=== PATIENT | male | born 1940 | race Caucasian/White ===

== ENCOUNTER → 2017-01-21 | Outpatient (CLI) | payer OTHER ==
[~2017-01-21] MED LIST: ASCA500 PO; ASPI-232 PO; BNC/20125 PO; CRS/10 PO; NEBI10TA2 PO; NUTR1TAB3 PO; TAMS0.4C38 PO
[2017-01-21 09:24] LABS: MEAN CORPUSCULAR HGB CONC 37.3 g/dl (32-36); MEAN PLATELET VOLUME 9.7 fL (7.4-10.4); PLATELET COUNT 173 K/uL (130-400)
[2017-01-21 09:48] LABS: ESTIMATED AVERAGE GLUCOSE 105 mg/dl; HA1C FLAG Normal (Normal)
[2017-01-21 09:54] LABS: ALT/SGPT 27 U/L (12-78); AST/SGOT 24 U/L (15-37); BLOOD UREA NITROGEN 11 mg/dl (7-18); BUN/CREATININE RATIO 11.8 (10-20); CALCIUM 8.6 mg/dl (8.5-10.1); CARBON DIOXIDE 25 mmol/L (21-32); CHLORIDE 101 mmol/L (98-107); CHOLESTEROL 160 mg/dl (0-200); CREATININE 0.95 mg/dl (0.60-1.40); GLUCOSE 80 mg/dl (70-99); POTASSIUM 4.1 mmol/L (3.5-5.1); SODIUM 135 mmol/L (136-145)
[2017-01-21 09:57] LABS: ALB/GLOB RATIO 1.1 (0.9-2); ALKALINE PHOSPHATASE 95 U/L (45-117); CHOLESTEROL/HDL RATIO 2.3; HDL CHOLESTEROL 70 mg/dl; TRIGLYCERIDES 80 mg/dl (0-150); VERY LOW DENSITY LIPOPROT CALC 16 mg/dl
[2017-01-21 10:10] LABS: BASO % 0.4 %; BASO ABS # 0.02 K/uL (0-0.2); COMPLETE YES; EOS % 3.6 %; HEMATOCRIT 42.9 % (42-52); IG% 0.4 %; LYMPH % 23.2 %; LYMPH ABS # 1.17 K/uL (1.2-3.4); MEAN CELL VOLUME 97.9 fL (80-100); MEAN CORPUSCULAR HEMOGLOBIN 36.5 pg (25-34); MONO % 11.3 %; NEUT % 61.1 %; RED BLOOD COUNT 4.38 M/uL (4.7-6.1); WHITE BLOOD COUNT 5.05 K/uL (4.8-10.8)
== END | disposition home or self-care (01) ==
LOC: C.LAB 08:45
PROVIDERS: ATTEND Internal Medicine
DX: I25.10 Atherosclerotic heart disease of native coronary artery without angina pectoris (principal); E78.5 Hyperlipidemia, unspecified; R73.9 Hyperglycemia, unspecified; I10 Essential (primary) hypertension

== ENCOUNTER → 2017-05-20 | Outpatient (CLI) | payer OTHER | END | disposition home or self-care (01) | LOC: C.PATHSPEC 14:49 | PROVIDERS: ATTEND Urology | DX: C67.9 Malignant neoplasm of bladder, unspecified (principal); N30.20 Other chronic cystitis without hematuria ==

== ENCOUNTER → 2017-12-20 | Outpatient (CLI) | payer OTHER ==
[2017-12-20 17:32] LABS: ALBUMIN 3.7 gm/dl (3.4-5.0); ALKALINE PHOSPHATASE 91 U/L (45-117); ALT/SGPT 31 U/L (12-78); AST/SGOT 31 U/L (15-37); BLOOD UREA NITROGEN 15 mg/dl (7-18); CALCIUM 8.9 mg/dl (8.5-10.1); CARBON DIOXIDE 25 mmol/L (21-32); CHOLESTEROL 157 mg/dl (0-200); CREATININE 1.21 mg/dl (0.60-1.40); GLUCOSE 102 mg/dl (70-99); LDL CHOLESTEROL (DIRECT) 87 mg/dl; SODIUM 134 mmol/L (136-145); TOTAL PROTEIN 7.1 gm/dl (6.4-8.2)
== END | disposition home or self-care (01) ==
LOC: C.LABSPEC 16:41
PROVIDERS: ATTEND Internal Medicine
DX: I25.10 Atherosclerotic heart disease of native coronary artery without angina pectoris (principal); I10 Essential (primary) hypertension; E78.5 Hyperlipidemia, unspecified

== ENCOUNTER 2023-12-13 11:49 | Inpatient (IN) ==
[2023-12-13 12:29] LABS: Basophils # (auto) 0.03 K/uL (0.00-0.20); Basophils % (auto) 0.3 %; Eosinophils # (auto) 0.16 K/uL (0.00-0.50); Eosinophils % (auto) 1.7 %; Hematocrit (blood only) 42.3 % (42.0-52.0); Hemoglobin 15.2 g/dl (14.0-18.0); Immature Granulocytes # (auto) 0.03 K/uL (0.01-0.20); Immature Granulocytes % (auto) 0.3 %; Lymphocytes # (auto) 0.73 K/uL (1.20-3.40); Lymphocytes % (auto) 7.8 %; Mean Corpuscular Hemoglobin 36.8 pg (25.0-34.0); Mean Corpuscular Hgb Conc 35.9 g/dL (32.0-36.0); Mean Corpuscular Volume 102.4 fL (80.0-100.0); Mean Platelet Volume 9.6 fL (9.4-12.4); Monocytes # (auto) 1.27 K/uL (0.11-0.59); Monocytes % (auto) 13.6 %; Neutrophils # (auto) 7.12 K/uL (1.40-6.50); Neutrophils % (auto) 76.3 %; Platelet Count 148 K/uL (130-400); RDW Coefficient of Variation 12.5 % (11.5-14.5); RDW Standard Deviation 46.5 fL (36.4-46.3); Red Blood Count 4.13 M/uL (4.70-6.10); White Blood Count 9.34 K/ul (4.8-10.8)
[2023-12-13 12:38] LABS: Albumin Globulin Ratio 1.5 (0.9-2); Albumin Level 4.3 gm/dl (3.4-5.0); BUN Creatinine Ratio 10.5 (10-20); Bilirubin,Total 1.4 mg/dl (0.2-1.0); Calcium 9.4 mg/dl (8.6-10.3); Creatinine Clr Calc Pharmacy 47.4 ml/min; Est GFR (African American) 62.4 ml/min; Est GFR (Non-African American) 53.8 ml/min; Globulin 2.9 gm/dl (2.5-4.0); Potassium 4.1 mmol/L (3.5-5.1); Total Protein 7.2 gm/dl (6.0-8.3)
[2023-12-13 12:49] LABS: Partial Thromboplastin Ratio 1.2; Partial Thromboplastin Time 31 Seconds (21-31); Prothrombin Time 10.9 Seconds (9.0-12.0)
--- NOTE | 2023-12-13 13:05 | Emergency Department Note ---
Impression & Plan Weakness, Hematuria, Acute hyponatremia, Coagulopathy ED Provider Note NAME: SANTOS CESPEDES AGE: 83 SEX: M : 1940 ARRIVES VIA: Walk-In INFORMANT: [Patient] ED PROVIDER(S): [Demond Booth MD] CHIEF COMPLAINT: Hematuria, weakness HISTORY OF PRESENT ILLNESS: The patient is an 83-year-old male with atrial fibrillation. He had a prostate biopsy yesterday. He left the procedure wearing a Guzman catheter. There has been blood in his urine ever since the procedure. He has felt weak and a bit lightheaded. The patient had been on Eliquis but held the medication for the procedure. He is now using Lovenox. His last Lovenox injection was last evening. The patient has persisted with blood in the Guzman catheter. He is concerned that the catheter may not be in the proper position. He was worried that he had lost some blood causing his symptoms. The patient has not had fever, no cough or congestion. The patient does have some irritation from the Guzman catheter. He does admit to drinking a lot of free water in order to keep himself hydrated and his urine flowing. PMHx/PSHx/Social Hx: See Below PHYSICAL EXAM: GENERAL: Patient is in no acute distress. HEENT: No acute trauma, normocephalic atraumatic, mucous membranes moist, no nasal congestion. NECK: No stridor, no adenopathy, no meningismus, trachea is midline. LUNGS: Clear to auscultation bilaterally, no wheeze, no rhonchi, breath sounds equal. Breath sounds diminished bilaterally. HEART: Without murmurs gallops or rubs, irregular rhythm, normal rate. Heart tones distant. ABDOMEN: Soft, nontender, no peritonitis. Guzman catheter in place with a bloody urine in his leg bag. EXTREMITIES: No cyanosis, full range of motion of all the joints without pain or difficulty. NEUROLOGIC: Oriented x 3, no acute motor or sensory deficits, no focal weakness. SKIN: No jaundice, no diaphoresis. DIFFERENTIAL DIAGNOSIS: UTI, anemia, malpositioned Guzman catheter, coagulopathy, electrolyte imbalance, among others. EMERGENCY DEPARTMENT PROCEDURES: MEDICAL DECISION MAKING: There is no leukocytosis or concerning anemia. There is a normal platelet count. No coagulopathy. Sodium was quite low at 126. No renal failure. There were a few subtle liver enzyme elevations. Urinalysis results pending. On exam, the patient had obvious hematuria looking at the Guzman leg bag. The patient presents with weakness. He was having hematuria since his procedure yesterday. He is on subcu Lovenox. The patient's hyponatremia is likely causing his complaints. He may have consumed too much free water over the last 24 hours. With the hyponatremia, his weakness, the hematuria, his Lovenox use, and the recent urology procedure, the patient is in need of a hospital stay and further care. I did speak with case management and the on-call hospitalist. I did speak with Dr. Rodrigez of urology. Prior/Outside records/notes reviewed: None Imaging/x-ray results per my interpretation: Chronic Medical/Social conditions affecting care: Advanced age, chronic anticoagulation. Care/Management discussed with: Case management, the on-call hospitalist. [facility] urology-Dr. Rodrigez. Level of care consideration(s): After review of the information above and other included data: --I believe the patient requires escalation of care to admission DISPOSITION: Admission with urology consult. Past Med/Surg History Problem List (Updated 12/13/23 @ 14:05 by Demond Booth MD) Coagulopathy (Acute) Acute hyponatremia (Acute) Hematuria (Acute) Weakness (Acute) Hyponatremia Blood in the urine Pulmonary embolism dx 12/02/23 on Eliquis History of prostate cancer Port-A-Cath in place (09/14/22) Port placement with fluoroscopy. Dr. Mccormack Recurrent left inguinal hernia Urethral stricture Bladder carcinoma (Chronic) 07/2022- hx chemo Atrial fibrillation Was on Eliquis - currently on hold (started holding 11/29/23 due to upcoming urology biopsy but PE was noted on 12/02/[address]- patient subsequently started on Lovenox) History of left inguinal hernia repair (05/24/22) Recurrent left inguinal hernia repair with mesh Dr. Mccormack Coronary artery disease s/p CABG x 3 in 2012 (HEALY graft to LAD, saphenous vein graft to the obtuse marginal, saphenous vein graft to the right coronary artery and posterior descending artery) Primary hypertension Chronic HFrEF (heart failure with reduced ejection fraction) EF 50-54% 03/24/23 echo Peripheral arterial disease - Status post stenting of bilateral superficial femoral [id number] - Status post atherectomy and angioplasty and stenting of right SFA 2016 - S/p atherectomy and drug-coated balloon angioplasty right SFA January 2020 - S/p right femoral-popliteal bypass April 2021 Mixed hyperlipidemia Polymyalgia rheumatica Medical History History of pulmonary embolism Per 12/02/[address] scan (Eliquis had been on hold x 3-4 days; failed Eliquis therapy per records) - Patient was to start Lovenox 12/02/23 but did not lemon picker script until 12/05/23 per heme office long term care administrator (current) use of systemic steroids Pulmonary hypertension PASP 40-50 mmHg per 03/2023 ECHO COPD (chronic obstructive pulmonary disease) Suspected sleep apnea noted on 07/31/18 anesthesia consult Bifascicular block RBBB/LAFB (chronic) Carotid stenosis, bilateral s/p left CEA in 2016 <50% R and L carotid stenosis per 2021 carotid duplex, follows with [facility] Hemophilia A Ascending aortic aneurysm Fusiform dilation of the ascending thoracic aorta is stable from prior measuring 4.2 cm per 12/02/[address] Tricuspid regurgitation severe- per 03/2023 ECHO Hx of motion sickness History of COVID-19 02/05/22, home test, not hosp; cough, headache, fever>called PCP, put on Paxlovid>resolved. Radiation cystitis hx Prostate cancer 2011 hx-had radioactive seeds placed, no sx. Surgical History History of removal of Port-a-Cath (06/30/23) Access Port Removal(Left) - Sanford Perez, , FACS Hx of cataract extraction rt./lt eye (will be done 06/15/23) History of surgery TURBT 04/07/23 [facility] Status post carotid endarterectomy left 2017 Hx of appendectomy Hx of colonoscopy Hx of vascular surgery x2 stents placed in each lower extremity, [place] Hx of cystoscopy multiple, 08/01/18: LMA 4 last one in Jul 2022 Cystoscopy, TURBT medium- Terry Townsend MD Status post bilateral carotid endarterectomy S/P left inguinal hernia repair Status post cardiac surgery failed stress test>bypass surgery 2012, [place], x3 vessels; f/u dr beckford History of biopsy of bladder Family History Sister Breast cancer Mother Diabetes Heart disease Other Asthma Cancer No family history of adverse response to anesthesia Denies family history of Ovarian cancer Prostate cancer Social History Smoking Status: Never smoker Tobacco Type: Cigarettes Cigarettes Per Day: smoked 40 years; Second Hand Exposure: No; Do You Dip or Chew Tobacco: No; Hx Alcohol Use: Yes Alcohol type: beer Hx Substance Use: No Preferred Language: Guinean Communication Ability: Effective Communication Ability Comment: [place] Visual Impairment: No Limitations Hearing Ability: Normal 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: No Beliefs That Will Affect Care: None marital status: Current Living Situation: Spouse current occupational status: retired How many Children do You have: 2 Feels Safe at Home: Yes Childhood Exposure to Second-Hand Smoke: No caffeine: Yes during the past year weight has: remained stable Dental Care, Regularly: Yes Physical Activity Frequency: 3-4 Times per Week Seatbelt Use: always Sunscreen Use: Yes Assistive Devices: Glasses and Hearing Aid - Bilateral Allergies Allergies Allergy/AdvReac Type Severity Reaction Status Date / Time nitrofurantoin Allergy Intermediate FEVER Verified 12/12/23 09:37 losartan Allergy Mild Rash Verified 12/12/23 09:37 meperidine AdvReac Intermediate SEVERE Verified 12/12/23 09:37 NAUSEA AND VOMITING spironolactone AdvReac Intermediate gynecomasti Verified 12/12/23 09:37 a Home Meds Home Medications Medication Instructions Recorded Confirmed metoprolol succinate 50 mg 25 mg PO BID 01/12/22 12/13/23 tablet,extended release 24 hr terazosin 2 mg capsule 2 mg PO HS 07/01/22 12/13/23 enoxaparin 80 mg/0.8 mL 80 mg subcut Q12H 12/06/23 12/13/23 subcutaneous syringe (Lovenox) prednisone 1 mg tablet 4 mg PO QAM arthritis 12/06/23 12/13/23 Previous Rx's Medication Instructions Recorded amlodipine 10 mg tablet 10 mg PO QAM #90 tabs 03/23/23 tamsulosin 0.4 mg capsule 0.4 mg PO QAM #90 caps 03/23/23 rosuvastatin 20 mg tablet (Crestor) 20 mg PO HS #90 tabs 08/09/23 sulfamethoxazole 800 1 tab PO BID #20 tabs 12/02/23 mg-trimethoprim 160 mg tablet (Bactrim DS) Results & Data (ED) Vital Signs Vital Signs - 24 hr 12/13/23 11:55 12/13/23 13:37 Temperature 36.4 C L Temperature Source Temporal Artery Scan Pulse Rate 77 Pulse Rate [Left Finger] 69 Respiratory Rate 20 18 Respiratory Effort / Characteristics Non-Labored Spontaneous Non-Labored Spontaneous Respiratory Depth Normal Normal Blood Pressure 185/76 H Blood Pressure [Right Arm] 173/97 H Blood Pressure Mean 112 Blood Pressure Mean [Right Arm] 122 Pulse Oximetry 94 96 Oxygen Delivery Method Room Air Room Air Sepsis Recent Fever Within 48 Hours No Sepsis New/Unexplained Change in Mental Status No Sepsis Action Taken by Nursing No Action Required Home Medications Current Medication List: was personally reviewed by me Laboratory Data Attestation: I reviewed the patient's lab results. 12/13/23 12:02 12/13/23 12:02 Lab Results 12/13/23 Range/Units 12:02 WBC 9.34 (4.8-10.8) K/ul RBC 4.13 L (4.70-6.10) M/uL Hgb 15.2 (14.0-18.0) g/dl Hct 42.3 (42.0-52.0) % MCV 102.4 H (80.0-100.0) fL MCH 36.8 H (25.0-34.0) pg MCHC 35.9 (32.0-36.0) g/dL RDW Std Deviation 46.5 H (36.4-46.3) fL RDW Coeff of Greyson 12.5 (11.5-14.5) % Plt Count 148 (130-400) K/uL MPV 9.6 (9.4-12.4) fL Immature Gran % (Auto) 0.3 % Neut % (Auto) 76.3 % Lymph % (Auto) 7.8 % Payne % (Auto) 13.6 % Eos % (Auto) 1.7 % Baso % (Auto) 0.3 % Neut # (Auto) 7.12 H (1.40-6.50) K/uL Lymph # (Auto) 0.73 L (1.20-3.40) K/uL Payne # (Auto) 1.27 H (0.11-0.59) K/uL Eos # (Auto) 0.16 (0.00-0.50) K/uL Baso # (Auto) 0.03 (0.00-0.20) K/uL Immature Gran # (Auto) 0.03 (0.01-0.20) K/uL PT 10.9 (9.0-12.0) Seconds INR 1.0 (0.9-1.1) APTT 31 (21-31) Seconds PTT Ratio 1.2 Sodium 126 L (136-145) mmol/L Potassium 4.1 (3.5-5.1) mmol/L Chloride 95 L (98-107) mmol/L Carbon Dioxide 24 (21-32) mmol/L Anion Gap 7 (3-11) BUN 13 (6-23) mg/dl Creatinine 1.24 (0.6-1.4) mg/dl Est Cr Clr Drug Dosing 47.4 ml/min Est GFR ( Amer) 62.4 ml/min Est GFR (Non-Af Amer) 53.8 ml/min BUN/Creatinine Ratio 10.5 (10-20) Glucose 144 H (70-99(Fasting)) mg/dl Calcium 9.4 (8.6-10.3) mg/dl Magnesium 1.7 (1.7-2.4) mg/dl Total Bilirubin 1.4 H (0.2-1.0) mg/dl AST 23 (13-39) U/L ALT 18 (7-52) U/L Alkaline Phosphatase 138 H (34-104) U/L Total Protein 7.2 (6.0-8.3) gm/dl Albumin 4.3 (3.4-5.0) gm/dl Globulin 2.9 (2.5-4.0) gm/dl Albumin/Globulin Ratio 1.5 (0.9-2) Administered Medications Discontinued Medications Sodium Chloride (Nss) 500 mls @ 999 mls/hr IV .Q31M ONE Stop: 12/13/23 13:29 Last Admin: 12/13/23 13:36 Dose: Not Given Documented By: MMN Discharge Plan Visit Data Chief Complaint: Hematuria Stated Complaint: SURGERY YESTERDAY, CATHETER IS BLEEDING ED Provider: Demond Booth Discharge Problem: Weakness, Hematuria, Acute hyponatremia, Coagulopathy Patient Disposition: Admitted As Inpatient Condition: Fair Forms Stand Alone Forms: [facility] Prescriptions Prescriptions: No Action tamsulosin 0.4 mg capsule 0.4 mg PO QAM Qty: 90 3RF amlodipine 10 mg tablet 10 mg PO QAM Qty: 90 3RF rosuvastatin [Crestor] 20 mg tablet 20 mg PO HS Qty: 90 3RF metoprolol succinate 50 mg tablet extended release 24 hr 25 mg PO BID terazosin 2 mg capsule 2 mg PO HS sulfamethoxazole-trimethoprim [Bactrim DS] 800-160 mg tablet 1 tab PO BID Qty: 20 0RF enoxaparin [Lovenox] 80 mg/0.8 mL Syringe 80 mg SUBCUT Q12H prednisone 1 mg tablet 4 mg PO QAM Referrals Referrals: Jael Yu MD [Primary Care Provider] - Discharge Problem: Hematuria Qualifiers: Hematuria type: gross Qualified Code(s): R31.0 - Gross hematuria
--- NOTE | 2023-12-13 13:22 | History & Physical Report ---
Date of Service December 13, 2023 Assessment & Plan (1) Hyponatremia: Plan: Carlos is an 83-year-old male with past medical history of PE, A-fib, CAD, heart failure with reduced ejection fraction, PAD, PMR on anticoagulation who underwent prostate biopsy/transurethral resection of bladder carcinoma 12/12/2023. He has a Guzman in place but following his procedure has had continued output of sanguinous urine. Patient is anticoagulated on Eliquis normally on this was transition to Lovenox periprocedurally. He endorses some weakness. No fever, chills, sweats, dysuria. On ER evaluation hemoglobin is actually increased from prior, 15.2 with creatinine 13.5. He is acutely hyponatremic at 126, last 136. There is no MERRICK. Patient is recommended for admission due to lightheadedness/dizziness with associated hyponatremia. Hyponatremia Suspect weakness and dizziness with hyponatremia - Most likely due to polydipsia and patient has been drinking large amounts of water to try and stay hydrated. He has not had over 716 ounce bottles of water yesterday, and 2 today - Urine sodium, urine osmolality, serum osmolality pending. DDx includes SIADH and polydipsic. He shows no symptoms at time of admission and only symptom was some slight lightheadedness, dizziness will not treat with hypertonic saline and expect him to have gradual rise with auto diuresis and fluid restriction Fluid restrict Trend BMP every 4 hours (2) Blood in the urine: Plan: Hematuria -Patient has red-tinged urine which is not melecio blood in the Guzman bag. He is very well-hydrated and despite this has a hemoglobin that is actually uptrending. As he has had an acute PE in the last 2 weeks the risks of holding anticoagulation outweigh the benefit, especially since he has a small amount of expected sanguinous output into his urine bag but without melecio bloody output and with a stable hemoglobin that is actually uptrending. Lovenox is continued. Patient also has a history of vascular stents, although no cardiac stents. 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 Treated with Rituxan/Cyclophosphamide/Prednisone. Evaluated by Dr. Mac at [facility] in [address] Viraj Steinberg 12/2019 at [facility]. Overall no evidence of factor VIII deficiency noted. No evidence of lupus anticoagulant noted. He could go for surgical intervention as planned earlier." per [facility] 11/02/22: "Factor VIII inhibitor: resolved with rituximab, cyclophosphamide and steroid treatment in 2018." Suspected to be induced by antiplatelet agents (4) Chronic HFrEF (heart failure with reduced ejection fraction): Plan: No chest pain, chest pressure. No hypoxia. He is not in acute heart failure decompensation on admission Last echo 03/2023: EF 50-54%, septal motion consistent with intraventricular conduction delay, no AAS is seen, severe TR is noted, moderate pulmonary hypertension Continue statin, metoprolol. Anticoagulation held (5) Peripheral arterial disease: Plan: PAD - Status post stenting of bilateral superficial femoral [id number] - Status post atherectomy and angioplasty and stenting of right SFA 2016 - S/p atherectomy and drug-coated balloon angioplasty right SFA January 2020 - S/p right femoral-popliteal bypass April 2021 Anticoagulation as noted, patient reports he is not able to take Plavix/antiplatelet (6) COPD (chronic obstructive pulmonary disease): Plan: No wheezing on exam History of Present Illness Primary Care Provider: Jael Yu MD Carlos is seen at the bedside. He reports that he had a biopsy yesterday of his prostate and has a Guzman bag in place. This has been draining red-colored urine, although which is more of a urine consisting has not been thick blood. He had some dizziness today and was concerned about anemia. He reports he has been drinking very large amount of water to stay hydrated. He has had around 7x 16 ounce bottles of water yesterday and 216 ounce bottles of water today. He has not had any chest pain, chest pressure, shortness of breath. He has had no fever, chills, sweats and has no abdominal pain. He does not feel weak just got transiently lightheaded earlier today. He was diagnosed with a acute PE 2 weeks ago and remains on Lovenox for this. He was previously on Eliquis this was transitioned to Lovenox periprocedurally. He has been on Bactrim perioperatively which he did take this morning. Medical History: Reviewed Medications: Reviewed Surgical History: Reviewed Family history: Reviewed Allergies: Reviewed Social History: Reviewed Code Status: Full Allergies Allergy/AdvReac Type Severity Reaction Status Date / Time nitrofurantoin Allergy Intermediate FEVER Verified 12/12/23 09:37 losartan Allergy Mild Rash Verified 12/12/23 09:37 meperidine AdvReac Intermediate SEVERE Verified 12/12/23 09:37 NAUSEA AND VOMITING spironolactone AdvReac Intermediate gynecomasti Verified 12/12/23 09:37 a Home Medications Medication Instructions Recorded Confirmed Type metoprolol succinate 50 mg 25 mg PO BID 01/12/22 12/13/23 History tablet,extended release 24 hr terazosin 2 mg capsule 2 mg PO HS 07/01/22 12/13/23 History amlodipine 10 mg tablet 10 mg PO QAM #90 tabs 03/23/23 12/13/23 Rx tamsulosin 0.4 mg capsule 0.4 mg PO QAM #90 caps 03/23/23 12/13/23 Rx rosuvastatin 20 mg tablet (Crestor) 20 mg PO HS #90 tabs 08/09/23 12/13/23 Rx sulfamethoxazole 800 1 tab PO BID #20 tabs 12/02/23 12/13/23 Rx mg-trimethoprim 160 mg tablet (Bactrim DS) enoxaparin 80 mg/0.8 mL 80 mg subcut Q12H 12/06/23 12/13/23 History subcutaneous syringe (Lovenox) prednisone 1 mg tablet 4 mg PO QAM arthritis 12/06/23 12/13/23 History Past Med/Surg History Problem List (Updated 12/13/23 @ 13:18 by Isma Gibbs MD) Hyponatremia Blood in the urine Pulmonary embolism dx 12/02/23 on Eliquis History of prostate cancer Port-A-Cath in place (09/14/22) Port placement with fluoroscopy. Dr. Mccormack Recurrent left inguinal hernia Urethral stricture Bladder carcinoma (Chronic) 07/2022- hx chemo Atrial fibrillation Was on Eliquis - currently on hold (started holding 11/29/23 due to upcoming urology biopsy but PE was noted on 12/02/[address]- patient subsequently started on Lovenox) History of left inguinal hernia repair (05/24/22) Recurrent left inguinal hernia repair with mesh Dr. Mccormack Coronary artery disease s/p CABG x 3 in 2012 (HEALY graft to LAD, saphenous vein graft to the obtuse marginal, saphenous vein graft to the right coronary artery and posterior descending artery) Primary hypertension Chronic HFrEF (heart failure with reduced ejection fraction) EF 50-54% 03/24/23 echo Peripheral arterial disease - Status post stenting of bilateral superficial femoral [id number] - Status post atherectomy and angioplasty and stenting of right SFA 2016 - S/p atherectomy and drug-coated balloon angioplasty right SFA January 2020 - S/p right femoral-popliteal bypass April 2021 Mixed hyperlipidemia Polymyalgia rheumatica Medical History (Updated 12/13/23 @ 13:18 by Isma Gibbs MD) History of pulmonary embolism Per 12/02/[address] scan (Eliquis had been on hold x 3-4 days; failed Eliquis therapy per records) - Patient was to start Lovenox 12/02/23 but did not tow picker script until 12/05/23 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) use of systemic steroids Pulmonary hypertension PASP 40-50 mmHg per 03/2023 ECHO COPD (chronic obstructive pulmonary disease) Suspected sleep apnea noted on 07/31/18 anesthesia consult Bifascicular block RBBB/LAFB (chronic) Carotid stenosis, bilateral s/p left CEA in 2016 <50% R and L carotid stenosis per 2021 carotid duplex, follows with [facility] vascular Hemophilia A Ascending aortic aneurysm Fusiform dilation of the ascending thoracic aorta is stable from prior measuring 4.2 cm per 12/02/[address] Tricuspid regurgitation severe- per 03/2023 ECHO Hx of motion sickness History of COVID-19 02/05/22, home test, not hosp; cough, headache, fever>called PCP, put on Paxlovid>resolved. Radiation cystitis hx Prostate cancer 2011 hx-had radioactive seeds placed, no sx. Surgical History History of removal of Port-a-Cath (06/30/23) Access Port Removal(Left) - Sanford Perez DO, FACS Hx of cataract extraction rt./lt eye (will be done 06/15/23) History of surgery TURBT 04/07/23 [facility] Status post carotid endarterectomy left 2017 Hx of appendectomy Hx of colonoscopy Hx of vascular surgery x2 stents placed in each lower extremity, [place] Hx of cystoscopy multiple, 08/01/18: LMA 4 last one in Jul 2022 Cystoscopy, TURBT medium- Terry Townsend MD Status post bilateral carotid endarterectomy S/P left inguinal hernia repair Status post cardiac surgery failed stress test>bypass surgery 2012, [facility], x3 vessels; f/u dr beckford History of biopsy of bladder Family History Sister Breast cancer Mother Diabetes Heart disease Other Asthma Cancer No family history of adverse response to anesthesia Denies family history of Ovarian cancer Prostate cancer Social History Smoking Status: Never smoker Tobacco Type: Cigarettes Cigarettes Per Day: smoked 40 years; Second Hand Exposure: No; Do You Dip or Chew Tobacco: No; Hx Alcohol Use: Yes Alcohol type: beer Hx Substance Use: No Preferred Language: Upper Sorbian Communication Ability: Effective Communication Ability Comment: [place] Visual Impairment: No Limitations Hearing Ability: Normal Early Breastfeeding Care Specialist Required: No Beliefs That Will Affect Care: None marital status: Current Living Situation: Spouse current occupational status: retired How many Children do You have: 2 Feels Safe at Home: Yes Childhood Exposure to Second-Hand Smoke: No caffeine: Yes during the past year weight has: remained stable Dental Care, Regularly: Yes Physical Activity Frequency: 3-4 Times per Week Seatbelt Use: always Sunscreen Use: Yes Assistive Devices: Glasses and Hearing Aid - Bilateral Physical Exam Physical Exam: General: A&Ox3. NAD. Cooperative. HEENT: Atraumatic, normocephalic. Vision and hearing grossly intact Pulm: CTAB A&P. -wheezes, -rales, -rhonchi. Symmetrical chest rise. No increased work of breathing. No respiratory distress. Cardiac: RRR, -mrg. Radial pulses intact and symmetrical. JVD is not present Abdominal: Nontender, nondistended, soft. BS present. : Guzman bag in place draining serosanguineous but not overtly bloody urine Extremities: Trace to minimal edema of the ankles bilaterally, moves all extremities equally and sensation/strength is grossly intact Results & Data Results & Data Vital Signs (Past 12 Hours) Vital Signs Temp Pulse Resp BP Pulse Ox O2 Del Method 12/13/23 11:55 36.4 C L 77 20 185/76 H 94 Room Air PG Care Time/CCT Total # of Minutes Spent Total Time Spent with Patient: Total time spent is greater than 50% in coordination of care (as documented) at patient's floor/unit and/or counseling patient: Coding Level of Care Code 50676 INT INP/OBS CARE MIN Diagnoses Hyponatremia E87.1 Blood in the urine R31.9 Hemophilia A D66 Chronic HFrEF (heart failure with reduced ejection fraction) I50.22 Peripheral arterial disease I73.9 COPD (chronic obstructive pulmonary disease) J44.9
[2023-12-13] MEDS: SODIUM CHLORIDE 0.9% 500 ML IV ONE (13:36)
[2023-12-13 13:45] LABS: Magnesium 1.7 mg/dl (1.7-2.4)
[2023-12-13] MEDS ORDERED: ACETAMINOPHEN 325 MG TAB PO PRN (15:28)
[2023-12-13 16:36] LABS: BUN Creatinine Ratio 12.2 (10-20); Calcium 8.7 mg/dl (8.6-10.3); Creatinine Clr Calc Pharmacy 61.9 ml/min; Est GFR (African American) 82.9 ml/min; Est GFR (Non-African American) 71.5 ml/min
[2023-12-13] MEDS: cefTRIAXone SODIUM 1,000 MG/50 ML BAG IV SCH (16:55)
--- NOTE | 2023-12-13 16:58 | Ultrasound Report ---
BILATERAL LOWER EXTREMITY VENOUS DOPPLER CLINICAL HISTORY: Right lower extremities swelling. COMPARISON STUDY: No previous studies for comparison. TECHNIQUE: Sonography of the deep venous system of the bilateral lower extremities was performed. Co mpression and augmentation were evaluated. FINDINGS: The bilateral common femoral, superficial femoral and popliteal veins were compressible. A ugmentation was normal. Flow was shown within the deep calf vessels. Incidental note is made of a 3.2 x 2.5 x 0.8 cm left popliteal cyst. IMPRESSION: 1. No evidence of deep venous thrombus within the bilateral lower extremities. 2. 3.2 x 2.5 x 0.8 cm left popliteal cyst. ACT 112: Negative or not required by law. Electronically signed by: Akhil Tse M.D. 12/13/2023 4:57 PM
[2023-12-13 17:36] LABS: Appearance Urine Slightly Cloudy (Clear); Specific Gravity Urine 1.007 (1.000-1.030)
[2023-12-13 17:37] LABS: RBC Urine Automated >20 /hpf (0-4)
[2023-12-13 17:38] LABS: Bacteria Urine Automated None Seen (Negative); Cast Urine Automated 0-2 /lpf (0-5); Epithelial Cell Urine Auto 0-2 /lpf (0-5)
[2023-12-13 20:56] LABS: Hematocrit (blood only) 37.1 % (42.0-52.0); Hemoglobin 13.7 g/dl (14.0-18.0)
[2023-12-13 21:14] LABS: BUN Creatinine Ratio 10.3 (10-20); Creatinine Clr Calc Pharmacy 56.7 ml/min; Est GFR (African American) 74.5 ml/min; Est GFR (Non-African American) 64.3 ml/min; Potassium 3.9 mmol/L (3.5-5.1)
[2023-12-13] MEDS: MELATONIN 3 MG TAB PO PRN (21:36)
[2023-12-13] MEDS: TERAZOSIN HCL 1 MG CAP PO SCH (21:36)
[2023-12-13] MEDS: METOPROLOL SUCC 25MG EXT REL TAB PO SCH (21:37)
[2023-12-13] MEDS: ROSUVASTATIN CALCIUM 20 MG TAB PO SCH (21:37)
[2023-12-13] MEDS: ENOXAPARIN 80 MG/0.8 ML SYR SQ SCH (21:37)
[2023-12-14 01:24] LABS: Potassium 3.9 mmol/L (3.5-5.1)
[2023-12-14 01:25] LABS: BUN Creatinine Ratio 10.1 (10-20); Calcium 8.6 mg/dl (8.6-10.3); Creatinine Clr Calc Pharmacy 55.6 ml/min; Est GFR (African American) 72.9 ml/min; Est GFR (Non-African American) 62.9 ml/min
[2023-12-14 06:14] LABS: Basophils # (auto) 0.03 K/uL (0.00-0.20); Basophils % (auto) 0.5 %; Eosinophils # (auto) 0.21 K/uL (0.00-0.50); Eosinophils % (auto) 3.8 %; Hematocrit (blood only) 35.6 % (42.0-52.0); Hemoglobin 12.9 g/dl (14.0-18.0); Immature Granulocytes # (auto) 0.01 K/uL (0.01-0.20); Immature Granulocytes % (auto) 0.2 %; Lymphocytes # (auto) 0.69 K/uL (1.20-3.40); Lymphocytes % (auto) 12.6 %; Mean Corpuscular Hemoglobin 36.6 pg (25.0-34.0); Mean Corpuscular Hgb Conc 36.2 g/dL (32.0-36.0); Mean Corpuscular Volume 101.1 fL (80.0-100.0); Mean Platelet Volume 9.6 fL (9.4-12.4); Monocytes # (auto) 0.94 K/uL (0.11-0.59); Monocytes % (auto) 17.1 %; Neutrophils # (auto) 3.61 K/uL (1.40-6.50); Neutrophils % (auto) 65.8 %; Platelet Count 123 K/uL (130-400); RDW Coefficient of Variation 12.3 % (11.5-14.5); RDW Standard Deviation 45.5 fL (36.4-46.3); Red Blood Count 3.52 M/uL (4.70-6.10); White Blood Count 5.49 K/ul (4.8-10.8)
[2023-12-14 06:15] LABS: BUN Creatinine Ratio 10.6 (10-20); Calcium 8.7 mg/dl (8.6-10.3); Creatinine Clr Calc Pharmacy 57.9 ml/min; Est GFR (African American) 77.1 ml/min; Est GFR (Non-African American) 66.6 ml/min; Potassium 3.8 mmol/L (3.5-5.1)
[2023-12-14] MEDS: amLODIPine BESYLATE 5 MG TAB PO SCH (08:23)
[2023-12-14] MEDS: predniSONE 1 MG TAB PO SCH (08:23)
[2023-12-14] MEDS: TAMSULOSIN HCL 0.4 MG CAP PO SCH (08:23)
--- NOTE | 2023-12-14 13:49 | Hospitalist Progress Note ---
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 Treated with Rituxan/Cyclophosphamide/Prednisone. Evaluated by Dr. Mac [place] [facility] [place] [address] Viraj Steinberg 12/2019 at [facility]. Overall no evidence of factor VIII deficiency noted. No evidence of lupus anticoagulant noted. He could go for surgical intervention as planned earlier." per CCP 11/02/22: "Factor VIII inhibitor: resolved with rituximab, cyclophosphamide and steroid treatment in 2019." Suspected to be induced by antiplatelet agents (4) Pulmonary embolism: Plan: Was in the process of starting Coumadin, but currently on hold Countinue Lovenox for now (5) Chronic HFrEF (heart failure with reduced ejection fraction): Plan: No chest pain, chest pressure. No hypoxia. He is not in acute heart failure decompensation on admission Last echo 03/2023: EF 50-54%, septal motion consistent with intraventricular conduction delay, no AAS is seen, severe TR is noted, moderate pulmonary hypertension Continue statin, metoprolol. Anticoagulation held (6) Peripheral arterial disease: Plan: PAD - Status post stenting of bilateral superficial femoral [id number] - Status post atherectomy and angioplasty and stenting of right SFA 2016 - S/p atherectomy and drug-coated balloon angioplasty right SFA January 2020 - S/p right femoral-popliteal bypass April 2021 Anticoagulation as noted, patient reports he is not able to take Plavix/antiplatelet (7) COPD (chronic obstructive pulmonary disease): Plan: No wheezing on exam Plan continue to monitor Admission and Anticipated Discharge Date Admission Date: December 14, 2023 Subjective patient seen and examined, still some blood in his de oliveira catheter Review of Systems 2 Review of Systems: All systems reviewed are negative, apart from the ones contained in the history. Physical Exam Physical Exam: The patient is awake, alert and oriented 3, well developed and well nourished, normocephalic and atraumatic, lying in bed and in no acute distress. HEENT--PERRL, EOMI, mucous membranes and oropharynx mildly dry Neck--supple. No JVD. No bruits. Thyroid normal, trachea midline, no adenopathy. Heart--normal S1 and S2. No murmurs, rubs or gallops. Lungs--clear bilaterally, no respiratory distress, no accessory muscle use. Abdomen--normal bowel sounds and soft. Extremities--no cyanosis or clubbing. No edema. Dermatologic--normal skin turgor, normal color, no abnormal lymph nodes, no rash. Neurologic--cranial nerves II through XII grossly intact. Rheumatologic--normal range of motion. Psychiatric--normal affect. Results & Data Results & Data Vital Signs (Past 12 Hours) Vital Signs Temp Pulse Pulse Resp BP Pulse Ox O2 Del Method 12/14/23 10:51 98.4 F 57 L 15 151/70 H 95 Room Air 12/14/23 08:00 Room Air 12/14/23 07:46 97.2 F L 54 L 15 163/69 H 95 Room Air 12/14/23 07:00 61 12/14/23 03:13 98.2 F 41 L 18 150/67 H 94 Room Air PG Care Time/CCT Total # of Minutes Spent Total Time Spent with Patient: Total time spent is greater than 50% in coordination of care (as documented) at patient's floor/unit and/or counseling patient: Coding Level of Care Code 42277 SUB INP/OBS CARE 2/35MIN Diagnoses Hyponatremia E87.1 Blood in the urine R31.9 Hemophilia A D66 Pulmonary embolism I26.99 Chronic HFrEF (heart failure with reduced ejection fraction) I50.22 Peripheral arterial disease I73.9 COPD (chronic obstructive pulmonary disease) J44.9 Time Spent (min) 35
[2023-12-14] MEDS: POLYETHYLENE (MIRALAX) 17 GM PACK PO SCH (14:12)
--- NOTE | 2023-12-14 14:53 | Urology Consultation ---
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 Currently admitted for hyponatremia following a TURBT. Urology consulted for hematuria Catheter was gently irrigated at bedside with removal of several small clots. Draining spontaneously now Agree with continuing full anticoagulation given PE. 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 Recent staging imaging showed a pulmonary embolism and he was started on Lovenox after being taken off Eliquis and a CT scan of the abdomen pelvis showed a 3 cm mass in the bladder concerning for recurrence. He was taken the OR on 12/12/2023 for TURBT. A Guzman catheter was left in place. He was discharged home . He called the office and noted some hematuria and some swelling and was directed the emergency department. Labs in the emergency department showed a hemoglobin of 15.2 but a sodium of 126. He was admitted to medicine. Urology was consulted to help with management of hematuria. He has continued Lovenox. Allergies Allergy/AdvReac Type Severity Reaction Status Date / Time nitrofurantoin Allergy Intermediate FEVER Verified 12/12/23 09:37 losartan Allergy Mild Rash Verified 12/12/23 09:37 meperidine AdvReac Intermediate SEVERE Verified 12/12/23 09:37 NAUSEA AND VOMITING spironolactone AdvReac Intermediate gynecomasti Verified 12/12/23 09:37 a Home Medications Medication Instructions Recorded Confirmed Type metoprolol succinate 50 mg 25 mg PO BID 01/12/22 12/13/23 History tablet,extended release 24 hr terazosin 2 mg capsule 2 mg PO HS 07/01/22 12/13/23 History amlodipine 10 mg tablet 10 mg PO QAM #90 tabs 03/23/23 12/13/23 Rx tamsulosin 0.4 mg capsule 0.4 mg PO QAM #90 caps 03/23/23 12/13/23 Rx rosuvastatin 20 mg tablet (Crestor) 20 mg PO HS #90 tabs 08/09/23 12/13/23 Rx sulfamethoxazole 800 1 tab PO BID #20 tabs 12/02/23 12/13/23 Rx mg-trimethoprim 160 mg tablet (Bactrim DS) enoxaparin 80 mg/0.8 mL 80 mg subcut Q12H 12/06/23 12/13/23 History subcutaneous syringe (Lovenox) prednisone 1 mg tablet 4 mg PO QAM arthritis 12/06/23 12/13/23 History Patient History Medical History History of pulmonary embolism Per 12/02/[address] scan (Eliquis had been on hold x 3-4 days; failed Eliquis therapy per records) - Patient was to start Lovenox 12/02/23 but did not pick pulling machine tender script until 12/05/23 per heme office [facility] (current) use of systemic steroids Pulmonary hypertension PASP 40-50 mmHg per 03/2023 ECHO COPD (chronic obstructive pulmonary disease) Suspected sleep apnea noted on 07/31/18 anesthesia consult Bifascicular block RBBB/LAFB (chronic) Carotid stenosis, bilateral s/p left CEA in 2017 <50% R and L carotid stenosis per 2021 carotid duplex, follows with [facility] vascular Hemophilia A Ascending aortic aneurysm Fusiform dilation of the ascending thoracic aorta is stable from prior measuring 4.2 cm per 12/02/[address] Tricuspid regurgitation severe- per 03/2023 ECHO Hx of motion sickness History of COVID-19 02/05/22, home test, not hosp; cough, headache, fever>called PCP, put on Paxlovid>resolved. Radiation cystitis hx Prostate cancer 2011 hx-had radioactive seeds placed, no sx. Surgical History History of removal of Port-a-Cath (06/30/23) Access Port Removal(Left) - Sanford Perez, DO, FACS Hx of cataract extraction rt./lt eye (will be done 06/15/23) History of surgery TURBT 04/07/23 [facility] Status post carotid endarterectomy left 2017 Hx of appendectomy Hx of colonoscopy Hx of vascular surgery x2 stents placed in each lower extremity, [place] Hx of cystoscopy multiple, 08/01/18: LMA 4 last one in Jul 2022 Cystoscopy, TURBT natali- Terry Townsend MD Status post bilateral carotid endarterectomy S/P left inguinal hernia repair Status post cardiac surgery failed stress test>bypass surgery 2012, [facility], x3 vessels; f/u dr beckford History of biopsy of bladder Family History Sister Breast cancer Mother Diabetes Heart disease Other Asthma Cancer No family history of adverse response to anesthesia Denies family history of Ovarian cancer Prostate cancer Social History Smoking Status: Former smoker Tobacco Type: Cigarettes Cigarettes Per Day: smoked 40 years; Second Hand Exposure: No; Do You Dip or Chew Tobacco: No; Tobacco Cessation Education Requested by Patient: No Hx Alcohol Use: Yes Alcohol type: beer and hard liquor Hx Substance Use: No Preferred Language: Albanian Communication Ability: Effective Communication Ability Comment: SANTO DOMINGO Visual Impairment: No Limitations Hearing Ability: Normal Supervisor Extrusion Required: No Beliefs That Will Affect Care: None marital status: Current Living Situation: Spouse current occupational status: retired How many Children do You have: 2 Other Information That Helps Us Care for You: No Feels Safe at Home: Yes Childhood Exposure to Second-Hand Smoke: No caffeine: Yes during the past year weight has: remained stable Dental Care, Regularly: Yes Physical Activity Frequency: 3-4 Times per Week Seatbelt Use: always Sunscreen Use: Yes Assistive Devices: None Physical Exam Physical Exam: General: Alert and oriented, no acute distress HEENT: Normocephalic, mucous membranes moist Pulmonary: Nonlabored respirations Abdomen: Nondistended : Guzman catheter draining thin red blood Extremities: Moves all 4 spontaneously Neuro: No gross deficits Skin: Warm, dry, no rashes noted Results & Data Vital Signs (Past 12 Hours) Vital Signs Temp Pulse Pulse Resp BP Pulse Ox O2 Del Method 12/14/23 10:51 36.9 C 57 L 15 151/70 H 95 Room Air 12/14/23 08:00 Room Air 12/14/23 07:46 36.2 C L 54 L 15 163/69 H 95 Room Air 12/14/23 07:00 61 12/14/23 03:13 36.8 C 41 L 18 150/67 H 94 Room Air PG Care Time/CCT Total # of Minutes Spent Total Time Spent with Patient: Total time spent is greater than 50% in coordination of care (as documented) at patient's floor/unit and/or counseling patient: Coding Level of Care Code 69691 INT INP/OBS CARE 2/55MIN Diagnoses Hematuria R31.0 Hematuria type: gross Bladder carcinoma C67.9 (1) Hematuria Hematuria type: gross Qualified Code(s): R31.0 - Gross hematuria
[2023-12-14] MEDS: SODIUM CHLORIDE 1 GM TABLET PO SCH (20:46)
[2023-12-15 06:35] LABS: Basophils # (auto) 0.03 K/uL (0.00-0.20); Basophils % (auto) 0.5 %; Eosinophils # (auto) 0.14 K/uL (0.00-0.50); Eosinophils % (auto) 2.4 %; Hematocrit (blood only) 34.8 % (42.0-52.0); Hemoglobin 12.7 g/dl (14.0-18.0); Immature Granulocytes # (auto) 0.01 K/uL (0.01-0.20); Immature Granulocytes % (auto) 0.2 %; Lymphocytes % (auto) 10.4 %; Mean Corpuscular Hemoglobin 37.1 pg (25.0-34.0); Mean Corpuscular Hgb Conc 36.5 g/dL (32.0-36.0); Mean Corpuscular Volume 101.8 fL (80.0-100.0); Mean Platelet Volume 9.4 fL (9.4-12.4); Monocytes % (auto) 15.6 %; Neutrophils # (auto) 4.09 K/uL (1.40-6.50); Neutrophils % (auto) 70.9 %; Platelet Count 113 K/uL (130-400); RDW Coefficient of Variation 12.2 % (11.5-14.5); RDW Standard Deviation 45.6 fL (36.4-46.3); Red Blood Count 3.42 M/uL (4.70-6.10); White Blood Count 5.77 K/ul (4.8-10.8)
[2023-12-15 07:01] LABS: Calcium 8.7 mg/dl (8.6-10.3); Est GFR (African American) 80.9 ml/min; Est GFR (Non-African American) 69.8 ml/min; Potassium 3.8 mmol/L (3.5-5.1)
--- NOTE | 2023-12-15 08:33 | Urology Progress Note ---
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 Currently admitted for hyponatremia following a TURBT. Urology consulted for hematuria Afebrile and hemodynamically stable Labs today show no leukocytosis, hemoglobin 12.7, normal renal function Urine culture 12/12 preliminary no growth. On Ceftriaxone. Catheter was gently irrigated at bedside with removal of several small clots. Currently draining light red urine. Continue to monitor urine output. Bladder scan PRN. Okay to hand irrigate as needed for clots, retention, suprapubic pain Anticoagulation per primary team. Urology can manage hematuria as needed Depending on hospital course may try to perform a void trial prior to discharge Urology will follow Admission and Anticipated Discharge Date Admission Date: December 14, 2023 Subjective Patient seen at bedside this AM Awake, resting in bed on arrival No acute distress Guzman draining with hematuria Catheter required manual irrigation by nursing x 2 overnight He denies suprapubic pain or pressure No fevers Review of Systems Constitutional: as per Subjective / HPI Genitourinary: + as per Subjective / HPI Physical Exam Physical Exam: General: Alert and oriented, no acute distress HEENT: Normocephalic, mucous membranes moist Pulmonary: Nonlabored respirations Abdomen: Nondistended : Guzman catheter draining thin red blood Extremities: Moves all 4 spontaneously Neuro: No gross deficits Skin: Warm, dry, no rashes noted Results & Data Vital Signs (Past 12 Hours) Vital Signs Temp Pulse Pulse Resp BP Pulse Ox O2 Del Method 12/15/23 07:44 36.7 C 75 15 149/73 H 96 Room Air 12/15/23 03:04 36.6 C 42 L 18 160/69 H 96 Room Air 12/14/23 23:52 66 12/14/23 23:05 36.7 C 49 L 18 173/74 H 95 Room Air PG Care Time/CCT Total # of Minutes Spent Total Time Spent with Patient: Total time spent is greater than 50% in coordination of care (as documented) at patient's floor/unit and/or counseling patient: Coding Level of Care Code 42957 SUB INP/OBS CARE 2/35MIN Diagnoses Hematuria R31.0 Hematuria type: gross Bladder carcinoma C67.9 (1) Hematuria Hematuria type: gross Qualified Code(s): R31.0 - Gross hematuria
--- NOTE | 2023-12-15 11:39 | Hospitalist Progress Note ---
Date of Service December 15, 2023 Assessment & Plan (1) Blood in the urine: Plan: Hematuria following TURP, de oliveira still blood tinged He has acute PE and DVT recently and was started on anticoagulation Currently on lovenox Hb is stable, and I think the benefit of anticoagulation outweights the ills of blood loss Urology on consult Continue bladder irrigation and continue full anticoagulation (2) Hyponatremia: Plan: Most likely hyposmolar hyponatremia following TURP Serum sodium slightly improved with fluid restriction Will continue salt tablets (3) Bladder carcinoma: Plan: He is status post TURP. 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 Treated with Rituxan/Cyclophosphamide/Prednisone. Evaluated by Dr. Mac at [facility] in [address] Viraj Steinberg 12/2019 at [facility]. Overall no evidence of factor VIII deficiency noted. No evidence of lupus anticoagulant noted. He could go for surgical intervention as planned earlier." per CCP 11/02/22: "Factor VIII inhibitor: resolved with rituximab, cyclophosphamide and steroid treatment in 2018." Suspected to be induced by antiplatelet agents (5) Pulmonary embolism: Plan: Was in the process of starting Coumadin, but currently on hold Countinue Lovenox for now (6) Chronic HFrEF (heart failure with reduced ejection fraction): Plan: No chest pain, chest pressure. No hypoxia. He is not in acute heart failure decompensation on admission Last echo 03/2023: EF 50-54%, septal motion consistent with intraventricular conduction delay, no AAS is seen, severe TR is noted, moderate pulmonary hypertension Continue statin, metoprolol. Anticoagulation held (7) Peripheral arterial disease: Plan: PAD - Status post stenting of bilateral superficial femoral [id number] - Status post atherectomy and angioplasty and stenting of right SFA 2016 - S/p atherectomy and drug-coated balloon angioplasty right SFA January 2020 - S/p right femoral-popliteal bypass April 2021 Anticoagulation as noted, patient reports he is not able to take Plavix/antiplatelet (8) COPD (chronic obstructive pulmonary disease): Plan: No wheezing on exam (9) Atrial fibrillation: Plan continue to monitor Admission and Anticipated Discharge Date Admission Date: December 14, 2023 Review of Systems Review of Systems: All systems reviewed are negative, apart from the ones contained in the history. Physical Exam Physical Exam: The patient is awake, alert and oriented 3, well developed and well nourished, normocephalic and atraumatic, lying in bed and in no acute distress. HEENT--PERRL, EOMI, mucous membranes and oropharynx mildly dry Neck--supple. No JVD. No bruits. Thyroid normal, trachea midline, no adenopathy. Heart--normal S1 and S2. No murmurs, rubs or gallops. Lungs--clear bilaterally, no respiratory distress, no accessory muscle use. Abdomen--normal bowel sounds and soft. Extremities--no cyanosis or clubbing. No edema. Dermatologic--normal skin turgor, normal color, no abnormal lymph nodes, no rash. Neurologic--cranial nerves II through XII grossly intact. Rheumatologic--normal range of motion. Psychiatric--normal affect. Results & Data Results & Data Vital Signs (Past 12 Hours) Vital Signs Temp Pulse Pulse Resp BP Pulse Ox O2 Del Method 12/15/23 11:15 98.1 F 65 13 155/72 H 97 Room Air 12/15/23 08:00 Room Air 12/15/23 07:44 98.1 F 75 15 149/73 H 96 Room Air 12/15/23 03:04 97.9 F 42 L 18 160/69 H 96 Room Air 12/14/23 23:52 66 PG Care Time/CCT Total # of Minutes Spent Total Time Spent with Patient: Total time spent is greater than 50% in coordination of care (as documented) at patient's floor/unit and/or counseling patient: Coding Level of Care Code 42710 SUB INP/OBS CARE 2/35MIN Diagnoses Blood in the urine R31.9 Hyponatremia E87.1 Bladder carcinoma C67.9 Hemophilia A D66 Pulmonary embolism I26.99 Chronic HFrEF (heart failure with reduced ejection fraction) I50.22 Peripheral arterial disease I73.9 COPD (chronic obstructive pulmonary disease) J44.9 Atrial fibrillation I48.91 Time Spent (min) 35
--- NOTE | 2023-12-16 04:13 | Communication Note ---
Date of Service: December 16, 2023 I was called by nursing staff that patient's Guzman catheter had become clogged multiple times. Nursing staff was previously able to hand irrigate catheter and retrieved several blood clots. Nursing now notes that they cannot effectively irrigate the catheter and patient feels as though his bladder is full it is in discomfort. I presented to the bedside within 5 minutes of nursing staff's call. I was able to flush and irrigate the catheter and retrieve several small blood clots. After performing this maneuver the patient's Guzman catheter was draining bloody urine. Initially the blood was de los santos colored but cleared somewhat after I flushed and irrigated the catheter multiple times. After this the patient noted significant relief of his previous symptoms. We will continue to monitor the patient and flush and irrigate as needed.
[2023-12-16 05:51] LABS: Basophils # (auto) 0.04 K/uL (0.00-0.20); Basophils % (auto) 0.7 %; Eosinophils # (auto) 0.25 K/uL (0.00-0.50); Eosinophils % (auto) 4.3 %; Hematocrit (blood only) 31.4 % (42.0-52.0); Hemoglobin 11.3 g/dl (14.0-18.0); Immature Granulocytes # (auto) 0.01 K/uL (0.01-0.20); Immature Granulocytes % (auto) 0.2 %; Lymphocytes # (auto) 0.79 K/uL (1.20-3.40); Lymphocytes % (auto) 13.6 %; Mean Corpuscular Hemoglobin 36.7 pg (25.0-34.0); Mean Corpuscular Volume 101.9 fL (80.0-100.0); Mean Platelet Volume 9.7 fL (9.4-12.4); Monocytes # (auto) 0.84 K/uL (0.11-0.59); Monocytes % (auto) 14.4 %; Neutrophils # (auto) 3.89 K/uL (1.40-6.50); Neutrophils % (auto) 66.8 %; Platelet Count 122 K/uL (130-400); RDW Coefficient of Variation 12.3 % (11.5-14.5); RDW Standard Deviation 45.5 fL (36.4-46.3); Red Blood Count 3.08 M/uL (4.70-6.10); White Blood Count 5.82 K/ul (4.8-10.8)
[2023-12-16 06:06] LABS: Calcium 8.4 mg/dl (8.6-10.3); Creatinine Clr Calc Pharmacy 55.1 ml/min; Est GFR (African American) 74.5 ml/min; Est GFR (Non-African American) 64.3 ml/min; Potassium 3.7 mmol/L (3.5-5.1)
--- NOTE | 2023-12-16 12:12 | Hospitalist Progress Note ---
Date of Service December 16, 2023 Assessment & Plan (1) Blood in the urine: Plan: Hematuria following TURP, de oliveira still blood tinged He has acute PE and DVT recently and was started on anticoagulation Currently on lovenox Hb is stable, and I think the benefit of anticoagulation outweights the ills of blood loss Urology on consult Continue bladder irrigation and continue full anticoagulation Overnight a lot of blood clots in the De Oliveira catheter which had to be manually i rrigated, may need a three-way continuous De Oliveira catheter bladder irrigation. (2) Hyponatremia: Plan: Most likely hyposmolar hyponatremia following TURP Serum sodium slightly improved with fluid restriction Will continue salt tablets (3) Bladder carcinoma: Plan: He is status post TURP. 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 Treated with Rituxan/Cyclophosphamide/Prednisone. [place] [facility] [place] [address] Viraj Steinberg 12/2019 at [facility]. Overall no evidence of factor VIII deficiency noted. No evidence of lupus anticoagulant noted. He could go for surgical intervention as planned earlier." per CCP 11/02/22: "Factor VIII inhibitor: resolved with rituximab, cyclophosphamide and steroid treatment in 2018." Suspected to be induced by antiplatelet agents (5) Pulmonary embolism: Plan: Was in the process of starting Coumadin, but currently on hold Countinue Lovenox for now (6) Chronic HFrEF (heart failure with reduced ejection fraction): Plan: No chest pain, chest pressure. No hypoxia. He is not in acute heart failure decompensation on admission Last echo 03/2023: EF 50-54%, septal motion consistent with intraventricular conduction delay, no AAS is seen, severe TR is noted, moderate pulmonary hypertension Continue statin, metoprolol. Anticoagulation held (7) Peripheral arterial disease: Plan: PAD - Status post stenting of bilateral superficial femoral [id number] - Status post atherectomy and angioplasty and stenting of right SFA 2016 - S/p atherectomy and drug-coated balloon angioplasty right SFA January 2020 - S/p right femoral-popliteal bypass April 2021 Anticoagulation as noted, patient reports he is not able to take Plavix/antiplatelet (8) COPD (chronic obstructive pulmonary disease): Plan: No wheezing on exam (9) Atrial fibrillation: Plan continue to monitor, Hematuria persisting Admission and Anticipated Discharge Date Admission Date: December 14, 2023 Subjective Patient seen and examined, overnight the De Oliveira catheter had a lot of blood clots which had to be manually irrigated. Review of Systems Review of Systems: All systems reviewed are negative, apart from the ones contained in the history. Physical Exam Physical Exam: The patient is awake, alert and oriented 3, well developed and well nourished, normocephalic and atraumatic, lying in bed and in no acute distress. HEENT--PERRL, EOMI, mucous membranes and oropharynx mildly dry Neck--supple. No JVD. No bruits. Thyroid normal, trachea midline, no adenopathy. Heart--normal S1 and S2. No murmurs, rubs or gallops. Lungs--clear bilaterally, no respiratory distress, no accessory muscle use. Abdomen--normal bowel sounds and soft. Extremities--no cyanosis or clubbing. No edema. Dermatologic--normal skin turgor, normal color, no abnormal lymph nodes, no rash. Neurologic--cranial nerves II through XII grossly intact. Rheumatologic--normal range of motion. Psychiatric--normal affect. Results & Data Results & Data Vital Signs (Past 12 Hours) Vital Signs Temp Pulse Pulse Resp BP Pulse Ox O2 Del Method 12/16/23 11:24 98.4 F 56 L 18 129/70 95 Room Air 12/16/23 08:00 Room Air 12/16/23 07:46 98.4 F 55 L 18 173/71 H 93 Room Air 12/16/23 07:00 67 12/16/23 04:15 98.1 F 78 18 138/61 95 Room Air PG Care Time/CCT Total # of Minutes Spent Total Time Spent with Patient: Total time spent is greater than 50% in coordination of care (as documented) at patient's floor/unit and/or counseling patient: Coding Level of Care Code 93003 SUB INP/OBS CARE 2/35MIN Diagnoses Blood in the urine R31.9 Hyponatremia E87.1 Bladder carcinoma C67.9 Hemophilia A D66 Pulmonary embolism I26.99 Chronic HFrEF (heart failure with reduced ejection fraction) I50.22 Peripheral arterial disease I73.9 COPD (chronic obstructive pulmonary disease) J44.9 Atrial fibrillation I48.91 Time Spent (min) 35
--- NOTE | 2023-12-16 14:41 | Urology Progress Note ---
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 Currently admitted for hyponatremia following a TURBT. Urology consulted for hematuria Afebrile and hemodynamically stable Labs today show no leukocytosis, hemoglobin 11.3, normal renal function Urine culture 12/12 negative. Ceftriaxone discontinued 12/14. Given his persistent hematuria w/clot, will upsize catheter to 3-way and start CBI. Using sterile technique, a 22Fr 3-way Guzman catheter was placed without difficulty. Patient tolerated well. Catheter was manually flushed without difficulty. CBI initiated. Urine light pink with CBI on moderate rate. Continue to monitor urine output. Can titrate CBI as needed. Anticoagulation per primary team. Urology can manage hematuria as needed Depending on hospital course may try to perform a void trial prior to discharge Urology will follow along. Plan reviewed with Dr. Townsend, on-call urologist. Admission and Anticipated Discharge Date Admission Date: December 14, 2023 Subjective Patient seen at bedside this AM Awake, resting in bed on arrival No acute distress Guzman draining with hematuria Patient has required manual irrigation of the catheter overnight and this morning He denies suprapubic pain or pressure No fevers Review of Systems Constitutional: as per Subjective / HPI Genitourinary: + as per Subjective / HPI Physical Exam Physical Exam: General: Alert and oriented, no acute distress HEENT: Normocephalic, mucous membranes moist Pulmonary: Nonlabored respirations Abdomen: Nondistended : Guzman catheter draining w/hematuria Extremities: Moves all 4 spontaneously Neuro: No gross deficits Skin: Warm, dry, no rashes noted Results & Data Vital Signs (Past 12 Hours) Vital Signs Temp Pulse Pulse Resp BP Pulse Ox O2 Del Method 12/16/23 11:24 36.9 C 56 L 18 129/70 95 Room Air 12/16/23 08:00 Room Air 12/16/23 07:46 36.9 C 55 L 18 173/71 H 93 Room Air 12/16/23 07:00 67 12/16/23 04:15 36.7 C 78 18 138/61 95 Room Air PG Care Time/CCT Total # of Minutes Spent Total Time Spent with Patient: Total time spent is greater than 50% in coordination of care (as documented) at patient's floor/unit and/or counseling patient: Coding Level of Care Code 78009 SUB INP/OBS CARE 2MIN Diagnoses Hematuria R31.0 Hematuria type: gross Bladder carcinoma C67.9 (1) Hematuria Hematuria type: gross Qualified Code(s): R31.0 - Gross hematuria
[2023-12-17 06:23] LABS: Hematocrit (blood only) 31.3 % (42.0-52.0); Hemoglobin 11.2 g/dl (14.0-18.0); Mean Corpuscular Hemoglobin 36.8 pg (25.0-34.0); Mean Corpuscular Hgb Conc 35.8 g/dL (32.0-36.0); Mean Platelet Volume 9.8 fL (9.4-12.4); Platelet Count 124 K/uL (130-400); RDW Coefficient of Variation 12.1 % (11.5-14.5); RDW Standard Deviation 45.4 fL (36.4-46.3); Red Blood Count 3.04 M/uL (4.70-6.10); White Blood Count 6.42 K/ul (4.8-10.8)
[2023-12-17 06:38] LABS: BUN Creatinine Ratio 14.1 (10-20); Calcium 8.5 mg/dl (8.6-10.3); Creatinine Clr Calc Pharmacy 60.3 ml/min; Est GFR (African American) 81.9 ml/min; Est GFR (Non-African American) 70.6 ml/min; Potassium 3.7 mmol/L (3.5-5.1)
--- NOTE | 2023-12-17 08:32 | Urology Progress Note ---
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 Currently admitted for hyponatremia following a TURBT. Urology consulted for hematuria Afebrile and hemodynamically stable Hemoglobin stable at 11.2 Urine culture 12/12 negative. Ceftriaxone discontinued 12/14. Urine characterization is light pink on slow drip CBI. I irrigated his hanh dder for 10 cc of clot. Restart CBI, titrate down as indicated. Hope would be that we can clamp tomorrow and if remains clear possibly perform a void trial Anticoagulation per primary team. Urology can manage hematuria as needed Urology will follow along. Admission and Anticipated Discharge Date Admission Date: December 14, 2023 Subjective Afebrile with stable vitals. Labs show a white blood cell count of 6.4, stable hemoglobin of 11.2, stable creatinine 0.99. Urine light pink on slow drip CBI. Bladder was irrigated for roughly 10 cc of clot and CBI was started again. Physical Exam Physical Exam: General: Alert and oriented, no acute distress HEENT: Normocephalic, mucous membranes moist Pulmonary: Nonlabored respirations Abdomen: Nondistended : Three-way catheter draining light pink urine on slow drip CBI Extremities: Moves all 4 spontaneously Neuro: No gross deficits Skin: Warm, dry, no rashes noted Results & Data Vital Signs (Past 12 Hours) Vital Signs Temp Pulse Pulse Resp BP Pulse Ox O2 Del Method 12/17/23 07:49 36.7 C 53 L 15 156/73 H 98 Room Air 12/17/23 07:22 65 12/17/23 04:32 36.9 C 59 L 20 149/69 H 95 Room Air 12/16/23 23:12 65 PG Care Time/CCT Total # of Minutes Spent Total Time Spent with Patient: Total time spent is greater than 50% in coordination of care (as documented) at patient's floor/unit and/or counseling patient: Coding Level of Care Code 35726 SUB INP/OBS CARE 2/35MIN Diagnoses Hematuria R31.0 Hematuria type: gross (1) Hematuria Hematuria type: gross Qualified Code(s): R31.0 - Gross hematuria
--- NOTE | 2023-12-17 11:32 | Hospitalist Progress Note ---
Date of Service December 17, 2023 Assessment & Plan (1) Blood in the urine: Plan: Hematuria following TURP, de oliveira still blood tinged, but clearing up He has acute PE and DVT recently and was started on anticoagulation Currently on lovenox Hb is stable, continue anticoagulation Urology on consult Continue bladder irrigation and continue full anticoagulation Plan is to possibly clamp tomorrow Appreciate urology recs (2) Hyponatremia: Plan: Most likely hyposmolar hyponatremia following TURP Serum sodium slightly improved with fluid restriction Will continue salt tablets (3) Bladder carcinoma: Plan: He is status post TURP. 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 Treated with Rituxan/Cyclophosphamide/Prednisone. Evaluated by Dr. Mac at [facility] [place] in [address] Viraj Steinberg 12/2019 at [facility]. Overall no evidence of factor VIII deficiency noted. No evidence of lupus anticoagulant noted. He could go for surgical intervention as planned earlier." per CCP 11/02/22: "Factor VIII inhibitor: resolved with rituximab, cyclophosphamide and steroid treatment in 2018." Suspected to be induced by antiplatelet agents (5) Pulmonary embolism: Plan: Was in the process of starting Coumadin, but currently on hold Countinue Lovenox for now (6) Chronic HFrEF (heart failure with reduced ejection fraction): Plan: No chest pain, chest pressure. No hypoxia. He is not in acute heart failure decompensation on admission Last echo 03/2023: EF 50-54%, septal motion consistent with intraventricular conduction delay, no AAS is seen, severe TR is noted, moderate pulmonary hypertension Continue statin, metoprolol. Anticoagulation held (7) Peripheral arterial disease: Plan: PAD - Status post stenting of bilateral superficial femoral [id number] - Status post atherectomy and angioplasty and stenting of right SFA 2016 - S/p atherectomy and drug-coated balloon angioplasty right SFA January 2020 - S/p right femoral-popliteal bypass April 2021 Anticoagulation as noted, patient reports he is not able to take Plavix/antiplatelet (8) COPD (chronic obstructive pulmonary disease): Plan: No wheezing on exam (9) Atrial fibrillation: Plan continue to monitor, Hematuria persisting Admission and Anticipated Discharge Date Admission Date: December 14, 2023 Subjective patient seen and examined, urine is clearing up Review of Systems Review of Systems: All systems reviewed are negative, apart from the ones contained in the history. Physical Exam Physical Exam: The patient is awake, alert and oriented 3, well developed and well nourished, normocephalic and atraumatic, lying in bed and in no acute distress. HEENT--PERRL, EOMI, mucous membranes and oropharynx mildly dry Neck--supple. No JVD. No bruits. Thyroid normal, trachea midline, no adenopathy. Heart--normal S1 and S2. No murmurs, rubs or gallops. Lungs--clear bilaterally, no respiratory distress, no accessory muscle use. Abdomen--normal bowel sounds and soft. Extremities--no cyanosis or clubbing. No edema. Dermatologic--normal skin turgor, normal color, no abnormal lymph nodes, no rash. Neurologic--cranial nerves II through XII grossly intact. Rheumatologic--normal range of motion. Psychiatric--normal affect. Results & Data Results & Data Vital Signs (Past 12 Hours) Vital Signs Temp Pulse Pulse Resp BP Pulse Ox O2 Del Method 12/17/23 11:26 98.1 F 52 L 15 149/74 H 91 Room Air 12/17/23 07:49 98.1 F 53 L 15 156/73 H 98 Room Air 12/17/23 07:22 65 12/17/23 04:32 98.4 F 59 L 20 149/69 H 95 Room Air PG Care Time/CCT Total # of Minutes Spent Total Time Spent with Patient: Total time spent is greater than 50% in coordination of care (as documented) at patient's floor/unit and/or counseling patient: Coding Level of Care Code 44630 SUB INP/OBS CARE 2/35MIN Diagnoses Blood in the urine R31.9 Hyponatremia E87.1 Bladder carcinoma C67.9 Hemophilia A D66 Pulmonary embolism I26.99 Chronic HFrEF (heart failure with reduced ejection fraction) I50.22 Peripheral arterial disease I73.9 COPD (chronic obstructive pulmonary disease) J44.9 Atrial fibrillation I48.91 Time Spent (min) 35
[2023-12-18 06:14] LABS: Hematocrit (blood only) 29.3 % (42.0-52.0); Hemoglobin 10.4 g/dl (14.0-18.0); Mean Corpuscular Hemoglobin 36.5 pg (25.0-34.0); Mean Corpuscular Hgb Conc 35.5 g/dL (32.0-36.0); Mean Corpuscular Volume 102.8 fL (80.0-100.0); Mean Platelet Volume 9.9 fL (9.4-12.4); Platelet Count 123 K/uL (130-400); RDW Coefficient of Variation 12.1 % (11.5-14.5); RDW Standard Deviation 46.2 fL (36.4-46.3); Red Blood Count 2.85 M/uL (4.70-6.10); White Blood Count 5.09 K/ul (4.8-10.8)
[2023-12-18 07:00] LABS: Calcium 8.6 mg/dl (8.6-10.3); Potassium 3.8 mmol/L (3.5-5.1)
[2023-12-18 07:06] LABS: BUN Creatinine Ratio 13.5 (10-20); Est GFR (Non-African American) 73.3 ml/min
--- NOTE | 2023-12-18 08:03 | Urology Progress Note ---
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 Currently admitted for hyponatremia following a TURBT. Urology consulted for hematuria Afebrile and hemodynamically stable Hemoglobin stable at 10.4 Urine culture 12/12 negative. Ceftriaxone discontinued 12/14. As urine was clear on slow drip CBI, I performed a void trial at the bedside. I filled his bladder via the CBI and then remove the catheter. Will have the patient attempt a void and then bladder scan. Anticoagulation per primary team. Urology can manage hematuria as needed If patient is able to void on his own stable to go home from a urologic standpoint Urology will follow along. Urology will schedule outpatient follow-up. Patient primarily will need to follow with oncology to discuss options for recurrence of muscle invasive bladder cancer Admission and Anticipated Discharge Date Admission Date: December 14, 2023 Subjective No acute issues overnight. Urine clear on very slow drip CBI. Afebrile with stable vitals.Labs show stable hemoglobin of 10.4 and a creatinine of 0.96. Physical Exam Physical Exam: General: Alert and oriented, no acute distress HEENT: Normocephalic, mucous membranes moist Pulmonary: Nonlabored respirations Abdomen: Nondistended : Three-way catheter draining clear urine on slow drip CBI. Extremities: Moves all 4 spontaneously Neuro: No gross deficits Skin: Warm, dry, no rashes noted Results & Data Vital Signs (Past 12 Hours) Vital Signs Temp Pulse Pulse Resp BP Pulse Ox O2 Del Method 12/18/23 07:54 36.6 C 56 L 15 150/73 H 94 Room Air 12/18/23 07:03 66 12/18/23 00:00 57 L 12/17/23 20:09 36.5 C 58 L 20 198/70 H 96 Room Air PG Care Time/CCT Total # of Minutes Spent Total Time Spent with Patient: Total time spent is greater than 50% in coordination of care (as documented) at patient's floor/unit and/or counseling patient: Coding Level of Care Code 69182 SUB INP/OBS CARE 2/35MIN Diagnoses Bladder carcinoma C67.9 Hematuria R31.0 Hematuria type: gross (2) Hematuria Hematuria type: gross Qualified Code(s): R31.0 - Gross hematuria
--- NOTE | 2023-12-18 10:54 | Hospitalist Progress Note ---
Date of Service December 18, 2023 Assessment & Plan (1) Blood in the urine: Plan: Hematuria following TURP, de oliveira still blood tinged, but clearing up He has acute PE and DVT recently and was started on anticoagulation Currently on lovenox Hb is stable, continue anticoagulation Urology on consult Continue bladder irrigation and continue full anticoagulation For voiding trial today removal of De Oliveira Per urology, if patient able to void by himself will discharge home (2) Hyponatremia: Plan: Most likely hyposmolar hyponatremia following TURP Serum sodium much improved with fluid restriction, 135 today Will continue salt tablets (3) Bladder carcinoma: Plan: He is status post TURP. 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 Treated with Rituxan/Cyclophosphamide/Prednisone. [place] [facility] [place] [address] Viraj Steinberg 12/[facility] at [facility]. Overall no evidence of factor VIII deficiency noted. No evidence of lupus anticoagulant noted. He could go for surgical intervention as planned earlier." per CCP 11/02/22: "Factor VIII inhibitor: resolved with rituximab, cyclophosphamide and steroid treatment in 2018." Suspected to be induced by antiplatelet agents (5) Pulmonary embolism: Plan: Was in the process of starting Coumadin, but currently on hold Countinue Lovenox for now (6) Chronic HFrEF (heart failure with reduced ejection fraction): Plan: No chest pain, chest pressure. No hypoxia. He is not in acute heart failure decompensation on admission Last echo 03/2023: EF 50-54%, septal motion consistent with intraventricular conduction delay, no AAS is seen, severe TR is noted, moderate pulmonary hypertension Continue statin, metoprolol. Anticoagulation held (7) Peripheral arterial disease: Plan: PAD - Status post stenting of bilateral superficial femoral [id number] - Status post atherectomy and angioplasty and stenting of right SFA 2016 - S/p atherectomy and drug-coated balloon angioplasty right SFA January 2020 - S/p right femoral-popliteal bypass April 2021 Anticoagulation as noted, patient reports he is not able to take Plavix/antiplatelet (8) COPD (chronic obstructive pulmonary disease): Plan: No wheezing on exam (9) Atrial fibrillation: Plan Hopefully discharge later today Admission and Anticipated Discharge Date Admission Date: December 14, 2023 Subjective Patient seen and examined, stable today anxious to go home Review of Systems Review of Systems: All systems reviewed are negative, apart from the ones contained in the history. Physical Exam Physical Exam: The patient is awake, alert and oriented 3, well developed and well nourished, normocephalic and atraumatic, lying in bed and in no acute distress. HEENT--PERRL, EOMI, mucous membranes and oropharynx mildly dry Neck--supple. No JVD. No bruits. Thyroid normal, trachea midline, no adenopathy. Heart--normal S1 and S2. No murmurs, rubs or gallops. Lungs--clear bilaterally, no respiratory distress, no accessory muscle use. Abdomen--normal bowel sounds and soft. Extremities--no cyanosis or clubbing. No edema. Dermatologic--normal skin turgor, normal color, no abnormal lymph nodes, no rash. Neurologic--cranial nerves II through XII grossly intact. Rheumatologic--normal range of motion. Psychiatric--normal affect. Results & Data Results & Data Vital Signs (Past 12 Hours) Vital Signs Temp Pulse Pulse Resp BP Pulse Ox O2 Del Method 12/18/23 07:54 97.9 F 56 L 15 150/73 H 94 Room Air 12/18/23 07:03 66 12/18/23 00:00 57 L PG Care Time/CCT Total # of Minutes Spent Total Time Spent with Patient: Total time spent is greater than 50% in coordination of care (as documented) at patient's floor/unit and/or counseling patient: Coding Level of Care Code 10131 SUB INP/OBS CARE 2/35MIN Diagnoses Blood in the urine R31.9 Hyponatremia E87.1 Bladder carcinoma C67.9 Hemophilia A D66 Pulmonary embolism I26.99 Chronic HFrEF (heart failure with reduced ejection fraction) I50.22 Peripheral arterial disease I73.9 COPD (chronic obstructive pulmonary disease) J44.9 Atrial fibrillation I48.91 Time Spent (min) 35
--- NOTE | 2023-12-18 12:08 | Discharge Summary ---
Date of Service December 18, 2023 Admission HPI Per Admitting Provider Carlos is seen at the bedside. He reports that he had a biopsy yesterday of his prostate and has a De Oliveira bag in place. This has been draining red-colored urine, although which is more of a urine consisting has not been thick blood. He had some dizziness today and was concerned about anemia. He reports he has been drinking very large amount of water to stay hydrated. He has had around 7x 16 ounce bottles of water yesterday and 216 ounce bottles of water today. He has not had any chest pain, chest pressure, shortness of breath. He has had no fever, chills, sweats and has no abdominal pain. He does not feel weak just got transiently lightheaded earlier today. He was diagnosed with a acute PE 2 weeks ago and remains on Lovenox for this. He was previously on Eliquis this was transitioned to Lovenox periprocedurally. He has been on Bactrim perioperatively which he did take this morning. Medical History: Reviewed Medications: Reviewed Surgical History: Reviewed Family history: Reviewed Allergies: Reviewed Social History: Reviewed Code Status: Full Principal Diagnosis hematuria, bladder cancer Discharge Exam The patient is awake, alert and oriented 3, well developed and well nourished, normocephalic and atraumatic, lying in bed and in no acute distress. HEENT--PERRL, EOMI, mucous membranes and oropharynx mildly dry Neck--supple. No JVD. No bruits. Thyroid normal, trachea midline, no adenopathy. Heart--normal S1 and S2. No murmurs, rubs or gallops. Lungs--clear bilaterally, no respiratory distress, no accessory muscle use. Abdomen--normal bowel sounds and soft. Extremities--no cyanosis or clubbing. No edema. Dermatologic--normal skin turgor, normal color, no abnormal lymph nodes, no rash. Neurologic--cranial nerves II through XII grossly intact. Rheumatologic--normal range of motion. Psychiatric--normal affect. Discharge Data Allergies Allergy/AdvReac Type Severity Reaction Status Date / Time nitrofurantoin Allergy Intermediate FEVER Verified 12/12/23 09:37 losartan Allergy Mild Rash Verified 12/12/23 09:37 meperidine AdvReac Intermediate SEVERE Verified 12/12/23 09:37 NAUSEA AND VOMITING spironolactone AdvReac Intermediate gynecomasti Verified 12/12/23 09:37 a Consultations 12/13/23 13:05 ED Decision to Admit Stat 12/14/23 09:50 Consult Urology Routine Ordered Studies 12/13/23 14:37 US venous doppler LE Stat Hospital Course (1) Blood in the urine: Hematuria following TURP, de oliveira still blood tinged, but clearing up He has acute PE and DVT recently and was started on anticoagulation Currently on lovenox Hb is stable, continue anticoagulation Urology on consult Continue bladder irrigation and continue full anticoagulation For voiding trial today removal of De Oliveira Per urology, if patient able to void by himself will discharge home (2) Hyponatremia: Most likely hyposmolar hyponatremia following TURP Serum sodium much improved with fluid restriction, 135 today Will continue salt tablets (3) Bladder carcinoma: He is status post TURP. 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 Treated with Rituxan/Cyclophosphamide/Prednisone. Evaluated by Dr. aMc at [facility] in [address] Viraj tSeinberg 12/2019 at [facility]. Overall no evidence of factor VIII deficiency noted. No evidence of lupus anticoagulant noted. He could go for surgical intervention as planned earlier." per [facility] 11/02/22: "Factor VIII inhibitor: resolved with rituximab, cyclophosphamide and steroid treatment in 2019." Suspected to be induced by antiplatelet agents (5) Pulmonary embolism: Was in the process of starting Coumadin, but currently on hold Countinue Lovenox for now (6) Chronic HFrEF (heart failure with reduced ejection fraction): No chest pain, chest pressure. No hypoxia. He is not in acute heart failure decompensation on admission Last echo 03/2023: EF 50-54%, septal motion consistent with intraventricular conduction delay, no AAS is seen, severe TR is noted, moderate pulmonary hypertension Continue statin, metoprolol. Anticoagulation held (7) Peripheral arterial disease: PAD - Status post stenting of bilateral superficial femoral [id number] - Status post atherectomy and angioplasty and stenting of right SFA 2016 - S/p atherectomy and drug-coated balloon angioplasty right SFA January 2020 - S/p right femoral-popliteal bypass April 2021 Anticoagulation as noted, patient reports he is not able to take Plavix/antiplatelet (8) COPD (chronic obstructive pulmonary disease): No wheezing on exam (9) Atrial fibrillation: Plan Hopefully discharge later today Total Time Total Time Spent Total Time Spent (In Minutes): 35 Discharge Plan Discharge Items Patient Disposition: Home - Self-Care Reason For Visit: DIZZINESS, HYPOATREMIA, HEMATURIA Discharge Diagnosis: hematuria, bladder tumor Condition on Discharge: Fair Activity: Resume your previous activity Non-emergency contact: Primary Care Provider and Urologist Call non-emergency contact if: you have any medication questions and your symptoms worsen Follow-up/Referrals: Jael Yu MD [Primary Care Provider] - Diet: Regular Addtl Attending Provider Instructions: please follow up with urology and also make appointment to see an oncologist in view of bladder cancer Pending Studies at Discharge: No Stand-Alone Forms: My Socrative, Smoking Cessation Medications and DC Order Prescriptions: Continued tamsulosin 0.4 mg capsule 0.4 mg PO QAM Qty: 90 3RF amlodipine 10 mg tablet 10 mg PO QAM Qty: 90 3RF rosuvastatin [Crestor] 20 mg tablet 20 mg PO HS Qty: 90 3RF metoprolol succinate 50 mg tablet extended release 24 hr 25 mg PO BID terazosin 2 mg capsule 2 mg PO HS enoxaparin [Lovenox] 80 mg/0.8 mL Syringe 80 mg SUBCUT Q12H prednisone 1 mg tablet 4 mg PO QAM Discontinued sulfamethoxazole-trimethoprim [Bactrim DS] 800-160 mg tablet 1 tab PO BID Qty: 20 0RF Discharge Orders: Discharge Order (Routine); Ordered 12/18/23 Ordered By: Rayne Lizama Admission Data Admit Date/Time: 12/14/23 12:15 Attending Provider: Rayne Lizama Admit Provider: Isma Gibbs Primary Care Provider: Jael Yu Other Providers: Isma Gibbs; Terry Townsend Coding Level of Care Code 12431 INP/OBS DISCH >30 MIN Diagnoses Blood in the urine R31.9 Hyponatremia E87.1 Bladder carcinoma C67.9 Hemophilia A D66 Pulmonary embolism I26.99 Chronic HFrEF (heart failure with reduced ejection fraction) I50.22 Peripheral arterial disease I73.9 COPD (chronic obstructive pulmonary disease) J44.9 Atrial fibrillation I48.91 Time Spent (min) 35
== END 2023-12-18 14:17 | disposition home or self-care (01) | DRG 987 ==
LOC: ED 11:49 → 2N 11:49 → SUATTDRO 13:24 → 2N 15:00

== ENCOUNTER 2024-04-11 11:47 | Inpatient (IN) ==
--- NOTE | 2024-04-11 12:01 | Emergency Department Note ---
Impression & Plan MERRICK (acute kidney injury), Acute dehydration, Sepsis, Vomiting, History of bladder cancer, History of total cystectomy ED Provider Note NAME: SANTOS CESPEDES AGE: 83 SEX: M : 1940 ARRIVES VIA: Ambulance INFORMANT: [Patient][, ] ED PROVIDER(S): [Reynaldo Johnson MD] CHIEF COMPLAINT: [facility] referral, fever, possible left-sided weakness MEDICAL DECISION MAKING: Patient presents from care facility due to concern for left-sided weakness as well as reported fever and vomiting last evening. IV was established and blood work was obtained along with empiric Zosyn. Initially only treated with IV fluid bolus 500 cc due to concerns for prior history of CHF. Patient's blood work today shows MERRICK with a creat of 2 baseline is less than 1. Mild hypocalcemia at 8.5. Patient does have a positive troponin at 28.8 but no reported chest pains or shortness of breath. Procalcitonin is elevated at 2. Initial CBC hemolyzed and was recollected. Urinalysis shows the possibility of infection with bacteria whites and leukocytes negative for epithelial cells. BioFire positive for coronavirus NL 63. Patient's chest x-ray shows some pulmonary vascular congestion. CT of the head does not show any acute ICH. Patient CBC shows a normal white count. The patient's CT shows pressure surgical changes of the ileal conduit conduit prominent fluid collection the pelvis which may represent seroma however still really cannot be excluded. Small mount of gas and soft tissue thickening in the incisional site could represent postoperative change although sterility cannot be assessed. Prominence of loops of small bowel nonspecific may represent ileus or less likely obstruction. Given these concerns I did reach out to the patient's primary urologic oncologist Dr. Jona Diaz at [facility]. After speaking with him stated that they would likely accept the patient. I did go through the transfer center and spoke with a Dr. Carcamo who is the fellow at [facility] under Dr. Lee. After further discussion they were concerned about the patient's softer blood pressures. Patient had received additional IV fluids throughout the course of his stay up to 2 L but given 500 cc boluses due to concerns for his history of CHF. The patient does likely have a concomitant dehydration component. Prior to discussing this with [facility] I also did speak with Dr. Iam Lange at [facility] and informed him that the patient would be admitted and possibly transferred. Patient did have a negative CT of the head and has a nonfocal neurologic exam currently. He did discuss that this may have been just due to the patient's acute illness may not repeat represent acute stroke but may be just weakness. After discussing the patient's case with Dr. Clifton she does not think that the patient require surgical intervention even after discussing the CT findings. I did speak with Dr. Gibbs who was concerned about the CT findings. I rediscussed the findings with Dr. Clifton who stated the patient would likely receive the same care that he is currently receiving care and no surgical intervention at this time. Patient was admitted to the medicine service. Patient did have a consent signed with possible tentative transfer tomorrow. Of note the patient's blood pressure did improve after receiving a full 2 L of IV fluids. Discussion w/ other healthcare providers: Dr. Lange with [facility] Dr. [facility] Clifton fellow [facility] w/ Dr. Lee Prior /Outside records reviewed: I reviewed part of a primary care visit from Tanesha Ramirez from December 30, 2023. History of bladder carcinoma and hyponatremia. Also known history of bladder cancer past medical history of PE A-fib CAD heart failure with reduced ejection fraction PAD and PMNR on anticoagulation. I did review part of a colonoscopy report from February 28 of this year from Dr. Chavira. Patient was noted to have a 6 mm nonbleeding polyp which was removed. I reviewed part of a note from this morning from Dr. Lange at [facility] which reported the patient might of had some left upper extremity drift and left-sided neglect. Differential diagnosis: Dehydration, UTI, pneumonia, metabolic derangment, electrolyte abnormalities, hypovolemia, anemia, cellulitis among others were considered. Diagnostics, as interpreted by me: ECG: A-fib, rate of 55, wide QRS, left axis deviation no ST elevations. Cardiac monitoring: An order was placed for continuous cardiac monitoring. The monitor shows a rate of 62 with irregular irregular rhythm. [Patient was placed on pulse oximetry] Medical decision rules: [none] Imaging studies: [I informally interpreted the patient's chest x-ray does not show obvious pneumothorax with formal report to follow.] [] HPI: Patient presents from care facility due to concern for left-sided weakness as well as nausea vomiting and fever. The patient reportedly at a fever 102 last evening with associated episode of vomiting. The patient is following at [facility] for a history of bladder cancer and did have a recent cystectomy completed on March 13. The patient states that he had been recovering well but felt unwell yesterday does feel better today. 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 Initial NIH does not show this patient does awaken to voice and does follow commands. The patient denies any head or neck pain no chest pain or shortness of breath. The patient denies any abdominal pain. The patient does have some nausea but no reported vomiting today. Patient was afebrile upon arrival. Patient did have his cystectomy completed March 13 and does have a ASIA drain as well as an ileal conduit and colostomy in place. Patient states that he is had good output. PAST MEDICAL HISTORY: [See Below] PAST SURGICAL HISTORY: [See Below] SOCIAL HISTORY: [See Below] HOME MEDICATIONS: [See Below] ALLERGIES: [See Below] VITALS: [See Below] PHYSICAL EXAMINATION: GENERAL: Fatigable but nontoxic in appearance. No apparent distress. EYE EXAM: Normal conjunctiva. PERRL, no anisocoria and EOM's grossly intact w/o pain. Arcus senilis noted. OROPHARYNX: Dry mucus membranes, grossly normal dentition. NECK: Trachea midline, no stridor. LUNGS: Clear to auscultation. Normal chest wall mechanics. HEART: NSR, no MRG. ABDOMEN: Abdomen soft, mild distention but nontender, right sided urostomy draining straw-colored fluid into a Guzman bag, left sided colostomy with possible Jass drain in brown noted stool in the bag, left-sided lower ASIA drain draining serous fluid no obvious bleeding or purulent drainage, midline surgical incisional site with maureen in place no surrounding redness or drainage. No masses, no rebound or guarding. BACK: No CVA TTP. SKIN: No rashes and no bruising. UPPER EXTREMITIES: Upper extremities are grossly normal. LOWER EXTREMITIES: Grossly normal, no edema. NEURO EXAM: GCS is 14 opens eyes to voice oriented to person and place. Patient able to tell me what his dog's name is on his phone and notes his birthdate. Cranial nerves II-XII grossly intact, normal speech, moves all 4 extremities. 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 Past Med/Surg History Problem List (Updated 04/11/24 @ 19:56 by Reynaldo Johnson MD) History of total cystectomy (Acute) History of bladder cancer (Acute) Vomiting (Acute) Sepsis (Acute) Acute dehydration (Acute) MERRICK (acute kidney injury) (Acute) Sepsis Anemia Nausea & vomiting Coagulopathy (Acute) Acute hyponatremia (Acute) Hematuria (Acute) Weakness (Acute) Hyponatremia Pulmonary embolism dx 12/02/23 on Eliquis History of prostate cancer Port-A-Cath in place (09/14/22) Port placement with fluoroscopy. Dr. Mccormack Bladder carcinoma (Chronic) 07/2022- hx chemo History of left inguinal hernia repair (05/24/22) Recurrent left inguinal hernia repair with mesh Dr. Mccormack Atrial fibrillation Was on Eliquis - currently on hold (started holding 11/29/23 due to upcoming urology biopsy but PE was noted on 12/02/[address]- patient subsequently started on Lovenox) Polymyalgia rheumatica Recurrent left inguinal hernia Mixed hyperlipidemia Peripheral arterial disease - Status post stenting of bilateral superficial femoral [id number] - Status post atherectomy and angioplasty and stenting of right SFA 2016 - S/p atherectomy and drug-coated balloon angioplasty right SFA January 2020 - S/p right femoral-popliteal bypass April 2021 Chronic HFrEF (heart failure with reduced ejection fraction) EF 50-54% 03/24/23 echo Primary hypertension Urethral stricture Coronary artery disease s/p CABG x 3 in 2012 (HEALY graft to LAD, saphenous vein graft to the obtuse marginal, saphenous vein graft to the right coronary artery and posterior descending artery) Blood in the urine Medical History Mixed hyperlipidemia Hypertension Peripheral arterial disease - Status post stenting of bilateral superficial femoral [id number] - Status post atherectomy and angioplasty and stenting of right SFA 2016 - S/p atherectomy and drug-coated balloon angioplasty right SFA January 2020 - S/p right femoral-popliteal bypass April 2021 Polymyalgia rheumatica Atrial fibrillation Was on Eliquis - currently on hold (started holding 11/29/23 due to upcoming urology biopsy but PE was noted on 12/02/[address]- patient subsequently started on Lovenox) Hx of bladder cancer 07/2022, sx and chemo 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 Treated in [place]. Resolved at present History of pulmonary embolism Per 12/02/[address] scan (Eliquis had been on hold x 3-4 days; failed Eliquis therapy per records) - Patient was to start Lovenox 12/02/23 but did not pickle cutter script until 12/05/23 per heme office senior living (current) use of systemic steroids Pulmonary hypertension PASP 40-50 mmHg per 03/2023 ECHO COPD (chronic obstructive pulmonary disease) Suspected sleep apnea noted on 07/31/18 anesthesia consult; pt denies, "no device, no study done" Bifascicular block RBBB/LAFB (chronic) Carotid stenosis, bilateral s/p left CEA in 2017 <50% R and L carotid stenosis per 2021 carotid duplex, follows with [facility] vascular Ascending aortic aneurysm Fusiform dilation of the ascending thoracic aorta is stable from prior measuring 4.2 cm per 12/02/[address]; monitoring Tricuspid regurgitation severe- per 03/2023 ECHO Hx of motion sickness History of COVID-19 02/05/22, home test, not hosp; cough, headache, fever>called PCP, put on Paxlovid>resolved. Radiation cystitis hx Prostate cancer 2011 hx-had radioactive seeds placed, no sx. Surgical History History of removal of Port-a-Cath (06/30/23) Access Port Removal(Left) - Sanford Perez DO, FACS Hx of cataract extraction rt./lt History of surgery TURBT 04/07/23 [facility] TURBT 11/2023 [facility] Status post carotid endarterectomy left 2017 Hx of appendectomy Hx of colonoscopy Hx of vascular surgery x2 stents placed in each lower extremity, Sharlene Hx of cystoscopy multiple, 08/01/18: LMA 4 last one in Jul 2022 Cystoscopy, TURBT medium- Terry Townsend MD S/P left inguinal hernia repair Status post cardiac surgery failed stress test>bypass surgery 2012, Sharlene, x3 vessels; f/u dr beckford History of biopsy of bladder Family History Sister Breast cancer Mother Diabetes Heart disease Other Asthma Cancer No family history of adverse response to anesthesia Denies family history of Ovarian cancer Prostate cancer Social History Smoking Status: Former smoker Tobacco Type: Cigarettes Cigarettes Per Day: smoked 40 years; Second Hand Exposure: No; Do You Dip or Chew Tobacco: No; Hx Alcohol Use: Yes Alcohol type: beer and hard liquor Hx Substance Use: No Preferred Language: Chinese Communication Ability: Effective Communication Ability Comment: [employer] [place] Visual Impairment: No Limitations Hearing Ability: Normal Cage Shift Manager Required: No Beliefs That Will Affect Care: None marital status: Current Living Situation: Spouse current occupational status: retired How many Children do You have: 2 Feels Safe at Home: Yes Childhood Exposure to Second-Hand Smoke: No caffeine: Yes during the past year weight has: remained stable Dental Care, Regularly: Yes Physical Activity Frequency: 3-4 Times per Week Seatbelt Use: always Sunscreen Use: Yes Assistive Devices: Glasses and Hearing Aid - Bilateral Allergies Allergies Allergy/AdvReac Type Severity Reaction Status Date / Time nitrofurantoin Allergy Intermediate FEVER Verified 02/29/24 14:41 losartan Allergy Mild Rash Verified 02/29/24 14:41 meperidine AdvReac Intermediate SEVERE Verified 02/29/24 14:41 NAUSEA AND VOMITING spironolactone AdvReac Intermediate gynecomasti Verified 02/29/24 14:41 a Home Meds Home Medications Medication Instructions Recorded Confirmed tamsulosin 0.4 mg capsule 0.4 mg PO QAM 01/12/24 04/11/24 enoxaparin 80 mg/0.8 mL 80 mg subcut BID 03/08/24 04/11/24 subcutaneous syringe warfarin 5 mg tablet 7.5 mg PO UD 03/08/24 04/11/24 Glucose D50 Amp 12.5 g IV DIRECTED PRN 04/11/24 04/11/24 Hypoglycemia Glucose D50 Amp 25 g IV DIRECTED PRN 04/11/24 04/11/24 Hypoglycemia Insta-Glucose 15 g PO DIRECTED PRN 04/11/24 04/11/24 Hypoglycemia Milk of Magnesia 30 ml PO DAILY PRN Constipation 04/11/24 04/11/24 Saline Iv 75 ml IV DIRECTED 04/11/24 04/11/24 Tpn 1,000 ml IV HS 04/11/24 04/11/24 acetaminophen 325 mg tablet 650 mg PO Q4H PRN Pain 04/11/24 04/11/24 acetaminophen 325 mg tablet 975 mg PO Q6H 04/11/24 04/11/24 amlodipine 10 mg tablet 5 mg PO QAM 04/11/24 04/11/24 atorvastatin 40 mg tablet 40 mg PO DAILY 04/11/24 04/11/24 bisacodyl 10 mg rectal suppository 10 mg IA DAILY PRN Constipation 04/11/24 04/11/24 calcium carbonate 500 mg PO Q2H PRN indigestion 04/11/24 04/11/24 diphenoxylate-atropine 2.5 1 tab PO Q6H 04/11/24 04/11/24 mg-0.025 mg tablet (Lomotil) lisinopril 5 mg tablet 5 mg PO DAILY 04/11/24 04/11/24 loperamide 2 mg capsule 4 mg PO Q6H 04/11/24 04/11/24 metoprolol succinate 50 mg 50 mg PO Q12H 04/11/24 04/11/24 tablet,extended release 24 hr ondansetron HCl 4 mg tablet 4 mg PO Q4H PRN n/v 04/11/24 04/11/24 piperacillin-tazobactam 3.375 gram 2.25 g IV Q6H 04/11/24 04/11/24 intravenous solution polyethylene glycol 3350 17 17 g PO .@LUNCH PRN Constipation 04/11/24 04/11/24 gram/dose oral powder (Miralax) sennosides 8.6 mg tablet (Senokot) 8.6 mg PO .@ LUNCH PRN Constipation 04/11/24 04/11/24 sodium chloride 0.9 % (flush) 10 ml IV Q12H 04/11/24 04/11/24 sodium phosphates 19 gram-7 133 ml IA DAILY PRN Constipation 04/11/24 04/11/24 gram/118 mL enema (Fleet Enema) warfarin 10 mg tablet 10 mg PO UD 04/11/24 04/11/24 Previous Rx's Medication Instructions Recorded rosuvastatin 20 mg tablet (Crestor) 20 mg PO HS #90 tabs 08/09/23 prednisone 1 mg tablet 4 mg (4 x 1 mg) PO QAM arthritis 01/26/24 90 days #360 tabs Results & Data (ED) Vital Signs Vital Signs - 24 hr 04/11/24 12:07 04/11/24 12:07 04/11/24 12:07 Temperature 36.5 C Temperature Source Oral Pulse Rate 59 L Pulse Rate [Left Brachial] Pulse Rhythm Regular Pulse Rhythm [Left Brachial] Pulse Strength Normal Pulse Strength [Left Brachial] Respiratory Rate 18 18 Respiratory Effort / Characteristics Non-Labored Non-Labored Respiratory Depth Normal Normal Respiratory Pattern Regular Regular Blood Pressure 118/68 Blood Pressure [Left Arm] 114/75 Blood Pressure Mean 84 Blood Pressure Mean [Left Arm] 88 Blood Pressure Position Lying Blood Pressure Position [Left Arm] Lying Pulse Oximetry 98 98 Oxygen Delivery Method Room Air Room Air Room Air Sepsis Recent Fever Within 48 Hours Yes Sepsis New/Unexplained Change in Mental Status No Sepsis Action Taken by Nursing No Action Required 04/11/24 12:22 04/11/24 12:23 04/11/24 12:23 Temperature 36.5 C Temperature Source Oral Pulse Rate 53 L 60 Pulse Rate [Left Brachial] 60 Pulse Rhythm Pulse Rhythm [Left Brachial] Regular Pulse Strength Pulse Strength [Left Brachial] Normal Respiratory Rate 18 18 Respiratory Effort / Characteristics Non-Labored Respiratory Depth Normal Respiratory Pattern Regular Blood Pressure Blood Pressure [Left Arm] 114/75 Blood Pressure Mean Blood Pressure Mean [Left Arm] 88 Blood Pressure Position Blood Pressure Position [Left Arm] Lying Pulse Oximetry 98 98 Oxygen Delivery Method Room Air Room Air Sepsis Recent Fever Within 48 Hours Sepsis New/Unexplained Change in Mental Status Sepsis Action Taken by Nursing 04/11/24 12:27 04/11/24 13:45 04/11/24 14:00 Temperature 36.5 C Temperature Source Oral Pulse Rate Pulse Rate [Left Brachial] 60 48 L 46 L Pulse Rhythm Pulse Rhythm [Left Brachial] Regular Regular Regular Pulse Strength Pulse Strength [Left Brachial] Normal Normal Normal Respiratory Rate 18 20 16 Respiratory Effort / Characteristics Non-Labored Non-Labored Non-Labored Respiratory Depth Normal Normal Normal Respiratory Pattern Regular Regular Regular Blood Pressure Blood Pressure [Left Arm] 114/75 118/68 103/42 L Blood Pressure Mean Blood Pressure Mean [Left Arm] 88 84 62 Blood Pressure Position Blood Pressure Position [Left Arm] Lying Lying Lying Pulse Oximetry 98 99 96 Oxygen Delivery Method Room Air Room Air Room Air Sepsis Recent Fever Within 48 Hours Sepsis New/Unexplained Change in Mental Status Sepsis Action Taken by Nursing 04/11/24 14:15 04/11/24 14:33 04/11/24 15:00 Temperature 36.7 C Temperature Source Oral Pulse Rate Pulse Rate [Left Brachial] 45 L 56 L 54 L Pulse Rhythm Pulse Rhythm [Left Brachial] Regular Regular Pulse Strength Pulse Strength [Left Brachial] Normal Normal Respiratory Rate 18 18 12 Respiratory Effort / Characteristics Non-Labored Non-Labored Non-Labored Spontaneous Respiratory Depth Normal Normal Normal Respiratory Pattern Regular Regular Blood Pressure Blood Pressure [Left Arm] 103/42 L 90/43 L 104/48 L Blood Pressure Mean Blood Pressure Mean [Left Arm] 62 58 66 Blood Pressure Position Blood Pressure Position [Left Arm] Lying Lying Pulse Oximetry 98 99 98 Oxygen Delivery Method Room Air Room Air Room Air Sepsis Recent Fever Within 48 Hours Sepsis New/Unexplained Change in Mental Status Sepsis Action Taken by Nursing 04/11/24 15:30 04/11/24 16:36 04/11/24 16:48 Temperature Temperature Source Pulse Rate Pulse Rate [Left Brachial] 43 L 62 54 L Pulse Rhythm Pulse Rhythm [Left Brachial] Pulse Strength Pulse Strength [Left Brachial] Respiratory Rate 10 L 16 13 Respiratory Effort / Characteristics Non-Labored Spontaneous Non-Labored Spontaneous Non-Labored Spontaneous Respiratory Depth Normal Normal Normal Respiratory Pattern Blood Pressure Blood Pressure [Left Arm] 97/46 L 99/41 L 120/66 Blood Pressure Mean Blood Pressure Mean [Left Arm] 63 60 84 Blood Pressure Position Blood Pressure Position [Left Arm] Pulse Oximetry 96 95 97 Oxygen Delivery Method Room Air Room Air Room Air Sepsis Recent Fever Within 48 Hours Sepsis New/Unexplained Change in Mental Status Sepsis Action Taken by Nursing 04/11/24 17:41 04/11/24 18:30 Temperature Temperature Source Pulse Rate 54 L Pulse Rate [Left Brachial] 68 Pulse Rhythm Pulse Rhythm [Left Brachial] Pulse Strength Pulse Strength [Left Brachial] Respiratory Rate 23 Respiratory Effort / Characteristics Non-Labored Spontaneous Respiratory Depth Normal Respiratory Pattern Blood Pressure Blood Pressure [Left Arm] 111/46 L Blood Pressure Mean Blood Pressure Mean [Left Arm] 67 Blood Pressure Position Blood Pressure Position [Left Arm] Pulse Oximetry 95 Oxygen Delivery Method Room Air Sepsis Recent Fever Within 48 Hours Sepsis New/Unexplained Change in Mental Status Sepsis Action Taken by Prison Medications Current Medication List: was personally reviewed by me Laboratory Data Attestation: I reviewed the patient's lab results. 04/11/24 14:46 04/11/24 13:06 Lab Results 04/11/24 04/11/24 04/11/24 Range/Units 12:58 13:06 14:46 WBC Cancelled 10.47 RBC Cancelled 2.52 L Hgb Cancelled 8.0 L Hct Cancelled 24.7 L MCV Cancelled 98.0 MCH Cancelled 31.7 MCHC Cancelled 32.4 RDW Std Deviation Cancelled 66.5 H RDW Coeff of Greyson Cancelled 18.5 H Plt Count Cancelled 228 MPV Cancelled 10.6 Immature Gran % (Auto) Cancelled 0.2 Neut % (Auto) Cancelled 79.1 Lymph % (Auto) Cancelled 4.9 [place] % (Auto) Cancelled 14.3 Eos % (Auto) Cancelled 1.2 Baso % (Auto) Cancelled 0.3 Neut # (Auto) Cancelled 8.28 H Lymph # (Auto) Cancelled 0.51 L [place] # (Auto) Cancelled 1.50 H Eos # (Auto) Cancelled 0.13 Baso # (Auto) Cancelled 0.03 Immature Gran # (Auto) Cancelled 0.02 Absolute Nucleated RBC Cancelled Nucleated RBC % (auto) Cancelled Neutrophils % (Manual) Cancelled Band Neutrophils % Cancelled Lymphocytes % (Manual) Cancelled Prolymphocyte % Cancelled Reactive Lymphs % (Man) Cancelled Monocytes % (Manual) Cancelled Eosinophils % (Manual) Cancelled Basophils % (Manual) Cancelled Metamyelocytes % (Man) Cancelled Myelocytes % (Man) Cancelled Promyelocytes % (Man) Cancelled Blast Cells % (Manual) Cancelled Plasma Cell % (Manual) Cancelled Other Cells % Cancelled Nucleated RBC % Cancelled Neutrophils # (Manual) Cancelled Band Neutrophils # Cancelled Total Absolute Neuts Cancelled Lymphocytes # (Manual) Cancelled Prolymphocyte # Cancelled Reactive Lymphs # Cancelled Total Abs Lymphocytes Cancelled Monocytes # (Manual) Cancelled Eosinophils # (Manual) Cancelled Basophils # (Manual) Cancelled Metamyelocytes # (Man) Cancelled Myelocytes # (Manual) Cancelled Promyelocytes # (Man) Cancelled Blast Cells # (Man) Cancelled Plasma Cell # (Manual) Cancelled Other Cells # Cancelled Nucleated RBCs # (Man) Cancelled Hypersegmented Neuts Cancelled Hyposegmented Neuts Cancelled Hypogranular Neuts Cancelled Large Granular Lymphs Cancelled # Lrg Granular Lymphs Cancelled Hairy Cells Cancelled Smudge Cells Cancelled Toxic Granulation Cancelled Toxic Vacuolation Cancelled Dohle Bodies Cancelled Brigid Rods Cancelled Platelet Estimate Cancelled Hypogranular Platelets Cancelled Giant Platelets Cancelled Platelet Satelliting Cancelled RBC Morphology Cancelled Polychromasia Cancelled Hypochromasia Cancelled Poikilocytosis Cancelled Basophilic Stippling Cancelled Anisocytosis Cancelled Microcytosis Cancelled Macrocytosis Cancelled Spherocytes Cancelled Pappenheimer Bodies Cancelled Sickle Cells Cancelled Target Cells Cancelled Tear Drop Cells Cancelled Ovalocytes Cancelled Stomatocytes Cancelled Tsang-Spindale Bodies Cancelled Echinocytes Cancelled Acanthocytes (Spur) Cancelled Rouleaux Cancelled RBC Agglutinates Cancelled Schistocytes Cancelled Sezary Cell Cancelled PT 20.9 H (9.0-12.0) Seconds INR 2.1 H (0.9-1.1) APTT 37 H (21-31) Seconds PTT Ratio 1.4 VBG pH 7.38 (7.36-7.41) VBG pCO2 52 H (38-50) mmHg VBG pO2 29 mmHg VBG HCO3 31 mmol/L VBG O2 Saturation < 60.0 % VBG Base Excess 4.4 mEq/L Sodium 135 L (136-145) mmol/L Potassium 5.4 H (3.5-5.1) mmol/L Chloride 101 (98-107) mmol/L Carbon Dioxide 27 (21-32) mmol/L Anion Gap 7 (3-11) BUN 62 H (6-23) mg/dl Creatinine 2.00 H (0.6-1.4) mg/dl Est Cr Clr Drug Dosing 30.0 ml/min Est GFR ( Amer) 35.0 ml/min Est GFR (Non-Af Amer) 30.2 ml/min BUN/Creatinine Ratio 31.0 H (10-20) Glucose 164 H (70-99(Fasting)) mg/dl Lactate 1.9 (0.4-2.0) mmol/L Calcium 8.5 L (8.6-10.3) mg/dl Magnesium 2.2 (1.7-2.4) mg/dl Total Bilirubin 0.8 (0.2-1.0) mg/dl Direct Bilirubin 0.3 H (0-0.2) mg/dl AST 15 (13-39) U/L ALT 16 (7-52) U/L Alkaline Phosphatase 99 (34-104) U/L Troponin I High Sens 28.8 H (0-20) pg/ml Total Protein 5.2 L (6.0-8.3) gm/dl Albumin 2.7 L (3.4-5.0) gm/dl Procalcitonin 2.13 H (0-0.5) ng/ml Urine Color Yellow Urine Appearance Cloudy A (Clear) Urine pH 8.5 H (4.5-7.5) Ur Specific [place] 1.016 (1.000-1.030) Urine Protein 1+ H (Negative) Urine Glucose (UA) Negative (Negative) Urine Ketones Negative (Negative) Urine Blood 1+ H (Negative) Urine Nitrite Negative (Negative) Urine Bilirubin Negative (Negative) Urine Urobilinogen Negative (Negative) Ur Leukocyte Esterase 3+ H (Negative) Urine RBC 6-10 H (0-2) /hpf Urine WBC >50 H (0-5) /hpf Ur Epithelial Cells 0-2 (0-2) /hpf Urine Bacteria 2+ H (None Seen) Adenovirus (PCR) Not Detected (NotDetected) B. pertussis DNA (PCR) Not Detected (NotDetected) B.parapertussis DNA PCR Not Detected (NotDetected) C. pneumoniae DNA (PCR) Not Detected (NotDetected) Coronavirus OC43 (PCR) Not Detected (NotDetected) Coronavirus HKU1 (PCR) Not Detected (NotDetected) Coronavirus 229E (PCR) Not Detected (NotDetected) SARS-CoV-2 (PCR) Not Detected (NotDetected) Coronavirus NL63 (PCR) DETECTED A (NotDetected) Human Metapneumovir PCR Not Detected (NotDetected) Influenza Type A (PCR) Not Detected (NotDetected) Influenza Type B (PCR) Not Detected (NotDetected) M. pneumoniae (PCR) Not Detected (NotDetected) Parainfluenza 1 (PCR) Not Detected (NotDetected) Parainfluenza 2 (PCR) Not Detected (NotDetected) Parainfluenza 3 (PCR) Not Detected (NotDetected) Parainfluenza 4 (PCR) Not Detected (NotDetected) RSV (PCR) Not Detected (NotDetected) Entero/Rhino (PCR) Not Detected (NotDetected) Blood Parasites ID Cancelled 04/11/24 Range/Units 15:57 WBC RBC Hgb Hct MCV MCH MCHC RDW Std Deviation RDW Coeff of Greyson Plt Count MPV Immature Gran % (Auto) Neut % (Auto) Lymph % (Auto) [place] % (Auto) Eos % (Auto) Baso % (Auto) Neut # (Auto) Lymph # (Auto) [place] # (Auto) Eos # (Auto) Baso # (Auto) Immature Gran # (Auto) Absolute Nucleated RBC Nucleated RBC % (auto) Neutrophils % (Manual) Band Neutrophils % Lymphocytes % (Manual) Prolymphocyte % Reactive Lymphs % (Man) Monocytes % (Manual) Eosinophils % (Manual) Basophils % (Manual) Metamyelocytes % (Man) Myelocytes % (Man) Promyelocytes % (Man) Blast Cells % (Manual) Plasma Cell % (Manual) Other Cells % Nucleated RBC % Neutrophils # (Manual) Band Neutrophils # Total Absolute Neuts Lymphocytes # (Manual) Prolymphocyte # Reactive Lymphs # Total Abs Lymphocytes Monocytes # (Manual) Eosinophils # (Manual) Basophils # (Manual) Metamyelocytes # (Man) Myelocytes # (Manual) Promyelocytes # (Man) Blast Cells # (Man) Plasma Cell # (Manual) Other Cells # Nucleated RBCs # (Man) Hypersegmented Neuts Hyposegmented Neuts Hypogranular Neuts Large Granular Lymphs # Lrg Granular Lymphs Hairy Cells Smudge Cells Toxic Granulation Toxic Vacuolation Dohle Bodies Brigid Rods Platelet Estimate Hypogranular Platelets Giant Platelets Platelet Satelliting RBC Morphology Polychromasia Hypochromasia Poikilocytosis Basophilic Stippling Anisocytosis Microcytosis Macrocytosis Spherocytes Pappenheimer Bodies Sickle Cells Target Cells Tear Drop Cells Ovalocytes Stomatocytes Tsang-Spindale Bodies Echinocytes Acanthocytes (Spur) Rouleaux RBC Agglutinates Schistocytes Sezary Cell PT (9.0-12.0) Seconds INR (0.9-1.1) APTT (21-31) Seconds PTT Ratio VBG pH (7.36-7.41) VBG pCO2 (38-50) mmHg VBG pO2 mmHg VBG HCO3 mmol/L VBG O2 Saturation % VBG Base Excess mEq/L Sodium (136-145) mmol/L Potassium (3.5-5.1) mmol/L Chloride (98-107) mmol/L Carbon Dioxide (21-32) mmol/L Anion Gap (3-11) BUN (6-23) mg/dl Creatinine (0.6-1.4) mg/dl Est Cr Clr Drug Dosing ml/min Est GFR ( Amer) ml/min Est GFR (Non-Af Amer) ml/min BUN/Creatinine Ratio (10-20) Glucose (70-99(Fasting)) mg/dl Lactate (0.4-2.0) mmol/L Calcium (8.6-10.3) mg/dl Magnesium (1.7-2.4) mg/dl Total Bilirubin (0.2-1.0) mg/dl Direct Bilirubin (0-0.2) mg/dl AST (13-39) U/L ALT (7-52) U/L Alkaline Phosphatase (34-104) U/L Troponin I High Sens 24.8 H (0-20) pg/ml Total Protein (6.0-8.3) gm/dl Albumin (3.4-5.0) gm/dl Procalcitonin (0-0.5) ng/ml Urine Color Urine Appearance (Clear) Urine pH (4.5-7.5) Ur Specific [place] (1.000-1.030) Urine Protein (Negative) Urine Glucose (UA) (Negative) Urine Ketones (Negative) Urine Blood (Negative) Urine Nitrite (Negative) Urine Bilirubin (Negative) Urine Urobilinogen (Negative) Ur Leukocyte Esterase (Negative) Urine RBC (0-2) /hpf Urine WBC (0-5) /hpf Ur Epithelial Cells (0-2) /hpf Urine Bacteria (None Seen) Adenovirus (PCR) (NotDetected) B. pertussis DNA (PCR) (NotDetected) B.parapertussis DNA PCR (NotDetected) C. pneumoniae DNA (PCR) (NotDetected) Coronavirus OC43 (PCR) (NotDetected) Coronavirus HKU1 (PCR) (NotDetected) Coronavirus 229E (PCR) (NotDetected) SARS-CoV-2 (PCR) (NotDetected) Coronavirus NL63 (PCR) (NotDetected) Human Metapneumovir PCR (NotDetected) Influenza Type A (PCR) (NotDetected) Influenza Type B (PCR) (NotDetected) M. pneumoniae (PCR) (NotDetected) Parainfluenza 1 (PCR) (NotDetected) Parainfluenza 2 (PCR) (NotDetected) Parainfluenza 3 (PCR) (NotDetected) Parainfluenza 4 (PCR) (NotDetected) RSV (PCR) (NotDetected) Entero/Rhino (PCR) (NotDetected) Blood Parasites ID Administered Medications Sodium Chloride (Nss) 500 mls @ 0 mls/hr IV .Q0M STEVEN Stop: 05/11/24 15:59 Last Infusion: 04/11/24 16:47 Dose: Infused Documented By: Admin: 04/11/24 15:50 Dose: 999 mls/hr Documented By: NITO Parenteral Electrolytes (Plasma-Lyte A Ph 7.4) 1,000 mls @ 999 mls/hr IV .Q1H1M ONE Stop: 04/11/24 20:09 Last Admin: 04/11/24 19:25 Dose: 999 mls/hr Documented By: NITO Discontinued Medications Hydrocortisone Sodium Succinate (Hydrocortisone Sod Succinate 100 Mg/2 Ml Vial) 100 mg IV NOW STA Stop: 04/11/24 19:13 Last Admin: 04/11/24 19:26 Dose: 100 mg Documented By: NITO Sodium Chloride (Nss) 500 mls @ 999 mls/hr IV .Q31M STEVEN Stop: 04/11/24 12:45 Last Infusion: 04/11/24 13:02 Dose: Infused Documented By: Admin: 04/11/24 12:18 Dose: 999 mls/hr Documented By: ELLIS Piperacillin Sod/Tazobactam Sod (Zosyn) 4.5 gm in 100 mls @ 200 mls/hr IV NOW STA Stop: 04/11/24 12:39 Last Infusion: 04/11/24 14:30 Dose: Infused Documented By: Admin: 04/11/24 13:54 Dose: 200 mls/hr Documented By: ELLIS Acetaminophen (Ofirmev) 1,000 mg in 100 mls @ 400 mls/hr IV NOW STA Stop: 04/11/24 12:24 Last Infusion: 04/11/24 12:42 Dose: Infused Documented By: Admin: 04/11/24 12:18 Dose: 400 mls/hr Documented By: ELLIS Sodium Chloride (Nss) 500 mls @ 999 mls/hr IV .Q31M ONE Stop: 04/11/24 15:28 Last Infusion: 04/11/24 15:42 Dose: Infused Documented By: Admin: 04/11/24 15:04 Dose: 999 mls/hr Documented By: ELLIS Prochlorperazine (Compazine) 1 mls @ 1 mls/min IV ONE ONE Stop: 04/11/24 14:59 Last Admin: 04/11/24 15:03 Dose: 1 mls/min Documented By: ELLIS Sodium Chloride (Nss) 1,000 mls @ 999 mls/hr IV .Q1H1M ONE Stop: 04/11/24 16:59 Last Admin: 04/11/24 16:38 Dose: Not Given Documented By: NITO Sodium Chloride (Nss) 500 mls @ 999 mls/hr IV .Q31M ONE Stop: 04/11/24 16:46 Last Infusion: 04/11/24 17:23 Dose: Infused Documented By: Admin: 04/11/24 16:46 Dose: 999 mls/hr Documented By: NITO Sodium Chloride (Nss) 1,000 mls @ 999 mls/hr IV .Q1H1M ONE Stop: 04/11/24 17:45 Last Admin: 04/11/24 19:23 Dose: Not Given Documented By: NITO Metoclopramide HCl (Metoclopramide Hcl Inj 5 Mg/Ml 2 Ml Vial) 5 mg IM NOW STA Stop: 04/11/24 17:54 Last Admin: 04/11/24 18:21 Dose: 5 mg Documented By: NITO Metoclopramide HCl (Metoclopramide Hcl Inj 5 Mg/Ml 2 Ml Vial) Confirm Administered Dose 10 mg .ROUTE .STK-MED ONE Stop: 04/11/24 17:56 Last Admin: 04/11/24 18:22 Dose: Not Given Documented By: NITO Ondansetron HCl (Ondansetron Inj 2 Mg/Ml 2 Ml Vial) 4 mg IV NOW STA Stop: 04/11/24 12:14 Last Admin: 04/11/24 12:18 Dose: 4 mg Documented By: ELLIS Ondansetron HCl (Ondansetron Inj 2 Mg/Ml 2 Ml Vial) 4 mg IV NOW STA Stop: 04/11/24 13:49 Last Admin: 04/11/24 13:54 Dose: 4 mg Documented By: ARS Ondansetron HCl (Ondansetron Inj 2 Mg/Ml 2 Ml Vial) Confirm Administered Dose 4 mg .ROUTE .STK-MED ONE Stop: 04/11/24 17:52 Last Admin: 04/11/24 18:22 Dose: Not Given Documented By: NITO Imaging Data Radiologist's Impression: Chest X-Ray 04/11/24 12:10 XR chest 1V portable CLINICAL HISTORY: Sepsis. COMPARISON STUDY: Chest radiograph March 22, 2023. Chest CT December 02, 2023. PET/CT March 01, 2024. FINDINGS: There are median sternotomy wires and mediastinal surgical clips. Tip of right PICC projects over the cavoatrial junction. There is no pneumothorax or pleural effusion. Cardiomegaly is unchanged. There are is pulmonary vascular congestion. Mild left basilar opacity is present. Skin folds project over the left chest. IMPRESSION: 1. Cardiomegaly with pulmonary vascular congestion. 2. Mild left basilar opacity. This could reflect atelectasis or pneumonia. ACT 112: Negative or not required by law. Electronically signed by: Akhil Tse M.D. 04/11/2024 12:[address] 04/11/24 12:10 CT head/brain wo con CLINICAL HISTORY: reported L sided deficits on coumadin Technique: Contiguous axial CT images of the head were acquired from the base of the skull to the vertex without intravenous contrast administration. Images were viewed in brain, subdural and bone windows. Automated dose lowering techniques and/or adjustment according to patient size were utilized for this exam. Comparison: None available at the time of this dictation. Findings: Areas of decreased attenuation are present in the periventricular and subcortical white matter bilaterally consistent with small vessel ischemic disease. Generalized cerebral atrophy with commensurate enlargement of the ventricles, sulci, and cisterns is also present. There is no acute intracranial hemorrhage or evidence of acute territorial infarction. No shift of the midline structures, mass effect, or extra-axial abnormalities are shown. Atherosclerotic calcifications are present in the intracranial segments of the internal carotid arteries. Mucous retention cysts are seen in the left maxillary sinus. The orbits appear normal. There are no acute fractures of the calvaria or scalp swelling. Impression: No acute intracranial hemorrhage, no evidence of acute territorial infarction or other acute intracranial disease process. ACT 112: Negative or not required by law. Electronically signed by: Iam Cabrera M.D. 04/11/2024 2:07 PM Abdomen/Pelvis CT 04/11/24 13:12 CT abd pelvis wo con CLINICAL HISTORY: fever, recent cystectomy ileal conduit, ASIA drain TECHNIQUE: Helical axial images of the abdomen and pelvis were obtained. Automated dose lowering techniques and/or adjustment according to patient size were utilized for this exam. This exam was performed without intravenous contrast. CT DOSE: 1716.84 mGy.cm COMPARISON: Comparison is made to CT abdomen pelvis 12/02/2023 FINDINGS: Lower chest: Bibasilar airspace opacities are seen. Cardiomegaly is seen. Incidental note is made of hypodensity in the blood pool compatible with anemia. Liver: Hepatic cysts are seen. Gallbladder and biliary tree: No calcified gallstones. Normal caliber wall. No intra- or extrahepatic biliary ductal dilation. Pancreas: Unremarkable, no focal lesions. Spleen: Unremarkable. Adrenals: Unremarkable. Kidneys and ureters: Bilateral renal stones are seen. There is bilateral hydronephrosis. Postsurgical change of ileal conduit is seen. Bladder: Status post cystectomy. Reproductive organs: Patient is status post hysterectomy. Bowel: Postsurgical changes of ileal conduit formation is seen. There is a small hiatal hernia. Nondilated loops of small bowel measure up to 35 mm. A colostomy is seen on the left without evidence of dilation. Lymph nodes Retroperitoneal: Unremarkable. Pelvic: Unremarkable. Mesenteric: Unremarkable. Peritoneum: There is a fluid collection in the pelvis in the approximate location of the bladder. No thickened cao are seen although evaluation is limited by noncontrast technique. A ASIA drain in the left. Vessels: Atherosclerotic calcifications are seen. Abdominal wall: Midline incision is seen and there is a small amount of gas and soft tissue thickening noted. Bones: Degenerative changes in the visualized spine. IMPRESSION: 1. Postsurgical changes of ileal conduit and cystectomy in this patient status post surgery on March 13. There is a prominent fluid collection in the pelvis which may represent seroma however the sterility cannot be assessed on a noncontrast exam. 2. Small amount of gas and soft tissue thickening in the incision which is likely represent post operative change, although again sterility cannot be assessed. 3. Mild prominence of loops of small bowel. This is nonspecific and may represent ileus or less likely obstruction. Of note, the distal loops of bowel leading to the colostomy are nondistended. ACT 112: Negative or not required by law. Electronically signed by: Iam Cabrera M.D. 04/11/2024 2:46 PM Discharge Plan Visit Data Chief Complaint: Lethargic Stated Complaint: LETHARGIC ED Provider: Reynaldo Johnson Discharge Problem: MERRICK (acute kidney injury), Acute dehydration, Sepsis, Vomiting, History of bladder cancer, History of total cystectomy Patient Disposition: Transfer Acute Care Hospital Forms Stand Alone Forms: [facility] Prescriptions Prescriptions: No Action tamsulosin 0.4 mg capsule 0.4 mg PO QAM warfarin 5 mg tablet 7.5 mg PO UD Rx Instructions: 7.5 mg po pm: start date 04/11/24 stop date 04/12/24 enoxaparin 80 mg/0.8 mL syringe 80 mg subcut BID Rx Instructions: Per [facility] for 03/13/24 invasive procedure (bridge) rosuvastatin [Crestor] 20 mg tablet 20 mg PO HS Qty: 90 3RF prednisone 1 mg tablet 4 mg PO QAM 90 Days Qty: 360 1RF atorvastatin 40 mg Tablet 40 mg PO DAILY sennosides [Senokot] 8.6 mg Tablet 8.6 mg PO .@ LUNCH PRN (Reason: Constipation) acetaminophen 325 mg Tablet 975 mg PO Q6H acetaminophen 325 mg Tablet 650 mg PO Q4H PRN (Reason: Pain) loperamide 2 mg Capsule 4 mg PO Q6H warfarin 10 mg Tablet 10 mg PO UD Rx Instructions: 10 mg po. 04/11/24:No start/stop date on medication list faxed from facility. List faxed from ED doesn't show medication at all. ondansetron HCl [Zofran] 4 mg Tablet 4 mg PO Q4H PRN (Reason: n/v) diphenoxylate-atropine [Lomotil] 2.5-0.025 mg Tablet 1 tab PO Q6H piperacillin-tazobactam [Zosyn] 3.375 gram Recon Soln 2.25 g IV Q6H Rx Instructions: start 04/11/24 stop date 04/18/24 bisacodyl 10 mg Suppository 10 mg IA DAILY PRN (Reason: Constipation) Fleet Enema 19-7 gram/118 mL Enema 133 ml IA DAILY PRN (Reason: Constipation) calcium carbonate [Tums 500] 500 mg calcium (1,250 mg) Tablet,Chewable 500 mg PO Q2H PRN (Reason: indigestion ) lisinopril 5 mg Tablet 5 mg PO DAILY polyethylene glycol 3350 [Miralax] 17 gram/dose Powder 17 g PO .@LUNCH PRN (Reason: Constipation) sodium chloride 0.9 % (flush) [Saline Flush] Syringe 10 ml IV Q12H Rx Instructions: administer before and after IV drug administration as part of [facility] protocol Glucose D50 Amp 25 g IV DIRECTED PRN (Reason: Hypoglycemia) Glucose D50 Amp 12.5 g IV DIRECTED PRN (Reason: Hypoglycemia) Insta-Glucose 15 g PO DIRECTED PRN (Reason: Hypoglycemia) Milk of Magnesia 30 ml PO DAILY PRN (Reason: Constipation) Saline Iv 75 ml IV DIRECTED Rx Instructions: 75ml/hr, 13.3 grm bag volume (ml): 1000 metoprolol succinate 50 mg tablet extended release 24 hr 50 mg PO Q12H amlodipine 10 mg tablet 5 mg PO QAM Tpn 1,000 ml IV HS Rx Instructions: IV piggyback Referrals Referrals: Jael Yu MD [Family Provider] - Discharge Problem: Sepsis Qualifiers: Sepsis type: sepsis due to unspecified organism Sepsis acute organ dysfunction status: unspecified Qualified Code(s): A41.9 - Sepsis, unspecified organism Vomiting Qualifiers: Vomiting type: unspecified Nausea presence: with nausea Qualified Code(s): R 11.2 - Nausea with vomiting, unspecified
[2024-04-11] MEDS: ACETAMINOPHEN 1,000 MG/100 ML VIAL IV STA (12:18)
[2024-04-11] MEDS: ONDANSETRON INJ 2 MG/ML 2 ML VIAL IV STA ×2 (12:18→13:54)
[2024-04-11] MEDS: SODIUM CHLORIDE 0.9% 500 ML IV SCH ×2 (12:18→15:50)
--- NOTE | 2024-04-11 12:39 | XRay Report ---
XR chest 1V portable CLINICAL HISTORY: Sepsis. COMPARISON STUDY: Chest radiograph March 22, 2023. Chest CT December 02, 2023. PET/CT March 01, 2024. FINDINGS: There are median sternotomy wires and mediastinal surgical clips. Tip of right PICC project s over the cavoatrial junction. There is no pneumothorax or pleural effusion. Cardiomegaly is unchang ed. There are is pulmonary vascular congestion. Mild left basilar opacity is present. Skin folds proj ect over the left chest. IMPRESSION: 1. Cardiomegaly with pulmonary vascular congestion. 2. Mild left basilar opacity. This could reflect atelectasis or pneumonia. ACT 112: Negative or not required by law. Electronically signed by: Akhil Tse M.D. 04/11/2024 12:38 PM
[2024-04-11 13:45] LABS: Albumin Level 2.7 gm/dl (3.4-5.0); Bilirubin Direct 0.3 mg/dl (0-0.2); Bilirubin,Total 0.8 mg/dl (0.2-1.0); Calcium 8.5 mg/dl (8.6-10.3); Est GFR (Non-African American) 30.2 ml/min; Magnesium 2.2 mg/dl (1.7-2.4); Potassium 5.4 mmol/L (3.5-5.1); Total Protein 5.2 gm/dl (6.0-8.3)
[2024-04-11 13:51] LABS: Troponin I High Sensitivity 28.8 pg/ml (0-20)
[2024-04-11] MEDS: PIPERACILLIN/TAZOBACTAM 4.5 GM/100 ML BAG IV STA (13:54)
[2024-04-11 14:03] LABS: INR 2.1 (0.9-1.1); Partial Thromboplastin Ratio 1.4; Partial Thromboplastin Time 37 Seconds (21-31); Prothrombin Time 20.9 Seconds (9.0-12.0)
[2024-04-11 14:08] LABS: Appearance Urine Cloudy (Clear); Bilirubin Urine Negative (Negative); Blood Urine 1+ (Negative); Color Urine Yellow; Glucose Urine UA Negative (Negative); Ketones Urine Negative (Negative); Leukocyte Esterase Urine 3+ (Negative); Nitrite Urine Negative (Negative); Protein Urine 1+ (Negative); Specific Gravity Urine 1.016 (1.000-1.030); Urobilinogen Urine Negative (Negative); pH Urine 8.5 (4.5-7.5)
--- NOTE | 2024-04-11 14:08 | CT Scan Report ---
CT head/brain wo con CLINICAL HISTORY: reported L sided deficits on coumadin Technique: Contiguous axial CT images of the head were acquired from the base of the skull to the janet yessi without intravenous contrast administration. Images were viewed in brain, subdural and [facility]. Automated dose lowering techniques and/or adjustment according to patient size were utilized for this exam. Comparison: None available at the time of this dictation. Findings: Areas of decreased attenuation are present in the periventricular and subcortical white matter bilate rally consistent with small vessel ischemic disease. Generalized cerebral atrophy with commensurate e nlargement of the ventricles, sulci, and cisterns is also present. There is no acute intracranial hem orrhage or evidence of acute territorial infarction. No shift of the midline structures, mass effect, or extra-axial abnormalities are shown. Atherosclerotic calcifications are present in the intracran ial segments of the internal carotid arteries. Mucous retention cysts are seen in the left maxillary sinus. The orbits appear normal. There are no a cute fractures of the calvaria or scalp swelling. Impression: No acute intracranial hemorrhage, no evidence of acute territorial infarction or other acute intracra nial disease process. ACT 112: Negative or not required by law. Electronically signed by: Iam Cabrera M.D. 04/11/2024 2:07 PM
[2024-04-11 14:10] LABS: Adenovirus PCR Not Detected (NotDetected); Bordetella parapertussis PCR Not Detected (NotDetected); Bordetella pertussis PCR Not Detected (NotDetected); Chlamydia pneumoniae PCR Not Detected (NotDetected); Coronavirus 229E PCR Not Detected (NotDetected); Coronavirus CoV-2 (COVID19)PCR Not Detected (NotDetected); Coronavirus HKU1 PCR Not Detected (NotDetected); Coronavirus NL63 PCR DETECTED (NotDetected); Coronavirus OC43PCR Not Detected (NotDetected); Human Metapneumovirus PCR Not Detected (NotDetected); Influenza A PCR Not Detected (NotDetected); Influenza B PCR Not Detected (NotDetected); Mycoplasma pneumoniae PCR Not Detected (NotDetected); Parainfluenza Virus 1 PCR Not Detected (NotDetected); Parainfluenza Virus 2 PCR Not Detected (NotDetected); Parainfluenza Virus 3 PCR Not Detected (NotDetected); Parainfluenza Virus 4 PCR Not Detected (NotDetected); Respiratory Syncytial VirusPCR Not Detected (NotDetected); Rhinovirus/Enterovirus PCR Not Detected (NotDetected)
[2024-04-11 14:42] LABS: Bacteria Urine 2+ (None Seen); Epithelial Cell Urine 0-2 /hpf (0-2); WBC Urine >50 /hpf (0-5)
--- NOTE | 2024-04-11 14:47 | CT Scan Report ---
CT abd pelvis wo con CLINICAL HISTORY: fever, recent cystectomy ileal conduit, ASIA drain TECHNIQUE: Helical axial images of the abdomen and pelvis were obtained. Automated dose lowering tech niques and/or adjustment according to patient size were utilized for this exam. This exam was perfor med without intravenous contrast. CT DOSE: 1716.84 mGy.cm COMPARISON: Comparison is made to CT abdomen pelvis 12/02/2023 FINDINGS: Lower chest: Bibasilar airspace opacities are seen. Cardiomegaly is seen. Incidental note is made of hypodensity in the blood pool compatible with anemia. Liver: Hepatic cysts are seen. Gallbladder and biliary tree: No calcified gallstones. Normal caliber wall. No intra- or extrahepatic biliary ductal dilation. Pancreas: Unremarkable, no focal lesions. Spleen: Unremarkable. Adrenals: Unremarkable. Kidneys and ureters: Bilateral renal stones are seen. There is bilateral hydronephrosis. Postsurgical change of ileal conduit is seen. Bladder: Status post cystectomy. Reproductive organs: Patient is status post hysterectomy. Bowel: Postsurgical changes of ileal conduit formation is seen. There is a small hiatal hernia. Nondi lated loops of small bowel measure up to 35 mm. A colostomy is seen on the left without evidence of d ilation. Lymph nodes Retroperitoneal: Unremarkable. Pelvic: Unremarkable. Mesenteric: Unremarkable. Peritoneum: There is a fluid collection in the pelvis in the approximate location of the bladder. No thickened cao are seen although evaluation is limited by noncontrast technique. A ASIA drain in the l eft. Vessels: Atherosclerotic calcifications are seen. Abdominal wall: Midline incision is seen and there is a small amount of gas and soft tissue thickenin g noted. Bones: Degenerative changes in the visualized spine. IMPRESSION: 1. Postsurgical changes of ileal conduit and cystectomy in this patient status post surgery on Augus t 13. There is a prominent fluid collection in the pelvis which may represent seroma however the ster ility cannot be assessed on a noncontrast exam. 2. Small amount of gas and soft tissue thickening in the incision which is likely represent post ope rative change, although again sterility cannot be assessed. 3. Mild prominence of loops of small bowel. This is nonspecific and may represent ileus or less like ly obstruction. Of note, the distal loops of bowel leading to the colostomy are nondistended. ACT 112: Negative or not required by law. Electronically signed by: Iam Cabrera M.D. 04/11/2024 2:46 PM
[2024-04-11 15:00] LABS: Base Excess VBG 4.4 mEq/L; HCO3 VBG 31 mmol/L; Oxygen Saturation VBG < 60.0 %; PCO2 VBG 52 mmHg (38-50); PO2 VBG 29 mmHg; pH VBG 7.38 (7.36-7.41)
[2024-04-11 15:02] LABS: Basophils # (auto) 0.03 K/uL (0.00-0.20); Basophils % (auto) 0.3 %; Eosinophils # (auto) 0.13 K/uL (0.00-0.50); Eosinophils % (auto) 1.2 %; Hematocrit (blood only) 24.7 % (42.0-52.0); Immature Granulocytes # (auto) 0.02 K/uL (0.01-0.20); Immature Granulocytes % (auto) 0.2 %; Lymphocytes # (auto) 0.51 K/uL (1.20-3.40); Lymphocytes % (auto) 4.9 %; Mean Corpuscular Hemoglobin 31.7 pg (25.0-34.0); Mean Corpuscular Hgb Conc 32.4 g/dL (32.0-36.0); Mean Platelet Volume 10.6 fL (9.4-12.4); Monocytes % (auto) 14.3 %; Neutrophils # (auto) 8.28 K/uL (1.40-6.50); Neutrophils % (auto) 79.1 %; Platelet Count 228 K/uL (130-400); RDW Coefficient of Variation 18.5 % (11.5-14.5); RDW Standard Deviation 66.5 fL (36.4-46.3); Red Blood Count 2.52 M/uL (4.70-6.10); White Blood Count 10.47 K/ul (4.8-10.8)
[2024-04-11] MEDS: PROCHLORPERAZINE 1 ML IV ONE (15:03)
[2024-04-11] MEDS: SODIUM CHLORIDE 0.9% 500 ML IV ONE ×2 (15:04→16:46)
[2024-04-11] MEDS: SODIUM CHLORIDE 0.9% 1,000 ML IV ONE ×2 (16:38→19:23)
[2024-04-11] MEDS: METOCLOPRAMIDE HCL INJ 5 MG/ML 2 ML VIAL IM STA (18:21)
[2024-04-11] MEDS: ONDANSETRON INJ 2 MG/ML 2 ML VIAL ONE (18:22)
[2024-04-11] MEDS: METOCLOPRAMIDE HCL INJ 5 MG/ML 2 ML VIAL ONE (18:22)
--- NOTE | 2024-04-11 18:42 | History & Physical Report ---
Date of Service April 11, 2024 Assessment & Plan (1) Sepsis: Plan: Suspect UTI however DDx does include intra-abdominal/postsurgical infection - +PCT, WBC normal. He is coronavirus (non-COVID) positive. Received sepsis guideline fluids in the ER Continue Zosyn Given postsurgical status and sepsis daptomycin added for MRSA coverage until abscess/MRSA infection is excluded UCx pending Blood cultures pending Lactate normal No abdominal pain Surgical incisions do not appear infected (2) Nausea & vomiting: Plan: DDx includes viral illness, gastroenteritis, ileus, developing SBO, UTI CT/A/P: Postsurgical changes of ileal conduit and cystectomy noted. Prominent fluid collection in the pelvis which may represent seroma, sterility cannot be assessed on noncontrast exam. Small amount of gas and soft tissue thickening at the incision suspected postoperative change but from which infection is not excluded. Mild prominence of loops of small bowel. Nonspecific may represent ileus. Obstruction is not excluded however no bowel distention is appreciated. Given high risk history for SBO and recent surgical intervention, and cystectomy with suspected seroma for which infectious not excluded case was reviewed extensively with [facility]. Patient accepted for transfer by Dr. Clifton however cannot be transferred until AM. Accepted for transfer 04/12/2024 No leukocytosis; procalcitonin is elevated UA is infected appearing, chronically contaminated. Empiric antibiotics with Zosyn continued. Daptomycin for MRSA coverage continued Normotensive following fluids in the ER. He is not tachycardic. He is not hypoxic Essential oral medications switched to IV while having nausea/vomiting limiting intake. Chronic prednisone this is at risk for adrenal insufficiency, switched to hydrocortisone 50q6. (3) Pulmonary embolism: Plan: On warfarin. INR 2.1, within goal range. Continue warfarin with goal INR 23. Warfarin held as patient is not able to tolerate p.o., switch to heparin gtt (Lovenox deferred due to MERRICK/CrCl ~30). Hold this if hemoglobin is downtrending (4) Bladder carcinoma: Plan: As noted, follows with [facility] (5) Atrial fibrillation: Plan: A-fib, CAD s/p CABG HEALY to LAD, saphenous to obtuse marginal, saphenous to RCA and PDA 2012, RBBB INR 2.1, goal 23 Really volume contracted on admission, s/p volume resuscitation in the ER Continue metoprolol. Lisinopril held for hypotension. Denies chest pain prior to admission or on admitting. Troponin minimally elevated and downtrending to 24 Patient is not able to keep down orals due to nausea/vomiting. Creatinine is elevated. Switched to heparin rather than Lovenox due to renal function (6) Coronary artery disease: Plan: As noted (7) Anemia: Plan: Patient denies any clinical bleeding, no lightheadedness or dizziness, no tachycardia Hemoglobin trended Type and cross on file If downtrending H&H hold anticoagulation Plan DVT prophylaxis: Anticoagulated Disposition: PCU CODE STATUS: Full code Diet: Clears History of Present Illness Primary Care Provider: Iam Lange DO "Hi "is an 83-year-old male with a past history of HFrEF, hyperlipidemia, atrial fibrillation, PE, prostate cancer, bladder carcinoma s/p cystectomy completed March 13 who presents to the ER with 3 weeks of progressive weakness, nausea/vomiting, and in the last 24 hours worsen nausea/vomiting and a fever of 102 and ?L sided weakness Presented for concerns of L weakness, CT normal. No focal/unilateral deficits at time of bedside asessment. Deneis focal weakness or sensory change at bedside, endorses feeling weak all over and very tired. Endorses feeling cold, feverish. Denies any abdominal pain. Denies flank pain. Denies bleeding. Denies chest pain. Endorses nausea/vomiting. Vomit is green-colored, the same as his ostomy. Endorses poor appetite. Denies other symptoms. At bedside assessment did review case and imaging with patient, his , his daughter, and son. Extensive discussion over approximately 65 minutes. Patient reports he does not like ambulance rides due to induction of nausea however if any surgical intervention were needed he would want transfer to [facility]. Did review his case with [facility] given abdominal imaging which shows a suspected seroma but from which abscess cannot be included, gas which is likely postoperative but again infection not included, and ileus with patient at high risk history for bowel obstruction and with severe nausea/vomiting prior to admission. He was accepted for admission on 04/12/2024, however was requested for overnight monitoring at [facility] to ensure that he is hemodynamically stable for transfer prior to this. Medical History: Reviewed Medications: Reviewed Surgical History: Reviewed Family history: Reviewed Allergies: Reviewed Social History: Reviewed Code Status: Full Allergies Allergy/AdvReac Type Severity Reaction Status Date / Time nitrofurantoin Allergy Intermediate FEVER Verified 02/29/24 14:41 losartan Allergy Mild Rash Verified 02/29/24 14:41 meperidine AdvReac Intermediate SEVERE Verified 02/29/24 14:41 NAUSEA AND VOMITING spironolactone AdvReac Intermediate gynecomasti Verified 02/29/24 14:41 a Home Medications Medication Instructions Recorded Confirmed Type rosuvastatin 20 mg tablet (Crestor) 20 mg PO HS #90 tabs 08/09/23 04/11/24 Rx tamsulosin 0.4 mg capsule 0.4 mg PO QAM 01/12/24 04/11/24 History prednisone 1 mg tablet 4 mg (4 x 1 mg) PO QAM arthritis 01/26/24 04/11/24 Rx 90 days #360 tabs enoxaparin 80 mg/0.8 mL 80 mg subcut BID 03/08/24 04/11/24 History subcutaneous syringe warfarin 5 mg tablet 7.5 mg PO UD 03/08/24 04/11/24 History Glucose D50 Amp 12.5 g IV DIRECTED PRN 04/11/24 04/11/24 History Hypoglycemia Glucose D50 Amp 25 g IV DIRECTED PRN 04/11/24 04/11/24 History Hypoglycemia Insta-Glucose 15 g PO DIRECTED PRN 04/11/24 04/11/24 History Hypoglycemia Milk of Magnesia 30 ml PO DAILY PRN Constipation 04/11/24 04/11/24 History Saline Iv 75 ml IV DIRECTED 04/11/24 04/11/24 History Tpn 1,000 ml IV HS 04/11/24 04/11/24 History acetaminophen 325 mg tablet 650 mg PO Q4H PRN Pain 04/11/24 04/11/24 History acetaminophen 325 mg tablet 975 mg PO Q6H 04/11/24 04/11/24 History amlodipine 10 mg tablet 5 mg PO QAM 04/11/24 04/11/24 History atorvastatin 40 mg tablet 40 mg PO DAILY 04/11/24 04/11/24 History bisacodyl 10 mg rectal suppository 10 mg LA DAILY PRN Constipation 04/11/24 04/11/24 History calcium carbonate 500 mg PO Q2H PRN indigestion 04/11/24 04/11/24 History diphenoxylate-atropine 2.5 1 tab PO Q6H 04/11/24 04/11/24 History mg-0.025 mg tablet (Lomotil) lisinopril 5 mg tablet 5 mg PO DAILY 04/11/24 04/11/24 History loperamide 2 mg capsule 4 mg PO Q6H 04/11/24 04/11/24 History metoprolol succinate 50 mg 50 mg PO Q12H 04/11/24 04/11/24 History tablet,extended release 24 hr ondansetron HCl 4 mg tablet 4 mg PO Q4H PRN n/v 04/11/24 04/11/24 History piperacillin-tazobactam 3.375 gram 2.25 g IV Q6H 04/11/24 04/11/24 History intravenous solution polyethylene glycol 3350 17 17 g PO .@LUNCH PRN Constipation 04/11/24 04/11/24 History gram/dose oral powder (Miralax) sennosides 8.6 mg tablet (Senokot) 8.6 mg PO .@ LUNCH PRN Constipation 04/11/24 04/11/24 History sodium chloride 0.9 % (flush) 10 ml IV Q12H 04/11/24 04/11/24 History sodium phosphates 19 gram-7 133 ml LA DAILY PRN Constipation 04/11/24 04/11/24 History gram/118 mL enema (Fleet Enema) warfarin 10 mg tablet 10 mg PO UD 04/11/24 04/11/24 History Past Med/Surg History Problem List (Updated 04/11/24 @ 19:56 by Reynaldo Johnson MD) History of total cystectomy (Acute) History of bladder cancer (Acute) Vomiting (Acute) Sepsis (Acute) Acute dehydration (Acute) MERRICK (acute kidney injury) (Acute) Sepsis Anemia Nausea & vomiting Coagulopathy (Acute) Acute hyponatremia (Acute) Hematuria (Acute) Weakness (Acute) Hyponatremia Pulmonary embolism dx 12/02/23 on Eliquis History of prostate cancer Port-A-Cath in place (09/14/22) Port placement with fluoroscopy. Dr. Mccormack Bladder carcinoma (Chronic) 07/2022- hx chemo History of left inguinal hernia repair (05/24/22) Recurrent left inguinal hernia repair with mesh Dr. Mccormack Atrial fibrillation Was on Eliquis - currently on hold (started holding 4/30/24 due to upcoming urology biopsy but PE was noted on 12/02/[address]- patient subsequently started on Lovenox) Polymyalgia rheumatica Recurrent left inguinal hernia Mixed hyperlipidemia Peripheral arterial disease - Status post stenting of bilateral superficial femoral [id number] - Status post atherectomy and angioplasty and stenting of right SFA 2016 - S/p atherectomy and drug-coated balloon angioplasty right SFA January 2020 - S/p right femoral-popliteal bypass April 2021 Chronic HFrEF (heart failure with reduced ejection fraction) EF 50-54% 03/24/23 echo Primary hypertension Urethral stricture Coronary artery disease s/p CABG x 3 in 2012 (HEALY graft to LAD, saphenous vein graft to the obtuse marginal, saphenous vein graft to the right coronary artery and posterior descending artery) Blood in the urine Medical History Mixed hyperlipidemia Hypertension Peripheral arterial disease - Status post stenting of bilateral superficial femoral [id number] - Status post atherectomy and angioplasty and stenting of right SFA 2016 - S/p atherectomy and drug-coated balloon angioplasty right SFA January 2020 - S/p right femoral-popliteal bypass April 2021 Polymyalgia rheumatica Atrial fibrillation Was on Eliquis - currently on hold (started holding 11/29/23 due to upcoming urology biopsy but PE was noted on 12/02/[address]- patient subsequently started on Lovenox) Hx of bladder cancer 07/2022, sx and chemo 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 Treated in [place]. Resolved at present History of pulmonary embolism Per 12/02/[address] scan (Eliquis had been on hold x 3-4 days; failed Eliquis therapy per records) - Patient was to start Lovenox 12/02/23 but did not apple picker script until 12/05/23 per heme office residential (current) use of systemic steroids Pulmonary hypertension PASP 40-50 mmHg per 03/2023 ECHO COPD (chronic obstructive pulmonary disease) Suspected sleep apnea noted on 07/31/18 anesthesia consult; pt denies, "no device, no study done" Bifascicular block RBBB/LAFB (chronic) Carotid stenosis, bilateral s/p left CEA in 2017 <50% R and L carotid stenosis per 2021 carotid duplex, follows with S vascular Ascending aortic aneurysm Fusiform dilation of the ascending thoracic aorta is stable from prior measuring 4.2 cm per 12/02/[address]; monitoring Tricuspid regurgitation severe- per 03/2023 ECHO Hx of motion sickness History of COVID-19 02/05/22, home test, not hosp; cough, headache, fever>called PCP, put on Paxlovid>resolved. Radiation cystitis hx Prostate cancer 2011 hx-had radioactive seeds placed, no sx. Surgical History History of removal of Port-a-Cath (06/30/23) Access Port Removal(Left) - Sanford Perez DO, FACS Hx of cataract extraction rt./lt History of surgery TURBT 04/07/23 [facility] TURBT 11/2023 [facility] Status post carotid endarterectomy left 2017 Hx of appendectomy Hx of colonoscopy Hx of vascular surgery x2 stents placed in each lower extremity, Sharlene Hx of cystoscopy multiple, 08/01/18: LMA 4 last one in Jul 2022 Cystoscopy, TURBT medium- Terry Townsend MD S/P left inguinal hernia repair Status post cardiac surgery failed stress test>bypass surgery 2012, Sharlene, x3 vessels; f/u dr beckford History of biopsy of bladder Family History Sister Breast cancer Mother Diabetes Heart disease Other Asthma Cancer No family history of adverse response to anesthesia Denies family history of Ovarian cancer Prostate cancer Social History Smoking Status: Former smoker Tobacco Type: Cigarettes Cigarettes Per Day: smoked 40 years; Second Hand Exposure: No; Do You Dip or Chew Tobacco: No; Hx Alcohol Use: Yes Alcohol type: beer and hard liquor Hx Substance Use: No Preferred Language: Kyrgyz Communication Ability: Effective Communication Ability Comment: CHENEGA Visual Impairment: No Limitations Hearing Ability: Normal 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 NAD. Cooperative. Fatigued, but awakens easily and answers questions appropriately HEENT: Atraumatic, normocephalic. Vision and hearing grossly intact Pulm: CTAB A&P. -wheezes, -rales, -rhonchi. Symmetrical chest rise. No increased work of breathing. No respiratory distress. Cardiac: RRR, -mrg. Radial pulses intact and symmetrical. Abdominal: Nontender, nondistended, soft. BS present. Right-sided urostomy draining light yellow fluid to Guzman bag. Left-sided colostomy with brown stool, left-sided ASIA drain with serous fluid without purulence/sanguinous output . Midline surgical incision with maureen present, no erythema/tenderness/discharge/drainage. No involuntary guarding. No rebound tenderness. Signal Apprentice strenght, ankle dorsi/plantarflexion 5/5 bilaterally but fatigues easily, endorses intact sensation bilaterally to soft touch in hands and feet. Results & Data Results & Data Vital Signs (Past 12 Hours) Vital Signs Temp Pulse Pulse Resp BP BP Pulse Ox 04/11/24 18:30 68 23 111/46 L 95 04/11/24 17:41 54 L 04/11/24 16:48 54 L 13 120/66 97 04/11/24 16:36 62 16 99/41 L 95 04/11/24 15:30 43 L 10 L 97/46 L 96 04/11/24 15:00 36.7 C 54 L 12 104/48 L 98 04/11/24 14:33 56 L 18 90/43 L 99 04/11/24 14:15 45 L 18 103/42 L 98 04/11/24 14:00 46 L 16 103/42 L 96 04/11/24 13:45 48 L 20 118/68 99 04/11/24 12:27 36.5 C 60 18 114/75 98 04/11/24 12:23 36.5 C 60 18 114/75 98 04/11/24 12:23 60 18 98 04/11/24 12:22 53 L 04/11/24 12:07 36.5 C 18 114/75 98 04/11/24 12:07 04/11/24 12:07 59 L 18 118/68 98 O2 Del Method 04/11/24 18:30 Room Air 04/11/24 17:41 04/11/24 16:48 Room Air 04/11/24 16:36 Room Air 04/11/24 15:30 Room Air 04/11/24 15:00 Room Air 04/11/24 14:33 Room Air 04/11/24 14:15 Room Air 04/11/24 14:00 Room Air 04/11/24 13:45 Room Air 04/11/24 12:27 Room Air 04/11/24 12:23 Room Air 04/11/24 12:23 Room Air 04/11/24 12:22 04/11/24 12:07 Room Air 04/11/24 12:07 Room Air 04/11/24 12:07 Room Air PG Care Time/CCT Total # of Minutes Spent Total Time Spent with Patient: Total time spent is greater than 50% in coordination of care (as documented) at patient's floor/unit and/or counseling patient: Coding Level of Care Code 19948 INT INP/OBS CARE 3/75MIN Diagnoses Sepsis A41.9 Nausea & vomiting R11.2 Pulmonary embolism I26.99 Bladder carcinoma C67.9 Atrial fibrillation I48.91 Coronary artery disease I25.10 Anemia D64.9
[2024-04-11] MEDS: PLASMA-LYTE A 1,000 ML IV ONE (19:25)
[2024-04-11] MEDS: HYDROCORTISONE SOD SUCCINATE 100 MG/2 ML VIAL IV STA (19:26)
--- OUTSIDE RECORDS SUMMARY | 2024-04-11 19:47 | External Medical Summary ---
Author Name Unknown Address Unknown Organization [id number]:[facility] [place] [address] Laboratory Report Ordering Provider Test Date Status ARJUN BLAS 04/05/2024 05:45:00 Final Warfarin Therapy
INR: 2 .0-3.0 conventional anticoagulation
INR: 2.5- 3.5 high intensity anticoagulation Observation Date Value Abnormality Reference (Units ) Status PT 04/05/2024 05:45:00 21.8 Above high normal 11 .6-15.2 (seconds) Final INR 04/05/2024 05:45:00 1.9 Above high normal 0. 8-1.2 Final Performing Location [facility] [place] [address]
--- OUTSIDE RECORDS SUMMARY | 2024-04-11 19:47 | External Medical Summary ---
Author Name Unknown Address Unknown Organization [id number]:[facility] [place] [address] Laboratory Report Ordering Provider Test Date Status JACINTA STOUT 04/04/2024 06:08:36 Final Observation Date Value Abnormality Reference (Units ) Status WBC, Total 04/04/2024 06:08:36 6.84 4.00-10.8 0 (K/uL) Final RBC 04/04/2024 06:08:36 2.40 4.50-5.25 (M/uL) Final Hemoglobin 04/04/2024 06:08:36 7.7 Below low normal 14 .0-16.8 (g/dL) Final HCT 04/04/2024 06:08:36 24.3 Below low normal 40. 0-48.4 (%) Final MCV 04/04/2024 06:08:36 101.3 82.0-99.5 (fL) Final MCH 04/04/2024 06:08:36 32.1 27.0-34.0 (pg) Final MCHC 04/04/2024 06:08:36 31.7 32.0-36.0 (g/dL) Final RDW 04/04/2024 06:08:36 18.0 11.5-15.5 (%) Final Platelets 04/04/2024 06:08:36 203 140-400 (K /uL) Final MPV 04/04/2024 06:08:36 10.9 6.6-11.1 ( fL) Final Performing Location [facility] [place] [address]
--- OUTSIDE RECORDS SUMMARY | 2024-04-11 19:47 | External Medical Summary ---
Author Name Unknown Address Unknown Organization [id number]:[facility] [address] [place] [address] Laboratory Report Ordering Provider Test Date Status ARJUN BLAS 04/07/2024 06:46:01 Final Warfarin Therapy
INR: 2 .0-3.0 conventional anticoagulation
INR: 2.5- 3.5 high intensity anticoagulation Observation Date Value Abnormality Reference (Units ) Status PT 04/07/2024 06:46:01 21.4 Above high normal 11 .6-15.2 (seconds) Final INR 04/07/2024 06:46:01 1.8 Above high normal 0. 8-1.2 Final Performing Location [facility] [address] [place] [address]
--- OUTSIDE RECORDS SUMMARY | 2024-04-11 19:47 | External Medical Summary ---
Author Name Unknown Address Unknown Organization K09:[facility] [place] [address] Laboratory Report Ordering Provider Test Date Status ARJUN BLAS 04/09/2024 05:49:45 Final Observation Date Value Abnormality Reference (Units ) Status SYNC LEUKOCYTES IN BLOOD BY AUTOMATED COUNT 04/09/2024 05:49:45 6.75 4.00-10.80 (K/uL) Final Segs 04/09/2024 05:49:45 60.6 40.0-75.0 (%) Final Lymphs % 04/09/2024 05:49:45 7.6 Below low normal 18.0-42.0 (%) Final Monos 04/09/2024 05:49:45 18.4 Above high normal 1.0-11.0 (%) Final Eosinophils 04/09/2024 05:49:45 12.7 Above high normal 0.0-6.0 (%) Final Basos 04/09/2024 05:49:45 0.7 0.0-2.0 (%) Final Absolute Segs 04/09/2024 05:49:45 4.09 1.80-7.70 (K/uL) Final Lymphs, absolute 04/09/2024 05:49:45 0.51 Below low normal 1.00-4.80 (K/ul) Final Monos, Abs 04/09/2024 05:49:45 1.24 Above high normal 0.00-1.10 (K/uL) Final Eos, Abs 04/09/2024 05:49:45 0.86 Above high normal 0.00-0.70 (K/uL) Final Basos, Abs 04/09/2024 05:49:45 0.05 0.00-0.20 (K/uL) Final Performing Location [facility] [place] [address]
--- OUTSIDE RECORDS SUMMARY | 2024-04-11 19:47 | External Medical Summary ---
Author Name Unknown Address Unknown Organization [id number]:[facility] [place] [address] Laboratory Report Ordering Provider Test Date Status JACINTA STOUT 04/04/2024 06:08:36 Final Observation Date Value Abnormality Reference (Units ) Status BUN 04/04/2024 06:08:36 40 Above high normal 6-20 (mg/dL) Final Creatinine 04/04/2024 06:08:36 1.4 Above high normal 0.6-1.2 (mg/dL) Final Glomerular filtration rate/1.73 sq M.predicted [Volume Rate/Area] in Serum, Plasma or Blood by Creatinine-based formula (CKD-EPI) 04/04/2024 06:08:36 51 Below low normal >=60 (mL/min) Final eGFR is calculated based on the CKD-EPI 2020 equation. Sodium 04/04/2024 06:08:36 134 Below low normal 135 -146 (mmol/L) Final Potassium 04/04/2024 06:08:36 5.1 3.5-5.1 (m mol/L) Final Cl 04/04/2024 06:08:36 98 98-107 (mm ol/L) Final CO2 04/04/2024 06:08:36 27 22-32 (mmo l/L) Final Anion gap 04/04/2024 06:08:36 9 7-15 (mmol /L) Final Glucose 04/04/2024 06:08:36 134 Above high normal 70 -120 (mg/dL) Final Calcium 04/04/2024 06:08:36 8.2 Below low normal 8.4 -10.2 (mg/dL) Final Performing Location [facility] [place] [address]
--- OUTSIDE RECORDS SUMMARY | 2024-04-11 19:47 | External Medical Summary ---
Author Name Unknown Address Unknown Organization K09:[facility] [place] [address] Laboratory Report Ordering Provider Test Date Status ARJUN BLAS 04/09/2024 05:49:45 Final Warfarin Therapy
INR: 2 .0-3.0 conventional anticoagulation
INR: 2.5- 3.5 high intensity anticoagulation Observation Date Value Abnormality Reference (Units ) Status PT 04/09/2024 05:49:45 22.8 Above high normal 11 .6-15.2 (seconds) Final INR 04/09/2024 05:49:45 2.0 Above high normal 0. 8-1.2 Final Performing Location [facility] [place] [address]
--- OUTSIDE RECORDS SUMMARY | 2024-04-11 19:47 | External Medical Summary ---
Author Name Unknown Address Unknown Organization K09:[facility] [place] [address] Laboratory Report Ordering Provider Test Date Status ARJUN BLAS 04/06/2024 07:09:47 Final Observation Date Value Abnormality Reference (Units ) Status Phosphate 04/06/2024 07:09:47 3.3 2.5-4.8 (m g/dL) Final Performing Location [facility] [place] [address]
--- OUTSIDE RECORDS SUMMARY | 2024-04-11 19:47 | External Medical Summary ---
Author Name Unknown Address Unknown Organization K09:[facility] [address] [place] [address] Laboratory Report Ordering Provider Test Date Status ARJUN BLAS 04/06/2024 07:09:47 Final Observation Date Value Abnormality Reference (Units ) Status BUN 04/06/2024 07:09:47 39 Above high normal 6-20 (mg/dL) Final Creatinine 04/06/2024 07:09:47 1.3 Above high normal 0.6-1.2 (mg/dL) Final Glomerular filtration rate/1.73 sq M.predicted [Volume Rate/Area] in Serum, Plasma or Blood by Creatinine-based formula (CKD-EPI) 04/06/2024 07:09:47 57 Below low normal >=60 (mL/min) Final eGFR is calculated based on the CKD-EPI 2020 equation. Sodium 04/06/2024 07:09:47 135 135-146 (m mol/L) Final Potassium 04/06/2024 07:09:47 5.2 Above high normal 3. 5-5.1 (mmol/L) Final Cl 04/06/2024 07:09:47 100 98-107 (mm ol/L) Final CO2 04/06/2024 07:09:47 27 22-32 (mmo l/L) Final Anion gap 04/06/2024 07:09:47 8 7-15 (mmol /L) Final Glucose 04/06/2024 07:09:47 156 Above high normal 70 -120 (mg/dL) Final Albumin 04/06/2024 07:09:47 2.3 Below low normal 3.8 -5.0 (g/dL) Final AST (Aspartate aminotransferase) 04/06/2024 07:09:47 23 10-50 (U/L) Fin al Alk Phos 04/06/2024 07:09:47 106 35-130 (U/ L) Final Bilirubin, Total 04/06/2024 07:09:47 0.3 <=1 .2 (mg/dL) Final Calcium 04/06/2024 07:09:47 8.2 Below low normal 8.4 -10.2 (mg/dL) Final Protein 04/06/2024 07:09:47 4.2 Below low normal 6.0 -8.3 (g/dL) Final ALT (Alanine aminotransferase) 04/06/2024 07:09:47 19 10-50 (U/L) Doc woods Performing Location [facility] [address] [place] [address]
--- OUTSIDE RECORDS SUMMARY | 2024-04-11 19:47 | External Medical Summary ---
Author Name Unknown Address Unknown Organization K09:[facility] [place] [address] Laboratory Report Ordering Provider Test Date Status ARJUN BLAS 04/11/2024 06:39:48 Final Observation Date Value Abnormality Reference (Units ) Status SYNC LEUKOCYTES IN BLOOD BY AUTOMATED COUNT 04/11/2024 06:39:48 10.27 4.00-10.80 (K/uL) Final Segs 04/11/2024 06:39:48 76.3 Above high normal 40.0-75.0 (%) Final Lymphs % 04/11/2024 06:39:48 4.2 Below low normal 18.0-42.0 (%) Final Monos 04/11/2024 06:39:48 17.3 Above high normal 1.0-11.0 (%) Final Eosinophils 04/11/2024 06:39:48 1.9 0.0-6.0 (%) Final Basos 04/11/2024 06:39:48 0.3 0.0-2.0 (%) Final Absolute Segs 04/11/2024 06:39:48 7.84 Above high normal 1.80-7.70 (K/uL) Final Lymphs, absolute 04/11/2024 06:39:48 0.43 Below low normal 1.00-4.80 (K/ul) Final Monos, Abs 04/11/2024 06:39:48 1.78 Above high normal 0.00-1.10 (K/uL) Final Eos, Abs 04/11/2024 06:39:48 0.19 0.00-0.70 (K/uL) Final Basos, Abs 04/11/2024 06:39:48 0.03 0.00-0.20 (K/uL) Final Performing Location [facility] [place] [address]
--- OUTSIDE RECORDS SUMMARY | 2024-04-11 19:47 | External Medical Summary ---
Author Name Unknown Address Unknown Organization [id number]:[facility] [place] [address] Laboratory Report Ordering Provider Test Date Status ARJUN BLAS 04/06/2024 07:09:47 Final Warfarin Therapy
INR: 2 .0-3.0 conventional anticoagulation
INR: 2.5- 3.5 high intensity anticoagulation Observation Date Value Abnormality Reference (Units ) Status PT 04/06/2024 07:09:47 23.7 Above high normal 11 .6-15.2 (seconds) Final INR 04/06/2024 07:09:47 2.1 Above high normal 0. 8-1.2 Final Performing Location [facility] [address]
--- OUTSIDE RECORDS SUMMARY | 2024-04-11 19:47 | External Medical Summary ---
Author Name Unknown Address Unknown Organization [id number]:[facility] [place] [place] [address] Laboratory Report Ordering Provider Test Date Status ARJUN BLAS 04/09/2024 05:49:45 Final Observation Date Value Abnormality Reference (Units ) Status BUN 04/09/2024 05:49:45 44 Above high normal 6-20 (mg/dL) Final Creatinine 04/09/2024 05:49:45 1.3 Above high normal 0.6-1.2 (mg/dL) Final Glomerular filtration rate/1.73 sq M.predicted [Volume Rate/Area] in Serum, Plasma or Blood by Creatinine-based formula (CKD-EPI) 04/09/2024 05:49:45 57 Below low normal >=60 (mL/min) Final eGFR is calculated based on the CKD-EPI 2020 equation. Sodium 04/09/2024 05:49:45 135 135-146 (m mol/L) Final Potassium 04/09/2024 05:49:45 4.9 3.5-5.1 (m mol/L) Final Cl 04/09/2024 05:49:45 101 98-107 (mm ol/L) Final CO2 04/09/2024 05:49:45 27 22-32 (mmo l/L) Final Anion gap 04/09/2024 05:49:45 7 7-15 (mmol /L) Final Glucose 04/09/2024 05:49:45 155 Above high normal 70 -120 (mg/dL) Final Calcium 04/09/2024 05:49:45 8.5 8.4-10.2 ( mg/dL) Final Performing Location [facility] [place] [address]
--- OUTSIDE RECORDS SUMMARY | 2024-04-11 19:47 | External Medical Summary ---
Author Name Unknown Address Unknown Organization [id number]:[facility] [place] [address] Laboratory Report Ordering Provider Test Date Status ARJUN BLAS 04/09/2024 05:49:45 Final Observation Date Value Abnormality Reference (Units ) Status Magnesium 04/09/2024 05:49:45 2.0 1.5-2.6 (m g/dL) Final Performing Location [facility] [place] [address]
--- OUTSIDE RECORDS SUMMARY | 2024-04-11 19:47 | External Medical Summary ---
Author Name Unknown Address Unknown Organization [id number]:[facility] [place] [address] Laboratory Report Ordering Provider Test Date Status ARJUN BLAS 04/09/2024 05:49:45 Final Observation Date Value Abnormality Reference (Units ) Status WBC, Total 04/09/2024 05:49:45 6.75 4.00-10.8 0 (K/uL) Final RBC 04/09/2024 05:49:45 2.46 4.50-5.25 (M/uL) Final Hemoglobin 04/09/2024 05:49:45 8.0 Below low normal 14 .0-16.8 (g/dL) Final HCT 04/09/2024 05:49:45 25.0 Below low normal 40. 0-48.4 (%) Final MCV 04/09/2024 05:49:45 101.6 82.0-99.5 (fL) Final MCH 04/09/2024 05:49:45 32.5 27.0-34.0 (pg) Final MCHC 04/09/2024 05:49:45 32.0 32.0-36.0 (g/dL) Final RDW 04/09/2024 05:49:45 18.2 11.5-15.5 (%) Final Platelets 04/09/2024 05:49:45 206 140-400 (K /uL) Final MPV 04/09/2024 05:49:45 10.5 6.6-11.1 ( fL) Final Performing Location [facility] [place] [address]
--- OUTSIDE RECORDS SUMMARY | 2024-04-11 19:47 | External Medical Summary ---
Author Name Unknown Address Unknown Organization [id number]:[facility] [place] [address] Laboratory Report Ordering Provider Test Date Status ARJUN BLAS 04/06/2024 07:09:47 Final Observation Date Value Abnormality Reference (Units ) Status SYNC LEUKOCYTES IN BLOOD BY AUTOMATED COUNT 04/06/2024 07:09:47 7.20 4.00-10.80 (K/uL) Final Segs 04/06/2024 07:09:47 69.4 40.0-75.0 (%) Final Lymphs % 04/06/2024 07:09:47 8.9 Below low normal 18.0-42.0 (%) Final Monos 04/06/2024 07:09:47 11.0 1.0-11.0 (%) Final Eosinophils 04/06/2024 07:09:47 10.1 Above high normal 0.0-6.0 (%) Final Basos 04/06/2024 07:09:47 0.6 0.0-2.0 (%) Final Absolute Segs 04/06/2024 07:09:47 5.00 1.80-7.70 (K/uL) Final Lymphs, absolute 04/06/2024 07:09:47 0.64 Below low normal 1.00-4.80 (K/ul) Final Monos, Abs 04/06/2024 07:09:47 0.79 0.00-1.10 (K/uL) Final Eos, Abs 04/06/2024 07:09:47 0.73 Above high normal 0.00-0.70 (K/uL) Final Basos, Abs 04/06/2024 07:09:47 0.04 0.00-0.20 (K/uL) Final Performing Location [facility] [place] [address]
--- OUTSIDE RECORDS SUMMARY | 2024-04-11 19:47 | External Medical Summary ---
Author Name Unknown Address Unknown Organization K09:[facility] [place] [address] Laboratory Report Ordering Provider Test Date Status ARJUN BLAS 04/11/2024 06:39:48 Final Warfarin Therapy
INR: 2 .0-3.0 conventional anticoagulation
INR: 2.5- 3.5 high intensity anticoagulation Observation Date Value Abnormality Reference (Units ) Status PT 04/11/2024 06:39:48 25.2 Above high normal 11 .6-15.2 (seconds) Final INR 04/11/2024 06:39:48 2.3 Above high normal 0. 8-1.2 Final Performing Location [facility] [place] [address]
--- OUTSIDE RECORDS SUMMARY | 2024-04-11 19:47 | External Medical Summary ---
Author Name Unknown Address Unknown Organization K09:[facility] [place] [address] Laboratory Report Ordering Provider Test Date Status ARJUN BLAS 04/10/2024 06:05:55 Final Warfarin Therapy
INR: 2 .0-3.0 conventional anticoagulation
INR: 2.5- 3.5 high intensity anticoagulation Observation Date Value Abnormality Reference (Units ) Status PT 04/10/2024 06:05:55 23.1 Above high normal 11 .6-15.2 (seconds) Final INR 04/10/2024 06:05:55 2.0 Above high normal 0. 8-1.2 Final Performing Location [facility] [place] [address]
--- OUTSIDE RECORDS SUMMARY | 2024-04-11 19:47 | External Medical Summary ---
Author Name Unknown Address Unknown Organization [id number]:[facility] [address] [place] [address] Laboratory Report Ordering Provider Test Date Status ARJUN BLAS 04/08/2024 06:50:55 Final Warfarin Therapy
INR: 2 .0-3.0 conventional anticoagulation
INR: 2.5- 3.5 high intensity anticoagulation Observation Date Value Abnormality Reference (Units ) Status PT 04/08/2024 06:50:55 20.7 Above high normal 11 .6-15.2 (seconds) Final INR 04/08/2024 06:50:55 1.8 Above high normal 0. 8-1.2 Final Performing Location [facility] [address] [place] [address]
--- OUTSIDE RECORDS SUMMARY | 2024-04-11 19:47 | External Medical Summary ---
Author Name Unknown Address Unknown Organization K09:[facility] [place] [address] Laboratory Report Ordering Provider Test Date Status ARJUN BLAS 04/09/2024 05:49:45 Final Observation Date Value Abnormality Reference (Units ) Status Phosphate 04/09/2024 05:49:45 3.5 2.5-4.8 (m g/dL) Final Performing Location [facility] [place] [address]
--- OUTSIDE RECORDS SUMMARY | 2024-04-11 19:47 | External Medical Summary ---
Author Name Unknown Address Unknown Organization K09:[facility] [address] [place] [address] Laboratory Report Ordering Provider Test Date Status ARJUN BLAS 04/11/2024 06:39:48 Final Observation Date Value Abnormality Reference (Units ) Status BUN 04/11/2024 06:39:48 61 Above high normal 6-20 (mg/dL) Final Creatinine 04/11/2024 06:39:48 1.8 Above high normal 0.6-1.2 (mg/dL) Final Glomerular filtration rate/1.73 sq M.predicted [Volume Rate/Area] in Serum, Plasma or Blood by Creatinine-based formula (CKD-EPI) 04/11/2024 06:39:48 36 Below low normal >=60 (mL/min) Final eGFR is calculated based on the CKD-EPI 2020 equation. Sodium 04/11/2024 06:39:48 134 Below low normal 135 -146 (mmol/L) Final Potassium 04/11/2024 06:39:48 5.4 Above high normal 3. 5-5.1 (mmol/L) Final Cl 04/11/2024 06:39:48 99 98-107 (mm ol/L) Final CO2 04/11/2024 06:39:48 26 22-32 (mmo l/L) Final Anion gap 04/11/2024 06:39:48 9 7-15 (mmol /L) Final Glucose 04/11/2024 06:39:48 109 70-120 (mg /dL) Final Albumin 04/11/2024 06:39:48 2.4 Below low normal 3.8 -5.0 (g/dL) Final AST (Aspartate aminotransferase) 04/11/2024 06:39:48 15 10-50 (U/L) Fin al Alk Phos 04/11/2024 06:39:48 105 35-130 (U/ L) Final Bilirubin, Total 04/11/2024 06:39:48 0.5 <=1 .2 (mg/dL) Final Calcium 04/11/2024 06:39:48 8.7 8.4-10.2 ( mg/dL) Final Protein 04/11/2024 06:39:48 4.4 Below low normal 6.0 -8.3 (g/dL) Final ALT (Alanine aminotransferase) 04/11/2024 06:39:48 20 10-50 (U/L) Doc woods Performing Location [facility] [address] [place] [address]
--- OUTSIDE RECORDS SUMMARY | 2024-04-11 19:47 | External Medical Summary ---
Author Name Unknown Address Unknown Organization K09:[facility] [address] Laboratory Report Ordering Provider Test Date Status ARJUN BLAS 04/04/2024 06:08:36 Final Warfarin Therapy
INR: 2 .0-3.0 conventional anticoagulation
INR: 2.5- 3.5 high intensity anticoagulation Observation Date Value Abnormality Reference (Units ) Status PT 04/04/2024 06:08:36 19.6 Above high normal 11 .6-15.2 (seconds) Final INR 04/04/2024 06:08:36 1.6 Above high normal 0. 8-1.2 Final Performing Location [facility] [address]
--- OUTSIDE RECORDS SUMMARY | 2024-04-11 19:47 | External Medical Summary ---
Author Name Unknown Address Unknown Organization K09:[facility] [place] [place] [address] Laboratory Report Ordering Provider Test Date Status ARJUN BLAS 04/06/2024 07:09:47 Final Observation Date Value Abnormality Reference (Units ) Status Magnesium 04/06/2024 07:09:47 2.2 1.5-2.6 (m g/dL) Final Performing Location [facility] [place] [address]
[2024-04-11] MEDS: DAPTOmycin 300 MG in SYRINGE 0 ML IV SCH (20:07)
[2024-04-11] MEDS ORDERED: HYDROmorphone INJ 0.5 MG/0.5 ML SYR IV PRN (20:59)
[2024-04-11] MEDS ORDERED: ONDANSETRON INJ 2 MG/ML 2 ML VIAL IV PRN (20:59)
[2024-04-11] MEDS ORDERED: LACTATED RINGER'S 1,000 ML IV SCH (20:59)
[2024-04-11] MEDS ORDERED: PROMETHAZINE HCL 25 MG/20 ML UDP PO PRN (20:59)
[2024-04-11] MEDS: PLASMA-LYTE A 1,000 ML IV SCH (21:02)
[2024-04-11] MEDS ORDERED: Heparin IV Adult Wt-Based Low-Dose *NO* INITIAL Bolus Protocol IV SCH (21:05)
[2024-04-11] MEDS: HYDROCORTISONE SOD SUCCINATE 100 MG/2 ML VIAL IV SCH (21:17)
[2024-04-11] MEDS ORDERED: PROMETHAZINE 12.5 MG/50.5 ML BAG IV PRN (21:35)
[2024-04-11] MEDS: ONDANSETRON INJ 2 MG/ML 2 ML VIAL IV PRN (21:48)
[2024-04-11] MEDS: ACETAMINOPHEN 1,000 MG/100 ML VIAL IV PRN (21:48)
[2024-04-11] MEDS: HEPARIN SODIUM/DEXTROSE 25,000 UNITS/500 ML BAG IV SCH (21:51)
[2024-04-11] MEDS: PIPERACILLIN/TAZOBACTAM 4.5 GM/100 ML BAG IV SCH (22:03)
[2024-04-11 22:05] LABS: Calcium 8.7 mg/dl (8.6-10.3); Potassium 4.7 mmol/L (3.5-5.1)
[2024-04-11 22:10] LABS: BUN Creatinine Ratio 28.7 (10-20); Creatinine Clr Calc Pharmacy 30.7 ml/min; Est GFR (African American) 36.1 ml/min; Est GFR (Non-African American) 31.1 ml/min
[2024-04-12] MEDS ORDERED: HYDROCORTISONE SOD SUCCINATE 100 MG/2 ML VIAL IV SCH (01:00)
[2024-04-12] MEDS: HYDROCORTISONE SOD 50 MG in SYRINGE 0 ML IV SCH (01:40)
[2024-04-12 04:55] LABS: Basophils # (auto) 0.01 K/uL (0.00-0.20); Basophils % (auto) 0.2 %; Eosinophils # (auto) 0.03 K/uL (0.00-0.50); Eosinophils % (auto) 0.6 %; Hematocrit (blood only) 25.2 % (42.0-52.0); Hemoglobin 8.1 g/dl (14.0-18.0); Immature Granulocytes # (auto) 0.01 K/uL (0.01-0.20); Immature Granulocytes % (auto) 0.2 %; Lymphocytes # (auto) 0.29 K/uL (1.20-3.40); Lymphocytes % (auto) 5.6 %; Mean Corpuscular Hemoglobin 31.5 pg (25.0-34.0); Mean Corpuscular Hgb Conc 32.1 g/dL (32.0-36.0); Mean Corpuscular Volume 98.1 fL (80.0-100.0); Mean Platelet Volume 10.7 fL (9.4-12.4); Monocytes # (auto) 0.21 K/uL (0.11-0.59); Monocytes % (auto) 4.1 %; Neutrophils # (auto) 4.62 K/uL (1.40-6.50); Neutrophils % (auto) 89.3 %; Platelet Count 216 K/uL (130-400); RDW Coefficient of Variation 18.3 % (11.5-14.5); RDW Standard Deviation 65.7 fL (36.4-46.3); Red Blood Count 2.57 M/uL (4.70-6.10); White Blood Count 5.17 K/ul (4.8-10.8)
[2024-04-12 05:12] LABS: BUN Creatinine Ratio 27.6 (10-20); Calcium 8.3 mg/dl (8.6-10.3); Creatinine Clr Calc Pharmacy 32.4 ml/min; Est GFR (African American) 38.4 ml/min; Est GFR (Non-African American) 33.2 ml/min; Potassium 4.8 mmol/L (3.5-5.1)
[2024-04-12 05:32] LABS: ANTI-Xa, UFH(UnfractionatedHep 0.14 IU/ml (0.3-0.7)
[2024-04-12] MEDS: HEPARIN SOD (PORCINE) 1000 UNIT/ML IV ONE (05:56)
--- NOTE | 2024-04-12 07:27 | Discharge Summary ---
Date of Service April 12, 2024 Admission HPI Per Admitting Provider "Hi "is an 83-year-old male with a past history of HFrEF, hyperlipidemia, atrial fibrillation, PE, prostate cancer, bladder carcinoma s/p cystectomy completed March 13 who presents to the ER with 3 weeks of progressive weakness, nausea/vomiting, and in the last 24 hours worsen nausea/vomiting and a fever of 102 and ?L sided weakness Presented for concerns of L weakness, CT normal. No focal/unilateral deficits at time of bedside asessment. Deneis focal weakness or sensory change at bedside, endorses feeling weak all over and very tired. Endorses feeling cold, feverish. Denies any abdominal pain. Denies flank pain. Denies bleeding. Denies chest pain. Endorses nausea/vomiting. Vomit is green-colored, the same as his ostomy. Endorses poor appetite. Denies other symptoms. At bedside assessment d id review case and imaging with patient, his , his daughter, and son. Extensive discussion over approximately 65 minutes. Patient reports he does not like ambulance rides due to induction of nausea however if any surgical intervention were needed he would want transfer to [facility]. Did review his case with [facility] given abdominal imaging which shows a suspected seroma but from which abscess cannot be included, gas which is likely postoperative but again infection not included, and ileus with patient at high risk history for bowel obstruction and with severe nausea/vomiting prior to admission. He was accepted for admission on 04/12/2024, however was requested for overnight monitoring at [facility] to ensure that he is hemodynamically stable for transfer prior to this. Medical History: Reviewed Medications: Reviewed Surgical History: Reviewed Family history: Reviewed Allergies: Reviewed Social History: Reviewed Code Status: Full Admission Exam Per Admitting Provider General: A&Ox3. NAD. Cooperative. Fatigued, but awakens easily and answers questions appropriately HEENT: Atraumatic, normocephalic. Vision and hearing grossly intact Pulm: CTAB A&P. -wheezes, -rales, -rhonchi. Symmetrical chest rise. No increased work of breathing. No respiratory distress. Cardiac: RRR, -mrg. Radial pulses intact and symmetrical. Abdominal: Nontender, nondistended, soft. BS present. Right-sided urostomy draining light yellow fluid to Guzman bag. Left-sided colostomy with brown stool, left-sided ASIA drain with serous fluid without purulence/sanguinous output. Midline surgical incision with maureen present, no erythema/tenderness/discharge/drainage. No involuntary guarding. No rebound tenderness. Cargo Bracer strenght, ankle dorsi/plantarflexion 5/5 bilaterally but fatigues easily, endorses intact sensation bilaterally to soft touch in hands and feet. Principal Diagnosis Sepsis Discharge Data Allergies Allergy/AdvReac Type Severity Reaction Status Date / Time nitrofurantoin Allergy Intermediate FEVER Verified 02/29/24 14:41 losartan Allergy Mild Rash Verified 02/29/24 14:41 meperidine AdvReac Intermediate SEVERE Verified 02/29/24 14:41 NAUSEA AND VOMITING spironolactone AdvReac Intermediate gynecomasti Verified 02/29/24 14:41 a Consultations 04/11/24 17:39 ED Decision to Admit Stat Ordered Studies 04/11/24 12:10 CT head/brain wo con Stat 04/11/24 13:12 CT abd pelvis wo con Stat Hospital Course Plan Pt is an 83-year-old male with a past history of HFrEF, hyperlipidemia, atrial fibrillation, PE, prostate cancer, bladder carcinoma s/p cystectomy completed March 13 who presents to the ER with 3 weeks of progressive weakness, nausea/vomiting and fever, admitted for sepsis. Sepsis - DDx includes viral illness, gastroenteritis, ileus, developing SBO, UTI, intra-abdominal/postsurgical infection CT/A/P: Postsurgical changes of ileal conduit and cystectomy noted. Prominent fluid collection in the pelvis which may represent seroma, sterility cannot be assessed on noncontrast exam. Small amount of gas and soft tissue thickening at the incision suspected postoperative change but from which infection is not excluded. Mild prominence of loops of small bowel. Nonspecific may represent ileus. Obstruction is not excluded however no bowel distention is appreciated. 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 Empiric antibiotics with Zosyn continued. Daptomycin for MRSA coverage continued - he is also coronavirus (non-COVID) positive. Surgical incisions do not appear infected on admission - urine cx; pending - blood cx; pending Given high risk history for SBO and recent surgical intervention, and cystectomy with suspected seroma for which infectious not excluded case was reviewed extensively with Kevin Flores. Patient accepted for transfer by Dr. Clifton however cannot be transferred until AM. Accepted for transfer 04/12/2024 Chronic prednisone use for arthritis - at risk for adrenal insufficiency, switched to hydrocortisone 50q6. Pulmonary embolism On warfarin at home. INR 2.1, within goal range. Continue warfarin with goal INR 23. - Warfarin held as patient is not able to tolerate p.o., switched to heparin gtt (Lovenox deferred due to MERRICK/CrCl ~30). Atrial fibrillation CAD A-fib, CAD s/p CABG HEALY to LAD, saphenous to obtuse marginal, saphenous to RCA and PDA 2012, RBBB INR 2.1, goal 23 Really volume contracted on admission, s/p volume resuscitation in the ER Continue metoprolol. Lisinopril held for hypotension. Denies chest pain prior to admission or on admitting. Troponin minimally elevated and downtrending to 24 Patient is not able to keep down orals due to nausea/vomiting. Creatinine is elevated. Switched to heparin rather than Lovenox due to renal function Anemia Patient denies any clinical bleeding, no lightheadedness or dizziness, no tachycardia hgb 8.0 on admission, 8.1 today Total Time Total Time Spent Total Time Spent (In Minutes): As per attending attestation. Discharge Plan Discharge Items Patient Disposition: Transfer Acute Care Hospital Reason For Visit: N/V, SEPSIS Discharge Diagnosis: Sepsis Activity: Resume your previous activity Non-emergency contact: Primary Care Provider Call non-emergency contact if: you have any medication questions Follow-up/Referrals: Iam Lange DO [Primary Care Provider] - Diet: Regular Addtl Attending Provider Instructions: Pt is an 83-year-old male with a past history of HFrEF, hyperlipidemia, atrial fibrillation, PE, prostate cancer, bladder carcinoma s/p cystectomy completed March 13 who presents to the ER with 3 weeks of progressive weakness, nausea/vomiting and fever, admitted for sepsis. Sepsis - DDx includes viral illness, gastroenteritis, ileus, developing SBO, UTI, intra-abdominal/postsurgical infection CT/A/P: Postsurgical changes of ileal conduit and cystectomy noted. Prominent fluid collection in the pelvis which may represent seroma, sterility cannot be assessed on noncontrast exam. Small amount of gas and soft tissue thickening at the incision suspected postoperative change but from which infection is not excluded. Mild prominence of loops of small bowel. Nonspecific may represent ileus. Obstruction is not excluded however no bowel distention is appreciated. 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 Empiric antibiotics with Zosyn continued. Daptomycin for MRSA coverage continued - he is also coronavirus (non-COVID) positive. Surgical incisions do not appear infected on admission - urine cx; pending - blood cx; pending Given high risk history for SBO and recent surgical intervention, and cystectomy with suspected seroma for which infectious not excluded case was reviewed extensively with Kevin Flores. Patient accepted for transfer by Dr. Clifton however cannot be transferred until AM. Accepted for transfer 04/12/2024 Chronic prednisone use for arthritis - at risk for adrenal insufficiency, switched to hydrocortisone 50q6. Pulmonary embolism On warfarin at home. INR 2.1, within goal range. Continue warfarin with goal INR 23. - Warfarin held as patient is not able to tolerate p.o., switched to heparin gtt (Lovenox deferred due to MERRICK/CrCl ~30). Atrial fibrillation CAD A-fib, CAD s/p CABG HEALY to LAD, saphenous to obtuse marginal, saphenous to RCA and PDA 2012, RBBB INR 2.1, goal 23 Really volume contracted on admission, s/p volume resuscitation in the ER Continue metoprolol. Lisinopril held for hypotension. Denies chest pain prior to admission or on admitting. Troponin minimally elevated and downtrending to 24 Patient is not able to keep down orals due to nausea/vomiting. Creatinine is elevated. Switched to heparin rather than Lovenox due to renal function Anemia Patient denies any clinical bleeding, no lightheadedness or dizziness, no tachycardia hgb 8.0 on admission, 8.1 today Pending Studies at Discharge: Yes (blood and urine cx) Stand-Alone Forms: My [facility] Skilled Items Patient informed of condition?: No DNR: No Discharge Level of Care: Other Communicable Disease: No Discharge Prognosis: Stable Lines: Peripheral IV Medications and DC Order Prescriptions: Continued tamsulosin 0.4 mg capsule 0.4 mg PO QAM warfarin 5 mg tablet 7.5 mg PO UD Rx Instructions: 7.5 mg po pm: start date 04/11/24 stop date 04/12/24 enoxaparin 80 mg/0.8 mL syringe 80 mg subcut BID Rx Instructions: Per [facility] for 03/13/24 invasive procedure (bridge) rosuvastatin [Crestor] 20 mg tablet 20 mg PO HS Qty: 90 3RF prednisone 1 mg tablet 4 mg PO QAM 90 Days Qty: 360 1RF atorvastatin 40 mg Tablet 40 mg PO DAILY sennosides [Senokot] 8.6 mg Tablet 8.6 mg PO .@ LUNCH PRN (Reason: Constipation) acetaminophen 325 mg Tablet 975 mg PO Q6H acetaminophen 325 mg Tablet 650 mg PO Q4H PRN (Reason: Pain) loperamide 2 mg Capsule 4 mg PO Q6H warfarin 10 mg Tablet 10 mg PO UD Rx Instructions: 10 mg po. 04/11/24:No start/stop date on medication list faxed from facility. List faxed from ED doesn't show medication at all. ondansetron HCl [Zofran] 4 mg Tablet 4 mg PO Q4H PRN (Reason: n/v) diphenoxylate-atropine [Lomotil] 2.5-0.025 mg Tablet 1 tab PO Q6H piperacillin-tazobactam [Zosyn] 3.375 gram Recon Soln 2.25 g IV Q6H Rx Instructions: start 04/11/24 stop date 04/18/24 bisacodyl 10 mg Suppository 10 mg TN DAILY PRN (Reason: Constipation) Fleet Enema 19-7 gram/118 mL Enema 133 ml TN DAILY PRN (Reason: Constipation) calcium carbonate [Tums 500] 500 mg calcium (1,250 mg) Tablet,Chewable 500 mg PO Q2H PRN (Reason: indigestion ) lisinopril 5 mg Tablet 5 mg PO DAILY polyethylene glycol 3350 [Miralax] 17 gram/dose Powder 17 g PO .@LUNCH PRN (Reason: Constipation) sodium chloride 0.9 % (flush) [Saline Flush] Syringe 10 ml IV Q12H Rx Instructions: administer before and after IV drug administration as part of [facility] protocol Glucose D50 Amp 25 g IV DIRECTED PRN (Reason: Hypoglycemia) Glucose D50 Amp 12.5 g IV DIRECTED PRN (Reason: Hypoglycemia) Insta-Glucose 15 g PO DIRECTED PRN (Reason: Hypoglycemia) Milk of Magnesia 30 ml PO DAILY PRN (Reason: Constipation) Saline Iv 75 ml IV DIRECTED Rx Instructions: 75ml/hr, 13.3 grm bag volume (ml): 1000 metoprolol succinate 50 mg tablet extended release 24 hr 50 mg PO Q12H amlodipine 10 mg tablet 5 mg PO QAM Tpn 1,000 ml IV HS Rx Instructions: IV piggyback Admission Data Admit Date/Time: 04/11/24 18:58 Attending Provider: Manuel Villa Admit Provider: Isma Gibbs Primary Care Provider: Iam Laneg Other Providers: Isma Gibbs
[2024-04-12 10:18] LABS: iSTAT Creatinine 2.1 mg/dl (0.6-1.3); iSTAT Hemoglobin 8.2 g/dl (14.0-18.0); iSTAT Ionized Calcium 1.1 mmol/l (1.12-1.32); iSTAT Potassium 5.3 mmol/L (3.3-5.0)
[2024-04-12 11:12] LABS: ANTI-Xa, UFH(UnfractionatedHep 0.28 IU/ml (0.3-0.7)
--- NOTE | 2024-04-12 12:01 | Hospitalist Progress Note ---
Date of Service April 12, 2024 Assessment & Plan (1) MERRICK (acute kidney injury): (2) Nausea & vomiting: (3) Anemia: (4) Pulmonary embolism: (5) Coronary artery disease: (6) Atrial fibrillation: Plan Pt is an 83-year-old male with a past history of HFrEF, hyperlipidemia, atrial fibrillation, PE, prostate cancer, bladder carcinoma s/p cystectomy completed March 13 who presents to the ER with 3 weeks of progressive weakness, nausea/vomiting and fever, admitted for sepsis. Acute nausea/vomiting - DDx includes viral illness/gastroenteritis, ileus, developing SBO, UTI, intra-abdominal/postsurgical infection CT/A/P: Postsurgical changes of ileal conduit and cystectomy noted. Prominent fluid collection in the pelvis which may represent seroma, sterility cannot be assessed on noncontrast exam. Small amount of gas and soft tissue thickening at the incision suspected postoperative change but from which infection is not excluded. Mild prominence of loops of small bowel. Nonspecific may represent ileus. Obstruction is not excluded however no bowel distention is appreciated. UA is infected appearing - chronically contaminated, - he is also coronavirus (non-COVID) positive Surgical incisions do not appear infected on admission, clinically pt has improved greatly today which favors seroma over abscess and likely had viral gastroentero or partial SBO that has resolved - will increase diet today as tolerated, [facility] if pt does well overnight - urine cx; pending - blood cx; pending MERRICK - Cr 2.0 on admission now 1.85 - continue fluids IV/po Chronic prednisone use for arthritis - at risk for adrenal insufficiency, switched to hydrocortisone 50q6 - can resume normal steroid regime on discharge Pulmonary embolism On warfarin at home. INR 2.1, within goal range. Continue warfarin with goal INR 23. - Warfarin held initially and switched to heparin gtt (Lovenox deferred due to MERRICK/CrCl ~30) due to inability to tolerate po, will transition back to warfarin Atrial fibrillation CAD A-fib, CAD s/p CABG HEALY to LAD, saphenous to obtuse marginal, saphenous to RCA and PDA 2012, RBBB INR 2.1, goal 23 Really volume contracted on admission, s/p volume resuscitation in the ER Continue metoprolol. Lisinopril held for hypotension. Denies chest pain prior to admission or on admitting. Troponin minimally elevated and downtrending to 24 Anemia Patient denies any clinical bleeding, no lightheadedness or dizziness, no tachycardia hgb 8.0 on admission, 8.1 today Admission and Anticipated Discharge Date Admission Date: April 11, 2024 Supervising Physician Co-Signing Physician Notes I personally examined the patient and verified all jett points of history and exam, discussed case, and agree with decision making with Dr Rodney Feeling much better. Tolerating clear liquidsnotes that he was tolerating small amounts of fairly normal foods prior to getting sick yesterday. Feels fine. No abdominal pain. No nausea. No fevers chills or sweats. Vitals noted, in general he is awake and alert pleasant no distress. HEENT normocephalic atraumatic mucous membranes moist. Breathing unlabored no accessory muscle use good effort. Abdomen is postop with an ostomy for both urine and feces, but everything appears intact there is no erythema nothing is tender I feel no firmness I feel no fluctuance. There is no guarding rebound or rigidity. Acute illnessgiven how quickly things resolved seems most consistent with a viral etiology. I suspect strongly that the fluid collection is a seromaand we will hold off on antibiotics and watch him into tomorrow. Have discussed the case multiple times throughout the day with his supervising physician at rehab. Plan will be as long as he continues to look and feel well back to rehab tomorrow. Otherwise as above. Subjective Today, pt states he is feeling well. He states he has had no more nausea or vomiting since last night. No chest pain, SOB, or abdominal pain today. He states what brought him in was about 1-2 days of copious nausea and vomiting which seems to have subsided. He states that he is hungry and would like something to eat, even just some juice. He notes he did sleep pretty well last night. Review of Systems Review of Systems: Per HPI. Physical Exam Physical Exam: General:Alert and oriented, no acute distress, HEENT: Normocephalic, moist oral mucosa, Cardio: Regular rate and rhythm, Resp:Lungs clear to auscultation b/l, no wheezes or rhonchi, GI: Soft and nontender, nondistended, bowel sounds active, ostomy in place on L side with green liquid stool, urostomy noted on R side, surgical maureen noted and surgical incision well approximated without erythema or drainage Skin: Warm, pink, dry, Results & Data Results & Data Vital Signs (Past 12 Hours) Vital Signs Temp Pulse Pulse Resp BP Pulse Ox O2 Del Method 04/12/24 10:37 36.4 C L 81 16 130/59 L 97 Room Air 04/12/24 07:25 70 04/12/24 07:25 Room Air 04/12/24 07:15 36.8 C 85 20 121/63 97 Room Air 04/12/24 02:46 37.1 C 66 18 124/60 97 Room Air Resident Activity Tracking Resident Involvement: Resident Care Provided Care Provided: Adult Hospital Medicine
[2024-04-12] MEDS: CALCIUM CARBONATE 500 MG CHEWABLE TAB PO PRN (13:12)
[2024-04-12 14:01] LABS: INR 2.7 (0.9-1.1); Prothrombin Time 26.6 Seconds (9.0-12.0)
--- NOTE | 2024-04-12 14:14 | Electrocardiogram Report ---
Test Reason : Blood Pressure : */* mmHG Vent. Rate : 55 BPM Atrial Rate : * BPM P-R Int : * ms QRS Dur : 180 ms QT Int : 496 ms P-R-T Axes : * -74 48 degrees QTcB Int : 474 ms Atrial fibrillation with slow ventricular response Right bundle branch block Left anterior fascicular block Bifascicular block Abnormal ECG When compared with ECG of 22-Mar-2023 11:06, T wave inversion now evident in Lateral leads Confirmed by Franck Kat ([id number]) on 04/12/2024 2:14:14 PM Referred By: [facility] Confirmed By: Franck Kat
[2024-04-12] MEDS: FAMOTIDINE 10 MG TABLET PO SCH (14:44)
[2024-04-12] MEDS: WARFARIN SOD 5 MG TAB PO SCH (16:53)
--- NOTE | 2024-04-12 18:34 | Billing Data ---
Date of Service April 12, 2024 Coding Level of Care Code 56754 SUB INP/OBS CARE MIN
[2024-04-12 19:10] VITALS: TEMP 98.4
[2024-04-12] MEDS: FAMOTIDINE 10 MG TABLET PO ONE (20:23)
--- NOTE | 2024-04-13 06:58 | Discharge Summary ---
Date of Service April 13, 2024 Admission HPI Per Admitting Provider "Hi "is an 83-year-old male with a past history of HFrEF, hyperlipidemia, atrial fibrillation, PE, prostate cancer, bladder carcinoma s/p cystectomy completed March 13 who presents to the ER with 3 weeks of progressive weakness, nausea/vomiting, and in the last 24 hours worsen nausea/vomiting and a fever of 102 and ?L sided weakness Presented for concerns of L weakness, CT normal. No focal/unilateral deficits at time of bedside asessment. Deneis focal weakness or sensory change at bedside, endorses feeling weak all over and very tired. Endorses feeling cold, feverish. Denies any abdominal pain. Denies flank pain. Denies bleeding. Denies chest pain. Endorses nausea/vomiting. Vomit is green-colored, the same as his ostomy. Endorses poor appetite. Denies other symptoms. At bedside assessment did review case and imaging with patient, his , his daughter, and son. Extensive discussion over approximately 65 minutes. Patient reports he does not like ambulance rides due to induction of nausea however if any surgical intervention were needed he would want transfer to [place]. Did review his case with [place] given abdominal imaging which shows a suspected seroma but from which abscess cannot be included, gas which is likely postoperative but again infection not included, and ileus with patient at high risk history for bowel obstruction and with severe nausea/vomiting prior to admission. He was accepted for admission on 04/12/2024, however was requested for overnight monitoring at [facility] to ensure that he is hemodynamically stable for transfer prior to this. Medical History: Reviewed Medications: Reviewed Surgical History: Reviewed Family history: Reviewed Allergies: Reviewed Social History: Reviewed Code Status: Full Admission Exam Per Admitting Provider General: A&Ox3. NAD. Cooperative. Fatigued, but awakens easily and answers questions appropriately HEENT: Atraumatic, normocephalic. Vision and hearing grossly intact Pulm: CTAB A&P. -wheezes, -rales, -rhonchi. Symmetrical chest rise. No increased work of breathing. No respiratory distress. Cardiac: RRR, -mrg. Radial pulses intact and symmetrical. Abdominal: Nontender, nondistended, soft. BS present. Right-sided urostomy draining light yellow fluid to Guzman bag. Left-sided colostomy with brown stool, left-sided ASIA drain with serous fluid without purulence/sanguinous output. Midline surgical incision with maureen present, no erythema/tenderness/discharge/drainage. No involuntary guarding. No rebound tenderness. Screening Specialist strenght, ankle dorsi/plantarflexion 5/5 bilaterally but fatigues easily, endorses intact sensation bilaterally to soft touch in hands and feet. Principal Diagnosis Gastroenteritis Discharge Exam General:Alert and oriented, no acute distress, HEENT: Normocephalic, moist oral mucosa, Cardio: Regular rate and rhythm, Resp:Lungs clear to auscultation b/l, no wheezes or rhonchi, GI: Soft and nontender, nondistended, bowel sounds active, ostomy in place on L side with green liquid stool with some slight red tinge, urostomy noted on R side, surgical maureen noted and surgical incision well approximated without erythema or drainage Skin: Warm, pink, dry, Discharge Data Allergies Allergy/AdvReac Type Severity Reaction Status Date / Time nitrofurantoin Allergy Intermediate FEVER Verified 02/29/24 14:41 losartan Allergy Mild Rash Verified 02/29/24 14:41 meperidine AdvReac Intermediate SEVERE Verified 02/29/24 14:41 NAUSEA AND VOMITING spironolactone AdvReac Intermediate gynecomasti Verified 02/29/24 14:41 a Consultations 04/11/24 17:39 ED Decision to Admit Stat Ordered Studies 04/11/24 12:10 CT head/brain wo con Stat 04/11/24 13:12 CT abd pelvis wo con Stat Hospital Course (1) MERRICK (acute kidney injury): (2) Nausea & vomiting: (3) Anemia: (4) Pulmonary embolism: (5) Coronary artery disease: (6) Atrial fibrillation: Plan Pt is an 83-year-old male with a past history of HFrEF, hyperlipidemia, atrial fibrillation, PE, prostate cancer, bladder carcinoma s/p cystectomy completed March 13 who presents to the ER with 3 weeks of progressive weakness, nausea/vomiting and fever. Acute nausea/vomiting, resolved - DDx includes viral illness/gastroenteritis, ileus, developing SBO, UTI, intra-abdominal/postsurgical infection CT/A/P: Postsurgical changes of ileal conduit and cystectomy noted. Prominent fluid collection in the pelvis which may represent seroma, sterility cannot be assessed on noncontrast exam. Small amount of gas and soft tissue thickening at the incision suspected postoperative change but from which infection is not excluded. Mild prominence of loops of small bowel. Nonspecific may represent ileus. Obstruction is not excluded however no bowel distention is appreciated. UA is infected appearing - chronically contaminated, - he is also coronavirus (non-COVID) positive Surgical incisions do not appear infected on admission, clinically pt has improved greatly which favors seroma over abscess and likely had viral gastroentero or partial SBO that has resolved, especially as he continues to feel great today when antibiotics were stopped yesterday - urine cx; negative - blood cx; negative 24 hours, no overnight fevers, no WBC count - continuing to do well today and [facility], feel that is reasonable as he is eating and drinking well MERRICK, improved - Cr 2.0 on admission now 1.45 today - tolerating po well, continuing to improve Chronic prednisone use for arthritis - at risk for adrenal insufficiency, switched to hydrocortisone 50q6 - can resume normal steroid regime on discharge Pulmonary embolism On warfarin at home. Continue warfarin with goal INR 23. - Warfarin held initially and switched to heparin gtt (Lovenox deferred due to MERRICK/CrCl ~30) due to inability to tolerate po, will transition back to warfarin, INR today 4.3 so will hold dose today 04/13 Anemia Patient denies any clinical bleeding, no lightheadedness or dizziness, no tachycardia hgb 8.0 on admission, 7.6 today, no overt signs of bleeding, ostomy output slightly red tinged but pt had red jello yesterday Total Time Total Time Spent Total Time Spent (In Minutes): <30 Discharge Plan Discharge Items Patient Disposition: Transfer Inpatient Rehab Fac Reason For Visit: N/V, SEPSIS Discharge Diagnosis: Sepsis Activity: Resume your previous activity Non-emergency contact: Primary Care Provider Call non-emergency contact if: you have any medication questions Follow-up/Referrals: Iam Lange, [Primary Care Provider] - Diet: Regular Addtl Attending Provider Instructions: Pt is an 83-year-old male with a past history of HFrEF, hyperlipidemia, atrial fibrillation, PE, prostate cancer, bladder carcinoma s/p cystectomy completed March 13 who presents to the ER with 3 weeks of progressive weakness, nausea/vomiting and fever. Acute nausea/vomiting, resolved - DDx includes viral illness/gastroenteritis, ileus, developing SBO, UTI, intra-abdominal/postsurgical infection CT/A/P: Postsurgical changes of ileal conduit and cystectomy noted. Prominent fluid collection in the pelvis which may represent seroma, sterility cannot be assessed on noncontrast exam. Small amount of gas and soft tissue thickening at the incision suspected postoperative change but from which infection is not excluded. Mild prominence of loops of small bowel. Nonspecific may represent ileus. Obstruction is not excluded however no bowel distention is appreciated. UA is infected appearing - chronically contaminated, - he is also coronavirus (non-COVID) positive Surgical incisions do not appear infected on admission, clinically pt has improved greatly which favors seroma over abscess and likely had viral gastroentero or partial SBO that has resolved, especially as he continues to feel great today when antibiotics were stopped yesterday - urine cx; negative - blood cx; negative 24 hours, no overnight fevers, no WBC count - continuing to do well today and [facility], feel that is reasonable as he is eating and drinking well MERRICK, improved - Cr 2.0 on admission now 1.45 today - tolerating po well, continuing to improve Chronic prednisone use for arthritis - at risk for adrenal insufficiency, switched to hydrocortisone 50q6 - can resume normal steroid regime on discharge Pulmonary embolism On warfarin at home. Continue warfarin with goal INR 23. - Warfarin held initially and switched to heparin gtt (Lovenox deferred due to MERRICK/CrCl ~30) due to inability to tolerate po, will transition back to warfarin, INR today 4.3 so will hold dose today 04/13 Anemia Patient denies any clinical bleeding, no lightheadedness or dizziness, no tachycardia hgb 8.0 on admission, 7.6 today, no overt signs of bleeding, ostomy output slightly red tinged but pt had red jello yesterday Pending Studies at Discharge: Yes (blood and urine cx) Stand-Alone Forms: My [facility] Skilled Items Patient informed of condition?: No DNR: No Discharge Level of Care: Other Communicable Disease: No Discharge Prognosis: Stable Lines: Peripheral IV Urinary Catheter: Yes Medications and DC Order Prescriptions: Continued tamsulosin 0.4 mg capsule 0.4 mg PO QAM rosuvastatin [Crestor] 20 mg tablet 20 mg PO HS Qty: 90 3RF prednisone 1 mg tablet 4 mg PO QAM 90 Days Qty: 360 1RF atorvastatin 40 mg Tablet 40 mg PO DAILY sennosides [Senokot] 8.6 mg Tablet 8.6 mg PO .@ LUNCH PRN (Reason: Constipation) acetaminophen 325 mg Tablet 975 mg PO Q6H acetaminophen 325 mg Tablet 650 mg PO Q4H PRN (Reason: Pain) loperamide 2 mg Capsule 4 mg PO Q6H ondansetron HCl 4 mg Tablet 4 mg PO Q4H PRN (Reason: n/v) diphenoxylate-atropine [Lomotil] 2.5-0.025 mg Tablet 1 tab PO Q6H piperacillin-tazobactam 3.375 gram Recon Soln 2.25 g IV Q6H Rx Instructions: start 04/11/24 stop date 04/18/24 bisacodyl 10 mg Suppository 10 mg SC DAILY PRN (Reason: Constipation) Fleet Enema 19-7 gram/118 mL Enema 133 ml SC DAILY PRN (Reason: Constipation) calcium carbonate 500 mg calcium (1,250 mg) Tablet,Chewable 500 mg PO Q2H PRN (Reason: indigestion ) lisinopril 5 mg Tablet 5 mg PO DAILY polyethylene glycol 3350 [Miralax] 17 gram/dose Powder 17 g PO .@LUNCH PRN (Reason: Constipation) sodium chloride 0.9 % (flush) Syringe 10 ml IV Q12H Rx Instructions: administer before and after IV drug administration as part of [facility] protocol Glucose D50 Amp 25 g IV DIRECTED PRN (Reason: Hypoglycemia) Glucose D50 Amp 12.5 g IV DIRECTED PRN (Reason: Hypoglycemia) Insta-Glucose 15 g PO DIRECTED PRN (Reason: Hypoglycemia) Milk of Magnesia 30 ml PO DAILY PRN (Reason: Constipation) Saline Iv 75 ml IV DIRECTED Rx Instructions: 75ml/hr, 13.3 grm bag volume (ml): 1000 metoprolol succinate 50 mg tablet extended release 24 hr 50 mg PO Q12H amlodipine 10 mg tablet 5 mg PO QAM Tpn 1,000 ml IV HS Rx Instructions: IV piggyback Held warfarin 5 mg tablet 7.5 mg PO UD Hold Instructions: Resume on 04/14/24. Hold dose today 04/13 for elevated INR 4.3 Rx Instructions: 7.5 mg po pm: start date 04/11/24 stop date 04/12/24 warfarin 10 mg Tablet 10 mg PO UD Hold Instructions: Resume on 04/14/24. Hold warfarin today 04/13 for INR 4.3 Rx Instructions: 10 mg po. 04/11/24:No start/stop date on medication list faxed from facility. List faxed from ED doesn't show medication at all. Discontinued enoxaparin 80 mg/0.8 mL syringe 80 mg subcut BID Rx Instructions: Per [facility] for 03/13/24 invasive procedure (bridge) Discharge Orders: Discharge Order (Routine); Ordered 04/13/24 Ordered By: Chichi Rodney Admission Data Admit Date/Time: 04/11/24 18:58 Attending Provider: Manuel Villa Admit Provider: Isma Gibbs Primary Care Provider: Iam Lange Other Providers: Isma Gibbs Other Interventions: Discharge Summary Assessment (RN) Last Done: 04/13/24 11:29 Supervising Physician Co-Signing Physician Notes I personally examined the patient and verified all jett points of history and exam, discussed case, and agree with decision making with Dr Rodney Continues to feel better overall. No new complaints. Feels up to going back to rehab. Vitals noted, in general he is awake and alert pleasant no distress. HEENT normocephalic atraumatic mucous membranes moist. Breathing unlabored no accessory muscle use good effort. Abdomen is postop with an ostomy for both urine and feces, but everything appears intact there is no erythema nothing is tender I feel no firmness I feel no fluctuance. There is no guarding rebound or rigidity. Acute illnessgiven how quickly things resolved seems most consistent with a viral etiology. I suspect strongly that the fluid collection is a seroma doing wellstable for return to rehab Resident Activity Tracking Resident Involvement: Resident Care Provided Care Provided: Adult Hospital Medicine
[2024-04-13 08:36] LABS: Hematocrit (blood only) 22.9 % (42.0-52.0); Hemoglobin 7.6 g/dl (14.0-18.0); Immature Granulocytes # (auto) 0.03 K/uL (0.01-0.20); Immature Granulocytes % (auto) 0.5 %; Lymphocytes # (auto) 0.46 K/uL (1.20-3.40); Lymphocytes % (auto) 7.5 %; Mean Corpuscular Hemoglobin 31.9 pg (25.0-34.0); Mean Corpuscular Hgb Conc 33.2 g/dL (32.0-36.0); Mean Corpuscular Volume 96.2 fL (80.0-100.0); Mean Platelet Volume 10.5 fL (9.4-12.4); Monocytes # (auto) 0.65 K/uL (0.11-0.59); Monocytes % (auto) 10.5 %; Neutrophils # (auto) 5.03 K/uL (1.40-6.50); Neutrophils % (auto) 81.5 %; Platelet Count 235 K/uL (130-400); RDW Coefficient of Variation 17.9 % (11.5-14.5); Red Blood Count 2.38 M/uL (4.70-6.10); White Blood Count 6.17 K/ul (4.8-10.8)
[2024-04-13 08:46] LABS: INR 4.3 (0.9-1.1); Prothrombin Time 41.2 Seconds (9.0-12.0)
[2024-04-13 08:51] LABS: BUN Creatinine Ratio 24.5 (10-20); Creatinine Clr Calc Pharmacy 40.8 ml/min; Est GFR (African American) 50.8 ml/min; Est GFR (Non-African American) 43.8 ml/min; Potassium 3.9 mmol/L (3.5-5.1)
[2024-04-13 08:53] LABS: Polychromasia 1+
[2024-04-13 09:09] VITALS: BP 142/74; PULSE 85; RESP 18; O2SAT 95
--- NOTE | 2024-04-13 18:55 | Billing Data ---
Date of Service April 13, 2024 Coding Level of Care Code 88030 IN/OBS DISCH 30 MIN/LESS
== END 2024-04-13 14:46 | DRG 871 ==
LOC: ED 11:47 → 2S 18:58 → SUATTDRO 18:58 → 2S 20:41 → 3N 04-12 18:48

== ENCOUNTER 2024-05-08 19:57 | Inpatient (IN) ==
--- NOTE | 2024-05-08 20:47 | Emergency Department Note ---
Impression & Plan Fever ADMIT ED Provider Note HPI: History obtained from patient and patient's daughter at the bedside. The patient is a 83-year-old gentleman with history of bladder cancer, status post total cystectomy and partial bowel resection status post ileostomy performed at [facility] in March, presents to the emergency department today with a chief complaint of fever as well as nausea and vomiting. Patient states he has had the symptoms for the past several days but his fever to started today. Patient states he has had a slight cough and some "phlegm". On arrival here to the ED the patient is febrile at 38.1, heart rate is within normal limits, blood pressure stable, patient is saturating well on room air on my initial assessment. Patient denies any abdominal pain. He states that he has had normal output through his urostomy and his ileostomy bag. ROS: - Per HPI Differential Diagnosis: Sepsis, urinary tract infection, pneumonia, COVID-19 infection, influenza A infection, small bowel obstruction, amongst other potential pathologies. *Outpatient medications and allergy history reviewed. PE: General: Alert, frail-appearing, no acute distress HEENT: Normocephalic, trachea midline Eyes: Extraocular eye movement is intact, no scleral erythema Pulmonary: Clear to auscultation bilaterally, no wheezing Cardio: Regular rate and irregular rhythm GI: Abdomen is soft to palpation, ileostomy bag is with appropriate output, urostomy bag also has appropriate output, there is no abdominal distention : No suprapubic tenderness MSK: No evidence of trauma or malformation of the extremities, no edema Skin: No evidence of rash Neuro: Alert, no focal deficits Psychiatric: Cooperative INDEPENDENT INTERPRETATIONS: color television console monitor: (As interpreted by myself): - An order was placed for continuous cardiac monitoring - Patient was noted to be in atrial fibrillation with a rate of 80 EKG: (As interpreted by myself): Rate: 97 Rhythm: Atrial fibrillation Intervals: QRS 168 ms, otherwise within normal limits ST changes: No ST elevation Time: 2002 Chest x-ray: (As interpreted by myself): Left lower lobe infiltrate Interventions provided in ED: -IV fluid bolus, IV ceftriaxone, IV azithromycin, IV Flagyl, IV Tylenol Medical Decision Making: IV was established and lab work obtained, patient was placed on hall monitor. Lab work shows no leukocytosis, hemoglobin is stable at 7.8 which appears to be near the patient's baseline. Platelet count is normal, CMP does not show any evidence of any critical findings, procalcitonin is low at 0.35, lactic acid is within normal limits, urinalysis shows 1+ blood, 3+ leukocyte esterase, urine nitrite is negative. Viral panel testing was obtained and is negative. Chest x-ray per my interpretation shows evidence of left lower lobe pneumonia, CT imaging of the abdomen pelvis was obtained that does not show any evidence of any bowel obstruction or acute surgical abnormality. On my reassessment the patient remains hemodynamically stable, given his fever and concern for pneumonia, antibiotics were ordered. I do feel the patient would benefit from admission for follow-up on blood cultures and urine culture to avoid potential decompensation from the standpoint of his hemodynamics from potential early sepsis. Patient's family at the bedside is in agreement as is the patient. I discussed the patient's presentation with the on-call hospitalist, Dr. Riley, and the patient was placed for admission in stable condition. Consultants/Discussions held with other healthcare providers: -Hospitalist, Dr. Riley Disposition discussion held by myself with: -Patient and family at bedside Diagnosis: 1. Left lower lobe pneumonia, acute 2. Fever, acute 3. Nausea and vomiting, acute 4. Anemia, chronic, stable Disposition: Admission Killian Greenberg DO Emergency Medicine Past Med/Surg History Problem List (Updated 05/08/24 @ 23:55 by Killian Greenberg DO) Fever (Acute) History of total cystectomy (Acute) History of bladder cancer (Acute) Vomiting (Acute) Sepsis (Acute) Acute dehydration (Acute) MERRICK (acute kidney injury) (Acute) Sepsis Anemia Nausea & vomiting Coagulopathy (Acute) Acute hyponatremia (Acute) Hematuria (Acute) Weakness (Acute) Hyponatremia Pulmonary embolism dx 12/02/23 on Eliquis History of prostate cancer Port-A-Cath in place (09/14/22) Port placement with fluoroscopy. Dr. Mccormack Bladder carcinoma (Chronic) 07/2022- hx chemo History of left inguinal hernia repair (05/24/22) Recurrent left inguinal hernia repair with mesh Dr. Mccormack Atrial fibrillation Was on Eliquis - currently on hold (started holding 11/29/23 due to upcoming urology biopsy but PE was noted on 12/02/[address]- patient subsequently started on Lovenox) Polymyalgia rheumatica Recurrent left inguinal hernia Mixed hyperlipidemia Peripheral arterial disease - Status post stenting of bilateral superficial femoral [id number] - Status post atherectomy and angioplasty and stenting of right SFA 2016 - S/p atherectomy and drug-coated balloon angioplasty right SFA January 2020 - S/p right femoral-popliteal bypass April 2021 Chronic HFrEF (heart failure with reduced ejection fraction) EF 50-54% 03/24/23 echo Primary hypertension Urethral stricture Coronary artery disease s/p CABG x 3 in 2012 (HEALY graft to LAD, saphenous vein graft to the obtuse marginal, saphenous vein graft to the right coronary artery and posterior descending artery) Blood in the urine Medical History Mixed hyperlipidemia Hypertension Peripheral arterial disease - Status post stenting of bilateral superficial femoral [id number] - Status post atherectomy and angioplasty and stenting of right SFA 2016 - S/p atherectomy and drug-coated balloon angioplasty right SFA January 2020 - S/p right femoral-popliteal bypass April 2021 Polymyalgia rheumatica Atrial fibrillation Was on Eliquis - currently on hold (started holding 11/29/23 due to upcoming urology biopsy but PE was noted on 12/02/[address]- patient subsequently started on Lovenox) Hx of bladder cancer 07/2022, sx and chemo 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 Treated in [place]. Resolved at present History of pulmonary embolism Per 12/02/[address] scan (Eliquis had been on hold x 3-4 days; failed Eliquis therapy per records) - Patient was to start Lovenox 12/02/23 but did not flower buncher or picker script until 12/05/23 per heme office senior care (current) use of systemic steroids Pulmonary hypertension PASP 40-50 mmHg per 03/2023 ECHO COPD (chronic obstructive pulmonary disease) Suspected sleep apnea noted on 07/31/18 anesthesia consult; pt denies, "no device, no study done" Bifascicular block RBBB/LAFB (chronic) Carotid stenosis, bilateral s/p left CEA in 2017 <50% R and L carotid stenosis per 2021 carotid duplex, follows with [facility] vascular Ascending aortic aneurysm Fusiform dilation of the ascending thoracic aorta is stable from prior measuring 4.2 cm per 12/02/[address]; monitoring Tricuspid regurgitation severe- per 03/2023 ECHO Hx of motion sickness History of COVID-19 02/05/22, home test, not hosp; cough, headache, fever>called PCP, put on Paxlovid>resolved. Radiation cystitis hx Prostate cancer 2011 hx-had radioactive seeds placed, no sx. Surgical History History of removal of Port-a-Cath (06/30/23) Hx of cataract extraction History of surgery Status post carotid endarterectomy Hx of appendectomy Hx of colonoscopy Hx of vascular surgery Hx of cystoscopy S/P left inguinal hernia repair Status post cardiac surgery History of biopsy of bladder Family History Sister Breast cancer Mother Diabetes Heart disease Other Asthma Cancer No family history of adverse response to anesthesia Denies family history of Ovarian cancer Prostate cancer Social History Smoking Status: Former smoker Tobacco Type: Cigarettes Cigarettes Per Day: smoked 40 years; Second Hand Exposure: No; Do You Dip or Chew Tobacco: No; Hx Alcohol Use: Yes Alcohol type: beer Hx Substance Use: No Preferred Language: Armenian Communication Ability: Effective Communication Ability Comment: [place] Visual Impairment: No Limitations Hearing Ability: Normal Machine Stoppage Frequency Checker Required: No Beliefs That Will Affect Care: None marital status: Current Living Situation: Spouse current occupational status: retired How many Children do You have: 2 Feels Safe at Home: Yes Childhood Exposure to Second-Hand Smoke: No caffeine: Yes during the past year weight has: remained stable Dental Care, Regularly: Yes Physical Activity Frequency: 3-4 Times per Week Seatbelt Use: always Sunscreen Use: Yes Assistive Devices: Glasses Allergies Allergies Allergy/AdvReac Type Severity Reaction Status Date / Time nitrofurantoin Allergy Intermediate FEVER Verified 05/04/24 15:21 losartan Allergy Mild Rash Verified 05/04/24 15:21 meperidine AdvReac Intermediate SEVERE Verified 05/04/24 15:21 NAUSEA AND VOMITING spironolactone AdvReac Intermediate gynecomasti Verified 05/04/24 15:21 a Home Meds Home Medications Medication Instructions Recorded Confirmed tamsulosin 0.4 mg capsule 0.4 mg PO QAM 01/12/24 05/08/24 amlodipine 10 mg tablet 5 mg PO QAM 04/11/24 05/08/24 calcium carbonate 500 mg PO Q2H PRN indigestion 04/11/24 05/08/24 lisinopril 5 mg tablet 5 mg PO DAILY 04/11/24 05/08/24 metoprolol succinate 50 mg 50 mg PO Q12H 04/11/24 05/08/24 tablet,extended release 24 hr TPN dose IV UD 05/04/24 05/04/24 loperamide 2 mg capsule (Imodium 2 mg PO BID 05/08/24 05/08/24 A-D) ondansetron 4 mg disintegrating 4 mg PO Q8H PRN Nausea 05/08/24 05/08/24 tablet Previous Rx's Medication Instructions Recorded rosuvastatin 20 mg tablet (Crestor) 20 mg PO HS #90 tabs 08/09/23 prednisone 1 mg tablet 4 mg (4 x 1 mg) PO QAM arthritis 01/26/24 90 days #360 tabs Results & Data (ED) Vital Signs Vital Signs - 24 hr 05/08/24 20:03 05/08/24 20:03 05/08/24 20:03 Temperature 38.1 C H 38.1 C H Temperature Source Oral Oral Pulse Rate 95 H Pulse Rate [Apical] 95 H Respiratory Rate 24 24 Respiratory Effort / Characteristics Respiratory Depth Respiratory Pattern Blood Pressure 149/81 H Blood Pressure [Left Arm] 149/81 H Blood Pressure Mean 103 Blood Pressure Mean [Left Arm] 103 Pulse Oximetry 99 99 99 Oxygen Delivery Method Nasal Cannula Nasal Cannula Nasal Cannula Oxygen Flow Rate 2 2 2 Sepsis Recent Fever Within 48 Hours Yes Sepsis New/Unexplained Change in Mental Status N/A Sepsis Action Taken by Nursing Physician Notified 05/08/24 20:03 05/08/24 22:51 Temperature Temperature Source Pulse Rate 109 H Pulse Rate [Apical] 81 Respiratory Rate 16 Respiratory Effort / Characteristics Non-Labored Spontaneous Respiratory Depth Normal Respiratory Pattern Regular Blood Pressure Blood Pressure [Left Arm] 136/54 L Blood Pressure Mean Blood Pressure Mean [Left Arm] 81 Pulse Oximetry 97 Oxygen Delivery Method Room Air Oxygen Flow Rate Sepsis Recent Fever Within 48 Hours Sepsis New/Unexplained Change in Mental Status Sepsis Action Taken by Nursing Laboratory Data 05/08/24 20:59 05/08/24 20:59 Lab Results 05/08/24 05/08/24 05/08/24 Range/Units 20:59 21:37 21:48 WBC 6.61 (4.8-10.8) K/ul RBC 2.56 L (4.70-6.10) M/uL Hgb 7.8 L (14.0-18.0) g/dl Hct 24.6 L (42.0-52.0) % MCV 96.1 (80.0-100.0) fL MCH 30.5 (25.0-34.0) pg MCHC 31.7 L (32.0-36.0) g/dL RDW Std Deviation 53.7 H (36.4-46.3) fL RDW Coeff of [place] 15.1 H (11.5-14.5) % Plt Count 184 (130-400) K/uL MPV 10.8 (9.4-12.4) fL Immature Gran % (Auto) 0.3 % Neut % (Auto) 74.4 % Lymph % (Auto) 4.8 % [place] % (Auto) 13.2 % Eos % (Auto) 7.1 % Baso % (Auto) 0.2 % Neut # (Auto) 4.92 (1.40-6.50) K/uL Lymph # (Auto) 0.32 L (1.20-3.40) K/uL [place] # (Auto) 0.87 H (0.11-0.59) K/uL Eos # (Auto) 0.47 (0.00-0.50) K/uL Baso # (Auto) 0.01 (0.00-0.20) K/uL Immature Gran # (Auto) 0.02 (0.01-0.20) K/uL Anisocytosis Present PT 13.7 H (9.0-12.0) Seconds INR 1.3 H (0.9-1.1) Sodium 134 L (136-145) mmol/L Potassium 4.1 (3.5-5.1) mmol/L Chloride 103 (98-107) mmol/L Carbon Dioxide 25 (21-32) mmol/L Anion Gap 6 (3-11) BUN 28 H (6-23) mg/dl Creatinine 1.05 (0.6-1.4) mg/dl Est Cr Clr Drug Dosing Not Reportable eGFR 70.87 BUN/Creatinine Ratio 26.7 H (10-20) Glucose 213 H (70-99(Fasting)) mg/dl Lactate 1.2 (0.4-2.0) mmol/L Calcium 8.4 L (8.6-10.3) mg/dl Total Bilirubin 0.7 (0.2-1.0) mg/dl AST 13 (13-39) U/L ALT 10 (7-52) U/L Alkaline Phosphatase 83 (34-104) U/L Total Protein 5.5 L (6.0-8.3) gm/dl Albumin 2.7 L (3.4-5.0) gm/dl Globulin 2.8 (2.5-4.0) gm/dl Albumin/Globulin Ratio 1.0 (0.9-2) Procalcitonin 0.35 (0-0.5) ng/ml Urine Color Yellow Urine Appearance Cloudy A (Clear) Urine pH 7.0 (4.5-7.5) Ur Specific [place] 1.015 (1.000-1.030) Urine Protein 2+ H (Negative) Urine Glucose (UA) Negative (Negative) Urine Ketones Negative (Negative) Urine Blood 1+ H (Negative) Urine Nitrite Negative (Negative) Urine Bilirubin Negative (Negative) Urine Urobilinogen Negative (Negative) Ur Leukocyte Esterase 3+ H (Negative) Urine WBC (Auto) >50 H (0-5) /hpf Urine RBC (Auto) 11-20 H (0-2) /hpf U Hyaline Cast (Auto) 3-5 H (0-2) /lpf U Epithel Cells (Auto) 0-2 (0-2) /hpf Urine Bacteria (Auto) 2+ H (None Seen) Adenovirus (PCR) Not Detected (NotDetected) B. pertussis DNA (PCR) Not Detected (NotDetected) B.parapertussis DNA PCR Not Detected (NotDetected) C. pneumoniae DNA (PCR) Not Detected (NotDetected) Coronavirus OC43 (PCR) Not Detected (NotDetected) Coronavirus HKU1 (PCR) Not Detected (NotDetected) Coronavirus 229E (PCR) Not Detected (NotDetected) SARS-CoV-2 (PCR) Not Detected (NotDetected) Coronavirus NL63 (PCR) Not Detected (NotDetected) Human Metapneumovir PCR Not Detected (NotDetected) Influenza Type A (PCR) Not Detected (NotDetected) Influenza Type B (PCR) Not Detected (NotDetected) M. pneumoniae (PCR) Not Detected (NotDetected) Parainfluenza 1 (PCR) Not Detected (NotDetected) Parainfluenza 2 (PCR) Not Detected (NotDetected) Parainfluenza 3 (PCR) Not Detected (NotDetected) Parainfluenza 4 (PCR) Not Detected (NotDetected) RSV (PCR) Not Detected (NotDetected) Entero/Rhino (PCR) Not Detected (NotDetected) Administered Medications Discontinued Medications Sodium Chloride (Nss) 1,000 mls @ 999 mls/hr IV .Q1H1M STA Stop: 05/08/24 21:32 Last Admin: 05/08/24 21:41 Dose: 999 mls/hr Documented By: PIERO Acetaminophen (Ofirmev) 1,000 mg in 100 mls @ 400 mls/hr IV NOW STA Stop: 05/08/24 21:06 Last Infusion: 05/08/24 22:04 Dose: Infused Documented By: Admin: 05/08/24 21:41 Dose: 400 mls/hr Documented By: PIERO Ioversol (Optiray 320 100ml) 92 ml IV ONCE ONE Stop: 05/08/24 21:59 Last Admin: 05/08/24 21:58 Dose: 92 ml Documented By: GES Imaging Data Radiologist's Impression: Chest X-Ray 05/08/24 20:33 SINGLE VIEW CHEST CLINICAL HISTORY: Fever FINDINGS: An AP, portable, upright chest radiograph is compared to study dated 04/11/2024 and correlated with chest CT dated 12/02/2023. A right-sided PICC line is unchanged in position. The patient is status post midline sternotomy. The heart is enlarged noting atherosclerotic calcification of the thoracic aorta. There is pulmonary vascular congestion. Emphysema and chronic interstitial thickening there is similar previous. Airspace consolidation is seen of the left lung base. There is scarring/atelectasis at the right lung base. No large pleural effusion or pneumothorax is seen. The skeletal structures are osteopenic. Bony thorax is grossly intact. IMPRESSION: 1. Cardiomegaly and emphysema with pulmonary vascular congestion. 2. Airspace consolidation at the left lung base suggests pneumonia/aspiration pneumonitis. Clinical correlation will be required and radiographic follow-up to resolution is recommended. ACT 112: Negative or not required by law. Electronically signed by: Demond Caceres M.D. 05/08/2024 9:47 PM Abdomen/Pelvis CT 05/08/24 20:45 Exam(s): CT ABDOMEN + PELVIS With Contrast IV Amt: 92 cc opti 320 EXAM: CT Abdomen and Pelvis With Intravenous Contrast CLINICAL HISTORY: Reason for exam: Nausea and vomiting. TECHNIQUE: Axial computed tomography images of the abdomen and pelvis with intravenous contrast. CTDI is 20.81 mGy and DLP is 1022.74 mGy-cm. Automated exposure control was utilized for the study. A dose lowering technique was utilized adhering to the principles of ALARA. CONTRAST: Patient received 92 cc Optiray 320 of IV contrast COMPARISON: April 11, 2024 FINDINGS: Lung bases: See below. Pleural space: Trace bilateral pleural effusions layering posteriorly measuring up to 1 cm with small amount of bibasilar atelectasis. Incidental note is made of moderate cardiomegaly. Consider mild CHF. ABDOMEN: Liver: There are multiple simple lobular cyst throughout the liver measuring up to 3 cm in diameter, similar to previous. No follow-up is required. Gallbladder and bile ducts: Unremarkable. No calcified stones. No ductal dilation. Pancreas: Unremarkable. No mass. No ductal dilation. Spleen: Unremarkable. No splenomegaly. Adrenals: Unremarkable. No mass. Kidneys and ureters: The urinary bladder appears to have been removed. There is a ileal conduit with right lower quadrant urostomy. The kidneys appear within normal limits. No hydronephrosis or ureterolithiasis is seen. Stomach and bowel: There is a left lower quadrant colostomy. Bowel loops are nondilated. No acute inflammatory changes are seen involving the bowel. No mucosal thickening. PELVIS: Appendix: No findings to suggest acute appendicitis. Bladder: Unremarkable. No mass. Reproductive: Unremarkable as visualized. ABDOMEN and PELVIS: Intraperitoneal space: Unremarkable. No free air. No significant fluid collection. Bones/joints: Mild to moderate degenerative changes throughout the spine. No acute fracture or subluxation. Soft tissues: Unremarkable. Vasculature: Calcified, irregular, and ectatic infrarenal abdominal aorta measuring up to 2.9 cm. Severe calcification of the iliac and femoral arteries bilaterally. No abdominal aortic aneurysm. Lymph nodes: Unremarkable. No enlarged lymph nodes. IMPRESSION: 1. Trace bilateral pleural effusions layering posteriorly measuring up to 1 cm with small amount of bibasilar atelectasis. Incidental note is made of moderate cardiomegaly. Consider mild CHF. 2. There is a left lower quadrant colostomy. Bowel loops are nondilated. No acute inflammatory changes are seen involving the bowel. 3. The urinary bladder appears to have been removed. There is a ileal conduit with right lower quadrant urostomy. The kidneys appear within normal limits. No hydronephrosis or ureterolithiasis is seen. Electronically signed by: Saud Ibrahim MD 05/08/24 23:02 PM Discharge Plan Visit Data Chief Complaint: Weakness Stated Complaint: WEAKNESS, FEVER ED Provider: Killian Greenberg Discharge Problem: Fever Forms Stand Alone Forms: [facility] [employer] Prescriptions Prescriptions: No Action tamsulosin 0.4 mg capsule 0.4 mg PO QAM rosuvastatin [Crestor] 20 mg tablet 20 mg PO HS Qty: 90 3RF prednisone 1 mg tablet 4 mg PO QAM 90 Days Qty: 360 1RF TPN 2,400 mL IV UD calcium carbonate 500 mg calcium (1,250 mg) Tablet,Chewable 500 mg PO Q2H PRN (Reason: indigestion ) lisinopril 5 mg Tablet 5 mg PO DAILY metoprolol succinate 50 mg tablet extended release 24 hr 50 mg PO Q12H amlodipine 10 mg tablet 5 mg PO QAM loperamide [Imodium A-D] 2 mg Capsule 2 mg PO BID ondansetron 4 mg tablet,disintegrating 4 mg PO Q8H PRN (Reason: Nausea) Referrals Referrals: Jael Yu MD [Primary Care Provider] - Discharge Problem: Fever Qualifiers: Fever type: unspecified Qualified Code(s): R50.9 - Fever, unspecified
[2024-05-08 21:36] LABS: Alanine Aminotransferase 10 U/L (7-52); Albumin Level 2.7 gm/dl (3.4-5.0); Alkaline Phosphatase 83 U/L (34-104); Anion Gap 6 (3-11); Aspartate Aminotransferase 13 U/L (13-39); BUN Creatinine Ratio 26.7 (10-20); Bilirubin,Total 0.7 mg/dl (0.2-1.0); Blood Urea Nitrogen 28 mg/dl (6-23); Calcium 8.4 mg/dl (8.6-10.3); Carbon Dioxide 25 mmol/L (21-32); Chloride 103 mmol/L (98-107); Globulin 2.8 gm/dl (2.5-4.0); Glucose 213 mg/dl (70-99(Fasting)); Potassium 4.1 mmol/L (3.5-5.1); Sodium 134 mmol/L (136-145); Total Protein 5.5 gm/dl (6.0-8.3)
[2024-05-08] MEDS: SODIUM CHLORIDE 0.9% 1,000 ML IV STA (21:41)
[2024-05-08] MEDS: ACETAMINOPHEN 1,000 MG/100 ML VIAL IV STA (21:41)
--- NOTE | 2024-05-08 21:48 | XRay Report ---
SINGLE VIEW CHEST CLINICAL HISTORY: Fever FINDINGS: An AP, portable, upright chest radiograph is compared to study dated 04/11/2024 and correlat ed with chest CT dated 12/02/2023. A right-sided PICC line is unchanged in position. The patient is sta tus post midline sternotomy. The heart is enlarged noting atherosclerotic calcification of the thorac ic aorta. There is pulmonary vascular congestion. Emphysema and chronic interstitial thickening there is similar previous. Airspace consolidation is seen of the left lung base. There is scarring/atelect asis at the right lung base. No large pleural effusion or pneumothorax is seen. The skeletal structur es are osteopenic. Bony thorax is grossly intact. IMPRESSION: 1. Cardiomegaly and emphysema with pulmonary vascular congestion. 2. Airspace consolidation at the left lung base suggests pneumonia/aspiration pneumonitis. Clinical c orrelation will be required and radiographic follow-up to resolution is recommended. ACT 112: Negative or not required by law. Electronically signed by: Demond Caceres M.D. 05/08/2024 9:47 PM
[2024-05-08 21:53] LABS: INR 1.3 (0.9-1.1); Prothrombin Time 13.7 Seconds (9.0-12.0)
[2024-05-08 21:56] LABS: Basophils # (auto) 0.01 K/uL (0.00-0.20); Basophils % (auto) 0.2 %; Eosinophils # (auto) 0.47 K/uL (0.00-0.50); Eosinophils % (auto) 7.1 %; Hematocrit (blood only) 24.6 % (42.0-52.0); Hemoglobin 7.8 g/dl (14.0-18.0); Immature Granulocytes # (auto) 0.02 K/uL (0.01-0.20); Immature Granulocytes % (auto) 0.3 %; Lymphocytes # (auto) 0.32 K/uL (1.20-3.40); Lymphocytes % (auto) 4.8 %; Mean Corpuscular Hemoglobin 30.5 pg (25.0-34.0); Mean Corpuscular Hgb Conc 31.7 g/dL (32.0-36.0); Mean Corpuscular Volume 96.1 fL (80.0-100.0); Mean Platelet Volume 10.8 fL (9.4-12.4); Monocytes # (auto) 0.87 K/uL (0.11-0.59); Monocytes % (auto) 13.2 %; Neutrophils # (auto) 4.92 K/uL (1.40-6.50); Neutrophils % (auto) 74.4 %; Platelet Count 184 K/uL (130-400); RDW Coefficient of Variation 15.1 % (11.5-14.5); RDW Standard Deviation 53.7 fL (36.4-46.3); Red Blood Count 2.56 M/uL (4.70-6.10); White Blood Count 6.61 K/ul (4.8-10.8)
[2024-05-08] MEDS: OPTIRAY 320 100ml IV ONE (21:58)
[2024-05-08 22:42] LABS: Anisocytosis Present
[2024-05-08 22:45] LABS: Appearance Urine Cloudy (Clear); Bacteria Urine Automated 2+ (None Seen); Bilirubin Urine Negative (Negative); Blood Urine 1+ (Negative); Color Urine Yellow; Epithelial Cell Urine Auto 0-2 /hpf (0-2); Glucose Urine UA Negative (Negative); Ketones Urine Negative (Negative); Leukocyte Esterase Urine 3+ (Negative); Nitrite Urine Negative (Negative); Protein Urine 2+ (Negative); Specific Gravity Urine 1.015 (1.000-1.030); Urobilinogen Urine Negative (Negative); WBC Urine Automated >50 /hpf (0-5)
[2024-05-08 22:54] LABS: Adenovirus PCR Not Detected (NotDetected); Bordetella parapertussis PCR Not Detected (NotDetected); Bordetella pertussis PCR Not Detected (NotDetected); Chlamydia pneumoniae PCR Not Detected (NotDetected); Coronavirus 229E PCR Not Detected (NotDetected); Coronavirus CoV-2 (COVID19)PCR Not Detected (NotDetected); Coronavirus HKU1 PCR Not Detected (NotDetected); Coronavirus NL63 PCR Not Detected (NotDetected); Coronavirus OC43PCR Not Detected (NotDetected); Human Metapneumovirus PCR Not Detected (NotDetected); Influenza A PCR Not Detected (NotDetected); Influenza B PCR Not Detected (NotDetected); Mycoplasma pneumoniae PCR Not Detected (NotDetected); Parainfluenza Virus 1 PCR Not Detected (NotDetected); Parainfluenza Virus 2 PCR Not Detected (NotDetected); Parainfluenza Virus 3 PCR Not Detected (NotDetected); Parainfluenza Virus 4 PCR Not Detected (NotDetected); Respiratory Syncytial VirusPCR Not Detected (NotDetected); Rhinovirus/Enterovirus PCR Not Detected (NotDetected)
--- NOTE | 2024-05-08 23:03 | CT Scan Report ---
Exam(s): CT ABDOMEN + PELVIS With Contrast IV Amt: 92 cc opti 320 EXAM: CT Abdomen and Pelvis With Intravenous Contrast CLINICAL HISTORY: Reason for exam: Nausea and vomiting. TECHNIQUE: Axial computed tomography images of the abdomen and pelvis with intravenous contrast. CTDI is 20.81 mGy and DLP is 1022.74 mGy-cm. Automated exposure control was utilized for the study. A dose lowering technique was utilized adhering to the principles of ALARA. CONTRAST: Patient received 92 cc Optiray 320 of IV contrast COMPARISON: April 11, 2024 FINDINGS: Lung bases: See below. Pleural space: Trace bilateral pleural effusions layering posteriorly measuring up to 1 cm with small amount of bibasilar atelectasis. Incidental note is made of moderate cardiomegaly. Consider mild CHF. ABDOMEN: Liver: There are multiple simple lobular cyst throughout the liver measuring up to 3 cm in diameter, similar to previous. No follow-up is required. Gallbladder and bile ducts: Unremarkable. No calcified stones. No ductal dilation. Pancreas: Unremarkable. No mass. No ductal dilation. Spleen: Unremarkable. No splenomegaly. Adrenals: Unremarkable. No mass. Kidneys and ureters: The urinary bladder appears to have been removed. There is a ileal conduit with right lower quadrant urostomy. The kidneys appear within normal limits. No hydronephrosis or ureterolithiasis is seen. Stomach and bowel: There is a left lower quadrant colostomy. Bowel loops are nondilated. No acute inflammatory changes are seen involving the bowel. No mucosal thickening. PELVIS: Appendix: No findings to suggest acute appendicitis. Bladder: Unremarkable. No mass. Reproductive: Unremarkable as visualized. ABDOMEN and PELVIS: Intraperitoneal space: Unremarkable. No free air. No significant fluid collection. Bones/joints: Mild to moderate degenerative changes throughout the spine. No acute fracture or subluxation. Soft tissues: Unremarkable. Vasculature: Calcified, irregular, and ectatic infrarenal abdominal aorta measuring up to 2.9 cm. Severe calcification of the iliac and femoral arteries bilaterally. No abdominal aortic aneurysm. Lymph nodes: Unremarkable. No enlarged lymph nodes. IMPRESSION: 1. Trace bilateral pleural effusions layering posteriorly measuring up to 1 cm with small amount of bibasilar atelectasis. Incidental note is made of moderate cardiomegaly. Consider mild CHF. 2. There is a left lower quadrant colostomy. Bowel loops are nondilated. No acute inflammatory changes are seen involving the bowel. 3. The urinary bladder appears to have been removed. There is a ileal conduit with right lower quadrant urostomy. The kidneys appear within normal limits. No hydronephrosis or ureterolithiasis is seen. Electronically signed by: Saud Ibrahim MD 05/08/24 23:02 PM
[2024-05-09] MEDS: cefTRIAXone SODIUM 2,000 MG/50 ML BAG IV STA (00:06)
[2024-05-09] MEDS: metroNIDAZOLE 500 MG/100 ML BAG IV STA (00:07)
[2024-05-09] MEDS ORDERED: DEXTROSE 10% 1,000 ML IV PRN (00:13)
[2024-05-09] MEDS ORDERED: TPN/PPN CONSULT PHARMACY PRN (00:22)
--- NOTE | 2024-05-09 00:28 | History & Physical Report ---
Date of Service May 09, 2024 Assessment & Plan (1) Urinary tract infection: (2) Pneumonia: (3) History of total cystectomy: (4) History of bladder cancer: (5) Pulmonary embolism: (6) History of prostate cancer: (7) Atrial fibrillation: (8) Polymyalgia rheumatica: (9) Chronic HFrEF (heart failure with reduced ejection fraction): (10) Primary hypertension: (11) Coronary artery disease: (12) Fever: (13) Atrial fibrillation: (14) History of pulmonary embolism: Plan Acute urinary tract infection/febrile illness/status post complete cystectomy/bladder cancer/history of prostate cancer status post TURBT- Follow urine culture and sensitivity He received ceftriaxone, azithromycin and Flagyl IV from the ED. He Is status post 1 L NSS from the ED, and Tylenol [address] on Zosyn 4.5 g IV every 8 hours to cover both urinary tract infections and pneumonia Patient was admitted to [place] [facility] from 03/13-04/03/2024 He then went to [facility] from 04/03-04/30/2024. In the intervening time from 04/11-04/13/2024 he was admitted to [facility] for sepsis due to urinary tract infection. Acetaminophen 650 mg by mouth every 6 hours as needed for mild pain or fever Consult urology Basilar pneumonia/sputum production/question aspiration- Admit to monitored bed Incentive spirometry, as pulse ox improved from 90% to 96% with deep breathing Sputum Gram stain and culture Zosyn 4.5 g IV every 8 hours MRSA swab DuoNebs every 2 hours as needed CAD/hypertension/chronic HFrEF- Hold lisinopril and amlodipine due to borderline low blood pressure. Can resume in the a.m. if needed Continue metoprolol succinate 50 mg p.o. every 12 hours Hyperglycemia- No notations of diabetes Glucose 213 on admission Likely secondary to TPN Place on Accu-Cheks with N-1-1 SSI Check hemoglobin A1c Patient has TPN that he runs from his own pump from 7 PM to 7 AM His present bag will be turned off at 7 AM, and then his son-in-law will bring in the next bag to be used from 7 PM to 7 AM while he is in the hospital Patient reports that he has no appetite Will place on a full liquid diet. He reports that he likes peaches Polymyalgia rheumatica/chronic prednisone use- Hold prednisone 4 mg daily Hydrocortisone 50 mg IV every 8 hours for 2 days, then return to prednisone Presence of urostomy and colostomy- Consult ostomy nurse and placed in orders for continued care by nursing History of Present Illness Chief Complaint: The patient presents to the emergency department with complaint of an elevated temperature noted at home, generalized fatigue and weakness for the past several days, which began a few days after being discharged from [facility]. He reports a cough with phlegm, which he spits into a container, but has not been ambulatory enough to feel short of breath. The patient reports normal output through his urostomy bag and his ileostomy bag. Primary Care Provider: Jael Yu MD The patient is a 83-year-old male with a past medical history including prostate cancer, bladder cancer status post cystectomy and creation of urostomy during admission from [facility], from 03/13-04/03/2024, presence of colostomy past status post colon resection, history of PE, acquired hemophilia A, atrial fibrillation, hypertension, hyperlipidemia, and chronic prednisone use for arthritis. He presents to the ED with symptoms as noted above. Allergies Allergy/AdvReac Type Severity Reaction Status Date / Time nitrofurantoin Allergy Intermediate FEVER Verified 05/04/24 15:21 losartan Allergy Mild Rash Verified 05/04/24 15:21 meperidine AdvReac Intermediate SEVERE Verified 05/04/24 15:21 NAUSEA AND VOMITING spironolactone AdvReac Intermediate gynecomasti Verified 05/04/24 15:21 a Home Medications Medication Instructions Recorded Confirmed Type rosuvastatin 20 mg tablet (Crestor) 20 mg PO HS #90 tabs 08/09/23 05/08/24 Rx tamsulosin 0.4 mg capsule 0.4 mg PO QAM 01/12/24 05/08/24 History prednisone 1 mg tablet 4 mg (4 x 1 mg) PO QAM arthritis 01/26/24 05/08/24 Rx 90 days #360 tabs amlodipine 10 mg tablet 5 mg PO QAM 04/11/24 05/08/24 History calcium carbonate 500 mg PO Q2H PRN indigestion 04/11/24 05/08/24 History lisinopril 5 mg tablet 5 mg PO DAILY 04/11/24 05/08/24 History metoprolol succinate 50 mg 50 mg PO Q12H 04/11/24 05/08/24 History tablet,extended release 24 hr TPN dose IV UD 05/04/24 05/04/24 History loperamide 2 mg capsule (Imodium 2 mg PO BID 05/08/24 05/08/24 History A-D) ondansetron 4 mg disintegrating 4 mg PO Q8H PRN Nausea 05/08/24 05/08/24 History tablet Past Med/Surg History Problem List (Updated 05/09/24 @ 04:56 by Pa Riley MD) Pneumonia Urinary tract infection History of pulmonary embolism Per 12/02/[address] scan (Eliquis had been on hold x 3-4 days; failed Eliquis therapy per records) - Patient was to start Lovenox 12/02/23 but did not pickle cutter script until 12/05/23 per heme office Atrial fibrillation Was on Eliquis - currently on hold (started holding 11/29/23 due to upcoming urology biopsy but PE was noted on 12/02/[address]- patient subsequently started on Lovenox) Fever (Acute) History of total cystectomy (Acute) History of bladder cancer (Acute) Vomiting (Acute) Sepsis (Acute) Acute dehydration (Acute) MERRICK (acute kidney injury) (Acute) Sepsis Anemia Nausea & vomiting Coagulopathy (Acute) Acute hyponatremia (Acute) Hematuria (Acute) Weakness (Acute) Hyponatremia Pulmonary embolism dx 12/02/23 on Eliquis History of prostate cancer Port-A-Cath in place (09/14/22) Port placement with fluoroscopy. Dr. Mccormack Bladder carcinoma (Chronic) 07/2022- hx chemo History of left inguinal hernia repair (05/24/22) Recurrent left inguinal hernia repair with mesh Dr. Mccormack Atrial fibrillation Was on Eliquis - currently on hold (started holding 11/29/23 due to upcoming urology biopsy but PE was noted on 12/02/[address]- patient subsequently started on Lovenox) Polymyalgia rheumatica Recurrent left inguinal hernia Mixed hyperlipidemia Peripheral arterial disease - Status post stenting of bilateral superficial femoral [id number] - Status post atherectomy and angioplasty and stenting of right SFA 2016 - S/p atherectomy and drug-coated balloon angioplasty right SFA January 2020 - S/p right femoral-popliteal bypass April 2021 Chronic HFrEF (heart failure with reduced ejection fraction) EF 50-54% 03/24/23 echo Primary hypertension Urethral stricture Coronary artery disease s/p CABG x 3 in 2012 (HEALY graft to LAD, saphenous vein graft to the obtuse marginal, saphenous vein graft to the right coronary artery and posterior descending artery) Blood in the urine Medical History Mixed hyperlipidemia Hypertension Peripheral arterial disease - Status post stenting of bilateral superficial femoral [id number] - Status post atherectomy and angioplasty and stenting of right SFA 2016 - S/p atherectomy and drug-coated balloon angioplasty right SFA January 2020 - S/p right femoral-popliteal bypass April 2021 Polymyalgia rheumatica Atrial fibrillation Was on Eliquis - currently on hold (started holding 11/29/23 due to upcoming urology biopsy but PE was noted on 12/02/[address]- patient subsequently started on Lovenox) Hx of bladder cancer 07/2022, sx and chemo 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 Treated in [place]. 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 Pulmonary hypertension PASP 40-50 mmHg per 03/2023 ECHO COPD (chronic obstructive pulmonary disease) Suspected sleep apnea noted on 07/31/18 anesthesia consult; pt denies, "no device, no study done" Bifascicular block RBBB/LAFB (chronic) Carotid stenosis, bilateral s/p left CEA in 2017 <50% R and L carotid stenosis per 2021 carotid duplex, follows with [facility] vascular Ascending aortic aneurysm Fusiform dilation of the ascending thoracic aorta is stable from prior measuring 4.2 cm per 12/02/[address]; monitoring Tricuspid regurgitation severe- per 03/2023 ECHO Hx of motion sickness History of COVID-19 02/05/22, home test, not hosp; cough, headache, fever>called PCP, put on Paxlovid>resolved. Radiation cystitis hx Prostate cancer 2011 hx-had radioactive seeds placed, no sx. Surgical History History of removal of Port-a-Cath (06/30/23) Hx of cataract extraction History of surgery Status post carotid endarterectomy Hx of appendectomy Hx of colonoscopy Hx of vascular surgery Hx of cystoscopy S/P left inguinal hernia repair Status post cardiac surgery History of biopsy of bladder Family History Sister Breast cancer Mother Diabetes Heart disease Other Asthma Cancer No family history of adverse response to anesthesia Denies family history of Ovarian cancer Prostate cancer Social History Smoking Status: Former smoker Tobacco Type: Cigarettes Cigarettes Per Day: smoked 40 years; Second Hand Exposure: No; Do You Dip or Chew Tobacco: No; Tobacco Cessation Education Requested by Patient: No Hx Alcohol Use: Yes Alcohol type: beer Hx Substance Use: No Preferred Language: Urugu[place] Communication Ability: Effective Communication Ability Comment: LIME Visual Impairment: No Limitations Hearing Ability: Normal Baker Bench Required: No Beliefs That Will Affect Care: None marital status: Current Living Situation: Spouse current occupational status: retired How many Children do You have: 2 Feels Safe at Home: Yes Safety Concerns: Feels Safe At This Time Childhood Exposure to Second-Hand Smoke: No caffeine: Yes during the past year weight has: remained stable Dental Care, Regularly: Yes Physical Activity Frequency: 3-4 Times per Week Seatbelt Use: always Sunscreen Use: Yes Assistive Devices: Glasses, Hearing Aid - Left, Walker and Other Review of Systems Review of Systems: The patient denies chest pain, palpitations, shortness of breath, dyspnea on exertion, cough, lower extremity swelling, sore throat, fevers, chills, sweats, weight change, fatigue, nausea, vomiting, diarrhea , constipation, abdominal pain, pelvic pain, blood in urine or stool, dysuria, urinary frequency or urgency, lightheadedness, dizziness, headache, memory loss, loss of consciousness, rash, abnormal bruising or bleeding, imbalance, focal or generalized weakness, numbness or tingling in arms or legs, generalized arthralgias or myalgias, back or neck pain, or night sweats. The review of systems is otherwise negative other than for that already noted above, and at least 10 systems have been reviewed. Physical Exam Physical Exam: The patient is awake, alert and oriented 3, well developed and well nourished, normocephalic and atraumatic, lying in bed and in no acute distress. HEENT--PERRL, EOMI, mucous membranes and oropharynx mildly dry. Neck--supple. No JVD. No bruits. Thyroid normal, trachea midline, no adenopathy. Heart--normal S1 and S2. No murmurs, rubs or gallops. Lungs--clear bilaterally, no respiratory distress, no accessory muscle use. Abdomen--normal bowel sounds and soft. Nontender. Nondistended, no hernias or masses, no organomegaly. Extremities--No edema. Dermatologic--normal skin turgor, normal color, no abnormal lymph nodes, no rash. Neurologic--cranial nerves II through XII grossly intact. Rheumatologic--normal range of motion. Psychiatric--normal affect. Results & Data Results & Data Vital Signs (Past 12 Hours) Vital Signs Temp Pulse Pulse Resp BP BP Pulse Ox 05/09/24 00:22 77 19 120/80 95 05/08/24 22:51 81 16 136/54 L 97 05/08/24 20:03 109 H 05/08/24 20:03 38.1 C H 95 H 24 149/81 H 99 05/08/24 20:03 99 05/08/24 20:03 38.1 C H 95 H 24 149/81 H 99 O2 Del Method O2 Flow Rate 05/09/24 00:22 Room Air 05/08/24 22:51 Room Air 05/08/24 20:03 05/08/24 20:03 Nasal Cannula 2 05/08/24 20:03 Nasal Cannula 2 05/08/24 20:03 Nasal Cannula 2 Laboratory Results Laboratory Results WBC 6.61 K/ul (4.8-10.8) 05/08/24 20:59 RBC 2.56 M/uL (4.70-6.10) L 05/08/24 20:59 Hgb 7.8 g/dl (14.0-18.0) L 05/08/24 20:59 Hct 24.6 % (42.0-52.0) L 05/08/24 20:59 MCV 96.1 fL (80.0-100.0) 05/08/24 20:59 MCH 30.5 pg (25.0-34.0) 05/08/24 20:59 MCHC 31.7 g/dL (32.0-36.0) L 05/08/24 20:59 RDW Std Deviation 53.7 fL (36.4-46.3) H 05/08/24 20:59 RDW Coeff of Greyson 15.1 % (11.5-14.5) H 05/08/24 20:59 Plt Count 184 K/uL (130-400) 05/08/24 20:59 MPV 10.8 fL (9.4-12.4) 05/08/24 20:59 Immature Gran % (Auto) 0.3 % 05/08/24 20:59 Neut % (Auto) 74.4 % 05/08/24 20:59 Lymph % (Auto) 4.8 % 05/08/24 20:59 Baxter % (Auto) 13.2 % 05/08/24 20:59 Eos % (Auto) 7.1 % 05/08/24 20:59 Baso % (Auto) 0.2 % 05/08/24 20:59 Neut # (Auto) 4.92 K/uL (1.40-6.50) 05/08/24 20:59 Lymph # (Auto) 0.32 K/uL (1.20-3.40) L 05/08/24 20:59 Baxter # (Auto) 0.87 K/uL (0.11-0.59) H 05/08/24 20:59 Eos # (Auto) 0.47 K/uL (0.00-0.50) 05/08/24 20:59 Baso # (Auto) 0.01 K/uL (0.00-0.20) 05/08/24 20:59 Immature Gran # (Auto) 0.02 K/uL (0.01-0.20) 05/08/24 20:59 Anisocytosis Present 05/08/24 20:59 PT 13.7 Seconds (9.0-12.0) H 05/08/24 20:59 INR 1.3 (0.9-1.1) H 05/08/24 20:59 Sodium 134 mmol/L (136-145) L 05/08/24 20:59 Potassium 4.1 mmol/L (3.5-5.1) 05/08/24 20:59 Chloride 103 mmol/L (98-107) 05/08/24 20:59 Carbon Dioxide 25 mmol/L (21-32) 05/08/24 20:59 Anion Gap 6 (3-11) 05/08/24 20:59 BUN 28 mg/dl (6-23) H 05/08/24 20:59 Creatinine 1.05 mg/dl (0.6-1.4) 05/08/24 20:59 Est Cr Clr Drug Dosing Not Reportable 05/08/24 20:59 eGFR 70.87 05/08/24 20:59 BUN/Creatinine Ratio 26.7 (10-20) H 05/08/24 20:59 Glucose 213 mg/dl (70-99(Fasting)) H 05/08/24 20:59 Lactate 1.2 mmol/L (0.4-2.0) 05/08/24 20:59 Calcium 8.4 mg/dl (8.6-10.3) L 05/08/24 20:59 Total Bilirubin 0.7 mg/dl (0.2-1.0) 05/08/24 20:59 AST 13 U/L (13-39) 05/08/24 20:59 ALT 10 U/L (7-52) 05/08/24 20:59 Alkaline Phosphatase 83 U/L (34-104) 05/08/24 20:59 Total Protein 5.5 gm/dl (6.0-8.3) L 05/08/24 20:59 Albumin 2.7 gm/dl (3.4-5.0) L 05/08/24 20:59 Globulin 2.8 gm/dl (2.5-4.0) 05/08/24 20:59 Albumin/Globulin Ratio 1.0 (0.9-2) 05/08/24 20:59 Procalcitonin 0.35 ng/ml (0-0.5) 05/08/24 20:59 Urine Color Yellow 05/08/24 21:48 Urine Appearance Cloudy (Clear) A 05/08/24 21:48 Urine pH 7.0 (4.5-7.5) 05/08/24 21:48 Ur Specific [place] 1.015 (1.000-1.030) 05/08/24 21:48 Urine Protein 2+ (Negative) H 05/08/24 21:48 Urine Glucose (UA) Negative (Negative) 05/08/24 21:48 Urine Ketones Negative (Negative) 05/08/24 21:48 Urine Blood 1+ (Negative) H 05/08/24 21:48 Urine Nitrite Negative (Negative) 05/08/24 21:48 Urine Bilirubin Negative (Negative) 05/08/24 21:48 Urine Urobilinogen Negative (Negative) 05/08/24 21:48 Ur Leukocyte Esterase 3+ (Negative) H 05/08/24 21:48 Urine WBC (Auto) >50 /hpf (0-5) H 05/08/24 21:48 Urine RBC (Auto) 11-20 /hpf (0-2) H 05/08/24 21:48 U Hyaline Cast (Auto) 3-5 /lpf (0-2) H 05/08/24 21:48 U Epithel Cells (Auto) 0-2 /hpf (0-2) 05/08/24 21:48 Urine Bacteria (Auto) 2+ (None Seen) H 05/08/24 21:48 Nasal Screen MRSA (PCR) Negative (Negative) 05/09/24 00:21 Adenovirus (PCR) Not Detected (NotDetected) 05/08/24 21:37 B. pertussis DNA (PCR) Not Detected (NotDetected) 05/08/24 21:37 B.parapertussis DNA PCR Not Detected (NotDetected) 05/08/24 21:37 C. pneumoniae DNA (PCR) Not Detected (NotDetected) 05/08/24 21:37 Coronavirus OC43 (PCR) Not Detected (NotDetected) 05/08/24 21:37 Coronavirus HKU1 (PCR) Not Detected (NotDetected) 05/08/24 21:37 Coronavirus 229E (PCR) Not Detected (NotDetected) 05/08/24 21:37 SARS-CoV-2 (PCR) Not Detected (NotDetected) 05/08/24 21:37 Coronavirus NL63 (PCR) Not Detected (NotDetected) 05/08/24 21:37 Human Metapneumovir PCR Not Detected (NotDetected) 05/08/24 21:37 Influenza Type A (PCR) Not Detected (NotDetected) 05/08/24 21:37 Influenza Type B (PCR) Not Detected (NotDetected) 05/08/24 21:37 M. pneumoniae (PCR) Not Detected (NotDetected) 05/08/24 21:37 Parainfluenza 1 (PCR) Not Detected (NotDetected) 05/08/24 21:37 Parainfluenza 2 (PCR) Not Detected (NotDetected) 05/08/24 21:37 Parainfluenza 3 (PCR) Not Detected (NotDetected) 05/08/24 21:37 Parainfluenza 4 (PCR) Not Detected (NotDetected) 05/08/24 21:37 RSV (PCR) Not Detected (NotDetected) 05/08/24 21:37 Entero/Rhino (PCR) Not Detected (NotDetected) 05/08/24 21:37 Impressions Chest X-Ray 05/08/24 20:33 SINGLE VIEW CHEST CLINICAL HISTORY: Fever FINDINGS: An AP, portable, upright chest radiograph is compared to study dated 04/11/2024 and correlated with chest CT dated 12/02/2023. A right-sided PICC line is unchanged in position. The patient is status post midline sternotomy. The heart is enlarged noting atherosclerotic calcification of the thoracic aorta. There is pulmonary vascular congestion. Emphysema and chronic interstitial thickening there is similar previous. Airspace consolidation is seen of the left lung base. There is scarring/atelectasis at the right lung base. No large pleural effusion or pneumothorax is seen. The skeletal structures are osteopenic. Bony thorax is grossly intact. IMPRESSION: 1. Cardiomegaly and emphysema with pulmonary vascular congestion. 2. Airspace consolidation at the left lung base suggests pneumonia/aspiration pneumonitis. Clinical correlation will be required and radiographic follow-up to resolution is recommended. ACT 112: Negative or not required by law. Electronically signed by: Demond Caceres M.D. 05/08/2024 9:47 PM Abdomen/Pelvis CT 05/08/24 20:45 Exam(s): CT ABDOMEN + PELVIS With Contrast IV Amt: 92 cc opti 320 EXAM: CT Abdomen and Pelvis With Intravenous Contrast CLINICAL HISTORY: Reason for exam: Nausea and vomiting. TECHNIQUE: Axial computed tomography images of the abdomen and pelvis with intravenous contrast. CTDI is 20.81 mGy and DLP is 1022.74 mGy-cm. Automated exposure control was utilized for the study. A dose lowering technique was utilized adhering to the principles of ALARA. CONTRAST: Patient received 92 cc Optiray 320 of IV contrast COMPARISON: April 11, 2024 FINDINGS: Lung bases: See below. Pleural space: Trace bilateral pleural effusions layering posteriorly measuring up to 1 cm with small amount of bibasilar atelectasis. Incidental note is made of moderate cardiomegaly. Consider mild CHF. ABDOMEN: Liver: There are multiple simple lobular cyst throughout the liver measuring up to 3 cm in diameter, similar to previous. No follow-up is required. Gallbladder and bile ducts: Unremarkable. No calcified stones. No ductal dilation. Pancreas: Unremarkable. No mass. No ductal dilation. Spleen: Unremarkable. No splenomegaly. Adrenals: Unremarkable. No mass. Kidneys and ureters: The urinary bladder appears to have been removed. There is a ileal conduit with right lower quadrant urostomy. The kidneys appear within normal limits. No hydronephrosis or ureterolithiasis is seen. Stomach and bowel: There is a left lower quadrant colostomy. Bowel loops are nondilated. No acute inflammatory changes are seen involving the bowel. No mucosal thickening. PELVIS: Appendix: No findings to suggest acute appendicitis. Bladder: Unremarkable. No mass. Reproductive: Unremarkable as visualized. ABDOMEN and PELVIS: Intraperitoneal space: Unremarkable. No free air. No significant fluid collection. Bones/joints: Mild to moderate degenerative changes throughout the spine. No acute fracture or subluxation. Soft tissues: Unremarkable. Vasculature: Calcified, irregular, and ectatic infrarenal abdominal aorta measuring up to 2.9 cm. Severe calcification of the iliac and femoral arteries bilaterally. No abdominal aortic aneurysm. Lymph nodes: Unremarkable. No enlarged lymph nodes. IMPRESSION: 1. Trace bilateral pleural effusions layering posteriorly measuring up to 1 cm with small amount of bibasilar atelectasis. Incidental note is made of moderate cardiomegaly. Consider mild CHF. 2. There is a left lower quadrant colostomy. Bowel loops are nondilated. No acute inflammatory changes are seen involving the bowel. 3. The urinary bladder appears to have been removed. There is a ileal conduit with right lower quadrant urostomy. The kidneys appear within normal limits. No hydronephrosis or ureterolithiasis is seen. Electronically signed by: Saud Ibrahim MD 05/08/24 23:02 PM Code Status & VTE Plan Code Status full code VTE Prophylaxis Plan VTE Prophylaxis will be ordered: Yes PG Care Time/CCT Total # of Minutes Spent Total Time Spent with Patient: Total time spent is greater than 50% in coordination of care (as documented) at patient's floor/unit and/or counseling patient: Coding Level of Care Code 28721 INT INP/OBS CARE MIN Diagnoses Urinary tract infection N39.0 Pneumonia J18.9 History of total cystectomy Z90.6 History of bladder cancer Z85.51 Pulmonary embolism I26.99 History of prostate cancer Z85.46 Atrial fibrillation I48.91 Polymyalgia rheumatica M35.3 Chronic HFrEF (heart failure with reduced ejection fraction) I50.22 Primary hypertension I10 Coronary artery disease I25.10 Fever R50.9 Fever type: unspecified History of pulmonary embolism Z86.711 (12) Fever Fever type: unspecified Qualified Code(s): R50.9 - Fever, unspecified
[2024-05-09] MEDS: AZITHROMYCIN 500 MG in DEXTROSE 5% 250 ML IV STA (01:08)
[2024-05-09] MEDS ORDERED: ACETAMINOPHEN 325 MG TAB PO PRN (01:50)
[2024-05-09] MEDS ORDERED: GLUCAGON FOR INJ 1 MG VIAL SQ PRN ×2 (01:50→08:45)
[2024-05-09] MEDS ORDERED: GLUCOSE 40% GEL 15 GM TUBE PO PRN ×2 (01:50→08:45)
[2024-05-09] MEDS ORDERED: DEXTROSE 50% 50 ML SYRINGE IV PRN ×2 (01:50→08:45)
[2024-05-09] MEDS ORDERED: CARBOHYDRATES FOR HYPOGLYCEMIA PO PRN ×2 (01:50→08:45)
[2024-05-09] MEDS ORDERED: GLUCOSE 10 TAB/TUBE PO PRN ×2 (01:50→08:45)
[2024-05-09] MEDS: 4.5GM X1 IV STA (03:38)
[2024-05-09] MEDS: ONDANSETRON INJ 2 MG/ML 2 ML VIAL IV PRN (04:48)
[2024-05-09] MEDS: HYDROCORTISONE SOD 50 MG in SYRINGE 0 ML IV SCH (05:30)
--- NOTE | 2024-05-09 05:39 | Urology Consultation ---
Date of Consultation May 09, 2024 Assessment & Plan (1) Urinary tract infection: Patient has been admitted on the hospitalist service. I have discussed the case with the attending hospitalist this evening. It appears the patient has pneumonia as well as a urinary tract infection. Of note the patient does not have any evidence of nephrolithiasis or hydronephrosis on his admitting CT scan and his urostomy appear to be functioning properly at this time. Patient has been placed on broad-spectrum intravenous antibiotics and is currently receiving Zosyn which will cover his pneumonia as well as urinary tract infection Appropriate cultures have been sent and can be followed with antibiotics be tailored based on these results Patient has had nausea vomiting/dry heaves but CT scan this admission which was just performed did not show any evidence of obstruction. I discussed with the hospitalist team and they feel that underlying sepsis secondary to UTI and pneumonia may be causing his nausea vomiting and dry heaves. If this condition persist consideration may be given to reimaging the patient's abdomen Antiemetics to be provided The primary service is allowed the patient to liquid diet. It is nausea and vomiting persist and he is unable to take adequate oral intake hydration measures with intravenous fluid should be employed Stress dose steroids have been administered as the patient does have an underlying history of polymyalgia rheumatica Additional recommendations will be forthcoming based on his clinical course as unfolds. History of Present Illness Reason for Consultation: UTI s/p Cystectomy Attending Physician: Pa Riley MD History of Present Illness This is an 83-year-old male who presented to the emergency department secondary to fevers. The patient has an extensive urologic history. He has a history of invasive bladder cancer for which she was treated with chemotherapy and radiation. Patient was also noted to have prostate cancer that was treated with brachytherapy in 2008. Due to his bladder cancer he underwent a cystectomy with ilial conduit and then diverting loop ileostomy at [facility] in 03/13/2024. Following the patient's cystectomy there was concern the patient developed a small bowel obstruction and he underwent a exploratory laparotomy with no obstructions found. He has required readmission to the hospital since this procedure secondary to failure to thrive. (This was an April 2024). Patient notes that he has been having fevers for approximately 48 hours. He notes occasional shakes and chills. Patient currently denies any shortness of breath. He does note that he has had a slight cough over the same time period w here he is coughing up phlegm. He denies any back or flank pain. He denies any abdominal pain but he has had nausea and vomiting/dry heaves over the same duration. He does note that his urostomy and colostomy both appear to be functioning properly. Since arrival to the hospital this admission the patient has had labs and imaging which I independently reviewed Chest x-ray showed airspace consol idations at the left lung concerning for pneumonia possible aspiration pneumonitis. Patient also had a CT scan of the abdomen pelvis which showed trace bilateral pleural effusions. The patient was noted to have a left lower quadrant ostomy with some nondilated bowel loops. There is no inflammatory changes noted in the bowel. There is an ileal conduit noted. There is no evidence of hydronephrosis or nephrolithiasis. Labs included CBC her white blood cell count and platelet count are normal. Hemoglobin and hematocrit are 7.8 and 24.6. Coagulation studies showed an INR of 1.3. Chemistry profile showed sodium was 134 with a normal potassium. His BUN had a slight elevation of 28 with a normal creatinine. Lactic acid level was not elevated at 1.2. Urinalysis showed cloudy urine with pyuria showing greater than 50 white blood cells per high-power field. The specimen was negative for nitrites but had 3+ leukocyte esterase and 2+ bacteria. Respiratory bio fire was checked and was negative for all viruses tested. At the time of my interview the patient was resting in bed with occasional dry heaves but was in no distress. Allergies Allergy/AdvReac Type Severity Reaction Status Date / Time nitrofurantoin Allergy Intermediate FEVER Verified 05/04/24 15:21 losartan Allergy Mild Rash Verified 05/04/24 15:21 meperidine AdvReac Intermediate SEVERE Verified 05/04/24 15:21 NAUSEA AND VOMITING spironolactone AdvReac Intermediate gynecomasti Verified 05/04/24 15:21 a Home Medications Medication Instructions Recorded Confirmed Type rosuvastatin 20 mg tablet (Crestor) 20 mg PO HS #90 tabs 08/09/23 05/08/24 Rx tamsulosin 0.4 mg capsule 0.4 mg PO QAM 01/12/24 05/08/24 History prednisone 1 mg tablet 4 mg (4 x 1 mg) PO QAM arthritis 01/26/24 05/08/24 Rx 90 days #360 tabs amlodipine 10 mg tablet 5 mg PO QAM 04/11/24 05/08/24 History calcium carbonate 500 mg PO Q2H PRN indigestion 04/11/24 05/08/24 History lisinopril 5 mg tablet 5 mg PO DAILY 04/11/24 05/08/24 History metoprolol succinate 50 mg 50 mg PO Q12H 04/11/24 05/08/24 History tablet,extended release 24 hr TPN dose IV UD 05/04/24 05/04/24 History loperamide 2 mg capsule (Imodium 2 mg PO BID 05/08/24 05/08/24 History A-D) ondansetron 4 mg disintegrating 4 mg PO Q8H PRN Nausea 05/08/24 05/08/24 History tablet Patient History Medical History Mixed hyperlipidemia Hypertension Peripheral arterial disease - Status post stenting of bilateral superficial femoral [id number] - Status post atherectomy and angioplasty and stenting of right SFA 2016 - S/p atherectomy and drug-coated balloon angioplasty right SFA January 2020 - S/p right femoral-popliteal bypass April 2021 Polymyalgia rheumatica Hx of bladder cancer 07/2022, sx and chemo 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 Treated in [place]. 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 Pulmonary hypertension PASP 40-50 mmHg per 03/2023 ECHO COPD (chronic obstructive pulmonary disease) Suspected sleep apnea noted on 07/31/18 anesthesia consult; pt denies, "no device, no study done" Bifascicular block RBBB/LAFB (chronic) Carotid stenosis, bilateral s/p left CEA in 2016 <50% R and L carotid stenosis per 2021 carotid duplex, follows with [facility] vascular Ascending aortic aneurysm Fusiform dilation of the ascending thoracic aorta is stable from prior measuring 4.2 cm per 12/02/[address]; monitoring Tricuspid regurgitation severe- per 03/2023 ECHO Hx of motion sickness History of COVID-19 02/05/22, home test, not hosp; cough, headache, fever>called PCP, put on Paxlovid>resolved. Radiation cystitis hx Prostate cancer 2011 hx-had radioactive seeds placed, no sx. Surgical History History of removal of Port-a-Cath (06/30/23) Access Port Removal(Left) - Sanford Perez DO, [place] Hx of cataract extraction rt./lt History of surgery TURBT 04/07/23 [facility] TURBT 11/2023 [facility] Status post carotid endarterectomy left 2017 Hx of appendectomy Hx of colonoscopy Hx of vascular surgery x2 stents placed in each lower extremity, [place] Hx of cystoscopy multiple, 08/01/18: LMA 4 last one in Jul 2022 Cystoscopy, TURBT medium- Terry Townsend MD S/P left inguinal hernia repair Status post cardiac surgery failed stress test>bypass surgery 2012, [place], x3 vessels; f/u dr beckford History of biopsy of bladder Family History Sister Breast cancer Mother Diabetes Heart disease Other Asthma Cancer No family history of adverse response to anesthesia Denies family history of Ovarian cancer Prostate cancer Social History Smoking Status: Former smoker Tobacco Type: Cigarettes Cigarettes Per Day: smoked 40 years; Second Hand Exposure: No; Do You Dip or Chew Tobacco: No; Tobacco Cessation Education Requested by Patient: No Hx Alcohol Use: Yes Alcohol type: beer Hx Substance Use: No Preferred Language: Khmer Communication Ability: Effective Communication Ability Comment: [place] Visual Impairment: No Limitations 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: No Beliefs That Will Affect Care: None marital status: Current Living Situation: Spouse current occupational status: retired How many Children do You have: 2 Feels Safe at Home: Yes Safety Concerns: Feels Safe At This Time Childhood Exposure to Second-Hand Smoke: No caffeine: Yes during the past year weight has: remained stable Dental Care, Regularly: Yes Physical Activity Frequency: 3-4 Times per Week Seatbelt Use: always Sunscreen Use: Yes Assistive Devices: Glasses, Hearing Aid - Left, Walker and Other Review of Systems Review of Systems: All systems reviewed & are unremarkable except as noted in HPI & below Physical Exam Constitutional: + ill appearing and + thin Eyes: no conjunctival abnormality ENMT: Ears: no hearing impairment and no external ear abnormality Mouth: no oropharynx abnormality Neck: trachea midline Respiratory: no labored breathing Cardiovascular: Rate/Rhythm: regular rate and regular rhythm Gastrointestinal (Abdomen): Abdomen is non-distended. No pain with palpation. Urostomy (right side) is draining clear yellow urine. Colostomy (left side) noted to have a large amount of air in collection bag Skin: no rashes Neurologic: Pt. able to move al 4 extremities and follow simple commands without focal defcitis Psychiatric: A+Ox3, euthymic affect Genitourinary: no CVA tenderness with percussion bilaterally Results & Data Vital Signs (Past 12 Hours) Vital Signs Temp Pulse Pulse Resp BP BP Pulse Ox 05/09/24 02:32 05/09/24 02:32 36.9 C 86 18 155/56 H 93 05/09/24 01:00 73 17 138/67 95 05/09/24 00:22 77 19 120/80 95 05/08/24 22:51 81 16 136/54 L 97 05/08/24 20:03 109 H 05/08/24 20:03 38.1 C H 95 H 24 149/81 H 99 05/08/24 20:03 99 05/08/24 20:03 38.1 C H 95 H 24 149/81 H 99 O2 Del Method O2 Flow Rate 05/09/24 02:32 Room Air 05/09/24 02:32 Room Air 05/09/24 01:00 Room Air 05/09/24 00:22 Room Air 05/08/24 22:51 Room Air 05/08/24 20:03 05/08/24 20:03 Nasal Cannula 2 05/08/24 20:03 Nasal Cannula 2 05/08/24 20:03 Nasal Cannula 2 PG Care Time/CCT Total # of Minutes Spent Total Time Spent with Patient: Total time spent is greater than 50% in coordination of care (as documented) at patient's floor/unit and/or counseling patient: Coding Level of Care Code 79377 INT INP/OBS CARE 3/75MIN Diagnoses Urinary tract infection N39.0
[2024-05-09] MEDS: ACETAMINOPHEN 1,000 MG/100 ML VIAL IV PRN (06:49)
[2024-05-09 07:09] LABS: Basophils # (auto) 0.01 K/uL (0.00-0.20); Basophils % (auto) 0.1 %; Eosinophils # (auto) 0.69 K/uL (0.00-0.50); Eosinophils % (auto) 9.2 %; Hematocrit (blood only) 25.3 % (42.0-52.0); Immature Granulocytes # (auto) 0.03 K/uL (0.01-0.20); Immature Granulocytes % (auto) 0.4 %; Mean Corpuscular Hemoglobin 30.2 pg (25.0-34.0); Mean Corpuscular Hgb Conc 31.6 g/dL (32.0-36.0); Mean Corpuscular Volume 95.5 fL (80.0-100.0); Mean Platelet Volume 11.1 fL (9.4-12.4); Monocytes # (auto) 0.96 K/uL (0.11-0.59); Monocytes % (auto) 12.8 %; Neutrophils # (auto) 5.53 K/uL (1.40-6.50); Neutrophils % (auto) 73.5 %; Platelet Count 156 K/uL (130-400); RDW Standard Deviation 53.1 fL (36.4-46.3); Red Blood Count 2.65 M/uL (4.70-6.10); White Blood Count 7.52 K/ul (4.8-10.8)
[2024-05-09 07:25] LABS: Estimated Average Glucose 114 mg/dl; Hemoglobin A1C 5.6 % (4.5-5.6)
[2024-05-09 07:49] LABS: Albumin Level 2.6 gm/dl (3.4-5.0); BUN Creatinine Ratio 34.1 (10-20); Bilirubin,Total 0.5 mg/dl (0.2-1.0); Calcium 8.4 mg/dl (8.6-10.3); Creatinine Clr Calc Pharmacy 66.7 ml/min; Globulin 2.7 gm/dl (2.5-4.0); Phosphorus 2.3 mg/dl (2.5-4.9); Potassium 4.2 mmol/L (3.5-5.1); Total Protein 5.3 gm/dl (6.0-8.3)
[2024-05-09] MEDS ORDERED: PIPERACILLIN/TAZOBACTAM 4.5 GM/100 ML BAG IV SCH (08:00)
--- NOTE | 2024-05-09 08:25 | Hospitalist Progress Note ---
Date of Service May 09, 2024 Assessment & Plan (1) Pneumonia: Plan: pt presents with concern for SIRS with concern for pulmonary source as history of chronic lung disease, COPD, but also an abnormal urine although has had complete cystectomy and a ileal conduit making interpretation of ua difficult- Follow urine culture and sensitivity He received ceftriaxone, azithromycin and Flagyl IV from the ED. ---> now on Zosyn 4.5 g IV every 8 hours Patient was admitted to [place] at [facility] from 03/13-04/03/2024 then [facility] from 04/03-04/30/2024. In the intervening time from 04/11-04/13/2024 he was admitted to [facility] for sepsis due to urinary tract infection. Abnormal lung imaging Basilar pneumonia Sputum Gram stain and culture MRSA swab DuoNebs every 2 hours as needed (2) Atrial fibrillation: Plan: Continue metoprolol succinate 50 mg p.o. every 12 hours CAD/hypertension/chronic HFrEF-not in exacerbation Hold lisinopril and amlodipine due to borderline low blood pressure. (3) History of bladder cancer: Plan: bladder/prostate cancern in records has had removal of bladder and ileal conduit, also colostomy (4) Polymyalgia rheumatica: Plan: Polymyalgia rheumatica/chronic prednisone use- Hold prednisone 4 mg daily Hydrocortisone 50 mg IV every 8 hours for 2 days, then return to prednisone (5) History of pulmonary embolism: Plan: diagnosed in december 22, failed eliquis, was on warfarin as outpt recently subtherapeutic consider therapeutic lovenox if no procedures are planned Plan Hyperglycemia- No notations of diabetes Glucose 213 on admission Likely secondary to TPN Check hemoglobin A1c 5.6 Patient has TPN that he runs from his own pump from 7 PM to 7 AM His present bag will be turned off at 7 AM, and then his son-in-law will bring in the next bag to be used from 7 PM to 7 AM while he is in the hospital Patient reports that he has no appetite Will place on a full liquid diet. He reports that he likes peaches Presence of urostomy and colostomy- Consult ostomy nurse and placed in orders for continued care by nursing Admission and Anticipated Discharge Date Admission Date: May 09, 2024 Subjective pt is doing well and is eating some liquid diet, still taking TPN overnight, no new focal complaints did have some cough prehospital now improved Physical Exam Physical Exam: awake and alert, oriented cardiac is regular lungs are clear abd is soft with ileostomy and colostomy present Results & Data Results & Data Vital Signs (Past 12 Hours) Vital Signs Temp Pulse Resp BP Pulse Ox O2 Del Method 05/09/24 02:32 Room Air 05/09/24 02:32 98.4 F 86 18 155/56 H 93 Room Air 05/09/24 01:50 Room Air 05/09/24 01:00 73 17 138/67 95 Room Air 05/09/24 00:22 77 19 120/80 95 Room Air 05/08/24 22:51 81 16 136/54 L 97 Room Air Laboratory Results review cbc' review chemistry updated family at bedside discussed tpn with pharmacist PG Care Time/CCT Total # of Minutes Spent Total Time Spent with Patient: Total time spent is greater than 50% in coordination of care (as documented) at patient's floor/unit and/or counseling patient: Coding Level of Care Code 07927 SUB INP/OBS CARE 3/50MIN Diagnoses Pneumonia J18.9 Atrial fibrillation I48.91 History of bladder cancer Z85.51 Polymyalgia rheumatica M35.3 History of pulmonary embolism Z86.711
[2024-05-09] MEDS: LOPERAMIDE HCL 2 MG CAP PO SCH (08:41)
[2024-05-09] MEDS: METOPROLOL SUCC 50MG EXT REL TAB PO SCH (08:41)
[2024-05-09] MEDS: TAMSULOSIN HCL 0.4 MG CAP PO SCH (08:41)
[2024-05-09] MEDS: INSULIN ASPART PER UNIT CHARGE SC SCH ×3 (08:47→16:50)
[2024-05-09] MEDS: 4.5GM EXT INFUSION IV SCH (09:34)
[2024-05-09] MEDS ORDERED: TPN/PPN CONSULT PHARMACY STA (10:13)
--- NOTE | 2024-05-09 13:53 | Pharmacy Report ---
Pharmacy Initial PN Consult Nt - Date of Service May 09, 2024 - Scope Pharmacy has been consulted on 05/09 to manage parenteral nutrition orders and order appropriate labs. As part of the Nutrition Support Team Guidelines, pharmacy will work in conjunction with dietary when determining the patients caloric needs. - Subjective * The patient is a 83 year old Male admitted on 05/09/24 for FEBRILE, PNEUMONIA, UTI. - Objective Vascular Access: * Patient currently has a central line. Height & Weight (Last Documented) Height 5 ft 11 in Weight 75.296 kg Diet Order(s) 05/09/24 Breakfast Diet Intake & Ouput (24hrs) 05/08/24 05/09/24 05/10/24 06:59 06:59 06:59 Intake Total 1905 / 1905 200 / 200 Output Total 1000 / 1000 400 / 400 Balance 905 / 905 -200 / -200 Selected Laboratory Results 05/08/24 05/09/24 20:59 06:23 Sodium 134 L 135 L Potassium 4.1 4.2 Chloride 103 105 Carbon Dioxide 25 24 Anion Gap 6 6 BUN 28 H 31 H Creatinine 1.05 0.91 BUN/Creatinine Ratio 26.7 H 34.1 H Glucose 213 H 228 H Calcium 8.4 L 8.4 L Phosphorus 2.3 L Magnesium 2.0 Total Bilirubin 0.7 0.5 AST 13 14 ALT 10 12 Alkaline Phosphatase [address] - Initial Nutrition Assessment Start: 05/09/24 12:13 Freq: Status: Active Protocol: Document 05/09/24 12:14 WN (Rec: 05/09/24 12:27 WN [id number]) - Assessment & Plan Assessment: * Appreciate dietitians recommendations for macronutrients. Patient on chronic TPN outpatient, follows via [facility]. Receives 3:1 TPN cyclic from 6944-7417 each day. Reviewed [facility] order on most recent bag and will order similar formulation. Patient receives SMOF lipids in TPN, pharmacy only carries clinolipid. I did confirm with patient that he does not have any allergies rel ated to lipids, reasonable to substitute to our formulary product clinolipid while admitted. Patient's outpatient TPN providing ~2400 ml/12 hours. I notified provider that pharmacy only carries premixed formulations and volume will be closer to ~1500 ml. Provider okay with 1500 ml volume instead. * Patient reports he adds in MVI/thiamine every 3 days, last day he thinks he added it to TPN bag was possibly ~2 days ago, so could consider adding in bag tomorrow. Plan: * For Day #1 of TPN administration, the following will be ordered: * Macronutrients: * Amino Acids: 96 grams/day * Dextrose: 168 grams/day * Lipids: 50 grams/day * Micronutrients: * Sodium phosphate: 21 mMol/day * Sodium chloride: 50 mEq/day * Sodium acetate: 50 mEq/day * Potassium acetate: 50 mEq/day * Magnesium sulfate: 20.3 mEq/day * Calcium gluconate: 9.3 mEq/day * Trace elements: 1 mL/day * Total volume of 1303 mL will be infused over 12 hours and will provide 1455 kcal/day * Labs will be ordered per PN protocol. * Pharmacy will follow and adjust PN orders on a daily basis. Thank you!
[2024-05-09] MEDS: CLINOLIPID 20% IV FAT EMULSION 250 ML IV SCH (18:47)
[2024-05-09] MEDS: CENTRAL TPN IV SCH (18:59)
[2024-05-09] MEDS: [UNRECOGNIZED DRUG - OTHER] IV SCH (18:59)
[2024-05-09] MEDS: ROSUVASTATIN CALCIUM 20 MG TAB PO SCH (20:32)
[2024-05-10] MEDS: STOP CLINOLIPID SCH (00:55)
[2024-05-10] MEDS: [UNRECOGNIZED DRUG - REMARK] SCH (07:10)
--- NOTE | 2024-05-10 07:29 | Hospitalist Progress Note ---
Date of Service May 10, 2024 Assessment & Plan (1) Pneumonia: Plan: pt presents with concern for SIRS with concern for pulmonary source as history of chronic lung disease, COPD, but also an abnormal urine although has had complete cystectomy and a ileal conduit making interpretation of ua difficult- Follow urine culture and sensitivity He received ceftriaxone, azithromycin and Flagyl IV from the ED. ---> now on Zosyn 4.5 g IV every 8 hours Patient was admitted to [place] at [facility] from 03/13-04/03/2024 then [facility] from 04/03-04/30/2024. In the intervening time from 04/11-04/13/2024 he was admitted to [facility] for sepsis due to urinary tract infection. Abnormal lung imaging Basilar pneumonia Sputum Gram stain and culture MRSA swab DuoNebs every 2 hours as needed (2) Atrial fibrillation: Plan: Continue metoprolol succinate 50 mg p.o. every 12 hours CAD/hypertension/chronic HFrEF-not in exacerbation resume lisinopril 05/10 at lower dose Hold amlodipine due to borderline low blood pressure. (3) History of bladder cancer: Plan: bladder/prostate cancern in records has had removal of bladder and ileal conduit, also colostomy (4) Polymyalgia rheumatica: Plan: Polymyalgia rheumatica/chronic prednisone use- Hold prednisone 4 mg daily Hydrocortisone 50 mg IV every 8 hours for 2 days, then return to prednisone at slightly higher dose (5) History of pulmonary embolism: Plan: diagnosed in december 22, failed eliquis, was on warfarin as outpt recently subtherapeutic anemia persists, will have gi prophylaxis, use lovenox sc cautiously check iron and B12 to help determine if ch inflammatory anemia or other Plan Hyperglycemia- No notations of diabetes Glucose 213 on admission Likely secondary to TPN, will have nutrition consult consider boost Check hemoglobin A1c 5.6 Patient has TPN that he runs from his own pump from 7 PM to 7 AM His present bag will be turned off at 7 AM, and then his son-in-law will bring in the next bag to be used from 7 PM to 7 AM while he is in the hospital Patient reports that he has no appetite Will place on a full liquid diet. He reports that he likes peaches nutrition eval, try to assure good po intake and consider stopping tpn Presence of urostomy and colostomy- Consult ostomy nurse and placed in orders for continued care by nursing Admission and Anticipated Discharge Date Admission Date: May 09, 2024 Subjective pt is much improved, he is tolerating diet and wants to advance, wants to try boost and if tolerated good nutrition may consider stopping TPN Physical Exam Physical Exam: awake and alert, oriented cardiac is regular lungs are clear abd is soft with ileostomy and colostomy present Results & Data Results & Data Vital Signs (Past 12 Hours) Vital Signs Temp Pulse Pulse Resp BP Pulse Ox O2 Del Method 05/10/24 02:45 97.3 F L 63 18 150/68 H 94 Room Air 05/09/24 22:46 98.1 F 73 18 151/53 H 96 Room Air 05/09/24 21:51 73 05/09/24 20:30 Room Air Laboratory Results reviewed cbc, anemic but stable reviewed chemistry PG Care Time/CCT Total # of Minutes Spent Total Time Spent with Patient: Total time spent is greater than 50% in coordination of care (as documented) at patient's floor/unit and/or counseling patient: Coding Level of Care Code 60130 SUB INP/OBS CARE 3/50MIN Diagnoses Pneumonia J18.9 Atrial fibrillation I48.91 History of bladder cancer Z85.51 Polymyalgia rheumatica M35.3 History of pulmonary embolism Z86.711
[2024-05-10 08:00] LABS: Hematocrit (blood only) 24.2 % (42.0-52.0); Hemoglobin 7.7 g/dl (14.0-18.0); Immature Granulocytes # (auto) 0.04 K/uL (0.01-0.20); Immature Granulocytes % (auto) 0.5 %; Lymphocytes # (auto) 0.34 K/uL (1.20-3.40); Lymphocytes % (auto) 4.5 %; Mean Corpuscular Hemoglobin 30.1 pg (25.0-34.0); Mean Corpuscular Hgb Conc 31.8 g/dL (32.0-36.0); Mean Corpuscular Volume 94.5 fL (80.0-100.0); Monocytes # (auto) 0.58 K/uL (0.11-0.59); Monocytes % (auto) 7.6 %; Neutrophils # (auto) 6.64 K/uL (1.40-6.50); Neutrophils % (auto) 87.4 %; Platelet Count 175 K/uL (130-400); RDW Coefficient of Variation 14.8 % (11.5-14.5); RDW Standard Deviation 51.5 fL (36.4-46.3); Red Blood Count 2.56 M/uL (4.70-6.10)
[2024-05-10 08:22] LABS: Albumin Globulin Ratio 0.8 (0.9-2); Albumin Level 2.6 gm/dl (3.4-5.0); BUN Creatinine Ratio 41.3 (10-20); Bilirubin,Total 0.4 mg/dl (0.2-1.0); Calcium 8.7 mg/dl (8.6-10.3); Creatinine Clr Calc Pharmacy 65.9 ml/min; Globulin 3.1 gm/dl (2.5-4.0); Magnesium 2.3 mg/dl (1.7-2.4); Phosphorus 3.6 mg/dl (2.5-4.9); Potassium 4.9 mmol/L (3.5-5.1); Total Protein 5.7 gm/dl (6.0-8.3)
[2024-05-10 08:52] LABS: RBC Morphology Unremarkable
[2024-05-10] MEDS: lisinopril 5 MG TAB PO SCH (09:46)
[2024-05-10] MEDS: ENOXAPARIN 80 MG/0.8 ML SYR SQ SCH (09:47)
[2024-05-10] MEDS: predniSONE 10 MG TABLET PO SCH (09:47)
--- NOTE | 2024-05-10 14:51 | Urology Progress Note ---
Date of Service May 10, 2024 Assessment & Plan (1) History of bladder cancer: (2) History of total cystectomy: (3) Urinary tract infection: Plan: 83-year-old male with history of bladder cancer status post cystectomy and ileal conduit admitted for fever secondary to pneumonia and suspected urinary tract infection. Patient afebrile, hemodynamically stable Labs reviewed- creatinine 0.92, WBC 7.60, Hgb 7.7 Patient subjectively feeling better Urine culture prelim with gram-negative bacilli Sputum culture prelim moderate normal martin present Currently on IV Zosyn for coverage of pneumonia and UTI Recommend continue with antibiotics and follow cultures Urostomy is draining appropriately No acute intervention required at present Recommend continue with antibiotics, supportive care and medical management per hospital medicine will sign off, recall as needed Admission and Anticipated Discharge Date Admission Date: May 09, 2024 Subjective Patient seen and examined at bedside this afternoon. present. Patient reports he is generally feeling better. No fevers or chills. Appetite improving. No nausea or vomiting. Cough improving. Reports urostomy and ileostomy functioning appropriately. Review of Systems Constitutional: as per Subjective / HPI Respiratory: as per Subjective / HPI Gastrointestinal: as per Subjective / HPI Genitourinary: + as per Subjective / HPI Physical Exam Constitutional: + thin; no acute distress Respiratory: no respiratory distress and no labored breathing Gastrointestinal (Abdomen): Inspection/Auscultation: abdomen not distended Percussion/Palpation: abdomen soft; abdomen nontender Urostomy on right draining yellow urine. Ileostomy with brown liquid output. Musculoskeletal: Head/Neck/Chest: normocephalic Neurologic: moves all extremities and awake Psychiatric: Orientation: alert and oriented x 3 Results & Data Vital Signs (Past 12 Hours) Vital Signs Temp Pulse Resp BP Pulse Ox O2 Del Method 05/10/24 07:44 36.5 C 88 20 148/77 H 97 Room Air 05/10/24 02:45 36.3 C L 63 18 150/68 H 94 Room Air PG Care Time/CCT Total # of Minutes Spent Total Time Spent with Patient: Total time spent is greater than 50% in coordination of care (as documented) at patient's floor/unit and/or counseling patient: Coding Level of Care Code 65914 SUB INP/OBS CARE 25MIN Diagnoses History of bladder cancer Z85.51 History of total cystectomy Z90.6 Urinary tract infection N39.0
[2024-05-10] MEDS: [UNRECOGNIZED DRUG - OTHER] IV SCH (18:48)
[2024-05-10] MEDS: CENTRAL TPN IV SCH (18:48)
[2024-05-10] MEDS: CLINOLIPID 20% IV FAT EMULSION 250 ML IV SCH (18:48)
[2024-05-10] MEDS: CALCIUM CARBONATE 500 MG CHEWABLE TAB PO PRN (19:46)
[2024-05-10] MEDS: MELATONIN 3 MG TAB PO ONE (20:05)
[2024-05-11 07:53] LABS: INR 1.2 (0.9-1.1); Prothrombin Time 12.6 Seconds (9.0-12.0)
[2024-05-11 07:55] LABS: Basophils # (auto) 0.02 K/uL (0.00-0.20); Basophils % (auto) 0.3 %; Eosinophils # (auto) 0.06 K/uL (0.00-0.50); Eosinophils % (auto) 0.8 %; Hematocrit (blood only) 25.2 % (42.0-52.0); Hemoglobin 7.9 g/dl (14.0-18.0); Immature Granulocytes # (auto) 0.03 K/uL (0.01-0.20); Immature Granulocytes % (auto) 0.4 %; Lymphocytes # (auto) 0.71 K/uL (1.20-3.40); Lymphocytes % (auto) 9.2 %; Mean Corpuscular Hgb Conc 31.3 g/dL (32.0-36.0); Mean Corpuscular Volume 95.8 fL (80.0-100.0); Mean Platelet Volume 10.8 fL (9.4-12.4); Monocytes # (auto) 0.78 K/uL (0.11-0.59); Monocytes % (auto) 10.1 %; Neutrophils % (auto) 79.2 %; Platelet Count 209 K/uL (130-400); RDW Coefficient of Variation 15.2 % (11.5-14.5); RDW Standard Deviation 53.3 fL (36.4-46.3); Red Blood Count 2.63 M/uL (4.70-6.10); Reticulocyte % 2.06 % (0.50-2.00)
[2024-05-11 08:07] LABS: Albumin Level 2.6 gm/dl (3.4-5.0); BUN Creatinine Ratio 40.6 (10-20); Bilirubin,Total 0.3 mg/dl (0.2-1.0); Calcium 8.5 mg/dl (8.6-10.3); Creatinine Clr Calc Pharmacy 59.4 ml/min; Globulin 2.7 gm/dl (2.5-4.0); Phosphorus 3.3 mg/dl (2.5-4.9); Potassium 4.2 mmol/L (3.5-5.1); Total Protein 5.3 gm/dl (6.0-8.3)
--- NOTE | 2024-05-11 08:31 | Hospitalist Progress Note ---
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 ---> Zosyn transition to po augmentin Patient was admitted to [place] [facility] from 03/13-04/03/2024 then [facility] from 04/03-04/30/2024. In the intervening time from 04/11-04/13/2024 he was admitted to [facility] for sepsis due to urinary tract infection. Abnormal lung imaging Basilar pneumonia Sputum Gram stain and culture MRSA swab DuoNebs every 2 hours as needed (2) Atrial fibrillation: Plan: Continue metoprolol succinate 50 mg p.o. every 12 hours CAD/hypertension/chronic HFrEF-not in exacerbation resume lisinopril 10/10 at lower dose Hold amlodipine due to borderline low blood pressure. (3) History of bladder cancer: Plan: bladder/prostate cancer in records has had removal of bladder and ileal conduit, also colostomy (4) Polymyalgia rheumatica: Plan: Polymyalgia rheumatica/chronic prednisone use- Hold prednisone 4 mg daily Hydrocortisone 50 mg IV every 8 hours for 2 days, now return to prednisone at slightly higher dose (5) History of pulmonary embolism: Plan: diagnosed in december 22, failed eliquis, was on warfarin as outpt recently subtherapeutic anemia persists, will have gi prophylaxis, use lovenox sc cautiously low serum iron replete with Venofer, pending b12, consider iron deficiency anemia Plan Hyperglycemia- hemoglobin A1c 5.6 No notations of diabetes Glucose 213 on admission Likely secondary to TPN, will have nutrition consult, consider boost tolerating advancing diet nutrition eval, spoke to Dr Lee at [facility], wishes to continue tpn at discharge and will manage ,hopeful to stop in near future Presence of urostomy and colostomy- ostomy nurse and placed in orders for continued care by nursing Admission and Anticipated Discharge Date Admission Date: May 09, 2024 Subjective pt is much improved, he is tolerating diet and boost walking about room Physical Exam Physical Exam: awake and alert, oriented cardiac is regular lungs are clear abd is soft with ileostomy and colostomy present Results & Data Results & Data Vital Signs (Past 12 Hours) Vital Signs Temp Pulse Pulse Resp BP Pulse Ox O2 Del Method 05/11/24 07:00 97.7 F 83 16 139/68 96 Room Air 05/11/24 03:05 97.9 F 70 18 129/65 96 Room Air 05/10/24 23:37 97.7 F 83 18 128/61 95 Room Air 05/10/24 21:47 80 Laboratory Results review cbc review chemistry PG Care Time/CCT Total # of Minutes Spent Total Time Spent with Patient: Total time spent is greater than 50% in coordination of care (as documented) at patient's floor/unit and/or counseling patient: Coding Level of Care Code 46689 SUB INP/OBS CARE 3/50MIN Diagnoses Pneumonia J18.9 Atrial fibrillation I48.91 History of bladder cancer Z85.51 Polymyalgia rheumatica M35.3 History of pulmonary embolism Z86.711
[2024-05-11 08:34] LABS: RBC Morphology Unremarkable
[2024-05-11] MEDS: IRON SUCROSE 200 MG in SODIUM CHLORIDE 0.9% 100 ML IV ONE (09:35)
--- NOTE | 2024-05-11 14:18 | Electrocardiogram Report ---
Test Reason : Blood Pressure : */* mmHG Vent. Rate : 97 BPM Atrial Rate : * BPM P-R Int : * ms QRS Dur : 168 ms QT Int : 392 ms P-R-T Axes : * -79 68 degrees QTcB Int : 497 ms Atrial fibrillation with premature ventricular or aberrantly conducted complexes Right bundle branch block Left anterior fascicular block Bifascicular block Abnormal ECG When compared with ECG of 11-Apr-2024 11:53, Vent. rate has increased by 42 bpm T wave inversion no longer evident in Lateral leads Confirmed by Franck Kat ([id number]) on 05/11/2024 2:17:46 PM Referred By: REFERRED SELF Confirmed By: Franck Kat
--- NOTE | 2024-05-11 14:39 | Electrocardiogram Report ---
Test Reason : Blood Pressure : */* mmHG Vent. Rate : 64 BPM Atrial Rate : 58 BPM P-R Int : * ms QRS Dur : 174 ms QT Int : 480 ms P-R-T Axes : * -72 71 degrees QTcB Int : 495 ms Atrial fibrillation with premature ventricular or aberrantly conducted complexes Left axis deviation Right bundle branch block Abnormal ECG When compared with ECG of 08-May-2024 20:03, (unconfirmed) Vent. rate has decreased by 33 bpm Confirmed by Franck Kat ([id number]) on 05/11/2024 2:39:17 PM Referred By: REFERRED SELF Confirmed By: Franck Kat
[2024-05-11] MEDS: AMOXICILLIN/CLAVULANATE 875 MG TAB PO SCH (17:22)
[2024-05-11] MEDS: AA 8%/D14W 2L 1,305 ML in Central TPN bag 0 ML IV SCH (18:41)
[2024-05-11] MEDS: CLINOLIPID 20% IV FAT EMULSION 250 ML IV SCH (18:42)
[2024-05-12 06:38] LABS: BUN Creatinine Ratio 39.6 (10-20); Calcium 8.6 mg/dl (8.6-10.3); Creatinine Clr Calc Pharmacy 61.2 ml/min; Phosphorus 3.3 mg/dl (2.5-4.9); Potassium 4.6 mmol/L (3.5-5.1)
[2024-05-12 06:57] LABS: INR 1.2 (0.9-1.1); Prothrombin Time 12.8 Seconds (9.0-12.0)
[2024-05-12 07:25] VITALS: RESP 16; TEMP 97.7
--- NOTE | 2024-05-12 10:13 | XRay Report ---
XR chest 1V portable HISTORY: 83 years-old Male eval worsening pneumonia acute shortness of breath COMPARISON: 05/08/2024 TECHNIQUE: AP view of the chest FINDINGS: Cardiac silhouette is enlarged. Median sternotomy. A right-sided PICC distal tip terminates in the ex pected location of the superior cavoatrial junction. Previously noted left basilar opacities are not seen. No pneumothorax, pleural effusion or airspace consolidation. Mild chronic interstitial coarseni ng. IMPRESSION: Cardiomegaly without acute process. ACT 112: Negative or not required by law. The above report was generated using voice recognition software. It may contain grammatical, syntax o r spelling errors. Electronically signed by: Mayo Hansen M.D. 05/12/2024 10:12 AM
--- NOTE | 2024-05-12 10:43 | Discharge Summary ---
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 ---> Zosyn transition to po augmentin on presentation, l lung imaging Basilar pneumonia, X ray on dc is cleared MRSA swab negative (2) Atrial fibrillation: Continue metoprolol succinate 50 mg p.o. every 12 hours CAD/hypertension/chronic HFrEF-not in exacerbation resume lisinopril 10/10 at lower dose (3) History of bladder cancer: bladder/prostate cancer in records has had removal of bladder and ileal conduit, also colostomy (4) Polymyalgia rheumatica: Polymyalgia rheumatica/chronic prednisone use- Hold prednisone 4 mg daily Hydrocortisone 50 mg IV every 8 hours for 2 days, now return to home prednisone (5) History of pulmonary embolism: diagnosed in december 22, failed eliquis, was on warfarin as outpt recently subtherapeutic given venofer, will resume home coumadin and follow up with coagluation clinic Plan Hyperglycemia- hemoglobin A1c 5.6 No notations of diabetes Glucose 213 on admission Likely secondary to TPN, will have nutrition consult, consider boost tolerating advancing diet nutrition eval, spoke to Dr Lee at [facility], wishes to continue tpn at discharge and will manage ,hopeful to stop in near future Presence of urostomy and colostomy- Notes For Next Care Provider follow bp has we had stopped amlodipine Admission HPI Per Admitting Provider The patient is a 83-year-old male with a past medical history including prostate cancer, bladder cancer status post cystectomy and creation of urostomy during admission from [facility] [place], from 03/13-04/03/2024, presence of colostomy past status post colon resection, history of PE, acquired hemophilia A, atrial fibrillation, hypertension, hyperlipidemia, and chronic prednisone use for arthritis. He presents to the ED with symptoms as noted above. Discharge Exam awake walking in room 'loose cough but clear lungs and clear cxr given safe swallowing techniques Discharge Plan Discharge Items Patient Disposition: Home - Home Health Services Reason For Visit: FEBRILE, PNEUMONIA, UTI Discharge Diagnosis: pneumonia weakness requirement of TPN Activity: Resume your previous activity Non-emergency contact: Primary Care Provider and Surgeon Call non-emergency contact if: your symptoms worsen Follow-up/Referrals: Jael Yu MD [Primary Care Provider] - 05/25/24 3:00 pm (Hospital follow up scheduled for May 25, 2024 at 3:00 pm. ) Diet: Regular Diet Comment: please try to eat frequent small meals Addtl Attending Provider Instructions: Dr Lee will be in touch via tele health visit for further advice about your feeding try to eat frequent small meals throughout the day and use ensure or boost or make you own protein shakes with a ghost writer and protein poweder complete your antibiotic restart your Coumadin(warfarin) this evening(05/12/24) , please get a blood test on tuesday, ,,, and be in touch with the coagulation clinic and Dr Yi about your blood thinner resume your home TPN Addtl Gasoline Pump Installer Provider Instructions: Dr Lee was concerned if you maybe having some aspiration of the food you are eating that could lead to your pneumonia Here are some safe swallowing strategies: * Posture:Sit upright in a chair, and avoid eating or drinking while lying down. * Food and liquid:Take small bites and sips, and alternate between food and liquid.If using a straw, take one sip at a time. * Swallowing:Focus on swallowing, and avoid talking or laughing while eating or drinking.Tilt your chin down and keep it down as you swallow. * Food texture:Cut food into small pieces and chew thoroughly.Avoid foods that are hard or have tough skins, such as apples and other similar fruits.You can also add extra sauces, gravies, and condiments to dry foods. * After swallowing:Sit upright for approximately 20-30 minutes after a meal. * Warning signs:Watch for warning signs that may indicate your swallowing has changed.If your voice becomes gurgly when swallowing, swallow again or cough to clear it. * Mouth care:[place] your teeth, tongue, gums, and cheeks at least twice a day. * Speech-language pathologist:Meet with a speech-language pathologist to review diet modifications and exercises that work best for you. Pending Studies at Discharge: No Stand-Alone Forms: My [facility] [employer], Smoking Cessation Medications and DC Order Prescriptions: New amoxicillin-pot clavulanate 875-125 mg Tablet 1 tab PO BIDM Qty: 8 0RF Continued tamsulosin 0.4 mg capsule 0.4 mg PO QAM rosuvastatin [Crestor] 20 mg tablet 20 mg PO HS Qty: 90 3RF prednisone 1 mg tablet 4 mg PO QAM 90 Days Qty: 360 1RF TPN 2,400 mL IV UD calcium carbonate 500 mg calcium (1,250 mg) Tablet,Chewable 500 mg PO Q2H PRN (Reason: indigestion ) lisinopril 5 mg Tablet 5 mg PO DAILY metoprolol succinate 50 mg tablet extended release 24 hr 50 mg PO Q12H loperamide [Imodium A-D] 2 mg Capsule 2 mg PO BID ondansetron 4 mg tablet,disintegrating 4 mg PO Q8H PRN (Reason: Nausea) warfarin 5 mg 5 mg PO DAILY Held amlodipine 10 mg tablet 5 mg PO QAM Hold Instructions: Provider's Order Discharge Orders: Discharge Order (Routine); Ordered 05/12/24 Ordered By: Nazario Cash/Other Patient Handouts: Low-Fiber Diet, Colostomy: Living an Active Life, Colostomy: Adjusting to Your Body, COPD and Heart Disease, Colostomy: Changing Your Pouch, Ostomy Care: Emptying Your Pouch, Types of Colon Resections, What Is a Colostomy?, Colostomy Dc, Colostomy: Caring for Your Stoma, Colostomy: Managing Your Nutrition, What Is a Urostomy?, Urostomy: Caring for Your Stoma, Urostomy: Managing Skin Problems, Urostomy: Emptying Your Pouch, Urostomy: Changing Your Pouch, Urostomy- Staying Healthy, Stoma Care Opening Sizing, Stoma Care Stoma and Skin Admission Data Admit Date/Time: 05/09/24 00:27 Attending Provider: Nazario Lofton Admit Provider: Pa Riley Primary Care Provider: Jael Yu Other Providers: Pa Riley; Chucho Rodrigez Other Interventions: Discharge Summary Assessment (RN) Last Done: 05/12/24 12:48 Hospital Stay Data Consultations 05/08/24 23:15 ED Decision to Admit Stat 05/09/24 05:05 Consult Urology Routine Diagnostic Imagining Performed 05/08/24 20:45 CT abd pelvis IV con only Stat Pending Results Patient Have Any Pending Studies at Discharge: No Discharge Instructions Given to Patient (Per Discharging Provider) Dr Lee will be in touch via tele health visit for further advice about your feeding try to eat frequent small meals throughout the day and use ensure or boost or make you own protein shakes with a ghost writer and protein poweder complete your antibiotic restart your Coumadin(warfarin) this evening(05/12/24) , please get a blood test on tuesday, ,,, and be in touch with the coagulation clinic and Dr Yi about your blood thinner resume your home TPN Total Time Total Time Spent Total Time Spent (In Minutes): It required greater than 30 minutes to prepare this patient for discharge. Coding Level of Care Code 87936 INP/OBS DISCH >30 MIN Diagnoses Pneumonia J18.9 Atrial fibrillation I48.91 History of bladder cancer Z85.51 Polymyalgia rheumatica M35.3 History of pulmonary embolism Z86.711
[2024-05-12 11:30] VITALS: BP 128/78; PULSE 82; O2SAT 97
[2024-05-12] MEDS ORDERED: AMOXICILLIN/CLAVULANATE 875 MG TAB PO SCH (13:45)
--- NOTE | 2024-05-14 14:53 | Coding Query ---
CODING QUERY To promote full compliance with coding requirements relating to patient care, provider participation is requested in all cases of senior principal uncertainty. Please assist us with the question(s) below: Coding Question(s): Pt admitted with fever. Had ileal conduit/urinostomy . Pneumonia treated during this inpatient stay. Urology consult mentioned possible aspiration pneumonia. Discharge summary documented pneumonia, swallowing precautions. Please check below the phrase that describes the pneumonia. Thanks for your help. Jamel Richardson [facility] Physician's Response(s): Pt had aspiration pneumonia, present on admission Pt had Pneumonia, Not otherwise specified- present on admission Other: please document: Principal Diagnosis: "that condition established after study, to be chiefly responsible for occasioning the admission of the patient to the hospital for care." Co-Existing Principal Diagnosis: "when two or more diagnoses equally meet the criteria for principal diagnosis as determined by the circumstances of admission, diagnostic work up, and/or therapy provided, and the Alphabetic Index, Tabular List, or another coding guideline does not provide sequencing direction, any one of the diagnoses may be sequenced first." "When the physician has documented what appears to be a current diagnosis in the body of the record, but has not included the diagnosis in the final diagnostic statement, the physician should be asked whether the diagnosis should be added." (Source Coding Clinic 2 QTR90. p3-4) [facility]
== END 2024-05-12 14:15 | disposition home health service (06) | DRG 193 ==
LOC: ED 19:57 → 2S 05-09 00:27 → SUATTDRO 05-09 00:27 → 2S 05-09 01:32

== ENCOUNTER 2024-05-17 19:06 | Inpatient (IN) ==
[2024-05-17 19:46] LABS: Basophils # (auto) 0.02 K/uL (0.00-0.20); Basophils % (auto) 0.2 %; Eosinophils # (auto) 0.59 K/uL (0.00-0.50); Eosinophils % (auto) 4.5 %; Hemoglobin 9.9 g/dl (14.0-18.0); Immature Granulocytes % (auto) 0.8 %; Lymphocytes % (auto) 5.4 %; Mean Corpuscular Hemoglobin 30.3 pg (25.0-34.0); Mean Corpuscular Hgb Conc 31.9 g/dL (32.0-36.0); Mean Corpuscular Volume 94.8 fL (80.0-100.0); Mean Platelet Volume 10.5 fL (9.4-12.4); Monocytes # (auto) 1.85 K/uL (0.11-0.59); Monocytes % (auto) 14.2 %; Neutrophils # (auto) 9.78 K/uL (1.40-6.50); Neutrophils % (auto) 74.9 %; Platelet Count 282 K/uL (130-400); RDW Coefficient of Variation 16.1 % (11.5-14.5); RDW Standard Deviation 55.3 fL (36.4-46.3); Red Blood Count 3.27 M/uL (4.70-6.10); White Blood Count 13.04 K/ul (4.8-10.8)
[2024-05-17 19:50] LABS: Appearance Urine Cloudy (Clear); Bacteria Urine Automated None Seen (None Seen); Bilirubin Urine Negative (Negative); Blood Urine 1+ (Negative); Cast Urine Automated 0-2 /lpf (0-2); Color Urine Yellow; Glucose Urine UA Negative (Negative); Ketones Urine Negative (Negative); Leukocyte Esterase Urine 2+ (Negative); Nitrite Urine Negative (Negative); Protein Urine 2+ (Negative); Specific Gravity Urine 1.016 (1.000-1.030); Urobilinogen Urine Negative (Negative); WBC Urine Automated >50 /hpf (0-5); pH Urine 6.5 (4.5-7.5)
[2024-05-17 20:07] LABS: Alanine Aminotransferase 31 U/L (7-52); Albumin Level 3.2 gm/dl (3.4-5.0); Alkaline Phosphatase 112 U/L (34-104); Anion Gap 8 (3-11); Aspartate Aminotransferase 38 U/L (13-39); BUN Creatinine Ratio 24.2 (10-20); Bilirubin,Total 1.1 mg/dl (0.2-1.0); Blood Urea Nitrogen 32 mg/dl (6-23); Calcium 9.2 mg/dl (8.6-10.3); Carbon Dioxide 24 mmol/L (21-32); Chloride 102 mmol/L (98-107); Creatinine Clr Calc Pharmacy 39.4 ml/min; Glucose 143 mg/dl (70-99(Fasting)); Potassium 4.9 mmol/L (3.5-5.1); Sodium 134 mmol/L (136-145); Total Protein 7.1 gm/dl (6.0-8.3)
[2024-05-17 20:13] LABS: Troponin I High Sensitivity 18.6 pg/ml (0-20)
--- NOTE | 2024-05-17 20:34 | Emergency Department Note ---
Impression & Plan Generalized weakness, Fever, Hyponatremia, Anemia ED Provider Note ED Provider Note NAME: SANTOS CESPEDES AGE:83 SEX: Male : 1940 ARRIVES VIA: Private vehicle INFORMANT: Patient, daughter ED PROVIDER(s): Bonnie Gray DO CHIEF COMPLAINT: Generalized weakness, fever, decreased oral intake HPI: This is an 83-year-old male presents emergency department due to concern for increasing generalized weakness, decreased oral intake, increased cough, nausea/vomiting, and fever that began today. Patient's daughter at bedside helps provide history and states he had recently been admitted and was found to have pneumonia as well as urinary tract infection. Daughter states he was discharged on Tuesday, and seemed to do well the first day or 2 at home and then began to worsen again. She states symptoms are similar to when he was first admitted. He has had increased nausea and gagging despite use of Zofran at home. She states he has been continuing his course of amoxicillin of which she has 3 more pills to finish. She states no prior history of pneumonia or urinary tract infection. In March he underwent a cystectomy, and has a urostomy present. He also has a prior colostomy present. She states since the initiation of the antibiotic he has had increased output from the colostomy and diarrhea. No change in urine output. She states he has been at home with home nurses and aides that come to help administer TPN, help change the ostomy sites, and to help manage his medications. They feel given he continues to deteriorate he cannot be at home anymore and should be placed in a [place] [facility] [place] facility. PAST MEDICAL HISTORY:See Below PAST SURGICAL HISTORY:See Below FAMILY HISTORY:See Below SOCIAL HISTORY:See Below HOME MEDICATIONS:See Below ALLERGIES:See Below VITALS:See Below PHYSICAL EXAMINATION: GENERAL: alert, well appearing, well nourished, no distress, non-toxic EYE EXAM: normal conjunctiva, PERRL and EOM's grossly intact OROPHARYNX: no exudate, no erythema, lips, buccal mucosa, and tongue normal and mucous membranes are moist NECK: supple, no nuchal rigidity, no adenopathy, non-tender LUNGS: Clear to auscultation. Normal chest wall mechanics, no w/r/r HEART: no murmurs, S1 normal and S2 normal ABDOMEN: abdomen soft, non-tender, normo-active bowel sounds, no masses, no rebound or guarding. Ostomy noted on the right abdomen with clear yellow urine in the bag, well-appearing stoma. Colostomy noted on the left with brown soft stool in the bag, well-appearing stoma BACK: Back is symmetrical on inspection SKIN: no rashes, petechiae, orbruising UPPER EXTREMITIES: upper extremities are grossly normal. FROM, nml pulses b/l. LOWER EXTREMITIES: No pitting edema. FROM, nml pulses b/l. NEURO EXAM: Normal sensorium, cranial nerves II-XII grossly intact, normal speech, no facial droop,nogross weakness of arms, no gross weakness of legs. Gross sensation intact. No ataxia. Vital Signs: reviewed and remarkable Differential Diagnosis: Pneumonia, aspiration, UTI, ACS, colitis, medication ADR, C. difficile, MERRICK, dehydration, electrolyte abnormality, as well as others were considered MEDICAL DECISION MAKING: This is an 83-year-old male presents emergency department with family at bedside due to concern for increased weakness, fatigue, worsening cough, after recent hospitalization for pneumonia and urinary tract infection. Family states they have been taking the antibiotics as prescribed however patient began to worsen again several days ago similar to when he was previously admitted. Patient noted to be febrile and tachycardic on arrival however otherwise hemodynamically stable. No hypoxia or increased work of breathing although patient had a frequent coarse cough at bedside. Labs drawn and sent, IV established, EKG and chest ray performed at bedside interpreted by me and patient was monitored on telemetry. Additional blood work added including a blood culture, sputum culture, and procalcitonin. Patient started on empiric IV antibiotics additionally. Nasal swab obtained and sent by nursing staff as well. Patient noted to have a worsening leukocytosis compared to prior lab values. He was noted to be anemic however this appears stable compared to prior. Patient also noted to have a subtherapeutic INR despite reporting he has been taking his Coumadin as prescribed. Mild hyponatremia was noted. Family concerned the patient requires a [place] [facility] [place] facility at this time as he has not recovered from the prior surgeries and now has been hospitalized twice with additional complications. Patient started on gentle IV fluid hydration. UA sent abnormal however this is from his urostomy bag. He was sent for CT of the chest additionally given recent pneumonia and increased cough and recurrent fever. Case discussed with the hospitalist team for additional evaluation and management. Consultation(s): 1045: Discussed with Dr. Riley, [place] hospitalist team, for additional evaluation and management. ER Treatment Provided: See below Diagnostics Interpreted By Me: -ECG: a.fib at 106, left axis, RBBB, nonspecific ST/T wave changes -Cardiac Monitoring: An order was placed for continuous cardiac monitoring. The monitor shows a rate of 96 with normal sinus rhythm. -Laboratory studies: As stated above and show below. -Imaging studies: X-ray Chest: A single view study of the chest was reviewed and was negative for cardiomegaly, focal infiltrate, effusion, pulmonary edema, or wide mediastinum. Triage Nursing Note Reviewed Prior/Outside Records Reviewed -recent discharge summary reviewed Past Med/Surg History Problem List (Updated 05/19/24 @ 00:34 by Bonnie Gray DO) Anemia (Acute) Hyponatremia (Acute) Fever (Acute) Generalized weakness (Acute) Pneumonia Urinary tract infection History of pulmonary embolism Per 12/02/[address] scan (Eliquis had been on hold x 3-4 days; failed Eliquis therapy per records) - Patient was to start Lovenox 12/02/23 but did not apple picker script until 12/05/23 per heme office Atrial fibrillation Was on Eliquis - currently on hold (started holding 11/29/23 due to upcoming urology biopsy but PE was noted on 12/02/[address]- patient subsequently started on Lovenox) Fever (Acute) History of total cystectomy (Acute) History of bladder cancer (Acute) Vomiting (Acute) Sepsis (Acute) Acute dehydration (Acute) MERRICK (acute kidney injury) (Acute) Sepsis Anemia Nausea & vomiting Coagulopathy (Acute) Acute hyponatremia (Acute) Hematuria (Acute) Weakness (Acute) Hyponatremia Pulmonary embolism dx 12/02/23 on Eliquis History of prostate cancer Port-A-Cath in place (09/14/22) Port placement with fluoroscopy. Dr. Mccormack Bladder carcinoma (Chronic) 07/2022- hx chemo History of left inguinal hernia repair (05/24/22) Recurrent left inguinal hernia repair with mesh Dr. Mccormack Atrial fibrillation Was on Eliquis - currently on hold (started holding 11/29/23 due to upcoming urology biopsy but PE was noted on 12/02/[address]- patient subsequently started on Lovenox) Polymyalgia rheumatica Recurrent left inguinal hernia Mixed hyperlipidemia Peripheral arterial disease - Status post stenting of bilateral superficial femoral [id number] - Status post atherectomy and angioplasty and stenting of right SFA 2016 - S/p atherectomy and drug-coated balloon angioplasty right SFA January 2020 - S/p right femoral-popliteal bypass April 2021 Chronic HFrEF (heart failure with reduced ejection fraction) EF 50-54% 03/24/23 echo Primary hypertension Urethral stricture Coronary artery disease s/p CABG x 3 in 2012 (HEALY graft to LAD, saphenous vein graft to the obtuse marginal, saphenous vein graft to the right coronary artery and posterior descending artery) Blood in the urine Medical History Mixed hyperlipidemia Hypertension Peripheral arterial disease - Status post stenting of bilateral superficial femoral [id number] - Status post atherectomy and angioplasty and stenting of right SFA 2016 - S/p atherectomy and drug-coated balloon angioplasty right SFA January 2020 - S/p right femoral-popliteal bypass April 2021 Polymyalgia rheumatica Hx of bladder cancer 07/2022, sx and chemo 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 Treated in [place]. Resolved at present manager terminal (current) use of systemic steroids Pulmonary hypertension PASP 40-50 mmHg per 03/2023 ECHO COPD (chronic obstructive pulmonary disease) Suspected sleep apnea noted on 07/31/18 anesthesia consult; pt denies, "no device, no study done" Bifascicular block RBBB/LAFB (chronic) Carotid stenosis, bilateral s/p left CEA in 2016 <50% R and L carotid stenosis per 2021 carotid duplex, follows with [facility] vascular Ascending aortic aneurysm Fusiform dilation of the ascending thoracic aorta is stable from prior measuring 4.2 cm per 12/02/[address]; monitoring Tricuspid regurgitation severe- per 03/2023 ECHO Hx of motion sickness History of COVID-19 02/05/22, home test, not hosp; cough, headache, fever>called PCP, put on Paxlovid>resolved. Radiation cystitis hx Prostate cancer 2011 hx-had radioactive seeds placed, no sx. Surgical History History of removal of Port-a-Cath (06/30/23) Access Port Removal(Left) - Sanford Perez, DO, FACS Hx of cataract extraction rt./lt History of surgery TURBT 04/07/23 [facility] TURBT 11/2023 [facility] Status post carotid endarterectomy left 2017 Hx of appendectomy Hx of colonoscopy Hx of vascular surgery x2 stents placed in each lower extremity, [place] Hx of cystoscopy multiple, 08/01/18: LMA 4 last one in Jul 2022 Cystoscopy, TURBT medium- Terry Townsend MD S/P left inguinal hernia repair Status post cardiac surgery failed stress test>bypass surgery 2012, [place], x3 vessels; f/u dr beckford History of biopsy of bladder Family History Sister Breast cancer Mother Diabetes Heart disease Other Asthma Cancer No family history of adverse response to anesthesia Denies family history of Ovarian cancer Prostate cancer Social History Smoking Status: Former smoker Tobacco Type: Cigarettes packs per day: 1; Cigarettes Per Day: smoked 40 years; Second Hand Exposure: No; Do You Dip or Chew Tobacco: No; Hx Alcohol Use: Yes Alcohol type: beer Hx Substance Use: No Preferred Language: Urdu Communication Ability: Effective Communication Ability Comment: [place] Visual Impairment: No Limitations Hearing Ability: Normal Court Officer Required: No Beliefs That Will Affect Care: None marital status: Current Living Situation: Spouse current occupational status: retired How many Children do You have: 2 Feels Safe at Home: Yes Childhood Exposure to Second-Hand Smoke: No caffeine: Yes during the past year weight has: remained stable Dental Care, Regularly: Yes Physical Activity Frequency: 3-4 Times per Week Seatbelt Use: always Sunscreen Use: Yes Assistive Devices: Hearing Aid - Bilateral Allergies Allergies Allergy/AdvReac Type Severity Reaction Status Date / Time nitrofurantoin Allergy Intermediate FEVER Verified 05/04/24 15:21 losartan Allergy Mild Rash Verified 05/04/24 15:21 meperidine AdvReac Intermediate SEVERE Verified 05/04/24 15:21 NAUSEA AND VOMITING spironolactone AdvReac Intermediate gynecomasti Verified 05/04/24 15:21 a Home Meds Home Medications Medication Instructions Recorded Confirmed tamsulosin 0.4 mg capsule 0.4 mg PO QAM 01/12/24 05/17/24 amlodipine 10 mg tablet 5 mg PO QAM 04/11/24 05/17/24 calcium carbonate 500 mg PO Q2H PRN indigestion 04/11/24 05/17/24 lisinopril 5 mg tablet 5 mg PO DAILY 04/11/24 05/17/24 metoprolol succinate 50 mg 50 mg PO Q12H 04/11/24 05/17/24 tablet,extended release 24 hr TPN 1 dose IV UD 05/04/24 05/17/24 loperamide 2 mg capsule (Imodium 2 mg PO BID 05/08/24 05/17/24 A-D) ondansetron 4 mg disintegrating 4 mg PO Q8H PRN Nausea 05/08/24 05/17/24 tablet warfarin 5 mg PO DAILY 05/12/24 05/17/24 Previous Rx's Medication Instructions Recorded rosuvastatin 20 mg tablet (Crestor) 20 mg PO HS #90 tabs 08/09/23 prednisone 1 mg tablet 4 mg (4 x 1 mg) PO QAM arthritis 01/26/24 90 days #360 tabs amoxicillin 875 mg-potassium 1 tab PO BIDM #8 tabs 05/12/24 clavulanate 125 mg tablet Results & Data (ED) Vital Signs Vital Signs - 24 hr 05/17/24 19:07 05/17/24 19:09 05/17/24 19:13 Temperature 39.0 C H 36.7 C Temperature Source Oral Temporal Artery Scan Pulse Rate 89 Pulse Rate [Left] 106 H Pulse Rhythm [Left] Regular Pulse Strength [Left] Normal Respiratory Rate 20 18 Respiratory Effort / Characteristics Non-Labored Spontaneous Non-Labored Spontaneous Respiratory Depth Normal Normal Respiratory Pattern Regular Blood Pressure 107/61 Blood Pressure [Left Arm] 151/83 H Blood Pressure Mean 76 Blood Pressure Mean [Left Arm] 105 Blood Pressure Position [Left Arm] Lying Pulse Oximetry 98 93 95 Oxygen Delivery Method Room Air Room Air Room Air Sepsis Recent Fever Within 48 Hours No Sepsis New/Unexplained Change in Mental Status No Sepsis Action Taken by Nursing No Action Required 05/17/24 19:38 Temperature Temperature Source Pulse Rate 96 H Pulse Rate [Left] Pulse Rhythm [Left] Pulse Strength [Left] Respiratory Rate Respiratory Effort / Characteristics Respiratory Depth Respiratory Pattern Blood Pressure Blood Pressure [Left Arm] Blood Pressure Mean Blood Pressure Mean [Left Arm] Blood Pressure Position [Left Arm] Pulse Oximetry Oxygen Delivery Method Sepsis Recent Fever Within 48 Hours Sepsis New/Unexplained Change in Mental Status Sepsis Action Taken by Nursing Laboratory Data 05/18/24 04:18 05/18/24 04:18 Lab Results 05/17/24 05/17/24 05/17/24 Range/Units 19:20 19:22 20:35 WBC 13.04 H (4.8-10.8) K/ul RBC 3.27 L (4.70-6.10) M/uL Hgb 9.9 L (14.0-18.0) g/dl Hct 31.0 L (42.0-52.0) % MCV 94.8 (80.0-100.0) fL MCH 30.3 (25.0-34.0) pg MCHC 31.9 L (32.0-36.0) g/dL RDW Std Deviation 55.3 H (36.4-46.3) fL RDW Coeff of Greyson 16.1 H (11.5-14.5) % Plt Count 282 (130-400) K/uL MPV 10.5 (9.4-12.4) fL Immature Gran % (Auto) 0.8 % Neut % (Auto) 74.9 % Lymph % (Auto) 5.4 % [place] % (Auto) 14.2 % Eos % (Auto) 4.5 % Baso % (Auto) 0.2 % Neut # (Auto) 9.78 H (1.40-6.50) K/uL Lymph # (Auto) 0.70 L (1.20-3.40) K/uL [place] # (Auto) 1.85 H (0.11-0.59) K/uL Eos # (Auto) 0.59 H (0.00-0.50) K/uL Baso # (Auto) 0.02 (0.00-0.20) K/uL Immature Gran # (Auto) 0.10 (0.01-0.20) K/uL PT 14.6 H (9.0-12.0) Seconds INR 1.4 H (0.9-1.1) Sodium 134 L (136-145) mmol/L Potassium 4.9 (3.5-5.1) mmol/L Chloride 102 (98-107) mmol/L Carbon Dioxide 24 (21-32) mmol/L Anion Gap 8 (3-11) BUN 32 H (6-23) mg/dl Creatinine 1.32 (0.6-1.4) mg/dl Est Cr Clr Drug Dosing 39.4 ml/min eGFR 53.85 BUN/Creatinine Ratio 24.2 H (10-20) Glucose 143 H (70-99(Fasting)) mg/dl Osmolality Cancelled Lactate 1.2 (0.4-2.0) mmol/L Calcium 9.2 (8.6-10.3) mg/dl Magnesium 2.0 (1.7-2.4) mg/dl Total Bilirubin 1.1 H (0.2-1.0) mg/dl Direct Bilirubin TNP 0.3 H AST 38 (13-39) U/L ALT 31 (7-52) U/L Alkaline Phosphatase 112 H (34-104) U/L Troponin I High Sens 18.6 (0-20) pg/ml Total Protein 7.1 (6.0-8.3) gm/dl Albumin 3.2 L (3.4-5.0) gm/dl Procalcitonin 0.81 H (0-0.5) ng/ml Urine Color Yellow Urine Appearance Cloudy A (Clear) Urine pH 6.5 (4.5-7.5) Ur Specific [place] 1.016 (1.000-1.030) Urine Protein 2+ H (Negative) Urine Glucose (UA) Negative (Negative) Urine Ketones Negative (Negative) Urine Blood 1+ H (Negative) Urine Nitrite Negative (Negative) Urine Bilirubin Negative (Negative) Urine Urobilinogen Negative (Negative) Ur Leukocyte Esterase 2+ H (Negative) Urine WBC (Auto) >50 H (0-5) /hpf Urine RBC (Auto) 6-10 H (0-2) /hpf U Hyaline Cast (Auto) 0-2 (0-2) /lpf U Epithel Cells (Auto) 3-5 H (0-2) /hpf Urine Bacteria (Auto) None Seen (None Seen) Administered Medications Amlodipine Besylate (Amlodipine Besylate 5 Mg Tab) 5 mg PO QAM [facility] Stop: 06/17/24 08:59 Last Admin: 05/18/24 09:58 Dose: 5 mg Documented By: TRAV Calcium Carbonate (Calcium Carbonate 500 Mg Chewable Tab) 500 mg PO Q2H PRN PRN Reason: indigestion Stop: 06/17/24 04:10 Last Admin: 05/19/24 00:26 Dose: 500 mg Documented By: MURTAZA Enoxaparin Sodium (Enoxaparin Inj 60 Mg/0.6 Ml Syr) 60 mg SQ BID STEVEN Stop: 06/17/24 10:29 Last Admin: 05/18/24 20:06 Dose: 60 mg Documented By: Admin: 05/18/24 09:58 Dose: 60 mg Documented By: TRAV Azithromycin 500 mg/ Dextrose 255 mls @ 125 mls/hr IV Q24H STEVEN Stop: 05/24/24 02:03 Last Admin: 05/18/24 23:59 Dose: 125 mls/hr Documented By: REJI Piperacillin Sod/Tazobactam Sod (Zosyn) 4.5 gm in 100 mls @ 25 mls/hr IV Q8H STEVEN; Protocol Stop: 05/25/24 07:59 Last Admin: 05/19/24 00:00 Dose: 25 mls/hr Documented By: Infusion: 05/18/24 20:20 Dose: Infused Documented By: Admin: 05/18/24 15:12 Dose: 25 mls/hr Documented By: Infusion: 05/18/24 11:30 Dose: Infused Documented By: Admin: 05/18/24 07:30 Dose: 25 mls/hr Documented By: TRAV Fat Emulsion-[place] Oil/Soybean Oil (Clinolipid 20% Iv Fat Emulsion) 250 mls @ 41.67 mls/hr IV .Q6H STEVEN Stop: 05/19/24 00:59 Last Admin: 05/18/24 19:56 Dose: 41.7 mls/hr Documented By: MURTAZA Amino Acids/Dextrose 1,294 ml/ (Nutrition (Parenteral)) 1,294 mls @ 57 mls/hr IV TODAY@1900 STEVEN; Protocol Stop: 05/19/24 07:00 Last Titration: 05/18/24 20:57 Dose: 118 mls/hr, 118 mls/hr Documented By: REJI Co-signed By: MURTAZA Admin: 05/18/24 19:56 Dose: 57 mls/hr, 57 mls/hr Documented By: MURTAZA Co-signed By: REJI Metoprolol Succinate (Metoprolol Succ 50mg Ext Rel Tab) 50 mg PO Q12H [facility] Stop: 06/17/24 04:00 Last Admin: 05/18/24 15:13 Dose: 50 mg Documented By: Admin: 05/18/24 05:53 Dose: Not Given Documented By: JAVED Miscellaneous (Pending Order: Tpn Rate Change) 1 each N/A DAILY@0600,2000 [facility] Stop: 06/17/24 19:59 Last Admin: 05/18/24 20:56 Dose: 1 each Documented By: REJI Ondansetron HCl (Ondansetron 4 Mg Od Tab) 4 mg PO Q8H PRN PRN Reason: Nausea Stop: 06/17/24 04:00 Last Admin: 05/18/24 22:48 Dose: 4 mg Documented By: MURTAZA Rosuvastatin Calcium (Rosuvastatin Calcium 20 Mg Tab) 20 mg PO HS STEVEN Stop: 06/17/24 20:59 Last Admin: 05/18/24 20:06 Dose: 20 mg Documented By: REJI Tamsulosin HCl (Tamsulosin Hcl 0.4 Mg Cap) 0.4 mg PO QAM [facility] Stop: 06/17/24 08:59 Last Admin: 05/18/24 09:58 Dose: 0.4 mg Documented By: TRAV Warfarin Sodium (Warfarin Sod 5 Mg Tab) 5 mg PO DAILY@1600 [facility] Stop: 06/17/24 15:59 Last Admin: 05/18/24 16:41 Dose: 5 mg Documented By: TRISHA Discontinued Medications Enoxaparin Sodium (Enoxaparin Inj 60 Mg/0.6 Ml Syr) 60 mg SQ ONE STA Stop: 05/17/24 23:51 Last Admin: 05/18/24 01:21 Dose: 60 mg Documented By: CANDIS Prochlorperazine (Compazine) 1 mls @ 1 mls/min IV ONE ONE Stop: 05/17/24 20:15 Last Admin: 05/17/24 20:36 Dose: 1 mls/min Documented By: CANDIS Cefepime HCl (Maxipime 2000mg) 2,000 mg in 20 mls @ 5 mls/min IV NOW STA; Protocol Stop: 05/17/24 20:49 Last Admin: 05/17/24 21:25 Dose: 5 mls/min Documented By: CANDIS Sodium Chloride (Nss) 1,000 mls @ 80 mls/hr IV .[id number] STEVEN Stop: 05/18/24 18:59 Last Infusion: 05/18/24 19:40 Dose: Infused Documented By: Infusion: 05/18/24 16:43 Dose: 80 mls/hr Documented By: Admin: 05/18/24 15:12 Dose: 125 mls/hr Documented By: Infusion: 05/18/24 15:12 Dose: Infused Documented By: Admin: 05/18/24 07:30 Dose: 125 mls/hr Documented By: Infusion: 05/18/24 07:29 Dose: Infused Documented By: Admin: 05/17/24 21:26 Dose: 125 mls/hr Documented By: CANDIS Acetaminophen (Ofirmev) 1,000 mg in 100 mls @ 400 mls/hr IV NOW STA Stop: 05/17/24 21:35 Last Infusion: 05/17/24 22:29 Dose: Infused Documented By: Admin: 05/17/24 21:25 Dose: 400 mls/hr Documented By: [facility] Ceftriaxone Sodium (Rocephin) 1,000 mg in 50 mls @ 100 mls/hr IV ONE STA Stop: 05/18/24 00:24 Last Infusion: 05/18/24 00:56 Dose: Infused Documented By: Admin: 05/18/24 00:24 Dose: 100 mls/hr Documented By: [facility] Azithromycin 500 mg/ Dextrose 255 mls @ 125 mls/hr IV ONE STA Stop: 05/18/24 02:00 Last Infusion: 05/18/24 03:18 Dose: Infused Documented By: Admin: 05/18/24 00:56 Dose: 125 mls/hr Documented By: [facility] Miscellaneous (Stop Order) 1 each N/A ONE ONE Stop: 05/18/24 19:00 Last Admin: 05/18/24 20:08 Dose: 1 each Documented By: [facility] Imaging Data Radiologist's Impression: Chest CT 05/17/24 20:04 Exam(s): CT CHEST With Contrast IV Amt: 90 ml opti 320 EXAM: CT Chest With Intravenous Contrast CLINICAL HISTORY: Reason for exam: recent pna, worsening cough/feveer. TECHNIQUE: Axial computed tomography images of the chest with intravenous contrast. CTDI is 20.6 mGy and DLP is 752.41 mGy-cm. Automated exposure control was utilized for the study. A dose lowering technique was utilized adhering to the principles of ALARA. CONTRAST: Patient received 90 ml opti 320 of IV contrast COMPARISON: 12/02/2023 FINDINGS: Lungs: Emphysematous changes with areas of background groundglass which could represent atypical infection. No interstitial edema. Pleural space: No pleural effusion. Heart: Cardiomegaly. Severe coronary artery calcifications status post CABG. Bones/joints: No acute findings. Soft tissues: Unremarkable. Vasculature: Unremarkable. Lymph nodes: Unremarkable. Liver: Multiple cysts within the liver. Tubes, lines and devices: Right upper extremity PICC terminates at the cavoatrial junction. IMPRESSION: Emphysematous changes with areas of background groundglass which could represent atypical infection. Electronically signed by: Tommy Byrd MD 05/17/24 22:32 PM Discharge Plan Visit Data Chief Complaint: Illness Stated Complaint: ILLNESS ED Provider: Bonnie Gray Discharge Problem: Generalized weakness, Fever, Hyponatremia, Anemia Patient Disposition: Admitted As Inpatient Discharge Instructions Interventions: ED Discharge Assessment Last Done: 05/18/24 04:02
[2024-05-17] MEDS: PROCHLORPERAZINE 1 ML IV ONE (20:36)
[2024-05-17 21:17] LABS: INR 1.4 (0.9-1.1); Prothrombin Time 14.6 Seconds (9.0-12.0)
[2024-05-17] MEDS: ACETAMINOPHEN 1,000 MG/100 ML VIAL IV STA (21:25)
[2024-05-17] MEDS: CEFEPIME 2000MG 2,000 MG/20 ML SYR IV STA (21:25)
[2024-05-17] MEDS: SODIUM CHLORIDE 0.9% 1,000 ML IV SCH (21:26)
--- NOTE | 2024-05-17 22:33 | CT Scan Report ---
Exam(s): CT CHEST With Contrast IV Amt: 90 ml opti 320 EXAM: CT Chest With Intravenous Contrast CLINICAL HISTORY: Reason for exam: recent pna, worsening cough/feveer. TECHNIQUE: Axial computed tomography images of the chest with intravenous contrast. CTDI is 20.6 mGy and DLP is 752.41 mGy-cm. Automated exposure control was utilized for the study. A dose lowering technique was utilized adhering to the principles of ALARA. CONTRAST: Patient received 90 ml opti 320 of IV contrast COMPARISON: 12/02/2023 FINDINGS: Lungs: Emphysematous changes with areas of background groundglass which could represent atypical infection. No interstitial edema. Pleural space: No pleural effusion. Heart: Cardiomegaly. Severe coronary artery calcifications status post CABG. Bones/joints: No acute findings. Soft tissues: Unremarkable. Vasculature: Unremarkable. Lymph nodes: Unremarkable. Liver: Multiple cysts within the liver. Tubes, lines and devices: Right upper extremity PICC terminates at the cavoatrial junction. IMPRESSION: Emphysematous changes with areas of background groundglass which could represent atypical infection. Electronically signed by: Tommy Byrd MD 05/17/24 22:32 PM
--- NOTE | 2024-05-17 23:57 | History & Physical Report ---
Date of Service May 17, 2024 Assessment & Plan (1) Fever: (2) Generalized weakness: (3) Pneumonia: (4) Urinary tract infection: (5) History of pulmonary embolism: (6) Atrial fibrillation: (7) History of total cystectomy: (8) History of bladder cancer: (9) Pulmonary embolism: (10) History of prostate cancer: (11) Atrial fibrillation: (12) Polymyalgia rheumatica: (13) Peripheral arterial disease: (14) Chronic HFrEF (heart failure with reduced ejection fraction): Plan Fever/generalized weakness/lethargy- Similar symptoms to previous admission, associated with urinary tract infection and pneumonia Consulting speech for swallowing assessment Intermittent diarrhea. Order stool PCR studies and C. difficile Consideration for gastroenterology consult Acute urinary tract infection/status post complete cystectomy/bladder cancer/prostate cancer- Urine culture from 05/08 growing Klebsiella oxytoca Hold Augmentin Placing on Zosyn to cover urinary tract and probable aspiration pneumonia Follow repeat urine culture and sensitivity Patient was admitted to [place] [facility] from 03/13-04/03/2024 He then went to [facility] from 04/03-04/30/2024 During that intervening time he was admitted to [facility] 04/11-04/13/2024 for sepsis due to UTI Most recent admission to [facility] was from 05/09-05/12/2024 for treatment of UTI Pneumonia/likely aspiration component CT suggest possible atypical component Zosyn and azithromycin IV Atrial fibrillation/hypertension/HFrEF/subtherapeutic INR INR 1.[address] on therapeutic Lovenox 1 mg/kg SQ every 12 hours Continue metoprolol succinate and amlodipine Hold lisinopril PMR- Hold prednisone [address] on stress dose hydrocortisone 50 mg IV every 8 hours for 2 days History of Present Illness Chief Complaint: The patient presents to the emergency department with his son-in-law, with generalized weakness and fever, that developed a few days after discharge from the hospital. Primary Care Provider: Jael Yu MD The patient is an 83-year-old male with a past medical history including urinary tract infection,history of PE, atrial fibrillation, total cystectomy for bladder cancer, MERRICK, hyponatremia, prostate cancer, polymyalgia rheumatic, PAD, chronic HFrEF/, CAD, and urethral stricture. He was most recently admitted to [facility] from 05/09-05/12/2024, being treated for a Klebsiella oxytoca UTI and pneumonia. He was discharged on Augmentin, which she was taking as directed, and had done well for few days. His only adventure out [place], and family did try to restrict visitors at home. Over the past few days he has become generally weak, and today developed a fever. Allergies Allergy/AdvReac Type Severity Reaction Status Date / Time nitrofurantoin Allergy Intermediate FEVER Verified 05/04/24 15:21 losartan Allergy Mild Rash Verified 05/04/24 15:21 meperidine AdvReac Intermediate SEVERE Verified 05/04/24 15:21 NAUSEA AND VOMITING spironolactone AdvReac Intermediate gynecomasti Verified 05/04/24 15:21 a Home Medications Medication Instructions Recorded Confirmed Type rosuvastatin 20 mg tablet (Crestor) 20 mg PO HS #90 tabs 08/09/23 05/17/24 Rx tamsulosin 0.4 mg capsule 0.4 mg PO QAM 01/12/24 05/17/24 History prednisone 1 mg tablet 4 mg (4 x 1 mg) PO QAM arthritis 01/26/24 05/17/24 Rx 90 days #360 tabs amlodipine 10 mg tablet 5 mg PO QAM 04/11/24 05/17/24 History calcium carbonate 500 mg PO Q2H PRN indigestion 04/11/24 05/17/24 History lisinopril 5 mg tablet 5 mg PO DAILY 04/11/24 05/17/24 History metoprolol succinate 50 mg 50 mg PO Q12H 04/11/24 05/17/24 History tablet,extended release 24 hr TPN 1 dose IV UD 05/04/24 05/17/24 History loperamide 2 mg capsule (Imodium 2 mg PO BID 05/08/24 05/17/24 History A-D) ondansetron 4 mg disintegrating 4 mg PO Q8H PRN Nausea 05/08/24 05/17/24 History tablet amoxicillin 875 mg-potassium 1 tab PO BIDM #8 tabs 05/12/24 05/17/24 Rx clavulanate 125 mg tablet warfarin 5 mg PO DAILY 05/12/24 05/17/24 History Past Med/Surg History Problem List (Updated 05/17/24 @ 20:34 by Bonnie Gray, DO) Fever (Acute) Generalized weakness (Acute) Pneumonia Urinary tract infection History of pulmonary embolism Per 12/02/[address] scan (Eliquis had been on hold x 3-4 days; failed Eliquis therapy per records) - Patient was to start Lovenox 12/02/23 but did not crab picker script until 12/05/23 per heme office Atrial fibrillation Was on Eliquis - currently on hold (started holding 11/29/23 due to upcoming urology biopsy but PE was noted on 12/02/[address]- patient subsequently started on Lovenox) Fever (Acute) History of total cystectomy (Acute) History of bladder cancer (Acute) Vomiting (Acute) Sepsis (Acute) Acute dehydration (Acute) MERRICK (acute kidney injury) (Acute) Sepsis Anemia Nausea & vomiting Coagulopathy (Acute) Acute hyponatremia (Acute) Hematuria (Acute) Weakness (Acute) Hyponatremia Pulmonary embolism dx 12/02/23 on Eliquis History of prostate cancer Port-A-Cath in place (09/14/22) Port placement with fluoroscopy. Dr. Mccormakc Bladder carcinoma (Chronic) 07/2022- hx chemo History of left inguinal hernia repair (05/24/22) Recurrent left inguinal hernia repair with mesh Dr. Mccormack Atrial fibrillation Was on Eliquis - currently on hold (started holding 11/29/23 due to upcoming urology biopsy but PE was noted on 12/02/[address]- patient subsequently started on Lovenox) Polymyalgia rheumatica Recurrent left inguinal hernia Mixed hyperlipidemia Peripheral arterial disease - Status post stenting of bilateral superficial femoral [id number] - Status post atherectomy and angioplasty and stenting of right SFA 2016 - S/p atherectomy and drug-coated balloon angioplasty right SFA January 2020 - S/p right femoral-popliteal bypass April 2021 Chronic HFrEF (heart failure with reduced ejection fraction) EF 50-54% 03/24/23 echo Primary hypertension Urethral stricture Coronary artery disease s/p CABG x 3 in 2012 (HEALY graft to LAD, saphenous vein graft to the obtuse marginal, saphenous vein graft to the right coronary artery and posterior descending artery) Blood in the urine Medical History Mixed hyperlipidemia Hypertension Peripheral arterial disease - Status post stenting of bilateral superficial femoral [id number] - Status post atherectomy and angioplasty and stenting of right SFA 2016 - S/p atherectomy and drug-coated balloon angioplasty right SFA January 2020 - S/p right femoral-popliteal bypass April 2021 Polymyalgia rheumatica Hx of bladder cancer 07/2022, sx and chemo 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 Treated in [place]. 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 (current) use of systemic steroids Pulmonary hypertension PASP 40-50 mmHg per 03/2023 ECHO COPD (chronic obstructive pulmonary disease) Suspected sleep apnea noted on 07/31/18 anesthesia consult; pt denies, "no device, no study done" Bifascicular block RBBB/LAFB (chronic) Carotid stenosis, bilateral s/p left CEA in 2016 <50% R and L carotid stenosis per 2021 carotid duplex, follows with [facility] vascular Ascending aortic aneurysm Fusiform dilation of the ascending thoracic aorta is stable from prior measuring 4.2 cm per 12/02/[address]; monitoring Tricuspid regurgitation severe- per 03/2023 ECHO Hx of motion sickness History of COVID-19 02/05/22, home test, not hosp; cough, headache, fever>called PCP, put on Paxlovid>resolved. Radiation cystitis hx Prostate cancer 2011 hx-had radioactive seeds placed, no sx. Surgical History History of removal of Port-a-Cath (06/30/23) Access Port Removal(Left) - Sanford Perez, DO, FACS Hx of cataract extraction rt./lt History of surgery TURBT 04/07/23 [facility] TURBT 11/2023 [facility] Status post carotid endarterectomy left 2017 Hx of appendectomy Hx of colonoscopy Hx of vascular surgery x2 stents placed in each lower extremity, Sharlene Hx of cystoscopy multiple, 08/01/18: LMA 4 last one in Jul 2022 Cystoscopy, TURBT medium- Terry Townsend MD S/P left inguinal hernia repair Status post cardiac surgery failed stress test>bypass surgery 2012, Sharlene, x3 vessels; f/u dr beckford History of biopsy of bladder Family History Sister Breast cancer Mother Diabetes Heart disease Other Asthma Cancer No family history of adverse response to anesthesia Denies family history of Ovarian cancer Prostate cancer Social History Smoking Status: Never smoker Tobacco Type: Cigarettes Cigarettes Per Day: smoked 40 years; Second Hand Exposure: No; Do You Dip or Chew Tobacco: No; Hx Alcohol Use: Yes Alcohol type: beer Hx Substance Use: No Preferred Language: [place]ican Communication Ability: Effective Communication Ability Comment: TAKOTNA Visual Impairment: No Limitations Hearing Ability: Normal 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 Required: No Beliefs That Will Affect Care: None marital status: Current Living Situation: Spouse current occupational status: retired How many Children do You have: 2 Feels Safe at Home: Yes Childhood Exposure to Second-Hand Smoke: No caffeine: Yes during the past year weight has: remained stable Dental Care, Regularly: Yes Physical Activity Frequency: 3-4 Times per Week Seatbelt Use: always Sunscreen Use: Yes Assistive Devices: None Review of Systems Review of Systems: The patient denies chest pain, palpitations, shortness of breath, dyspnea on exertion, lower extremity swelling, sore throat, chills, sweats, nausea, vomiting, diarrhea , constipation, abdominal pain, pelvic pain, blood in urine or stool, lightheadedness, dizziness, headache, memory loss, loss of consciousness, rash, abnormal bruising or bleeding, focal weakness, numbness or tingling in arms or legs, generalized arthralgias or myalgias, back or neck pain, or night sweats. The review of systems is otherwise negative other than for that already noted above, and at least 10 systems have been reviewed. Physical Exam Physical Exam: The patient is mildly lethargic, awakens to his name being called, normocephalic and atraumatic, lying in bed and in no acute distress. HEENT--PERRL, EOMI, mucous membranes and oropharynx mildly dry. Neck--supple. No JVD. No bruits. Thyroid normal, trachea midline, no adenopathy. Heart--normal S1 and S2. No murmurs, rubs or gallops. Lungs--clear bilaterally, no respiratory distress, no accessory muscle use. Abdomen--normal bowel sounds and soft. Nontender. Nondistended, no hernias or masses, no organomegaly. Extremities--no cyanosis or clubbing. No edema. Urostomy right lower quadrant draining clear yellow urine. Ostomy left lower quadrant with brown soft stool in bag Dermatologic--normal skin turgor, normal color, no abnormal lymph nodes, no rash. Neurologic--cranial nerves II through XII grossly intact. Rheumatologic--normal range of motion. Psychiatric--normal affect. Results & Data Results & Data Vital Signs (Past 12 Hours) Vital Signs Temp Pulse Pulse Resp BP BP Pulse Ox 05/17/24 23:40 86 05/17/24 19:38 96 H 05/17/24 19:13 95 05/17/24 19:09 36.7 C 89 18 107/61 93 05/17/24 19:07 39.0 C H 106 H 20 151/83 H 98 O2 Del Method 05/17/24 23:40 05/17/24 19:38 05/17/24 19:13 Room Air 05/17/24 19:09 Room Air 05/17/24 19:07 Room Air Laboratory Results Laboratory Results WBC 13.04 K/ul (4.8-10.8) H 05/17/24 19:20 RBC 3.27 M/uL (4.70-6.10) L 05/17/24 19:20 Hgb 9.9 g/dl (14.0-18.0) L 05/17/24 19:20 Hct 31.0 % (42.0-52.0) L 05/17/24 19:20 MCV 94.8 fL (80.0-100.0) 05/17/24 19:20 MCH 30.3 pg (25.0-34.0) 05/17/24 19:20 MCHC 31.9 g/dL (32.0-36.0) L 05/17/24 19:20 RDW Std Deviation 55.3 fL (36.4-46.3) H 05/17/24 19:20 RDW Coeff of Greyson 16.1 % (11.5-14.5) H 05/17/24 19:20 Plt Count 282 K/uL (130-400) 05/17/24 19:20 MPV 10.5 fL (9.4-12.4) 05/17/24 19:20 Immature Gran % (Auto) 0.8 % 05/17/24 19:20 Neut % (Auto) 74.9 % 05/17/24 19:20 Lymph % (Auto) 5.4 % 05/17/24 19:20 Pitkin % (Auto) 14.2 % 05/17/24 19:20 Eos % (Auto) 4.5 % 05/17/24 19:20 Baso % (Auto) 0.2 % 05/17/24 19:20 Neut # (Auto) 9.78 K/uL (1.40-6.50) H 05/17/24 19:20 Lymph # (Auto) 0.70 K/uL (1.20-3.40) L 05/17/24 19:20 Pitkin # (Auto) 1.85 K/uL (0.11-0.59) H 05/17/24 19:20 Eos # (Auto) 0.59 K/uL (0.00-0.50) H 05/17/24 19:20 Baso # (Auto) 0.02 K/uL (0.00-0.20) 05/17/24 19:20 Immature Gran # (Auto) 0.10 K/uL (0.01-0.20) 05/17/24 19:20 PT 14.6 Seconds (9.0-12.0) H 05/17/24 20:35 INR 1.4 (0.9-1.1) H 05/17/24 20:35 Sodium 134 mmol/L (136-145) L 05/17/24 19:20 Potassium 4.9 mmol/L (3.5-5.1) 05/17/24 19:20 Chloride 102 mmol/L (98-107) 05/17/24 19:20 Carbon Dioxide 24 mmol/L (21-32) 05/17/24 19:20 Anion Gap 8 (3-11) 05/17/24 19:20 BUN 32 mg/dl (6-23) H 05/17/24 19:20 Creatinine 1.32 mg/dl (0.6-1.4) 05/17/24 19:20 Est Cr Clr Drug Dosing 39.4 ml/min 05/17/24 19:20 eGFR 53.85 05/17/24 19:20 BUN/Creatinine Ratio 24.2 (10-20) H 05/17/24 19:20 Glucose 143 mg/dl (70-99(Fasting)) H 05/17/24 19:20 Lactate 1.2 mmol/L (0.4-2.0) 05/17/24 20:35 Calcium 9.2 mg/dl (8.6-10.3) 05/17/24 19:20 Magnesium 2.0 mg/dl (1.7-2.4) 05/17/24 19:20 Total Bilirubin 1.1 mg/dl (0.2-1.0) H 05/17/24 19:20 Direct Bilirubin 0.3 mg/dl (0-0.2) H 05/17/24 20:35 AST 38 U/L (13-39) 05/17/24 19:20 ALT 31 U/L (7-52) 05/17/24 19:20 Alkaline Phosphatase 112 U/L (34-104) H 05/17/24 19:20 Troponin I High Sens 18.6 pg/ml (0-20) 05/17/24 19:20 Total Protein 7.1 gm/dl (6.0-8.3) 05/17/24 19:20 Albumin 3.2 gm/dl (3.4-5.0) L 05/17/24 19:20 Procalcitonin 0.81 ng/ml (0-0.5) H 05/17/24 19:20 Urine Color Yellow 05/17/24 19:20 Urine Appearance Cloudy (Clear) A 05/17/24 19:20 Urine pH 6.5 (4.5-7.5) 05/17/24 19:20 Ur Specific Murray 1.016 (1.000-1.030) 05/17/24 19:20 Urine Protein 2+ (Negative) H 05/17/24 19:20 Urine Glucose (UA) Negative (Negative) 05/17/24 19:20 Urine Ketones Negative (Negative) 05/17/24 19:20 Urine Blood 1+ (Negative) H 05/17/24 19:20 Urine Nitrite Negative (Negative) 05/17/24 19:20 Urine Bilirubin Negative (Negative) 05/17/24 19:20 Urine Urobilinogen Negative (Negative) 05/17/24 19:20 Ur Leukocyte Esterase 2+ (Negative) H 05/17/24 19:20 Urine WBC (Auto) >50 /hpf (0-5) H 05/17/24 19:20 Urine RBC (Auto) 6-10 /hpf (0-2) H 05/17/24 19:20 U Hyaline Cast (Auto) 0-2 /lpf (0-2) 05/17/24 19:20 U Epithel Cells (Auto) 3-5 /hpf (0-2) H 05/17/24 19:20 Urine Bacteria (Auto) None Seen (None Seen) 05/17/24 19:20 Stl C. cayetanensis PCR Not Detected (NotDetected) 05/18/24 01:26 Stool Rotavirus A PCR Not Detected (NotDetected) 05/18/24 01:26 Stl Adenov F 40/41 PCR Not Detected (NotDetected) 05/18/24 01:26 Stool Astrovirus (PCR) Not Detected (NotDetected) 05/18/24 01:26 Stool Campylobacter PCR Not Detected (NotDetected) 05/18/24 01:26 Stl C. diff Tox B Gene Negative Cdiff Gene (Neg) 05/18/24 01:26 Stool Cryptosporidium PCR Not Detected (NotDetected) 05/18/24 01:26 Stl E.coli Shiga Tox PCR Not Detected (NotDetected) 05/18/24 01:26 Stl Enterotoxigenic E PCR Not Detected (NotDetected) 05/18/24 01:26 Stool EPEC (PCR) Not Detected (NotDetected) 05/18/24 01:26 Stool EAEC (PCR) Not Detected (NotDetected) 05/18/24 01:26 Stl E. histolytica PCR Not Detected (NotDetected) 05/18/24 01:26 Stool Giardia Lamblia PCR Not Detected (NotDetected) 05/18/24 01:26 Stool Salmonella PCR Not Detected (NotDetected) 05/18/24 01:26 Stool Sapovirus (PCR) Not Detected (NotDetected) 05/18/24 01:26 Stl P. shigelloides PCR Not Detected (NotDetected) 05/18/24 01:26 Stl Shigella/EIEC PCR Not Detected (NotDetected) 05/18/24 01:26 St Y.enterocolitica PCR Not Detected (NotDetected) 05/18/24 01:26 Stool Vibrio (PCR) Not Detected (NotDetected) 05/18/24 01:26 Stl Vibrio cholerae PCR Not Detected (NotDetected) 05/18/24 01:26 Stl Norovirus GI/GII PCR Not Detected (NotDetected) 05/18/24 01:26 SARS-CoV-2, RNA, NAAT NEGATIVE (NEGATIVE) 05/18/24 01:[address] 05/17/24 20:04 Exam(s): CT CHEST With Contrast IV Amt: 90 ml opti 320 EXAM: CT Chest With Intravenous Contrast CLINICAL HISTORY: Reason for exam: recent pna, worsening cough/feveer. TECHNIQUE: Axial computed tomography images of the chest with intravenous contrast. CTDI is 20.6 mGy and DLP is 752.41 mGy-cm. Automated exposure control was utilized for the study. A dose lowering technique was utilized adhering to the principles of ALARA. CONTRAST: Patient received 90 ml opti 320 of IV contrast COMPARISON: 12/02/2023 FINDINGS: Lungs: Emphysematous changes with areas of background groundglass which could represent atypical infection. No interstitial edema. Pleural space: No pleural effusion. Heart: Cardiomegaly. Severe coronary artery calcifications status post CABG. Bones/joints: No acute findings. Soft tissues: Unremarkable. Vasculature: Unremarkable. Lymph nodes: Unremarkable. Liver: Multiple cysts within the liver. Tubes, lines and devices: Right upper extremity PICC terminates at the cavoatrial junction. IMPRESSION: Emphysematous changes with areas of background groundglass which could represent atypical infection. Electronically signed by: Tommy Byrd MD 05/17/24 22:32 PM Code Status & VTE Plan Code Status Full code VTE Prophylaxis Plan VTE Prophylaxis will be ordered: Yes PG Care Time/CCT Total # of Minutes Spent Total Time Spent with Patient: Total time spent is greater than 50% in coordination of care (as documented) at patient's floor/unit and/or counseling patient: Coding Level of Care Code 62520 INT INP/OBS CARE 3/75MIN Diagnoses Fever R50.9 Generalized weakness R53.1 Pneumonia J18.9 Urinary tract infection N39.0 History of pulmonary embolism Z86.711 Atrial fibrillation I48.91 History of total cystectomy Z90.6 History of bladder cancer Z85.51 Pulmonary embolism I26.99 History of prostate cancer Z85.46 Polymyalgia rheumatica M35.3 Peripheral arterial disease I73.9 Chronic HFrEF (heart failure with reduced ejection fraction) I50.22
[2024-05-18] MEDS: cefTRIAXone SODIUM 1,000 MG/50 ML BAG IV STA (00:24)
[2024-05-18] MEDS: AZITHROMYCIN 500 MG in DEXTROSE 5% 250 ML IV STA (00:56)
[2024-05-18] MEDS: ENOXAPARIN INJ 60 MG/0.6 ML SYR SQ STA (01:21)
[2024-05-18 02:52] LABS: Adenovirus F 40/41 PCR Not Detected (NotDetected); Astrovirus PCR Not Detected (NotDetected); Campylobacter PCR Not Detected (NotDetected); Cryptosporidium PCR Not Detected (NotDetected); Cyclospora cayetanensis PCR Not Detected (NotDetected); Entamoeba histolytica PCR Not Detected (NotDetected); Enteroaggregative E.coli(EAEC) Not Detected (NotDetected); Enteropathogenic E.coli (EPEC) Not Detected (NotDetected); Enterotoxigenic E.coli (ETEC) Not Detected (NotDetected); Giardia lamblia PCR Not Detected (NotDetected); Norovirus GI/GII PCR Not Detected (NotDetected); Plesiomonas shigelloides PCR Not Detected (NotDetected); Rotavirus A PCR Not Detected (NotDetected); Salmonella PCR Not Detected (NotDetected); Sapovirus PCR Not Detected (NotDetected); Shiga-like Toxin E.coli (STEC) Not Detected (NotDetected); Shigella/Enteroinvasive E.coli Not Detected (NotDetected); Vibrio cholerae PCR Not Detected (NotDetected); Vibrio species PCR Not Detected (NotDetected); Yersinia enterocolitica PCR Not Detected (NotDetected)
[2024-05-18] MEDS ORDERED: ACETAMINOPHEN 325 MG TAB PO PRN (04:01)
[2024-05-18] MEDS ORDERED: TPN IV SCH (04:01)
[2024-05-18] MEDS ORDERED: TPN/PPN CONSULT PHARMACY PRN (04:20)
[2024-05-18 04:49] LABS: Basophils # (auto) 0.02 K/uL (0.00-0.20); Basophils % (auto) 0.2 %; Eosinophils # (auto) 0.56 K/uL (0.00-0.50); Eosinophils % (auto) 6.7 %; Hematocrit (blood only) 25.8 % (42.0-52.0); Hemoglobin 8.4 g/dl (14.0-18.0); Immature Granulocytes # (auto) 0.05 K/uL (0.01-0.20); Immature Granulocytes % (auto) 0.6 %; Lymphocytes # (auto) 0.54 K/uL (1.20-3.40); Lymphocytes % (auto) 6.4 %; Mean Corpuscular Hemoglobin 30.3 pg (25.0-34.0); Mean Corpuscular Hgb Conc 32.6 g/dL (32.0-36.0); Mean Corpuscular Volume 93.1 fL (80.0-100.0); Mean Platelet Volume 10.6 fL (9.4-12.4); Monocytes # (auto) 1.32 K/uL (0.11-0.59); Monocytes % (auto) 15.7 %; Neutrophils # (auto) 5.93 K/uL (1.40-6.50); Neutrophils % (auto) 70.4 %; Platelet Count 210 K/uL (130-400); RDW Standard Deviation 54.7 fL (36.4-46.3); Red Blood Count 2.77 M/uL (4.70-6.10); White Blood Count 8.42 K/ul (4.8-10.8)
[2024-05-18 05:17] LABS: Albumin Globulin Ratio 0.9 (0.9-2); Albumin Level 2.8 gm/dl (3.4-5.0); BUN Creatinine Ratio 22.8 (10-20); Bilirubin,Total 0.7 mg/dl (0.2-1.0); Calcium 8.3 mg/dl (8.6-10.3); Phosphorus 3.7 mg/dl (2.5-4.9); Potassium 4.1 mmol/L (3.5-5.1); Total Protein 5.8 gm/dl (6.0-8.3)
[2024-05-18 05:36] LABS: INR 1.4 (0.9-1.1); Prothrombin Time 15.1 Seconds (9.0-12.0)
[2024-05-18] MEDS: METOPROLOL SUCC 50MG EXT REL TAB PO SCH (05:53)
[2024-05-18] MEDS ORDERED: TPN/PPN CONSULT PHARMACY STA (07:15)
[2024-05-18] MEDS: PIPERACILLIN/TAZOBACTAM 4.5 GM/100 ML BAG IV SCH (07:30)
--- NOTE | 2024-05-18 07:41 | XRay Report ---
XR chest 1V portable HISTORY: 83 years-old Male Sepsis COMPARISON: Chest CT of same day TECHNIQUE: AP view of the chest FINDINGS: Cardiomegaly. Median sternotomy with CABG. A right-sided PICC is noted with distal tip terminating wi thin the inferior SVC. Emphysema with ill-defined patchy bilateral airspace opacities. Chronic inters titial coarsening. No pneumothorax or pleural effusion. Bones appear grossly intact. IMPRESSION: 1. Cardiomegaly without pulmonary edema. 2. Emphysema with hazy ill-defined patchy bilateral airspace opacities which are likely infectious or inflammatory, better seen on the same-day chest CT. 3. Right-sided PICC distal tip terminates in the inferior SVC. ACT 112: Negative or not required by law. The above report was generated using voice recognition software. It may contain grammatical, syntax o r spelling errors. Electronically signed by: Mayo Hansen M.D. 05/18/2024 7:40 AM
--- NOTE | 2024-05-18 07:51 | Electrocardiogram Report ---
Test Reason : Blood Pressure : */* mmHG Vent. Rate : 106 BPM Atrial Rate : * BPM P-R Int : * ms QRS Dur : 160 ms QT Int : 342 ms P-R-T Axes : * -89 76 degrees QTcB Int : 454 ms Atrial fibrillation with rapid ventricular response Left axis deviation Right bundle branch block Abnormal ECG When compared with ECG of 11-May-2024 05:36, Vent. rate has increased by 42 bpm Confirmed by Cm Leiva ([id number]) on 05/18/2024 7:51:10 AM Referred By: REFERRED SELF Confirmed By: Cm Leiva
--- NOTE | 2024-05-18 08:48 | Hospitalist Progress Note ---
Date of Service May 18, 2024 Assessment & Plan (1) Fever: Plan: Probably from recurrent urinary tract infection. Blood and urine cultures pending. Continue Zosyn and azithromycin for now, day 2 (2) Generalized weakness: Plan: Supportive care. Treat underlying infection (3) Pneumonia: Plan: Doubt if he has active pneumonia. No symptoms. Groundglass opacity seen on CT scan with evidence of underlying emphysema. (4) Urinary tract infection: Plan: Recurrent. Urostomy in place. Await urine and blood culture results. Continue Zosyn and azithromycin for now, day 2. Most recent urine culture grew Klebsiella await (5) Atrial fibrillation: Plan: Chronic atrial fibrillation on Coumadin therapy. INR is subtherapeutic. He is currently on Lovenox subcu every 12 hours until INR improves (6) History of total cystectomy: Plan: Due to bladder cancer history. He urostomy is in place (7) Polymyalgia rheumatica: Plan: Steroid-dependent. He usually takes prednisone daily. Currently on intravenous hydrocortisone (8) Chronic HFrEF (heart failure with reduced ejection fraction): Plan: History of chronic systolic CHF. Stable. Continue current medical management. Monitor intake and output Plan Hopeful discharge back to home within the next 2 or 3 days Admission and Anticipated Discharge Date Admission Date: May 17, 2024 Subjective Alert and oriented. No distress. He has a urostomy from previous surgeries and has suffered from recurrent UTIs. Previous urine culture obtained May 08 revealed Klebsiella. He is on Zosyn and azithromycin for now. Chest CT scan reveals emphysema and groundglass opacities but no evidence of acute pneumonia. He is steroid-dependent and currently on intravenous hydrocortisone for now. INR is subtherapeutic at 1.4 with history of chronic atrial fibrillation. Review of Systems 2 Review of Systems: Constitutionalno fever or chills ENTno blurred vision, no double vision, no epistaxis, no sore throat Respiratoryno cough, no wheezing, no shortness of breath Cardiacno palpitations, no chest pain, no syncope Taylor nausea, vomiting, diarrhea, melena, hematochezia GUno urinary retention, no urinary incontinence, no dysuria, no hematuria Musculoskeletalno joint pain, no muscle tenderness Skinno bruising, no rashes, no pruritus Neurono isolated weakness, no paresthesia, no weakness Psychno depression, no anxiety Physical Exam 2 Physical Exam: General-alert and oriented x3, no fever, no chills HEENT-head atraumatic and normocephalic, pupils equal and reactive to light, extraocular muscles intact Neck-no lymphadenopathy or thyromegaly, trachea midline Chest-clear to auscultation. No rales, wheezing or rhonchi Cardiac-regular rate and rhythm, normal S1 and S2 Abdomen-normal bowel sounds, no hepatosplenomegaly. Functioning ileostomy bag. Urostomy contains clear yellow urine Extremities-no cyanosis, clubbing, or edema Neuro-cranial nerves II through XII intact, motor and sensory function within normal limits, strength symmetrical, no focal deficits Psych-normal affect, normal mood Results & Data Results & Data Vital Signs (Past 12 Hours) Vital Signs Pulse Pulse Resp BP BP Pulse Ox Pulse Ox 05/18/24 06:41 84 16 164/82 H 98 05/18/24 05:45 90 16 124/78 99 05/18/24 05:18 99 05/18/24 04:30 58 L 16 98 05/18/24 04:03 74 13 128/65 100 05/18/24 04:00 128/65 05/18/24 03:54 74 19 99 05/18/24 03:44 70 05/18/24 01:00 75 16 135/65 95 05/17/24 23:40 86 05/17/24 23:07 89 22 97 05/17/24 21:07 92 H 16 95 O2 Del Method O2 Del Method 05/18/24 06:41 Room Air 05/18/24 05:45 Room Air 05/18/24 05:18 Room Air 05/18/24 04:30 Room Air 05/18/24 04:03 Room Air 05/18/24 04:00 05/18/24 03:54 Room Air 05/18/24 03:44 05/18/24 01:00 Room Air 05/17/24 23:40 05/17/24 23:07 Room Air 05/17/24 21:07 Room Air Laboratory Results 05/18/24 04:18 05/18/24 04:18 PG Care Time/CCT Total # of Minutes Spent Total Time Spent with Patient: Total time spent is greater than 50% in coordination of care (as documented) at patient's floor/unit and/or counseling patient: Coding Level of Care Code 69960 SUB INP/OBS CARE 50MIN Diagnoses Fever R50.9 Generalized weakness R53.1 Pneumonia J18.9 Urinary tract infection N39.0 Atrial fibrillation I48.91 History of total cystectomy Z90.6 Polymyalgia rheumatica M35.3 Chronic HFrEF (heart failure with reduced ejection fraction) I50.22
[2024-05-18] MEDS: TAMSULOSIN HCL 0.4 MG CAP PO SCH (09:58)
[2024-05-18] MEDS: ENOXAPARIN INJ 60 MG/0.6 ML SYR SQ SCH (09:58)
[2024-05-18] MEDS: amLODIPine BESYLATE 5 MG TAB PO SCH (09:58)
[2024-05-18] MEDS ORDERED: DEXTROSE 10% 1,000 ML IV PRN (11:12)
--- NOTE | 2024-05-18 13:09 | Pharmacy Report ---
Pharmacy PN Follow-up Note - Date of Service May 18, 2024 - Subjective Patient is currently on day #1 of inpatient TPN for patient on chronic TPN as an outpatient. - Objective Height & Weight (Last Documented) Height 5 ft 11 in Weight 64.4 kg Diet Order(s) 05/18/24 Lunch Diet Intake & Ouput (24hrs) 05/17/24 05/18/24 05/19/24 06:59 06:59 06:59 Intake Total 405 / 405 1100 / 1100 Output Total 550 / 550 250 / 250 Balance -145 / -145 850 / 850 Selected Laboratory Results 05/17/24 05/18/24 19:20 04:18 Sodium 134 L 132 L Potassium 4.9 4.1 Chloride 102 103 Carbon Dioxide 24 23 Anion Gap 8 6 BUN 32 H 29 H Creatinine 1.32 1.27 BUN/Creatinine Ratio 24.2 H 22.8 H Glucose 143 H 146 H Calcium 9.2 8.3 L Phosphorus 3.7 Magnesium 2.0 2.0 Total Bilirubin 1.1 H 0.7 AST 38 18 ALT 31 23 Alkaline Phosphatase 112 H 90 - Assessment & Plan Assessment: * Patient on chronic TPN as an outpatient provided via [employer] * Home TPN is a 3:1 formulation that provides 2400 mL over 12 hours (infused [id number]) * 275 g dextrose, 95 g AA, and 60 g lipids * Patient recently admitted ~1 week ago, discharged on 05/12/24. * Macronutrient recs provided by dietary. Appreciated. Will start at goal today. * Will continue with cyclic TPN while inpatient keeping same time schedule as home () with 1 hour ramp up/down * Will aim to keep electrolytes near home TPN levels * Discussed with mariela cueva with thiamine/MVI daily rather than 3x weekly per home regimen Plan: * For Day #1 of TPN administration, the following will be ordered: * Macronutrients: * Amino Acids: 96 grams/day * Dextrose: 168 grams/day * Lipids: 50 grams/day * Micronutrients: * TPN electrolytes: 40 mL/day Contains 35 mEq Na, 20 mEq K, 4.5 mEq Ca, 5 mEq Mg, 35 mEq Cl, 29.5 mEq Acetate per 20 mL * Sodium phosphate: 15 mMol/day * Sodium acetate: 40 mEq/day * Potassium acetate: 30 mEq/day * Magnesium sulfate: 8.12 mEq/day * Multivitamins: 10 mL/day * Trace elements: 1 mL/day * Thiamine: 100 mg/day * Total volume of 1294 mL will be infused over 12 hours and will provide 1455 kcal/day * Labs will be ordered per PN protocol. * Pharmacy will follow and adjust PN orders on a daily basis. Thank you!
[2024-05-18] MEDS: WARFARIN SOD 5 MG TAB PO SCH (16:41)
[2024-05-18] MEDS: CENTRAL TPN IV SCH (19:56)
[2024-05-18] MEDS: [UNRECOGNIZED DRUG - OTHER] IV SCH (19:56)
[2024-05-18] MEDS: CLINOLIPID 20% IV FAT EMULSION 250 ML IV SCH (19:56)
[2024-05-18] MEDS: ROSUVASTATIN CALCIUM 20 MG TAB PO SCH (20:06)
[2024-05-18] MEDS: ONDANSETRON 4 MG OD TAB PO PRN (22:48)
[2024-05-18] MEDS ORDERED: cefTRIAXone SODIUM 1,000 MG/50 ML BAG IV SCH (23:00)
[2024-05-18] MEDS: AZITHROMYCIN 500 MG in DEXTROSE 5% 250 ML IV SCH (23:59)
[2024-05-19] MEDS: CALCIUM CARBONATE 500 MG CHEWABLE TAB PO PRN (00:26)
[2024-05-19] MEDS: STOP CLINOLIPID SCH (02:13)
[2024-05-19 06:09] LABS: Basophils # (auto) 0.02 K/uL (0.00-0.20); Basophils % (auto) 0.3 %; Eosinophils # (auto) 0.49 K/uL (0.00-0.50); Eosinophils % (auto) 7.5 %; Hematocrit (blood only) 26.1 % (42.0-52.0); Immature Granulocytes # (auto) 0.05 K/uL (0.01-0.20); Immature Granulocytes % (auto) 0.8 %; Lymphocytes # (auto) 0.41 K/uL (1.20-3.40); Lymphocytes % (auto) 6.3 %; Mean Corpuscular Hemoglobin 29.9 pg (25.0-34.0); Mean Corpuscular Hgb Conc 30.7 g/dL (32.0-36.0); Mean Corpuscular Volume 97.4 fL (80.0-100.0); Mean Platelet Volume 10.4 fL (9.4-12.4); Monocytes % (auto) 12.3 %; Neutrophils # (auto) 4.73 K/uL (1.40-6.50); Neutrophils % (auto) 72.8 %; Platelet Count 210 K/uL (130-400); RDW Coefficient of Variation 15.9 % (11.5-14.5); Red Blood Count 2.68 M/uL (4.70-6.10)
[2024-05-19 06:33] LABS: Phosphorus 2.7 mg/dl (2.5-4.9)
[2024-05-19 06:36] LABS: INR 1.4 (0.9-1.1); Prothrombin Time 14.4 Seconds (9.0-12.0)
[2024-05-19] MEDS: STOP ORDER: TPN SCH (08:04)
[2024-05-19] MEDS: METOPROLOL SUCC 50MG EXT REL TAB PO SCH (08:15)
[2024-05-19 08:19] LABS: Albumin Globulin Ratio 0.9 (0.9-2); Albumin Level 2.7 gm/dl (3.4-5.0); BUN Creatinine Ratio 24.3 (10-20); Bilirubin,Total 0.4 mg/dl (0.2-1.0); Calcium 8.5 mg/dl (8.6-10.3); Creatinine Clr Calc Pharmacy 47.2 ml/min; Globulin 2.9 gm/dl (2.5-4.0); Potassium 4.5 mmol/L (3.5-5.1); Total Protein 5.6 gm/dl (6.0-8.3)
[2024-05-19 08:49] LABS: Magnesium 2.1 mg/dl (1.7-2.4)
[2024-05-19] MEDS: predniSONE 1 MG TAB PO SCH (10:40)
--- NOTE | 2024-05-19 11:15 | Hospitalist Progress Note ---
Date of Service May 19, 2024 Assessment & Plan (1) Fever: Plan: Present on admission. Now resolved. Blood cultures are negative. Urine culture reveals only pinpoint growth. He may have had a viral illness. It is hard to say. Nevertheless, he remains on Zosyn and azithromycin for now, day 3 (2) Generalized weakness: Plan: Supportive care. Treat underlying infection. OT and PT assessments requested (3) Pneumonia: Plan: Doubt if he has active pneumonia. No symptoms. Groundglass opacity seen on CT scan with evidence of underlying emphysema. (4) Urinary tract infection: Plan: Suspected on admission. Urine culture however only reveals pinpoint growth. Urostomy in place. Continue Zosyn and azithromycin for now, day 3. Most recent urine culture grew Klebsiella (5) Atrial fibrillation: Plan: Chronic atrial fibrillation on Coumadin therapy. INR is subtherapeutic. He is currently on Lovenox subcu every 12 hours until INR improves (6) History of total cystectomy: Plan: Due to bladder cancer history. Has urostomy is in place (7) Polymyalgia rheumatica: Plan: Steroid-dependent. He usually takes prednisone daily. Intravenous hydrocortisone switched back to oral prednisone today, May 19 (8) Chronic HFrEF (heart failure with reduced ejection fraction): Plan: History of chronic systolic CHF. Stable. Continue current medical management. Monitor intake and output Plan To be determined. OT and PT assessments requested. He was most recently at [facility] Admission and Anticipated Discharge Date Admission Date: May 17, 2024 Subjective Alert and oriented. No new problems. Urine culture only reveals pinpoint growth. Blood cultures are negative to date. Intravenous hydrocortisone has been switched back to his usual oral prednisone therapy. He wants to discontinue his TPN but this was not ordered by me and probably should not be discontinued by me. INR remains slightly low at 1.4. He remains on Zosyn and azithromycin, day 3. OT and PT evaluations requested Review of Systems 2 Review of Systems: Constitutionalno fever or chills ENTno blurred vision, no double vision, no epistaxis, no sore throat Respiratoryno cough, no wheezing, no shortness of breath Cardiacno palpitations, no chest pain, no syncope Taylor nausea, vomiting, diarrhea, melena, hematochezia GUno urinary retention, no urinary incontinence, no dysuria, no hematuria Musculoskeletalno joint pain, no muscle tenderness Skinno bruising, no rashes, no pruritus Neurono isolated weakness, no paresthesia, no weakness Psychno depression, no anxiety Physical Exam 2 Physical Exam: General-alert and oriented x3, no fever, no chills HEENT-head atraumatic and normocephalic, pupils equal and reactive to light, extraocular muscles intact Neck-no lymphadenopathy or thyromegaly, trachea midline Chest-clear to auscultation. No rales, wheezing or rhonchi Cardiac-regular rate and rhythm, normal S1 and S2 Abdomen-normal bowel sounds, no hepatosplenomegaly. Functioning ileostomy bag. Urostomy contains clear yellow urine Extremities-no cyanosis, clubbing, or edema Neuro-cranial nerves II through XII intact, motor and sensory function within normal limits, strength symmetrical, no focal deficits Psych-normal affect, normal mood Results & Data Results & Data Vital Signs (Past 12 Hours) Vital Signs Temp Pulse Pulse Resp BP Pulse Ox O2 Del Method 05/19/24 08:09 36.9 C 85 16 124/63 98 Room Air 05/19/24 07:25 87 05/19/24 03:39 37.3 C 78 16 133/63 96 Room Air Laboratory Results 05/19/24 05:39 05/19/24 05:39 PG Care Time/CCT Total # of Minutes Spent Total Time Spent with Patient: Total time spent is greater than 50% in coordination of care (as documented) at patient's floor/unit and/or counseling patient: Coding Level of Care Code 87124 SUB INP/OBS CARE 3/50MIN Diagnoses Fever R50.9 Generalized weakness R53.1 Pneumonia J18.9 Urinary tract infection N39.0 Atrial fibrillation I48.91 History of total cystectomy Z90.6 Polymyalgia rheumatica M35.3 Chronic HFrEF (heart failure with reduced ejection fraction) I50.22
[2024-05-19] MEDS: CLINOLIPID 20% IV FAT EMULSION 250 ML IV SCH (18:54)
[2024-05-19] MEDS: CENTRAL TPN IV SCH (18:54)
[2024-05-19] MEDS: [UNRECOGNIZED DRUG - OTHER] IV SCH (18:54)
[2024-05-19] MEDS: LOPERAMIDE HCL 2 MG CAP PO PRN (19:47)
[2024-05-20 06:19] LABS: Basophils # (auto) 0.02 K/uL (0.00-0.20); Basophils % (auto) 0.4 %; Eosinophils # (auto) 0.41 K/uL (0.00-0.50); Eosinophils % (auto) 7.6 %; Hemoglobin 8.2 g/dl (14.0-18.0); Immature Granulocytes # (auto) 0.02 K/uL (0.01-0.20); Immature Granulocytes % (auto) 0.4 %; Lymphocytes # (auto) 0.46 K/uL (1.20-3.40); Lymphocytes % (auto) 8.5 %; Mean Corpuscular Hemoglobin 29.8 pg (25.0-34.0); Mean Corpuscular Hgb Conc 31.5 g/dL (32.0-36.0); Mean Corpuscular Volume 94.5 fL (80.0-100.0); Mean Platelet Volume 10.3 fL (9.4-12.4); Monocytes # (auto) 0.72 K/uL (0.11-0.59); Monocytes % (auto) 13.3 %; Neutrophils # (auto) 3.78 K/uL (1.40-6.50); Neutrophils % (auto) 69.8 %; Platelet Count 216 K/uL (130-400); RDW Coefficient of Variation 15.7 % (11.5-14.5); RDW Standard Deviation 53.7 fL (36.4-46.3); Red Blood Count 2.75 M/uL (4.70-6.10); White Blood Count 5.41 K/ul (4.8-10.8)
[2024-05-20 06:55] LABS: Albumin Globulin Ratio 0.9 (0.9-2); Albumin Level 2.7 gm/dl (3.4-5.0); Bilirubin,Total 0.4 mg/dl (0.2-1.0); Calcium 8.8 mg/dl (8.6-10.3); Creatinine Clr Calc Pharmacy 46.5 ml/min; Globulin 3.1 gm/dl (2.5-4.0); Magnesium 2.3 mg/dl (1.7-2.4); Phosphorus 4.1 mg/dl (2.5-4.9); Potassium 4.5 mmol/L (3.5-5.1); Total Protein 5.8 gm/dl (6.0-8.3)
[2024-05-20 07:04] LABS: INR 1.4 (0.9-1.1); Prothrombin Time 14.5 Seconds (9.0-12.0)
--- NOTE | 2024-05-20 10:28 | Hospitalist Progress Note ---
Date of Service May 20, 2024 Assessment & Plan (1) Fever: Plan: Present on admission. Now resolved. Blood cultures are negative. Urine culture reveals only pinpoint growth. He may have had a viral illness. It is hard to say. Antibiotics have been discontinued now. (2) Generalized weakness: Plan: Supportive care. Treat underlying infection. OT and PT assessments requested (3) Pneumonia: Plan: Doubt if he has active pneumonia. No symptoms. Groundglass opacity seen on CT scan with evidence of underlying emphysema. (4) Urinary tract infection: Plan: Suspected on admission. Urine culture however only reveals pinpoint growth. Urostomy in place. Antibiotics have now been discontinued. (5) Atrial fibrillation: Plan: Chronic atrial fibrillation on Coumadin therapy. Coumadin uptitrated today, May 20, due to INR being subtherapeutic. He is currently on Lovenox subcu every 12 hours until INR improves (6) History of total cystectomy: Plan: Due to bladder cancer history. Has urostomy is in place (7) Polymyalgia rheumatica: Plan: Steroid-dependent. He usually takes prednisone daily. Intravenous hydrocortisone switched back to oral prednisone on May 19 (8) Chronic HFrEF (heart failure with reduced ejection fraction): Plan: History of chronic systolic CHF. Stable. Continue current medical management. Monitor intake and output Plan Family wishes him to be placed back at [facility] at discharge. He was most recently at [facility] Admission and Anticipated Discharge Date Admission Date: May 17, 2024 Subjective The patient is alert and oriented. He is now eating. I spoke to the daughter, Erin, by phone and they state that usually when he gets home he again develops nausea and vomiting. I explained to her that evaluation for this should be done on an outpatient basis and perhaps he should be referred to a sales relationship manager. I did speak to one of his surgeons at [facility] in [place], yesterday, May 19. He will remain on TPN for now but hopefully this can be discontinued soon. Coumadin dosage uptitrated due to persistently low INR level of 1.4. Creatinine is now stable and normal at 1.1. Review of Systems 2 Review of Systems: Constitutionalno fever or chills ENTno blurred vision, no double vision, no epistaxis, no sore throat Respiratoryno cough, no wheezing, no shortness of breath Cardiacno palpitations, no chest pain, no syncope Taylor nausea, vomiting, diarrhea, melena, hematochezia GUno urinary retention, no urinary incontinence, no dysuria, no hematuria Musculoskeletalno joint pain, no muscle tenderness Skinno bruising, no rashes, no pruritus Neurono isolated weakness, no paresthesia, no weakness Psychno depression, no anxiety Physical Exam 2 Physical Exam: General-alert and oriented x3, no fever, no chills HEENT-head atraumatic and normocephalic, pupils equal and reactive to light, extraocular muscles intact Neck-no lymphadenopathy or thyromegaly, trachea midline Chest-clear to auscultation. No rales, wheezing or rhonchi Cardiac-regular rate and rhythm, normal S1 and S2 Abdomen-normal bowel sounds, no hepatosplenomegaly. Functioning ileostomy bag. Urostomy contains clear yellow urine Extremities-no cyanosis, clubbing, or edema Neuro-cranial nerves II through XII intact, motor and sensory function within normal limits, strength symmetrical, no focal deficits Psych-normal affect, normal mood Results & Data Results & Data Vital Signs (Past 12 Hours) Vital Signs Temp Pulse Resp BP BP Pulse Ox O2 Del Method 05/20/24 07:53 36.7 C 68 16 132/60 100 Room Air 05/20/24 04:04 36.7 C 65 18 141/68 H 99 Room Air 05/19/24 23:05 36.8 C 78 18 126/70 96 Room Air Laboratory Results 05/20/24 05:47 05/20/24 05:47 PG Care Time/CCT Total # of Minutes Spent Total Time Spent with Patient: Total time spent is greater than 50% in coordination of care (as documented) at patient's floor/unit and/or counseling patient: Coding Level of Care Code 96431 SUB INP/OBS CARE 3/50MIN Diagnoses Fever R50.9 Generalized weakness R53.1 Pneumonia J18.9 Urinary tract infection N39.0 Atrial fibrillation I48.91 History of total cystectomy Z90.6 Polymyalgia rheumatica M35.3 Chronic HFrEF (heart failure with reduced ejection fraction) I50.22
[2024-05-20] MEDS: WARFARIN SOD 7.5 MG TAB PO SCH (15:55)
[2024-05-20] MEDS: CENTRAL TPN IV SCH (20:37)
[2024-05-20] MEDS: [UNRECOGNIZED DRUG - OTHER] IV SCH (20:37)
[2024-05-20] MEDS: CLINOLIPID 20% IV FAT EMULSION 250 ML IV SCH (20:38)
[2024-05-21 06:56] LABS: Hematocrit (blood only) 29.6 % (42.0-52.0); Hemoglobin 9.6 g/dl (14.0-18.0); Mean Corpuscular Hgb Conc 32.4 g/dL (32.0-36.0); Mean Corpuscular Volume 92.5 fL (80.0-100.0); Mean Platelet Volume 10.4 fL (9.4-12.4); Platelet Count 267 K/uL (130-400); RDW Coefficient of Variation 15.4 % (11.5-14.5); RDW Standard Deviation 51.9 fL (36.4-46.3); White Blood Count 5.71 K/ul (4.8-10.8)
[2024-05-21 07:19] LABS: BUN Creatinine Ratio 24.8 (10-20); Calcium 9.1 mg/dl (8.6-10.3); Creatinine Clr Calc Pharmacy 39.4 ml/min; Phosphorus 3.5 mg/dl (2.5-4.9); Potassium 4.4 mmol/L (3.5-5.1)
[2024-05-21 07:24] LABS: INR 1.4 (0.9-1.1); Prothrombin Time 15.1 Seconds (9.0-12.0)
--- NOTE | 2024-05-21 11:20 | Hospitalist Progress Note ---
Date of Service May 21, 2024 Assessment & Plan (1) Fever: Plan: Present on admission; Now resolved - VSS, afebrile, no leukocytosis - Blood cultures are negative-one only drawn from peripheral, not from PICC - Urine culture reveals Yeast-no need to treat; UA not suspicious given urostomy placement - Antibiotics have been discontinued for now - long-term prednisone 4 mg daily for arthritis - continue to monitor CBC -PICC line removed (2) Generalized weakness: Plan: recently admitted with rehab at [facility] weight has recently decreased; ongoing issues with malnutrition - patient with TPN previously; now refusing - Has been eating and drinking on his own; will discontinue TPN and promote oral diet - previous hospitalist (Dr. Chang) discussed with patient's doctor at [place] [facility]; agreeable to discontinue TPN - PT/OT recommending rehab - placement pending - can remove PICC line in a.m. if continues to have good oral diet (3) Acute diarrhea: Plan: colostomy status recent course of Augmentin for UTI, discharged from hospital 05/12 - patient with increased colostomy output; loose and watery as per nursing - Stool cultures negative - Imodium ordered as needed (4) Pneumonia: Plan: patient is asymptomatic, febrile on admission resolved - Groundglass opacity seen on CT scan with evidence of underlying emphysema - discontinued antibiotics for now (5) Atrial fibrillation: Plan: Chronic atrial fibrillation on Coumadin therapy and metoprolol - Coumadin uptitrated May 20 due to INR being subtherapeutic - He is currently on Lovenox subcu every 12 hours until INR improves - continue metoprolol - continue daily INR -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 (6) History of total cystectomy: Plan: Due to bladder cancer history; Has urostomy is in place - draining yellow urine; no hematuria noted - UA consistent with findings for urostomy status (7) Polymyalgia rheumatica: Plan: Steroid-dependent on 4 mg prednisone daily - Intravenous hydrocortisone switched back to oral prednisone on May 19 (8) Chronic HFrEF (heart failure with reduced ejection fraction): Plan: History of chronic systolic CHF or midrange ejection fraction - Most recent echo 03/2023 showed EF of 50 to 54% along with pulmonary hypertension - heart healthy diet - No signs of acute exacerbation at this time - monitor intake and output -continue Toprol XL -Home med rec states that he is on lisinopril 5 mg daily-this seems to be on hold-will confirm if he actually takes this at home -He has a history of allergy to spironolactone (9) Benign essential HTN: Plan: stable - continue home amlodipine - Home lisinopril currently held; kidney function mildly elevated but still within normal limits - will resume lisinopril likely tomorrow Plan Chronic stable diagnoses: CAD/PAD - s/p CABG,multiple peripheral stents, continue statin, coumadin VTE ppx/H/o PE: Lovenox, Coumadin subtherapeutic Diet: heart healthy Code status: full Dispo: MedSurg with telemetry; case management following for placement of acute rehab with TPN discontinuation opening up more options Admission and Anticipated Discharge Date Admission Date: May 17, 2024 Supervising Physician Co-Signing Physician Notes Physician [employer] Station Attendant Supervision note: I have personally seen and examined the patient and discussed and verified the jett points of the history and physical along with the plan with HERMINIO Smith with the following exceptions and/or additions: None Subjective Patient seen at bedside with and doing well. He has been eating and drinking without difficulty and sukumar like to stop TPN. He has been OOB and walking halls without difficulty. He has had clear sputum production for the past few weeks, unchanged in improvement. He previously had a cough on his last admission that has subsided. Patient denies fever, chills, headache, dizziness, lightheadedness, dyspnea, dyspnea on exertion, chest pain, abdominal pain, nausea, vomiting, diarrhea, constipation. He stated he is unsure if he has had increased ostomy output as the nurses have been taking care of it. He is awaiting placement. Tele: A fib with occasional PVC, HR 60s Review of Systems Review of Systems: See HPI Physical Exam Physical Exam: The patient is awake, alert and oriented 3, well developed and well nourished, normocephalic and atraumatic, in no acute distress. Non-toxic appearing. HEENT- EOMI, mucous membranes moist. Hearing grossly intact. Heart-normal S1 and S2. No murmurs, rubs or gallops. Lungs-clear bilaterally, no respiratory distress, no accessory muscle use. Abdomen-normal bowel sounds and soft. No ascites noted. Non-tender. Urostomy with yellow urine, no hematuria, no surrounding erythema. Colostomy with loose brown output, no surrounding erythema. Extremities- no clubbing, cyanosis, or edema. Picc line in place. Rheumatologic-normal range of motion. Psychiatric-normal affect. Results & Data Results & Data Vital Signs (Past 12 Hours) Vital Signs Temp Pulse Pulse Resp BP Pulse Ox O2 Del Method 05/21/24 08:06 36.5 C 57 L 16 111/60 99 Room Air 05/21/24 07:06 72 05/21/24 04:00 36.7 C 61 18 123/73 98 Room Air 05/20/24 23:30 36.6 C 71 18 128/77 97 Room Air Laboratory Results reviewed CBC, PT/INR, BMP PG Care Time/CCT Total # of Minutes Spent Total Time Spent with Patient: Total time spent is greater than 50% in coordination of care (as documented) at patient's floor/unit and/or counseling patient: Coding [place] [address] SUB INP/OBS CARE 3/50MIN Patient Type Established Medical Decision Making High Complexity Diagnoses Fever R50.9 Generalized weakness R53.1 Acute diarrhea R19.7 Pneumonia J18.9 Atrial fibrillation I48.91 History of total cystectomy Z90.6 Polymyalgia rheumatica M35.3 Chronic HFrEF (heart failure with reduced ejection fraction) I50.22 Benign essential HTN I10
[2024-05-21] MEDS: LOPERAMIDE HCL 2 MG CAP PO STA (12:16)
[2024-05-22 06:19] LABS: Creatinine Clr Calc Pharmacy 38.8 ml/min; Phosphorus 3.3 mg/dl (2.5-4.9); Potassium 4.7 mmol/L (3.5-5.1)
[2024-05-22 06:31] LABS: INR 1.8 (0.9-1.1); Prothrombin Time 18.8 Seconds (9.0-12.0)
[2024-05-22 06:39] LABS: Ferritin 110.9 ng/ml (8-388)
[2024-05-22] MEDS: lisinopril 5 MG TAB PO SCH (10:38)
--- NOTE | 2024-05-22 11:23 | Discharge Summary ---
Discharge Summary Date of Service May 22, 2024 Principal Dx & Hospital Course #1 = Principal Diagnosis (1) Generalized weakness: recently admitted with rehab at [facility] prior to current admission weight has recently decreased; ongoing issues with malnutrition although patient refusing TPN - Has been eating and drinking on his own; will discontinue TPN and promote oral diet 05/21 - previous hospitalist (Dr. Chang) discussed with patient's doctor at [place]; agreeable to discontinue TPN - PICC line removed 05/22 - PT/OT recommending rehab - placement to [facility] 05/22 at 1500 - continue to monitor weights and nutritional status at rehab -f/u with doctor at [place] (2) Fever: Present on admission; Now resolved Initially thought to be due to pneumonia or UTI; recent hospital stay 05/09-05/12 for pneumonia and UTI COVID negative - VSS, afebrile, no leukocytosis - Blood cultures are negative - one only drawn from peripheral, not from PICC - on long-term prednisone 4 mg daily for arthritis - was given Zosyn and Azithromycin IV on admission, discontinued 05/20/24 UTI - recent history, sepsis due to UTI 04/11/24, recurrent UTI 05/09/24 - Urine culture reveals Yeast - no need to treat - UA not suspicious given urostomy placement Pneumonia - previous admission, new/recurrent diagnosis unlikely - Groundglass opacity seen on CT scan with evidence of underlying emphysema - Antibiotics have been discontinued - PICC line removed 05/22 (3) Acute diarrhea: colostomy status recent course of Augmentin for UTI, discharged from hospital 05/12 - patient with increased colostomy output; loose and watery as per nursing 05/21 - Stool cultures negative - Imodium ordered as needed; improved stool output 05/22, can continue Imodium prn at rehab (4) Hyponatremia: Patient with NA 134 -> 129 likely secondary to hypovolemic state; recent diarrhea, poor oral intake - asymptomatic - hypovolemic; clinically dry - Serum osmol 285, Urine NA 395, Urine Osmol 37 - with recent IV fluid shortage will promote oral hydration - planning for discharge today; recommend recheck BMP in 1-2 days -use Imodium to slow down transit of stool due to partial colectomy (5) Atrial fibrillation: Chronic atrial fibrillation on Coumadin therapy and metoprolol history of Acquired Hemophilia A - Subtherapeutic INR on admission - INR improving, currently 1.8 - Coumadin uptitrated May 20 due to INR being subtherapeutic - He is currently on Lovenox subcu every 12 hours until INR improves - recommend discontinue Lovenox once INR 2.0 - continue metoprolol, Warfarin, and Lovenox as above - repeated INR in 1-2 days at [facility] (6) Chronic HFrEF (heart failure with reduced ejection fraction): History of chronic systolic CHF or midrange ejection fraction - Most recent echo 03/2023 showed EF of 50 to 54% along with pulmonary hypertension - He has a history of allergy to spironolactone - heart healthy diet - No signs of acute exacerbation at this time - monitored intake and output throughout hospital stay; stable - continue Toprol XL and lisinopril (7) Benign essential HTN: stable - continue home amlodipine - Home lisinopril held on admission; kidney function mildly elevated but still within normal limits - restarted home lisinopril 05/22 (8) Anemia: chronic; Likely anemia of chronic disease - hemoglobin currently 9.6, appears slightly lower than baseline - normocytic, normal white blood cells, normal platelets - B12 and iron recently checked and normal - Folate normal - transferrin sat percentage slightly decreased -follow [facility]CC as outpt Plan Chronic stable diagnoses: History of cystectomy - 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 - draining yellow urine; no hematuria noted, UA consistent with findings for urostomy status Polymyalgia rheumatica - Steroid-dependent on 4 mg prednisone daily; Intravenous hydrocortisone switched back to oral prednisone on May 19 CAD/PAD - s/p CABG,multiple peripheral stents, continue statin and coumadin Tele: A-fib with occasional PVC, heart rate in the 60s VTE ppx/H/o PE: Lovenox, Coumadin subtherapeutic Diet: heart healthy Code status: full Dispo: discharge to [facility] 05/22 at 1500 Notes For Next Care Provider Patient's INR was found to be subtherapeutic on Coumadin on admission. We have been checking his INR daily during his hospital stay. We were giving Lovenox for VTE ppx coverage. The day of his discharge his INR was almost therapeutic at 1.8. Will recommend to continue Lovenox until INR 2.0. Please recheck his INR within 1 to 2 days. Patient also with hyponatremia on admission. Sodium was 129 the day of discharge so likely due to hypovolemia. With IV fluid shortage, promoting oral hydration and recommend repeat BMP in 1 to 2 days along with INR as stated above. He can continue to take Imodium as needed for increased colostomy output. Medication Changes From Visit Imodium 2 mg p.o. twice daily as needed Lovenox 60 mg SQ twice daily until INR therapeutic Warfarin increased from 5 mg to 7.5 mg daily Admission HPI Per Admitting Provider The patient is an 83-year-old male with a past medical history including urinary tract infection,history of PE, atrial fibrillation, total cystectomy for bladder cancer, MERRICK, hyponatremia, prostate cancer, polymyalgia rheumatic, PAD, chronic HFrEF/, CAD, and urethral stricture. He was most recently admitted to [facility] from 05/09-05/12/2024, being treated for a Klebsiella oxytoca UTI and pneumonia. He was discharged on Augmentin, which she was taking as directed, and had done well for few days. [place], and family did try to restrict visitors at home. Over the past few days he has become generally weak, and today developed a fever. Admission Exam Per Admitting Provider The patient is mildly lethargic, awakens to his name being called, normocephalic and atraumatic, lying in bed and in no acute distress. HEENT--PERRL, EOMI, mucous membranes and oropharynx mildly dry. Neck--supple. No JVD. No bruits. Thyroid normal, trachea midline, no adenopathy. Heart--normal S1 and S2. No murmurs, rubs or gallops. Lungs--clear bilaterally, no respiratory distress, no accessory muscle use. Abdomen--normal bowel sounds and soft. Nontender. Nondistended, no hernias or masses, no organomegaly. Extremities--no cyanosis or clubbing. No edema. Urostomy right lower quadrant draining clear yellow urine. Ostomy left lower quadrant with brown soft stool in bag Dermatologic--normal skin turgor, normal color, no abnormal lymph nodes, no rash. Neurologic--cranial nerves II through XII grossly intact. Rheumatologic--normal range of motion. Psychiatric--normal affect. Discharge Exam The patient is awake, alert and oriented 3, well developed and well nourished, normocephalic and atraumatic, in no acute distress. Non-toxic appearing. HEENT- EOMI, mucous membranes moist. Hearing grossly intact. Heart-normal S1 and S2. No murmurs, rubs or gallops. Lungs-clear bilaterally, no respiratory distress, no accessory muscle use. Abdomen-normal bowel sounds and soft. No ascites noted. Non-tender. Urostomy with yellow urine, no hematuria, no surrounding erythema. Colostomy with loose brown output, no surrounding erythema. Extremities- no clubbing, cyanosis, or edema. Rheumatologic-normal range of motion. Psychiatric-normal affect. Discharge Plan Discharge Items Patient Disposition: Transfer Custodial Fac Reason For Visit: UTI, PNEUMONIA, DIARRHEA, WEAKNESS Discharge Diagnosis: 1. Generalized weakness 2. Acute diarrhea 3. Hyponatremia 4. Subtherapeutic INR Condition on Discharge: Good Activity: As commented below Activity Comment: increase as tolerated with PT/rehab facility Non-emergency contact: Primary Care Provider Call non-emergency contact if: you have any medication questions and your symptoms worsen Follow-up/Referrals: Jael Yu MD [Primary Care Provider] - (Follow up 1-2 weeks after discharge from rehab ) Diet: Regular Addtl Attending Provider Instructions: You were hospitalized for fever, generalized weakness, and diarrhea. We removed the PICC line and discontinued your TPN and you are to continue having a strong oral diet. You are going to [facility] for rehab to help with the weakness. The fever resolved after 1 day. You are given IV antibiotics for multiple days since admission. It does not appear that you have a UTI or pneumonia at this time. You can continue to take Imodium as needed for increased colostomy output. Your sodium was found to be low during your hospital stay. This is likely secondary to dehydration. I recommend that you continue to drink lots of water. You are to have your sodium rechecked within 1 to 2 days. Your INR was found to be subtherapeutic on admission. It has been increasing since admission. We were giving you Lovenox to add additional blood thinner coverage. You are to continue with Lovenox until your INR reaches 2.0. I recommend repeating your INR within 1 to 2 days. Your warfarin was increased from 5 mg to 7.5 mg daily. It is recommended that you follow up with your PCP in 1-2 weeks after being discharged from rehab. Pending Studies at Discharge: No Stand-Alone Forms: [facility] Skilled Items Patient informed of condition?: Yes DNR: No Discharge Level of Care: Skilled Communicable Disease: No Discharge Prognosis: Stable Lines: None Urinary Catheter: No Medications and DC Order Prescriptions: New warfarin [Jantoven] 7.5 mg Tablet 7.5 mg PO DAILY@1600 Qty: 30 0RF enoxaparin 60 mg/0.6 mL Syringe 60 mg subcut BID 5 Days Qty: 6 0RF Continued tamsulosin 0.4 mg capsule 0.4 mg PO QAM rosuvastatin [Crestor] 20 mg tablet 20 mg PO HS Qty: 90 3RF prednisone 1 mg tablet 4 mg PO QAM 90 Days Qty: 360 1RF calcium carbonate 500 mg calcium (1,250 mg) Tablet,Chewable 500 mg PO Q2H PRN (Reason: indigestion ) lisinopril 5 mg Tablet 5 mg PO DAILY metoprolol succinate 50 mg tablet extended release 24 hr 50 mg PO Q12H amlodipine 10 mg tablet 5 mg PO QAM Hold Instructions: Provider's Order loperamide [Imodium A-D] 2 mg Capsule 2 mg PO BID ondansetron 4 mg tablet,disintegrating 4 mg PO Q8H PRN (Reason: Nausea) Discontinued TPN 2,400 mL 1 dose IV UD amoxicillin-pot clavulanate 875-125 mg Tablet 1 tab PO BIDM Qty: 8 0RF warfarin 5 mg 5 mg PO DAILY Discharge Orders: Discharge Order (Routine); Ordered 05/22/24 Ordered By: Obdulia Smith Admission Data Admit Date/Time: 05/17/24 23:56 Attending Provider: Rina Meyer Admit Provider: Pa Riley Primary Care Provider: Jael Yu Other Providers: Pa Riley; [place],[facility] Fax; Britni,Fax; Bee uLna [facility]; [place],[facility] Other Interventions: Discharge Summary Assessment (RN) Last Done: 05/22/24 11:33 Hospital Stay Data Consultations 05/17/24 22:44 ED Decision to Admit Stat Diagnostic Imagining Performed 05/17/24 20:04 CT chest diagnostic w con Stat Discharge Instructions Given to Patient (Per Discharging Provider) You were hospitalized for fever, generalized weakness, and diarrhea. We removed the PICC line and discontinued your TPN and you are to continue having a strong oral diet. You are going to [facility] for rehab to help with the weakness. The fever resolved after 1 day. You are given IV antibiotics for multiple days since admission. It does not appear that you have a UTI or pneumonia at this time. You can continue to take Imodium as needed for increased colostomy output. Your sodium was found to be low during your hospital stay. This is likely secondary to dehydration. I recommend that you continue to drink lots of water. You are to have your sodium rechecked within 1 to 2 days. Your INR was found to be subtherapeutic on admission. It has been increasing since admission. We were giving you Lovenox to add additional blood thinner coverage. You are to continue with Lovenox until your INR reaches 2.0. I recommend repeating your INR within 1 to 2 days. Your warfarin was increased from 5 mg to 7.5 mg daily. It is recommended that you follow up with your PCP in 1-2 weeks after being discharged from rehab. Supervising Physician Co-Signing Physician Notes HERMINIO Supervision Note: I personally saw and examined the patient. I verified all jett points and agree with HERMINIO Smith with the following exceptions and/or additions: S-Pt feeling well, no complaints, stool becoming more formed. O- Vitals reviewed Gen: [AAOx3, NAD, thin] HEENT: [anicteric sclerae] CV: [RRR no mgr nl S1S2] Pulm: [CTAB no wcr] Abd: [+BS soft NT ND urostomy bag in place with clear yellow urine, colostomy bag with some dark brown liquid and some formed greenisg stool] Ext: [no edema] Skin: [no rashes, warm/dry] Neuro: [full strength throughout] CBC, BMP reviewed A/P-83 yo male here with h/o urostomy with ileal conduit, colostomy, bladder CA, severe protein calorie malnutrition on TPN, here with fever. Initially thought to be from UTI or pNA but ruled out. Blood cxs remained no growth, antibiotics stopped, PICC line removed Stable for dc to rehab Stopped TPN Total Time Total Time Spent Total Time Spent (In Minutes): 40 mins Total Time Includes: Examination of the Patient, Discharge Planning and Medication Reconciliation [place] [address] INP/OBS DISCH >30 MIN Patient Type Established Medical Decision Making Moderate Complexity Diagnoses Generalized weakness R53.1 Fever R50.9 Acute diarrhea R19.7 Hyponatremia E87.1 Atrial fibrillation I48.91 Chronic HFrEF (heart failure with reduced ejection fraction) I50.22 Benign essential HTN I10 Anemia D64.9
[2024-05-22 11:37] VITALS: BP 133/72; RESP 18; TEMP 97.5; O2SAT 99
[2024-05-22 14:28] VITALS: PULSE 84
--- NOTE | 2024-05-23 16:07 | Coding Query ---
CODING QUERY To promote full compliance with coding requirements relating to patient care, provider participation is requested in all cases of coremaker apprentice uncertainty. Please assist us with the question(s) below: HP: Presented with Fever/generalized weakness/lethargy. Placing on Zosyn to cover urinary tract and probable aspiration pneumonia. He was most recently admitted to [facility] from 05/09-05/12/2024, being treated for a Klebsiella oxytoca UTI and pneumonia. He was discharged on Augmentin. Intermittent diarrhea. Order stool PCR studies and C. difficile Consideration for gastroenterology consult 05/19 PN Blood cultures are negative. Urine culture reveals only pinpoint growth. He may have had a viral illness Doubt if he has active pneumonia 05/20 PN Antibiotics have now been discontinued. 05/21 PN Acute diarrhea: Plan: colostomy status recent course of Augmentin for UTI, discharged from hospital 05/12 DS Pneumonia - previous admission, new/recurrent diagnosis unlikely Coding Question(s): Can you please further clarify the possible etiology of the patient's generalized weakness/fever? { x, unknown type ] Viral illness (pls specify type of illness, if known) [ ] Diarrhea (pls specify type i.e. viral, bacterial, abx induced) [ ] Other [ ] FUO/Generalized weakness etiology unknown Physician's Response(s): Thank you Manju Orantes Principal Diagnosis: "that condition established after study, to be chiefly responsible for occasioning the admission of the patient to the hospital for care." Co-Existing Principal Diagnosis: "when two or more diagnoses equally meet the criteria for principal diagnosis as determined by the circumstances of admission, diagnostic work up, and/or therapy provided, and the Alphabetic Index, Tabular List, or another coding guideline does not provide sequencing direction, any one of the diagnoses may be sequenced first." "When the physician has documented what appears to be a current diagnosis in the body of the record, but has not included the diagnosis in the final diagnostic statement, the physician should be asked whether the diagnosis should be added." (Source Coding Clinic 2 QTR90. p3-4) RUSS
--- NOTE | 2024-05-23 16:08 | Coding Query ---
MALNUTRITION To promote full compliance with coding requirements relating to patient care, physician participation is requested in all cases of latexer uncertainty. Please assist us with the question(s) below: Please place an X within the parenthesis (x). If other, please document: RD: Severe chronic malnutrition iwht NFPE of severe muscle loss to the clavicle region "Malnutrition" is documented in this record. If possible, please check the box that provides a more specific diagnosis: ( ) Mild malnutrition ( ) Moderate malnutrition ( ) Severe malnutrition ( ) Protein malnutrition (kwashiorkor) (x ) Severe protein calorie malnutrition ( ) Protein calorie malnutrition, unspecified ( ) Other (please specify): Was this diagnosis present on admission? Please place an X within the parenthesis (x). ( ) Present on admission ( ) Not present on admission ( ) Unable to be clinically determined Thank you Manju SOLANO
== END 2024-05-22 15:46 | DRG 865 ==
LOC: ED 19:06 → SUATTDRO 23:56 → EDINP 23:56 → 2N 05-18 04:02

== ENCOUNTER 2024-05-24 09:39 | Inpatient (IN) ==
--- NOTE | 2024-05-24 09:53 | Emergency Department Note ---
Impression & Plan Nausea & vomiting, Acute dehydration, SBO (small bowel obstruction), Acute renal failure (ARF), Sepsis ED Provider Note NAME: SANTOS CESPEDES AGE: 83 SEX: M : 1940 ARRIVES VIA: Ambulance INFORMANT: Patient, ED PROVIDER(S): Reynaldo Johnson MD CHIEF COMPLAINT: Vomiting MEDICAL DECISION MAKING: Patient presents due to concern for vomiting. Patient presented be hypotensive and tachycardic. IV was established and blood work was obtained along with sepsis orders empiric Zosyn IV fluids procalcitonin and blood cultures. Blood work shows a white count of 22 hemoglobin 12.7. Patient's hemoglobin is elevated although may be hemoconcentrated. Platelet count of 490. The patient's kidney function with acute renal failure with a creat of 5.2. Initial lactate of 6.3. Procalcitonin slightly elevated 0.55. Urinalysis does not show obvious infection. I did speak the on-call hospitalist service the patient did have improvement in his heart rate and blood pressure after administration of IV fluids. Repeat lactate was 6.8. KUB and chest x-ray were pending. Patient was admitted by Dr. Gibbs. Patient's KUB and chest x-ray does show concern for possible bowel obstruction. Additional management deferred to inpatient team who did order CT of the chest abdomen pelvis without contrast and did consult general surgery. I did inform the patient of the findings and the patient was initially declining an NG tube at this time. Discussion w/ other healthcare providers: Dr. Gibbs inpatient medicine service Prior /Outside records reviewed: I reviewed part of a discharge summary from May 22, 2022 for from [facility]. Patient was seen for generalized weakness fever acute diarrhea and hyponatremia. Patient with a known history of A-fib history of acquired hemophilia A currently on Coumadin therapy and metoprolol. Patient was to be on Lovenox at the time of discharge and discontinue Lovenox once INR of 2. Chronic heart failure with reduced ejection fraction most recent echo in March 2023 EF of 50 to 54%. Hypertension and anemia. Patient's primary diagnoses were generalized weakness acute diarrhea hyponatremia and subtherapeutic INR. During the patient's stay initially thought that maybe was fever secondary to UTI or pneumonia but the patient's urine culture reveals yeast and no need to treat. Pneumonia thought secondary to previous admission CT showed groundglass opacity with evidence of underlying emphysema and antibiotics were discontinued. Differential diagnosis: Pneumonia, UTI, bowel obstruction, gastroenteritis, food borne illness, infection, appendicitis, diverticulitis, inflammatory bowel disease, obstruction among others were considered. Diagnostics, as interpreted by me: ECG: A-fib, rate of 71, wide QRS, right bundle branch block pattern, left axis deviation. Repeat EKG interpreted by myself A-fib, rate of 90, wide QRS, right bundle branch block pattern, left axis deviation. Rate is increased otherwise no significant changes from prior. Cardiac monitoring: An order was placed for continuous cardiac monitoring. The monitor shows a rate of 88 with sinus rhythm. Patient was placed on pulse oximetry Medical decision rules: None Imaging studies: I informally interpreted the patient's chest abdominal x-ray did show concern for possible bowel obstruction with formal report to follow. HPI: Patient presents due to concern for nausea vomiting and chest pain. The patient states that the chest pain began this morning and seems to proceed vomiting. No active chest pain at this time. Patient denies any shortness of breath. The patient did have a fair amount of emesis per nursing upon arrival. He did receive Compazine around some started on IV fluids for EMS. Patient did have a recent hospitalization and was discharged 2 days prior. Currently residing at [facility]. Rosalva reported that the patient has had some vomiting since Tuesday although had an episode of syncope today and thus was sent in here. Patient believes that he only had vomiting beginning today. Patient denies abdominal pains. He believes his ostomy output has been about the same but not significantly increased. Patient states that the chest pain is centralized only lasting seconds in duration. Nonradiating. Patient did have a nausea and vomiting. Patient does have a known history of A-fib. He did not take his morning medications. PAST MEDICAL HISTORY: See Below PAST SURGICAL HISTORY: See Below SOCIAL HISTORY: See Below HOME MEDICATIONS: See Below ALLERGIES: See Below VITALS: See Below PHYSICAL EXAMINATION: GENERAL: NAD, non-toxic. Thin in appearance. EYE EXAM: Normal conjunctiva. PERRL, no anisocoria and EOM's grossly intact w/o pain. OROPHARYNX: Moist mucus membranes, grossly normal dentition. NECK: Trachea midline, no stridor. Supple, no nuchal rigidity, no adenopathy, non-tender. No signs of meningismus. FROM of the neck with good chin to chest and neck extension. LUNGS: Clear to auscultation. Normal chest wall mechanics. HEART: Tachycardic and irregular irregular, no MRG. ABDOMEN: Abdomen soft, left-sided colostomy and right-sided urostomy present, no masses, no rebound or guarding. BACK: No CVA TTP. SKIN: No rashes and no bruising. UPPER EXTREMITIES: Upper extremities are grossly normal. LOWER EXTREMITIES: Grossly normal, no edema. NEURO EXAM: A&O x3, cranial nerves II-XII grossly intact, normal speech, moves all 4 extremities. Past Med/Surg History Problem List (Updated 05/24/24 @ 17:10 by Reynaldo Johnson MD) Sepsis (Acute) Acute renal failure (ARF) (Acute) SBO (small bowel obstruction) (Acute) Acute dehydration (Acute) Nausea & vomiting (Acute) ARF (acute renal failure) SBO (small bowel obstruction) Benign essential HTN Acute diarrhea Anemia (Acute) Hyponatremia (Acute) Fever (Acute) Generalized weakness (Acute) Pneumonia Urinary tract infection History of pulmonary embolism Per 12/02/[address] scan (Eliquis had been on hold x 3-4 days; failed Eliquis therapy per records) - Patient was to start Lovenox 12/02/23 but did not bead picker script until 12/05/23 per heme office Atrial fibrillation Was on Eliquis - currently on hold (started holding 11/29/23 due to upcoming urology biopsy but PE was noted on 12/02/[address]- patient subsequently started on Lovenox) Fever (Acute) History of total cystectomy (Acute) History of bladder cancer (Acute) Vomiting (Acute) Sepsis (Acute) Acute dehydration (Acute) MERRICK (acute kidney injury) (Acute) Sepsis Anemia Nausea & vomiting Coagulopathy (Acute) Acute hyponatremia (Acute) Hematuria (Acute) Weakness (Acute) Hyponatremia Pulmonary embolism dx 12/02/23 on Eliquis History of prostate cancer Port-A-Cath in place (09/14/22) Port placement with fluoroscopy. Dr. Mccormack Bladder carcinoma (Chronic) 07/2022- hx chemo History of left inguinal hernia repair (05/24/22) Recurrent left inguinal hernia repair with mesh Dr. Mccormack Atrial fibrillation Was on Eliquis - currently on hold (started holding 11/29/23 due to upcoming urology biopsy but PE was noted on 12/02/[address]- patient subsequently started on Lovenox) Polymyalgia rheumatica Recurrent left inguinal hernia Mixed hyperlipidemia Peripheral arterial disease - Status post stenting of bilateral superficial femoral [id number] - Status post atherectomy and angioplasty and stenting of right SFA 2016 - S/p atherectomy and drug-coated balloon angioplasty right SFA January 2020 - S/p right femoral-popliteal bypass April 2021 Chronic HFrEF (heart failure with reduced ejection fraction) EF 50-54% 03/24/23 echo Primary hypertension Urethral stricture Coronary artery disease s/p CABG x 3 in 2012 (HEALY graft to LAD, saphenous vein graft to the obtuse marginal, saphenous vein graft to the right coronary artery and posterior descending artery) Blood in the urine Medical History Mixed hyperlipidemia Hypertension Peripheral arterial disease - Status post stenting of bilateral superficial femoral [id number] - Status post atherectomy and angioplasty and stenting of right SFA 2016 - S/p atherectomy and drug-coated balloon angioplasty right SFA January 2020 - S/p right femoral-popliteal bypass April 2021 Polymyalgia rheumatica Hx of bladder cancer 07/2022, sx and chemo 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 Treated in [place]. Resolved at present half-way (current) use of systemic steroids Pulmonary hypertension PASP 40-50 mmHg per 03/2023 ECHO COPD (chronic obstructive pulmonary disease) Suspected sleep apnea noted on 07/31/18 anesthesia consult; pt denies, "no device, no study done" Bifascicular block RBBB/LAFB (chronic) Carotid stenosis, bilateral s/p left CEA in 2017 <50% R and L carotid stenosis per 2021 carotid duplex, follows with [facility] vascular Ascending aortic aneurysm Fusiform dilation of the ascending thoracic aorta is stable from prior measuring 4.2 cm per 12/02/[address]; monitoring Tricuspid regurgitation severe- per 03/2023 ECHO Hx of motion sickness History of COVID-19 02/05/22, home test, not hosp; cough, headache, fever>called PCP, put on Paxlovid>resolved. Radiation cystitis hx Prostate cancer 2011 hx-had radioactive seeds placed, no sx. Surgical History History of removal of Port-a-Cath (06/30/23) Access Port Removal(Left) - Sanford Perez DO, FACS Hx of cataract extraction rt./lt History of surgery TURBT 04/07/23 [facility] TURBT 11/2023 [facility] Status post carotid endarterectomy left 2017 Hx of appendectomy Hx of colonoscopy Hx of vascular surgery x2 stents placed in each lower extremity, [facility] Hx of cystoscopy multiple, 08/01/18: LMA 4 last one in Jul 2022 Cystoscopy, TURBT medium- Terry Townsend MD S/P left inguinal hernia repair Status post cardiac surgery failed stress test>bypass surgery 2012, [place], x3 vessels; f/u dr beckford History of biopsy of bladder Family History Sister Breast cancer Mother Diabetes Heart disease Other Asthma Cancer No family history of adverse response to anesthesia Denies family history of Ovarian cancer Prostate cancer Social History Smoking Status: Unknown if ever smoked Tobacco Type: Cigarettes packs per day: 1; Cigarettes Per Day: smoked 40 years; Second Hand Exposure: No; Do You Dip or Chew Tobacco: No; Hx Alcohol Use: Yes Alcohol type: beer Hx Substance Use: No Preferred Language: Faroese Communication Ability: Effective Communication Ability Comment: [id number] Visual Impairment: No Limitations Hearing Ability: Normal Numerical Control Lathe Operator Required: No Beliefs That Will Affect Care: None marital status: Current Living Situation: Spouse current occupational status: retired How many Children do You have: 2 Feels Safe at Home: Yes Childhood Exposure to Second-Hand Smoke: No caffeine: Yes during the past year weight has: remained stable Dental Care, Regularly: Yes Physical Activity Frequency: 3-4 Times per Week Seatbelt Use: always Sunscreen Use: Yes Assistive Devices: Hearing Aid - Bilateral Allergies Allergies Allergy/AdvReac Type Severity Reaction Status Date / Time nitrofurantoin Allergy Intermediate FEVER Verified 05/04/24 15:21 losartan Allergy Mild Rash Verified 05/04/24 15:21 meperidine AdvReac Intermediate SEVERE Verified 05/04/24 15:21 NAUSEA AND VOMITING spironolactone AdvReac Intermediate gynecomasti Verified 05/04/24 15:21 a Home Meds Home Medications Medication Instructions Recorded Confirmed tamsulosin 0.4 mg capsule 0.4 mg PO QAM 01/12/24 05/24/24 amlodipine 10 mg tablet 5 mg PO QAM 04/11/24 05/24/24 calcium carbonate 500 mg PO Q2H PRN indigestion 04/11/24 05/24/24 lisinopril 5 mg tablet 5 mg PO DAILY 04/11/24 05/24/24 metoprolol succinate 50 mg 50 mg PO Q12H 04/11/24 05/24/24 tablet,extended release 24 hr loperamide 2 mg capsule (Imodium 2 mg PO BID 05/08/24 05/24/24 A-D) ondansetron 4 mg disintegrating 4 mg PO Q8H PRN Nausea 05/08/24 05/24/24 tablet Previous Rx's Medication Instructions Recorded rosuvastatin 20 mg tablet (Crestor) 20 mg PO HS #90 tabs 08/09/23 prednisone 1 mg tablet 4 mg (4 x 1 mg) PO QAM arthritis 01/26/24 90 days #360 tabs enoxaparin 60 mg/0.6 mL 60 mg (0.6 mL) subcut BID 5 days 05/22/24 subcutaneous syringe #6 mL warfarin 7.5 mg tablet (Jantoven) 7.5 mg PO DAILY@1600 #30 tabs 05/22/24 Results & Data (ED) Vital Signs Vital Signs - 24 hr 05/24/24 09:23 05/24/24 10:00 05/24/24 10:04 Temperature 36.5 C Temperature Source Oral Pulse Rate 139 H 125 H 91 H Pulse Rate from SpO2 Sensor Respiratory Rate 20 29 H Blood Pressure 82/56 L 107/80 Blood Pressure Mean 64 89 Pulse Oximetry 94 Sepsis Recent Fever Within 48 Hours No Sepsis New/Unexplained Change in Mental Status No Sepsis Action Taken by Nursing No Action Required 05/24/24 10:15 05/24/24 10:30 05/24/24 10:45 Temperature Temperature Source Pulse Rate 164 H 99 H 95 H Pulse Rate from SpO2 Sensor 88 72 Respiratory Rate 28 H 17 16 Blood Pressure Blood Pressure Mean Pulse Oximetry 100 100 Sepsis Recent Fever Within 48 Hours Sepsis New/Unexplained Change in Mental Status Sepsis Action Taken by Nursing 05/24/24 11:15 05/24/24 11:21 05/24/24 11:56 Temperature Temperature Source Pulse Rate 87 92 H Pulse Rate from SpO2 Sensor 86 Respiratory Rate 26 H 19 Blood Pressure 82/48 L 112/64 Blood Pressure Mean 56 81 Pulse Oximetry 94 98 Sepsis Recent Fever Within 48 Hours Sepsis New/Unexplained Change in Mental Status Sepsis Action Taken by Nursing 05/24/24 12:01 05/24/24 12:15 05/24/24 12:31 Temperature Temperature Source Pulse Rate 91 H 88 87 Pulse Rate from SpO2 Sensor 92 H Respiratory Rate 20 16 19 Blood Pressure 122/71 135/61 108/65 Blood Pressure Mean 85 85 83 Pulse Oximetry 100 96 Sepsis Recent Fever Within 48 Hours Sepsis New/Unexplained Change in Mental Status Sepsis Action Taken by Nursing 05/24/24 12:45 05/24/24 13:01 05/24/24 13:12 Temperature Temperature Source Pulse Rate 90 Pulse Rate from SpO2 Sensor 80 Respiratory Rate 32 H Blood Pressure 90/58 L 96/60 L Blood Pressure Mean 85 62 Pulse Oximetry 95 Sepsis Recent Fever Within 48 Hours Sepsis New/Unexplained Change in Mental Status Sepsis Action Taken by Nursing 05/24/24 13:24 05/24/24 13:27 05/24/24 13:30 Temperature Temperature Source Pulse Rate 91 H 94 H Pulse Rate from SpO2 Sensor 80 85 Respiratory Rate 21 17 Blood Pressure 117/65 Blood Pressure Mean 75 Pulse Oximetry 95 96 Sepsis Recent Fever Within 48 Hours Sepsis New/Unexplained Change in Mental Status Sepsis Action Taken by Nursing 05/24/24 13:45 05/24/24 13:45 05/24/24 13:45 Temperature Temperature Source Pulse Rate 98 H Pulse Rate from SpO2 Sensor 90 Respiratory Rate 19 Blood Pressure 135/84 135/84 Blood Pressure Mean 103 103 Pulse Oximetry 88 L Sepsis Recent Fever Within 48 Hours Sepsis New/Unexplained Change in Mental Status Sepsis Action Taken by Nursing 05/24/24 14:00 05/24/24 14:00 05/24/24 14:02 Temperature Temperature Source Pulse Rate 88 85 Pulse Rate from SpO2 Sensor 83 Respiratory Rate 13 Blood Pressure 142/77 H Blood Pressure Mean 109 Pulse Oximetry 99 Sepsis Recent Fever Within 48 Hours Sepsis New/Unexplained Change in Mental Status Sepsis Action Taken by Nursing 05/24/24 14:15 05/24/24 14:15 05/24/24 14:15 Temperature Temperature Source Pulse Rate Pulse Rate from SpO2 Sensor Respiratory Rate Blood Pressure 135/83 135/83 135/83 Blood Pressure Mean 111 111 111 Pulse Oximetry Sepsis Recent Fever Within 48 Hours Sepsis New/Unexplained Change in Mental Status Sepsis Action Taken by Nursing 05/24/24 14:15 05/24/24 14:30 05/24/24 14:39 Temperature Temperature Source Pulse Rate 79 81 Pulse Rate from SpO2 Sensor 76 82 Respiratory Rate 17 15 Blood Pressure 140/83 Blood Pressure Mean 107 Pulse Oximetry 95 95 Sepsis Recent Fever Within 48 Hours Sepsis New/Unexplained Change in Mental Status Sepsis Action Taken by Nursing 05/24/24 14:45 05/24/24 14:45 05/24/24 14:45 Temperature Temperature Source Pulse Rate Pulse Rate from SpO2 Sensor Respiratory Rate Blood Pressure 126/83 126/83 126/83 Blood Pressure Mean 94 94 94 Pulse Oximetry Sepsis Recent Fever Within 48 Hours Sepsis New/Unexplained Change in Mental Status Sepsis Action Taken by Nursing 05/24/24 14:45 05/24/24 15:00 05/24/24 15:00 Temperature Temperature Source Pulse Rate 83 Pulse Rate from SpO2 Sensor 88 Respiratory Rate 22 Blood Pressure 126/67 126/67 Blood Pressure Mean 99 99 Pulse Oximetry 97 Sepsis Recent Fever Within 48 Hours Sepsis New/Unexplained Change in Mental Status Sepsis Action Taken by Nursing 05/24/24 15:00 05/24/24 15:06 05/24/24 15:15 Temperature Temperature Source Pulse Rate 88 80 Pulse Rate from SpO2 Sensor 83 82 Respiratory Rate 14 19 Blood Pressure 125/60 Blood Pressure Mean 73 Pulse Oximetry 95 97 Sepsis Recent Fever Within 48 Hours Sepsis New/Unexplained Change in Mental Status Sepsis Action Taken by Nursing 05/24/24 15:21 05/24/24 15:30 05/24/24 15:30 Temperature Temperature Source Pulse Rate 86 93 H Pulse Rate from SpO2 Sensor 86 85 Respiratory Rate 8 L 13 Blood Pressure 104/59 L Blood Pressure Mean 62 Pulse Oximetry 97 96 Sepsis Recent Fever Within 48 Hours Sepsis New/Unexplained Change in Mental Status Sepsis Action Taken by Nursing 05/24/24 16:00 05/24/24 16:00 05/24/24 16:00 Temperature Temperature Source Pulse Rate 85 Pulse Rate from SpO2 Sensor 81 Respiratory Rate 16 Blood Pressure 109/68 109/68 Blood Pressure Mean 78 78 Pulse Oximetry 96 Sepsis Recent Fever Within 48 Hours Sepsis New/Unexplained Change in Mental Status Sepsis Action Taken by Nursing 05/24/24 16:02 05/24/24 16:16 05/24/24 16:16 Temperature Temperature Source Pulse Rate 81 Pulse Rate from SpO2 Sensor 102 H Respiratory Rate 20 Blood Pressure 98/67 L 98/67 L Blood Pressure Mean 81 81 Pulse Oximetry 95 Sepsis Recent Fever Within 48 Hours Sepsis New/Unexplained Change in Mental Status Sepsis Action Taken by Nursing 05/24/24 16:23 05/24/24 16:30 05/24/24 16:38 Temperature Temperature Source Pulse Rate 86 93 H Pulse Rate from SpO2 Sensor 93 H Respiratory Rate 22 24 Blood Pressure 124/77 Blood Pressure Mean 106 Pulse Oximetry 95 Sepsis Recent Fever Within 48 Hours Sepsis New/Unexplained Change in Mental Status Sepsis Action Taken by Nursing 05/24/24 16:45 05/24/24 16:45 05/24/24 16:45 Temperature Temperature Source Pulse Rate Pulse Rate from SpO2 Sensor Respiratory Rate Blood Pressure 116/76 116/76 116/76 Blood Pressure Mean 85 85 85 Pulse Oximetry Sepsis Recent Fever Within 48 Hours Sepsis New/Unexplained Change in Mental Status Sepsis Action Taken by Nursing 05/24/24 16:50 Temperature Temperature Source Pulse Rate 94 H Pulse Rate from SpO2 Sensor Respiratory Rate Blood Pressure Blood Pressure Mean Pulse Oximetry Sepsis Recent Fever Within 48 Hours Sepsis New/Unexplained Change in Mental Status Sepsis Action Taken by Long Term Medications Current Medication List: was personally reviewed by me Laboratory Data Attestation: I reviewed the patient's lab results. 05/24/24 10:00 05/24/24 11:06 Lab Results 05/24/24 05/24/24 05/24/24 Range/Units 10:00 10:37 10:43 WBC 22.71 H (4.8-10.8) K/ul RBC 4.22 L (4.70-6.10) M/uL Hgb 12.7 L (14.0-18.0) g/dl Hct 39.1 L (42.0-52.0) % MCV 92.7 (80.0-100.0) fL MCH 30.1 (25.0-34.0) pg MCHC 32.5 (32.0-36.0) g/dL RDW Std Deviation 54.5 H (36.4-46.3) fL RDW Coeff of Greyson 16.6 H (11.5-14.5) % Plt Count 490 H (130-400) K/uL MPV 10.4 (9.4-12.4) fL Immature Gran % (Auto) 0.5 % Neut % (Auto) 84.8 % Lymph % (Auto) 5.5 % [place] % (Auto) 8.9 % Eos % (Auto) 0.0 % Baso % (Auto) 0.3 % Neut # (Auto) 19.26 H (1.40-6.50) K/uL Lymph # (Auto) 1.25 (1.20-3.40) K/uL [place] # (Auto) 2.01 H (0.11-0.59) K/uL Eos # (Auto) 0.01 (0.00-0.50) K/uL Baso # (Auto) 0.06 (0.00-0.20) K/uL Immature Gran # (Auto) 0.12 (0.01-0.20) K/uL PT Cancelled INR Cancelled APTT Cancelled PTT Ratio Cancelled Sodium 131 L (136-145) mmol/L Potassium TNP Chloride 90 L (98-107) mmol/L Carbon Dioxide 23 (21-32) mmol/L Anion Gap 18 H (3-11) BUN 70 H (6-23) mg/dl Creatinine 5.28 H* (0.6-1.4) mg/dl Est Cr Clr Drug Dosing 10.2 ml/min eGFR 10.20 BUN/Creatinine Ratio 13.3 (10-20) Glucose 220 H (70-99(Fasting)) mg/dl Lactate 6.3 H* (0.4-2.0) mmol/L Calcium 10.5 H (8.6-10.3) mg/dl Magnesium 2.5 H (1.7-2.4) mg/dl Total Bilirubin 0.6 (0.2-1.0) mg/dl Direct Bilirubin TNP AST TNP ALT 22 (7-52) U/L Alkaline Phosphatase 143 H (34-104) U/L Troponin I High Sens 15.6 (0-20) pg/ml Total Protein 8.0 (6.0-8.3) gm/dl Albumin 3.8 (3.4-5.0) gm/dl Procalcitonin Cancelled 0.55 H Random Cortisol 29.77 mcg/dl Urine Color Yellow Urine Appearance Clear (Clear) Urine pH 6.0 (4.5-7.5) Ur Specific [place] 1.020 (1.000-1.030) Urine Protein 2+ H (Negative) Urine Glucose (UA) Negative (Negative) Urine Ketones Negative (Negative) Urine Blood 1+ H (Negative) Urine Nitrite Negative (Negative) Urine Bilirubin Negative (Negative) Urine Urobilinogen Negative (Negative) Ur Leukocyte Esterase 3+ H (Negative) Urine RBC 0-2 (0-2) /hpf Urine WBC >50 H (0-5) /hpf Ur Epithelial Cells 0-2 (0-2) /hpf Calcium Oxalate Crystal Present A (None Prsent) Urine Bacteria None Seen (None Seen) Urine Yeast Present A (None Prsent) 05/24/24 05/24/24 05/24/24 Range/Units 11:06 11:56 15:17 WBC (4.8-10.8) K/ul RBC (4.70-6.10) M/uL Hgb (14.0-18.0) g/dl Hct (42.0-52.0) % MCV (80.0-100.0) fL MCH (25.0-34.0) pg MCHC (32.0-36.0) g/dL RDW Std Deviation (36.4-46.3) fL RDW Coeff of Greyson (11.5-14.5) % Plt Count (130-400) K/uL MPV (9.4-12.4) fL Immature Gran % (Auto) % Neut % (Auto) % Lymph % (Auto) % [place] % (Auto) % Eos % (Auto) % Baso % (Auto) % Neut # (Auto) (1.40-6.50) K/uL Lymph # (Auto) (1.20-3.40) K/uL [place] # (Auto) (0.11-0.59) K/uL Eos # (Auto) (0.00-0.50) K/uL Baso # (Auto) (0.00-0.20) K/uL Immature Gran # (Auto) (0.01-0.20) K/uL PT 30.3 H INR 3.1 H APTT 41 H PTT Ratio 1.5 Sodium (136-145) mmol/L Potassium 5.3 H Chloride (98-107) mmol/L Carbon Dioxide (21-32) mmol/L Anion Gap (3-11) BUN (6-23) mg/dl Creatinine (0.6-1.4) mg/dl Est Cr Clr Drug Dosing ml/min eGFR BUN/Creatinine Ratio (10-20) Glucose (70-99(Fasting)) mg/dl Lactate 6.8 H* 4.0 H* (0.4-2.0) mmol/L Calcium (8.6-10.3) mg/dl Magnesium (1.7-2.4) mg/dl Total Bilirubin (0.2-1.0) mg/dl Direct Bilirubin 0.3 H AST 16 ALT (7-52) U/L Alkaline Phosphatase (34-104) U/L Troponin I High Sens (0-20) pg/ml Total Protein (6.0-8.3) gm/dl Albumin (3.4-5.0) gm/dl Procalcitonin Random Cortisol mcg/dl Urine Color Urine Appearance (Clear) Urine pH (4.5-7.5) Ur Specific [place] (1.000-1.030) Urine Protein (Negative) Urine Glucose (UA) (Negative) Urine Ketones (Negative) Urine Blood (Negative) Urine Nitrite (Negative) Urine Bilirubin (Negative) Urine Urobilinogen (Negative) Ur Leukocyte Esterase (Negative) Urine RBC (0-2) /hpf Urine WBC (0-5) /hpf Ur Epithelial Cells (0-2) /hpf Calcium Oxalate Crystal (None Prsent) Urine Bacteria (None Seen) Urine Yeast (None Prsent) Administered Medications Parenteral Electrolytes (Plasma-Lyte A Ph 7.4) 1,000 mls @ 125 mls/hr IV .Q8H STEVEN Stop: 05/25/24 13:29 Last Admin: 05/24/24 14:21 Dose: 125 mls/hr Documented By: SOPHIA Discontinued Medications Hydrocortisone Sodium Succinate (Hydrocortisone Sod Succinate 100 Mg/2 Ml Vial) 100 mg IV NOW STA Stop: 05/24/24 12:22 Last Admin: 05/24/24 12:38 Dose: 100 mg Documented By: SOPHIA Sodium Chloride (Nss) 500 mls @ 999 mls/hr IV .Q31M STEVEN Stop: 05/24/24 10:45 Last Infusion: 05/24/24 11:55 Dose: Infused Documented By: Admin: 05/24/24 10:17 Dose: 999 mls/hr Documented By: ARS Sodium Chloride (Nss) 1,000 mls @ 999 mls/hr IV .Q1H1M STEVEN Stop: 05/24/24 11:15 Last Infusion: 05/24/24 11:54 Dose: Infused Documented By: Admin: 05/24/24 10:17 Dose: 999 mls/hr Documented By: ARS Sodium Chloride (Nss) 1,000 mls @ 999 mls/hr IV .Q1H1M ONE Stop: 05/24/24 11:35 Last Infusion: 05/24/24 12:43 Dose: Infused Documented By: Admin: 05/24/24 10:50 Dose: 999 mls/hr Documented By: ARS Piperacillin Sod/Tazobactam Sod (Zosyn) 4.5 gm in 100 mls @ 200 mls/hr IV NOW ONE; Protocol Stop: 05/24/24 11:04 Last Infusion: 05/24/24 11:54 Dose: Infused Documented By: Admin: 05/24/24 10:50 Dose: 200 mls/hr Documented By: ELLIS Pantoprazole Sodium (Protonix) 40 mg in 10 mls @ 5 mls/min IV NOW ONE Stop: 05/24/24 11:23 Last Admin: 05/24/24 11:50 Dose: 5 mls/min Documented By: YINKAK Prochlorperazine (Compazine) 1 mls @ 1 mls/min IV ONE ONE Stop: 05/24/24 11:23 Last Admin: 05/24/24 11:35 Dose: Not Given Documented By: BMK Parenteral Electrolytes (Plasma-Lyte A Ph 7.4) 500 mls @ 999 mls/hr IV .Q31M ONE Stop: 05/24/24 13:52 Last Infusion: 05/24/24 14:16 Dose: Infused Documented By: Admin: 05/24/24 13:37 Dose: 999 mls/hr Documented By: BMK Imaging Data Radiologist's Impression: Chest/Abdomen X-ray 05/24/24 10:10 AP CHEST WITH ABDOMINAL SERIES CLINICAL HISTORY: Vomiting. Atypical chest pain. FINDINGS: 2 AP upright chest radiographs are compared to chest x-ray and chest CT dated 05/17/2024. The patient is status post midline sternotomy. The heart is enlarged noting atherosclerotic calcification of the thoracic aorta. The pulmonary vasculature is noncongested. Emphysema and chronic interstitial thickening is similar to previous. There is mild bibasilar scarring/atelectasis. No airspace consolidation or pleural effusion is identified. No pneumothorax is seen. The skeletal structures are osteopenic. The bony thorax is grossly intact. Supine and decubitus abdominal radiographs are correlated with abdominal CT dated 05/08/2024. Suture material projects over the right midabdomen and an ostomy projects over the left midabdomen. Numerous surgical clips and suture material are also seen in the pelvis. There is gaseous distention of several small bowel loops which measure up to 5 cm in diameter. Air-fluid levels are noted on the decubitus image, and the appearance favors a small bowel obstruction. No evidence of intraperitoneal free air is seen on the decubitus image. There are no abnormal abdominal calcifications. Advanced atherosclerotic calcification is seen in the abdominal aorta and iliac vessels. The lumbosacral spine and bony pelvis appear intact. There is moderate lumbosacral spondylosis. IMPRESSION: 1. Cardiomegaly and emphysema with no active disease in the chest. 2. There is evidence of small bowel obstruction. 3. Postsurgical change an ostomy as above. ACT 112: Negative or not required by law. Electronically signed by: Demond Caceres M.D. 05/24/2024 12:18 PM Abdomen/Pelvis CT 05/24/24 12:37 CT SCAN OF THE ABDOMEN AND PELVIS WITHOUT IV CONTRAST CLINICAL HISTORY: Sepsis. COMPARISON STUDY: Abdominal CT dated 05/20/2024. Abdominal radiographs dated 05/24/2024. TECHNIQUE: CT scan of the abdomen and pelvis is performed from the lung bases to the proximal femora. Images are reviewed in the axial, sagittal, and coronal planes. IV contrast was not administered for this examination as per the referring clinician. Note that the examination was performed in suboptimal fashion without oral and IV contrast. There is streak artifact from the arms which could not be elevated of the abdomen, as well as motion artifact. A dose lowering technique was utilized adhering to the principles of ALARA. FINDINGS: Lung bases: The patient is status post midline sternotomy. The heart is markedly enlarged and without pericardial effusion. The coronary arteries are densely calcified. Emphysematous changes observed. Mild patchy airspace consolidation is seen at both lung bases. No pleural effusion is identified. Liver: The unenhanced liver is normal in size, contour, and attenuation. There is no intrahepatic biliary ductal dilatation. Scattered hepatic cysts measure up to 3 cm. Gallbladder: Unremarkable. Spleen: Normal in size and attenuation. Pancreas: The unenhanced pancreas is mildly atrophic and grossly unremarkable. Adrenal glands: Unremarkable. Kidneys: The unenhanced kidneys are normal in size and without hydronephrosis. Renovascular calcifications are seen bilaterally. A 3 mm nonobstructing calculus is suggested in the left upper pole. There is no evidence of contour deforming renal mass lesion. Abdominal vasculature: There is advanced atherosclerotic calcification and ectasia of the abdominal aorta. 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 An ileal conduit/urostomy is seen in the right lower quadrant. The proximal small bowel loops are mildly dilated and fluid-filled measuring up to 3.2 cm in diameter. There are numerous matted loops of small bowel in the pelvis, in the distal small bowel/colon are decompressed. No discrete transition point is identified. No pneumatosis intestinalis or portal venous gas is seen. Peritoneum: There is no intraperitoneal free air or abdominal ascites. Lymphadenopathy: None. Pelvic viscera: There is postsurgical change from cystectomy and prostatectomy. Skeletal structures: The skeletal structures are osteopenic. There is mild lumbosacral spondylosis. No lytic or blastic lesions are seen. IMPRESSION: 1. Significantly suboptimal examination without oral and IV contrast. There is also streak and motion artifact. 2. There is postsurgical change from cystectomy and prostatectomy with right lower quadrant ileal conduit/urostomy, as well as proctocolectomy with left lower quadrant colostomy. 3. There are mildly dilated and fluid-filled loops of proximal small bowel, with matted small bowel loops in the pelvis. The distal small bowel and colon are decompressed and this may represent a low-grade/partial obstruction. A discrete transition point/high grade obstruction is not seen. Clinical correlation will be essential. 4. Cardiomegaly and emphysema. 5. Mild patchy airspace consolidation is seen at the lung bases. Correlate clinically for evidence of pneumonia/aspiration pneumonitis. Radiographic follow-up to resolution is recommended. 6. Additional findings as above. ACT 112: Negative or not required by law. Electronically signed by: Demond Caceres M.D. 05/24/2024 1:[address] 05/24/24 12:37 CT chest diagnostic wo con CLINICAL HISTORY: sepsis, ?PNA/aspiration TECHNIQUE: Multidetector row helical CT of the chest was performed. Coronal and sagittal reformations were obtained. Automated dose lowering techniques and/or adjustment according to patient size were utilized for this exam. CT DOSE: 615.8 mGy.cm Comparison: Comparison is made to CT chest 05/17/2024 FINDINGS: Lungs and pleura: Diffuse centrilobular emphysema is seen most prominent in the upper lobes. Groundglass opacities are seen in the bilateral lower lungs. There is a 4 mm nodule in the left upper lobe (series 4 image 110) Heart and pericardium: Cardiomegaly is seen with biatrial enlargement. Vessels: Postsurgical changes of CABG. Pulmonary hypertension measures 35 mm. Mediastinum and tatyana: Esophageal patch velocity and fluid filling is noted. Chest wall and lower neck: Unremarkable. Abdomen: For findings below the diaphragm, please refer to CT of the abdomen dated the same. Bones: Degenerative changes in the thoracic spine. IMPRESSION: Ground glass opacities in bilateral lower lungs compatible with pneumonia/aspiration. ACT 112: Negative or not required by law. Electronically signed by: Iam Cabrera M.D. 05/24/2024 1:08 PM KUB X-Ray 05/24/24 16:31 XR KUB/Abdomen 1 view CLINICAL HISTORY: confirm NGT placement TECHNIQUE: 1 view of the abdomen was obtained. Comparison: Comparison is made to abdomen radiographs 05/24/2024 FINDINGS: Median sternotomy wires are seen. Enteric tube terminates below the diaphragm but the side-port lies above the diaphragm. Lung bases are unremarkable. The osseous structures are grossly unremarkable. The bowel gas pattern is nonobstructive. Small stool burden is seen. IMPRESSION: Enteric tube side-port is above the diaphragm can be advanced approximately 5 cm for improved positioning. ACT 112: Negative or not required by law. Electronically signed by: Iam Cabrera M.D. 05/24/2024 4:51 PM Discharge Plan Visit Data Chief Complaint: Vomiting Stated Complaint: CHEST PAIN ED Provider: Reynaldo Johnson Discharge Problem: Nausea & vomiting, Acute dehydration, SBO (small bowel obstruction), Acute renal failure (ARF), Sepsis Forms Stand Alone Forms: My [facility] Prescriptions Prescriptions: No Action tamsulosin 0.4 mg capsule 0.4 mg PO QAM rosuvastatin [Crestor] 20 mg tablet 20 mg PO HS Qty: 90 3RF prednisone 1 mg tablet 4 mg PO QAM 90 Days Qty: 360 1RF calcium carbonate 500 mg calcium (1,250 mg) Tablet,Chewable 500 mg PO Q2H PRN (Reason: indigestion ) lisinopril 5 mg Tablet 5 mg PO DAILY metoprolol succinate 50 mg tablet extended release 24 hr 50 mg PO Q12H amlodipine 10 mg tablet 5 mg PO QAM Hold Instructions: Provider's Order loperamide [Imodium A-D] 2 mg Capsule 2 mg PO BID ondansetron 4 mg tablet,disintegrating 4 mg PO Q8H PRN (Reason: Nausea) warfarin [Jantoven] 7.5 mg Tablet 7.5 mg PO DAILY@1600 Qty: 30 0RF enoxaparin 60 mg/0.6 mL Syringe 60 mg subcut BID 5 Days Qty: 6 0RF Referrals Referrals: Jael Yu MD [Physician] - Discharge Problem: Nausea & vomiting Qualifiers: Vomiting type: unspecified Qualified Code(s): R11.2 - Nausea with vomiting, unspecified Acute renal failure (ARF) Qualifiers: Acute renal failure type: unspecified Qualified Code(s): N17.9 - Acute kidney failure, unspecified Sepsis Qualifiers: Sepsis type: sepsis due to unspecified organism Sepsis acute organ dysfunction status: with acute organ dysfunction Severe sepsis acute organ dysfunction type: acute renal failure Severe sepsis shock status: without septic shock
[2024-05-24] MEDS: SODIUM CHLORIDE 0.9% 1,000 ML IV SCH (10:17)
[2024-05-24] MEDS: SODIUM CHLORIDE 0.9% 500 ML IV SCH (10:17)
[2024-05-24 10:32] LABS: Basophils # (auto) 0.06 K/uL (0.00-0.20); Basophils % (auto) 0.3 %; Eosinophils # (auto) 0.01 K/uL (0.00-0.50); Hematocrit (blood only) 39.1 % (42.0-52.0); Hemoglobin 12.7 g/dl (14.0-18.0); Immature Granulocytes # (auto) 0.12 K/uL (0.01-0.20); Immature Granulocytes % (auto) 0.5 %; Lymphocytes # (auto) 1.25 K/uL (1.20-3.40); Lymphocytes % (auto) 5.5 %; Mean Corpuscular Hemoglobin 30.1 pg (25.0-34.0); Mean Corpuscular Hgb Conc 32.5 g/dL (32.0-36.0); Mean Corpuscular Volume 92.7 fL (80.0-100.0); Mean Platelet Volume 10.4 fL (9.4-12.4); Monocytes # (auto) 2.01 K/uL (0.11-0.59); Monocytes % (auto) 8.9 %; Neutrophils # (auto) 19.26 K/uL (1.40-6.50); Neutrophils % (auto) 84.8 %; Platelet Count 490 K/uL (130-400); RDW Coefficient of Variation 16.6 % (11.5-14.5); RDW Standard Deviation 54.5 fL (36.4-46.3); Red Blood Count 4.22 M/uL (4.70-6.10); White Blood Count 22.71 K/ul (4.8-10.8)
[2024-05-24 10:45] LABS: Alanine Aminotransferase 22 U/L (7-52); Albumin Level 3.8 gm/dl (3.4-5.0); Alkaline Phosphatase 143 U/L (34-104); Anion Gap 18 (3-11); BUN Creatinine Ratio 13.3 (10-20); Bilirubin,Total 0.6 mg/dl (0.2-1.0); Blood Urea Nitrogen 70 mg/dl (6-23); Calcium 10.5 mg/dl (8.6-10.3); Carbon Dioxide 23 mmol/L (21-32); Chloride 90 mmol/L (98-107); Creatinine Clr Calc Pharmacy 10.2 ml/min; Glucose 220 mg/dl (70-99(Fasting)); Magnesium 2.5 mg/dl (1.7-2.4); Sodium 131 mmol/L (136-145)
[2024-05-24 10:46] LABS: Troponin I High Sensitivity 15.6 pg/ml (0-20)
[2024-05-24] MEDS: PIPERACILLIN/TAZOBACTAM 4.5 GM/100 ML BAG IV ONE (10:50)
[2024-05-24] MEDS: SODIUM CHLORIDE 0.9% 1,000 ML IV ONE (10:50)
[2024-05-24 11:06] LABS: Appearance Urine Clear (Clear); Bilirubin Urine Negative (Negative); Blood Urine 1+ (Negative); Color Urine Yellow; Glucose Urine UA Negative (Negative); Ketones Urine Negative (Negative); Leukocyte Esterase Urine 3+ (Negative); Nitrite Urine Negative (Negative); Protein Urine 2+ (Negative); Urobilinogen Urine Negative (Negative)
[2024-05-24 11:15] LABS: Epithelial Cell Urine 0-2 /hpf (0-2); RBC Urine 0-2 /hpf (0-2)
[2024-05-24 11:16] LABS: Bacteria Urine None Seen (None Seen); Calcium Oxalate Crystals Urine Present (None Prsent); WBC Urine >50 /hpf (0-5)
[2024-05-24] MEDS: PROCHLORPERAZINE 1 ML IV ONE (11:35)
[2024-05-24 11:44] LABS: Bilirubin Direct 0.3 mg/dl (0-0.2); Potassium 5.3 mmol/L (3.5-5.1)
[2024-05-24] MEDS: PANTOprazole 40 MG/10 ML SYR IV ONE (11:50)
--- NOTE | 2024-05-24 12:12 | History & Physical Report ---
Date of Service May 24, 2024 Assessment & Plan (1) Sepsis: Plan: Sepsis,? Aspiration pneumonia versus GI translocation/SBO With 36 hours of cough, change in sputum production to dark/brown with increased sputum production, and nausea/vomiting increased ostomy output and chills Leukocytosis 22.71, neutrophilic predominance - PCT 0.55. NLR 15 Hypotensive 92/56 with elevated lactate on ER admission, BP 107/80 following 2.5 L fluid. 30 cc/kg goal 2007 cc met. Repeat lactate 6.8, remain elevated. Patient blood pressure has improved and now normalized to slightly before this draw. Additional 500 cc IV fluid given in addition to maintenance. Lactate trended. Abdomen remains soft and nontender on exam, CTA/P with evidence of mild SBO but with any evidence of mesenteric ischemia. Patient treated with azithromycin, and has prolonged QT will use doxycycline for atypical infection. MRSA nare is negative. BC pending UCx pending Sputum culture ordered Last UC 05/17/2024: Low colony counts 6000 CFU per cc of yeast, no speciation/sensitivities to follow. 05/08/2024 Klebsiella intermediate resistance to Unasyn and cefazolin resistant. CTchest with progressive opacities suspicious for pneumonia/aspiration Continue Zosyn/Doxy.With increased ostomy output x 2 days we will recheck C. difficile given recent admissions and multiple antibiotic courses At time of admission did also discuss patient's case/admission with Dr. Duvall [facility]. He is available by phone/text [phone]. If patient required surgical intervention, or family desires transfer to a facility for further care happy to accept and facilitate transfer. Discussed with family. Given his sepsis, hypotension, and illness they like to continue current treatment and stabilization at this time and see how he does specially as patient feels improved since arriving in the ER, and does not appear to require emergent surgical intervention at this time. Based on his progression and evidence of active transfer, or would pursue transfer if surgical intervention becomes indicated. She did have updates additional questions at time of bedside visit. (2) SBO (small bowel obstruction): Plan: Small bowel obstruction Nausea/vomiting worsening x 2 days Abdomen is soft, without rebound/involuntary guarding on exam Surgery consulted. NGT to LIS. Will follow. Exam reassuring. OK to admit. Appreciate recs. CTA/P:: Right knee exam contrast; mildly dilated and fluid-filled loops of small bowel. Decompressed distal small bowel and colon. Suspicious for low-grade/partial obstruction. No discrete transition point high-grade obstruction is present. N.p.o. IVFM (3) ARF (acute renal failure): Plan: Baseline creatinine approximately 1.2 Creatinine on admission 5.28 Oliguric x 24 hours gradually decreasing urine with profound volume contraction, nausea, vomiting. Suspect prerenal possible progression to ATN Has received sepsis dose fluids. N.p.o. for bowel obstruction. 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 Complicated postop course placed on TPN at discharge. TPN subsequently was continued 05/2024 after patient received discussion hospitalization [facility] provider at that time (5) Atrial fibrillation: Plan: A-fib on Coumadin, history of acquired hemophilia A EKG A-fib rate [id number]. QT 540. Branch block redemonstrated. Continue metoprolol. Converted to Patient on bridge Lovenox due to subtherapeutic Coumadin at time of last discharge Admitting INR 3.1. Will be transition to Lovenox while n.p.o. 05/25 Warfarin held while n.p.o., transition to Lovenox 1 mg/kg twice daily HFrEF, CAD History of CABG, also with peripheral vascular disease and multiple stents Last EF 50-54% pulmonary hypertension Continue metoprolol Lisinopril held for ARF Anticoagulation continuedtroponin is not elevated on admission Plan Chronic issues: Cystectomy: Urostomy in place. Will have chronic kidney infected appearing UAs PMR: Steroid-dependent, on 4 mg of prednisone daily. Patient stress dosed on admit, random cortisol pending Anemia of chronic disease: Baseline hemoglobin last around 9.6, hemoglobin 12.7 on admission. Hemoconcentrated. Trended. No indication for transfusion at this time DVT prophylaxis: Anticoagulated, transition to Lovenox while n.p.o. Disposition: PCU CODE STATUS: DNR/DNI. This represents a change from patient's prior CODE STATUS of full code. Discussed with patient at bedside. He reports in the event of a cardiac or pulmonary arrest he would not want heroic measures and would want to be allowed to pass at that point. He would be okay with intubation in some circumstances for airway protection or declining respiratory status. 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 Hospital courses has been complicated by very poor nutrition to which patient had intermittently been receiving TPN, PICC was removed 05/22 and TPN dc/ed after discussion between [facility] oncologist, primary team, and patient at that time. Patient presents emergency department 05/20/2024 weakness, fever, acute worsened diarrhea x36 hours, and worsened cough, chills, increased sputum production with change in quality to dark yellow/green/brown over the last 24 hours. He is hypotensive with an elevated lactate on arrival to the ER. On ER evaluation he was found to have a leukocytosis of 22 with neutrophilic predominance, creatinine of 5.28 from baseline 1.31, lactate of 6.3, BSG 220, UA with leukocyte esterase and high white blood cell counts without bacteria or nitrites, and sodium of 131. Patient was started empirically on Zosyn. Was given 2500 cc of IV fluids which meets sepsis 30 cc/kg goal of approximately 2000 cc. EKG A-fib with right bundle branch block, QTc 540. Cralos is seen at bedside. He reports for the last 36 hours he has had chills, increased weakness, increased sputum production and cough with a change in his sputum to a dark yellow/green/brown color in the last day. He feels very tired and thirsty but has been nauseous with vomiting times including 3 times this morning. No blood, emesis is a dark green color. He denies any abdominal pain but does have some discomfort in his throat after vomiting. No hematemesis. He reports output into his everting ostomy has been increased in liquid and dark g reen in color. His urostomy output has been a cloudy dark yellow, output has decreased in the last day compared to normal. He does not have any flank pain. He has noticed a fever but has felt feverish with chills. Denies chest pain chest pressure. He is not short of breath. Medical History: Reviewed Medications: Reviewed Surgical History: Reviewed Family history: Reviewed Allergies: Reviewed Social History: Reviewed Code Status: DNR/DNI. Discussed with the patient and his at bedside this is a change from prior CODE STATUS. Allergies Allergy/AdvReac Type Severity Reaction Status Date / Time nitrofurantoin Allergy Intermediate FEVER Verified 05/04/24 15:21 losartan Allergy Mild Rash Verified 05/04/24 15:21 meperidine AdvReac Intermediate SEVERE Verified 05/04/24 15:21 NAUSEA AND VOMITING spironolactone AdvReac Intermediate gynecomasti Verified 05/04/24 15:21 a Home Medications Medication Instructions Recorded Confirmed Type rosuvastatin 20 mg tablet (Crestor) 20 mg PO HS #90 tabs 08/09/23 05/24/24 Rx tamsulosin 0.4 mg capsule 0.4 mg PO QAM 01/12/24 05/24/24 History prednisone 1 mg tablet 4 mg (4 x 1 mg) PO QAM arthritis 01/26/24 05/24/24 Rx 90 days #360 tabs amlodipine 10 mg tablet 5 mg PO QAM 04/11/24 05/24/24 History calcium carbonate 500 mg PO Q2H PRN indigestion 04/11/24 05/24/24 History lisinopril 5 mg tablet 5 mg PO DAILY 04/11/24 05/24/24 History metoprolol succinate 50 mg 50 mg PO Q12H 04/11/24 05/24/24 History tablet,extended release 24 hr loperamide 2 mg capsule (Imodium 2 mg PO BID 05/08/24 05/24/24 History A-D) ondansetron 4 mg disintegrating 4 mg PO Q8H PRN Nausea 05/08/24 05/24/24 History tablet enoxaparin 60 mg/0.6 mL 60 mg (0.6 mL) subcut BID 5 days 05/22/24 05/24/24 Rx subcutaneous syringe #6 mL warfarin 7.5 mg tablet (Jantoven) 7.5 mg PO DAILY@1600 #30 tabs 05/22/24 05/24/24 Rx Past Med/Surg History Problem List (Updated 05/24/24 @ 13:45 by Isma Gibbs MD) ARF (acute renal failure) SBO (small bowel obstruction) Benign essential HTN Acute diarrhea Anemia (Acute) Hyponatremia (Acute) Fever (Acute) Generalized weakness (Acute) Pneumonia Urinary tract infection History of pulmonary embolism Per 12/02/[address] scan (Eliquis had been on hold x 3-4 days; failed Eliquis therapy per records) - Patient was to start Lovenox 12/02/23 but did not citrus picker script until 12/05/23 per heme office Atrial fibrillation Was on Eliquis - currently on hold (started holding 11/29/23 due to upcoming urology biopsy but PE was noted on 12/02/[address]- patient subsequently started on Lovenox) Fever (Acute) History of total cystectomy (Acute) History of bladder cancer (Acute) Vomiting (Acute) Sepsis (Acute) Acute dehydration (Acute) MERRICK (acute kidney injury) (Acute) Sepsis Anemia Nausea & vomiting Coagulopathy (Acute) Acute hyponatremia (Acute) Hematuria (Acute) Weakness (Acute) Hyponatremia Pulmonary embolism dx 12/02/23 on Eliquis History of prostate cancer Port-A-Cath in place (09/14/22) Port placement with fluoroscopy. Dr. Mccormack Bladder carcinoma (Chronic) 07/2022- hx chemo History of left inguinal hernia repair (05/24/22) Recurrent left inguinal hernia repair with mesh Dr. Mccormack Atrial fibrillation Was on Eliquis - currently on hold (started holding 11/29/23 due to upcoming urology biopsy but PE was noted on 12/02/[address]- patient subsequently started on Lovenox) Polymyalgia rheumatica Recurrent left inguinal hernia Mixed hyperlipidemia Peripheral arterial disease - Status post stenting of bilateral superficial femoral [id number] - Status post atherectomy and angioplasty and stenting of right SFA 2016 - S/p atherectomy and drug-coated balloon angioplasty right SFA January 2020 - S/p right femoral-popliteal bypass April 2021 Chronic HFrEF (heart failure with reduced ejection fraction) EF 50-54% 03/24/23 echo Primary hypertension Urethral stricture Coronary artery disease s/p CABG x 3 in 2012 (HEALY graft to LAD, saphenous vein graft to the obtuse marginal, saphenous vein graft to the right coronary artery and posterior descending artery) Blood in the urine Medical History Mixed hyperlipidemia Hypertension Peripheral arterial disease - Status post stenting of bilateral superficial femoral [id number] - Status post atherectomy and angioplasty and stenting of right SFA 2016 - S/p atherectomy and drug-coated balloon angioplasty right SFA January 2020 - S/p right femoral-popliteal bypass April 2021 Polymyalgia rheumatica Hx of bladder cancer 07/2022, sx and chemo 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 Treated in [place]. Resolved at present MCFP (current) use of systemic steroids Pulmonary hypertension PASP 40-50 mmHg per 03/2023 ECHO COPD (chronic obstructive pulmonary disease) Suspected sleep apnea noted on 07/31/18 anesthesia consult; pt denies, "no device, no study done" Bifascicular block RBBB/LAFB (chronic) Carotid stenosis, bilateral s/p left CEA in 2016 <50% R and L carotid stenosis per 2021 carotid duplex, follows with [facility] vascular Ascending aortic aneurysm Fusiform dilation of the ascending thoracic aorta is stable from prior measuring 4.2 cm per 12/02/[address]; monitoring Tricuspid regurgitation severe- per 03/2023 ECHO Hx of motion sickness History of COVID-19 02/05/22, home test, not hosp; cough, headache, fever>called PCP, put on Paxlovid>resolved. Radiation cystitis hx Prostate cancer 2011 hx-had radioactive seeds placed, no sx. Surgical History History of removal of Port-a-Cath (06/30/23) Access Port Removal(Left) - Sanford Perez, DO, FACS Hx of cataract extraction rt./lt History of surgery TURBT 04/07/23 [facility] TURBT 11/2023 [facility] Status post carotid endarterectomy left 2017 Hx of appendectomy Hx of colonoscopy Hx of vascular surgery x2 stents placed in each lower extremity, Sharlene Hx of cystoscopy multiple, 08/01/18: LMA 4 last one in Jul 2022 Cystoscopy, TURBT medium- Terry Townsend MD S/P left inguinal hernia repair Status post cardiac surgery failed stress test>bypass surgery 2012, Sharlene, x3 vessels; f/u dr beckford History of biopsy of bladder Family History Sister Breast cancer Mother Diabetes Heart disease Other Asthma Cancer No family history of adverse response to anesthesia Denies family history of Ovarian cancer Prostate cancer Social History Smoking Status: Unknown if ever smoked Tobacco Type: Cigarettes packs per day: 1; Cigarettes Per Day: smoked 40 years; Second Hand Exposure: No; Do You Dip or Chew Tobacco: No; Hx Alcohol Use: Yes Alcohol type: beer Hx Substance Use: No Preferred Language: Ch[place] Communication Ability: Effective Communication Ability Comment: [place] Visual Impairment: No Limitations Hearing Ability: Normal Windows Server Support Technician Required: No Beliefs That Will Affect Care: None marital status: Current Living Situation: Spouse current occupational status: retired How many Children do You have: 2 Feels Safe at Home: Yes Childhood Exposure to Second-Hand Smoke: No caffeine: Yes during the past year weight has: remained stable Dental Care, Regularly: Yes Physical Activity Frequency: 3-4 Times per Week Seatbelt Use: always Sunscreen Use: Yes Assistive Devices: Hearing Aid - Bilateral Physical Exam Physical Exam: General: Patient lethargic initially in the ER. At time of waiting reassessment mentation greatly improved. Awakens easily and answers questions appropriately. HEENT: Atraumatic, normocephalic. Hearing grossly intact. Pupils equal and reactive to light. Mucous membranes dry Pulm: Diminished at the trace end expiratory use on forced inspiration, bibasilar trace crackles. No rales. No respiratory distress. Normal saturation on room air Cardiac: irir, + soft SM. Jugular vein flat Abdominal: Ostomy intact with increased output of liquid black/green material. Urostomy draining slightly cloudy dark yellow urine abdomen is soft and nontender to palpation and with no rebound/guarding on exam Extremities: Moves all extremities equally. Sensation intact in hands and feet asymmetry. Strength ankle dorsiflexion/plantarflexion 5/5 but fatigues easily. Results & Data Results & Data Vital Signs (Past 12 Hours) Vital Signs Temp Pulse Resp BP Pulse Ox 05/24/24 11:56 112/64 05/24/24 11:21 92 H 19 98 05/24/24 11:15 87 26 H 82/48 L 94 05/24/24 10:45 95 H 16 100 05/24/24 10:30 99 H 17 100 05/24/24 10:15 164 H 28 H 05/24/24 10:04 91 H 05/24/24 10:00 125 H 29 H 107/80 05/24/24 09:23 36.5 C 139 H 20 82/56 L 94 PG Care Time/CCT Total # of Minutes Spent Total Time Spent with Patient: Total time spent is greater than 50% in coordination of care (as documented) at patient's floor/unit and/or counseling patient: Coding Level of Care Code 39262 INT INP/OBS CARE 3/75MIN Diagnoses Sepsis A41.9 SBO (small bowel obstruction) K56.609 ARF (acute renal failure) N17.9 Hx of bladder cancer Z85.51 Atrial fibrillation I48.91
--- NOTE | 2024-05-24 12:20 | XRay Report ---
AP CHEST WITH ABDOMINAL SERIES CLINICAL HISTORY: Vomiting. Atypical chest pain. FINDINGS: 2 AP upright chest radiographs are compared to chest x-ray and chest CT dated 05/17/2024. The patient is status post midline sternotomy. The heart is enlarged noting atherosclerotic calcification of the thoracic aorta. The pulmonary vasculature is noncongested. Emphysema and chronic interstitial thicke janey is similar to previous. There is mild bibasilar scarring/atelectasis. No airspace consolidation or pleural effusion is identified. No pneumothorax is seen. The skeletal structures are osteopenic. T he bony thorax is grossly intact. Supine and decubitus abdominal radiographs are correlated with abdominal CT dated 05/08/2024. Suture m aterial projects over the right midabdomen and an ostomy projects over the left midabdomen. Numerous surgical clips and suture material are also seen in the pelvis. There is gaseous distention of severa l small bowel loops which measure up to 5 cm in diameter. Air-fluid levels are noted on the decubitus image, and the appearance favors a small bowel obstruction. No evidence of intraperitoneal free air is seen on the decubitus image. There are no abnormal abdominal calcifications. Advanced atherosclero tic calcification is seen in the abdominal aorta and iliac vessels. The lumbosacral spine and bony pe lvis appear intact. There is moderate lumbosacral spondylosis. IMPRESSION: 1. Cardiomegaly and emphysema with no active disease in the chest. 2. There is evidence of small bowel obstruction. 3. Postsurgical change an ostomy as above. ACT 112: Negative or not required by law. Electronically signed by: Demond Caceres M.D. 05/24/2024 12:18 PM
[2024-05-24] MEDS: HYDROCORTISONE SOD SUCCINATE 100 MG/2 ML VIAL IV STA (12:38)
[2024-05-24 12:40] LABS: INR 3.1 (0.9-1.1); Partial Thromboplastin Ratio 1.5; Partial Thromboplastin Time 41 Seconds (21-31); Prothrombin Time 30.3 Seconds (9.0-12.0)
--- NOTE | 2024-05-24 12:46 | Surgery Consultation ---
Date of Consultation May 24, 2024 Assessment & Plan (1) SBO (small bowel obstruction): This is an 83yM with a PMH significant for prostate ca with radiation, bladder ca recently s/p cystectomy with creation of ileal conduit and diverting ileostomy in mar 2024 at [facility], afib, heart failure, CAD, on coumadin who presents to the [facility] ED on 05/24/24 with weakness, nausea, and increased sputum production. Patient states he vomited yesterday and this AM. Today during his workup in the ER he was found to be in sepsis underwent a KUB which showed findings concerning for SBO, therefore we were consulted to weigh in. A CT abd/pelvis was requested and shows there are mildly dilated and fluid-filled loops of proximal small bowel, with matted small bowel loops in the pelvis. The distal small bowel and colon are decompressed and this may represent a low- grade/partial obstruction. A discrete transition point/high grade obstruction is not seen. It also shows concern for pneumonia/aspiration pneumonitis. Since his surgery in march he has been dealing with intermittent burping and feeling full. Of note patient's hospitalization at [facility] s/p cystectomy/ileal conduit/ileostomy surgery was complicated by concerns for SBO, therefore he did undergo an exlap, but apparently no SBO was found. He was then managed with an NGT and supportive care with improvement. His ostomy has always functioned and he cannot tell me if the output is increased today, although that is noted in ch art review. Patient was on TPN during his admission at [facility] a couple days ago while being treated for UTI and pneumonia, but is now off now since discharge. Otherwise patient today denies any CP, abdominal pain. + nausea, dry heaves, spitting up sputum, weakness. Patient's blood work in the ER is notable for an elevated WBC of 22, K 5.3, Lactate 6.8 and Cr of 5.2. He was initially hypotensive in the ER 80/50's now improved to SBPs 110s. Afebrile. On exam patient's abdomen is soft, non distended, and non tender. His ostomy is functioning and putting out copious amounts of liquid green/brown output. Urostomy functioning. Given findings on CT scan and his symptoms we would recommend a course of bowel rest IVF and an NGT to [facility] if he tolerates. If surgical intervention becomes indicated, given his recent extensive urologic surgical history he would likely benefit from tsfer to a tertiary center. IV abx for sepsis and concerns for infection. History of Present Illness History of Present Illness This is an 83yM with a PMH significant for prostate ca with radiation, bladder ca recently s/p cystectomy with creation of ileal conduit and diverting ileostomy in mar 2024 at [facility], afib, heart failure, CAD, on coumadin who presents to the [facility] ED on 05/24/24 with weakness, nausea, and increased sputum production. Patient states he vomited yesterday and this AM. Today during his workup in the ER he was found to be in sepsis underwent a KUB which showed findings concerning for SBO, therefore we were consulted to weigh in. A CT abd/pelvis was requested and shows there are mildly dilated and fluid-filled loops of proximal small bowel, with matted small bowel loops in the pelvis. The distal small bowel and colon are decompressed and this may represent a low- grade/partial obstruction. A discrete transition point/high grade obstruction is not seen. It also shows concern for pneumonia/aspiration pneumonitis. Since his surgery in march he has been dealing with intermittent burping and feeling full. Of note patient's hospitalization at [facility] s/p cystectomy/ileal conduit/ileostomy surgery was complicated by concerns for SBO, therefore he did undergo an exlap, but apparently no SBO was found. He was then managed with an NGT and supportive care with improvement. His ostomy has always functioned and he cannot tell me if the output is increased today, although that is noted in chart review. Patient was on TPN during his admission at [facility] a couple days ago while being treated for UTI and pneumonia, but is now off now since discharge. Otherwise patient today denies any CP, abdominal pain. + nausea, dry heaves, spitting up sputum, weakness. Allergies Allergy/AdvReac Type Severity Reaction Status Date / Time nitrofurantoin Allergy Intermediate FEVER Verified 05/04/24 15:21 losartan Allergy Mild Rash Verified 05/04/24 15:21 meperidine AdvReac Intermediate SEVERE Verified 05/04/24 15:21 NAUSEA AND VOMITING spironolactone AdvReac Intermediate gynecomasti Verified 05/04/24 15:21 a Home Medications Medication Instructions Recorded Confirmed Type rosuvastatin 20 mg tablet (Crestor) 20 mg PO HS #90 tabs 08/09/23 05/24/24 Rx tamsulosin 0.4 mg capsule 0.4 mg PO QAM 01/12/24 05/24/24 History prednisone 1 mg tablet 4 mg (4 x 1 mg) PO QAM arthritis 01/26/24 05/24/24 Rx 90 days #360 tabs amlodipine 10 mg tablet 5 mg PO QAM 04/11/24 05/24/24 History calcium carbonate 500 mg PO Q2H PRN indigestion 04/11/24 05/24/24 History lisinopril 5 mg tablet 5 mg PO DAILY 04/11/24 05/24/24 History metoprolol succinate 50 mg 50 mg PO Q12H 04/11/24 05/24/24 History tablet,extended release 24 hr loperamide 2 mg capsule (Imodium 2 mg PO BID 05/08/24 05/24/24 History A-D) ondansetron 4 mg disintegrating 4 mg PO Q8H PRN Nausea 05/08/24 05/24/24 History tablet enoxaparin 60 mg/0.6 mL 60 mg (0.6 mL) subcut BID 5 days 05/22/24 05/24/24 Rx subcutaneous syringe #6 mL warfarin 7.5 mg tablet (Jantoven) 7.5 mg PO DAILY@1600 #30 tabs 05/22/24 05/24/24 Rx Patient History Medical History Mixed hyperlipidemia Hypertension Peripheral arterial disease - Status post stenting of bilateral superficial femoral [id number] - Status post atherectomy and angioplasty and stenting of right SFA 2016 - S/p atherectomy and drug-coated balloon angioplasty right SFA January 2020 - S/p right femoral-popliteal bypass April 2021 Polymyalgia rheumatica Hx of bladder cancer 07/2022, sx and chemo 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 Treated in [place]. Resolved at present longterm (current) use of systemic steroids Pulmonary hypertension PASP 40-50 mmHg per 03/2023 ECHO COPD (chronic obstructive pulmonary disease) Suspected sleep apnea noted on 07/31/18 anesthesia consult; pt denies, "no device, no study done" Bifascicular block RBBB/LAFB (chronic) Carotid stenosis, bilateral s/p left CEA in 2017 <50% R and L carotid stenosis per 2021 carotid duplex, follows with [facility] vas cular Ascending aortic aneurysm Fusiform dilation of the ascending thoracic aorta is stable from prior measuring 4.2 cm per 12/02/[address]; monitoring Tricuspid regurgitation severe- per 03/2023 ECHO Hx of motion sickness History of COVID-19 02/05/22, home test, not hosp; cough, headache, fever>called PCP, put on Paxlovid>resolved. Radiation cystitis hx Prostate cancer 2011 hx-had radioactive seeds placed, no sx. Surgical History History of removal of Port-a-Cath (06/30/23) Access Port Removal(Left) - Sanford Perez, DO, FACS Hx of cataract extraction rt./lt History of surgery TURBT 04/07/23 [facility] TURBT 11/2023 [facility] Status post carotid endarterectomy left 2017 Hx of appendectomy Hx of colonoscopy Hx of vascular surgery x2 stents placed in each lower extremity, [place] Hx of cystoscopy multiple, 08/01/18: LMA 4 last one in Jul 2022 Cystoscopy, TURBT medium- Terry Townsend MD S/P left inguinal hernia repair Status post cardiac surgery failed stress test>bypass surgery 2012, [place], x3 vessels; f/u dr beckford History of biopsy of bladder Family History Sister Breast cancer Mother Diabetes Heart disease Other Asthma Cancer No family history of adverse response to anesthesia Denies family history of Ovarian cancer Prostate cancer Social History Smoking Status: Unknown if ever smoked Tobacco Type: Cigarettes packs per day: 1; Cigarettes Per Day: smoked 40 years; Second Hand Exposure: No; Do You Dip or Chew Tobacco: No; Hx Alcohol Use: Yes Alcohol type: beer Hx Substance Use: No Preferred Language: Croatian Communication Ability: Effective Communication Ability Comment: [place] Visual Impairment: No Limitations Hearing Ability: Normal Running Instructor Required: No Beliefs That Will Affect Care: None marital status: Current Living Situation: Spouse current occupational status: retired How many Children do You have: 2 Feels Safe at Home: Yes Childhood Exposure to Second-Hand Smoke: No caffeine: Yes during the past year weight has: remained stable Dental Care, Regularly: Yes Physical Activity Frequency: 3-4 Times per Week Seatbelt Use: always Sunscreen Use: Yes Assistive Devices: Hearing Aid - Bilateral Review of Systems Constitutional: + weakness Respiratory: + dyspnea coughing up phlegm Cardiovascular: no chest pain Gastrointestinal: + nausea, + vomiting and + problem repor reji (dry heaves); no abdominal pain and no bloating Physical Exam 2 Physical Exam: awake, intermittently resting Respiratory: + sputum production (brownish/cardoza). not on supplemental o2 Gastrointestinal (Abdomen): Inspection/Auscultation: abdomen not distended Percussion/Palpation: abdomen soft; abdomen nontender + ostomy with large amount of liquid gre en/brown stool in bag. urostomy functioning Results & Data Vital Signs (Past 12 Hours) Vital Signs Temp Pulse Resp BP Pulse Ox 05/24/24 11:56 112/64 05/24/24 11:21 92 H 19 98 05/24/24 11:15 87 26 H 82/48 L 94 05/24/24 10:45 95 H 16 100 05/24/24 10:30 99 H 17 100 05/24/24 10:15 164 H 28 H 05/24/24 10:04 91 H 05/24/24 10:00 125 H 29 H 107/80 05/24/24 09:23 97.7 F 139 H 20 82/56 L [address] chest diagnostic wo con CLINICAL HISTORY: sepsis, ?PNA/aspiration TECHNIQUE: Multidetector row helical CT of the chest was performed. Coronal and sagittal reformations were obtained. Automated dose lowering techniques and/or adjustment according to patient size were utilized for this exam. CT DOSE: 615.8 mGy.cm Comparison: Comparison is made to CT chest 05/17/2024 FINDINGS: Lungs and pleura: Diffuse centrilobular emphysema is seen most prominent in the upper lobes. Groundglass opacities are seen in the bilateral lower lungs. There is a 4 mm nodule in the left upper lobe (series 4 image 110) Heart and pericardium: Cardiomegaly is seen with biatrial enlargement. Vessels: Postsurgical changes of CABG. Pulmonary hypertension measures 35 mm. Mediastinum and tatyana: Esophageal patch velocity and fluid filling is noted. Chest wall and lower neck: Unremarkable. Abdomen: For findings below the diaphragm, please refer to CT of the abdomen dated the same. Bones: Degenerative changes in the thoracic spine. IMPRESSION: Ground glass opacities in bilateral lower lungs compatible with pneumonia/aspiration. ACT 112: Negative or not required by law. Electronically signed by: Iam Cabrera M.D. 05/24/2024 1:08 PM AP CHEST WITH ABDOMINAL SERIES CLINICAL HISTORY: Vomiting. Atypical chest pain. FINDINGS: 2 AP upright chest radiographs are compared to chest x-ray and chest CT dated 05/17/2024. The patient is status post midline sternotomy. The heart is enlarged noting atherosclerotic calcification of the thoracic aorta. The pulmonary vasculature is noncongested. Emphysema and chronic interstitial thickening is similar to previous. There is mild bibasilar scarring/atelectasis. No airspace consolidation or pleural effusion is identified. No pneumothorax is seen. The skeletal structures are osteopenic. The bony thorax is grossly intact. Supine and decubitus abdominal radiographs are correlated with abdominal CT dated 05/08/2024. Suture material projects over the right midabdomen and an ostomy projects over the left midabdomen. Numerous surgical clips and suture material are also seen in the pelvis. There is gaseous distention of several small bowel loops which measure up to 5 cm in diameter. Air-fluid levels are noted on the decubitus image, and the appearance favors a small bowel obstruction. No evidence of intraperitoneal free air is seen on the decubitus image. There are no abnormal abdominal calcifications. Advanced atherosclerotic calcification is seen in the abdominal aorta and iliac vessels. The lumbosacral spine and bony pelvis appear intact. There is moderate lumbosacral spondylosis. IMPRESSION: 1. Cardiomegaly and emphysema with no active disease in the chest. 2. There is evidence of small bowel obstruction. 3. Postsurgical change an ostomy as above. ACT 112: Negative or not required by law. Electronically signed by: Demond Caceres M.D. 05/24/2024 12:[address] SCAN OF THE ABDOMEN AND PELVIS WITHOUT IV CONTRAST CLINICAL HISTORY: Sepsis. COMPARISON STUDY: Abdominal CT dated 05/20/2024. Abdominal radiographs dated 05/24/2024. TECHNIQUE: CT scan of the abdomen and pelvis is performed from the lung bases to the proximal femora. Images are reviewed in the axial, sagittal, and coronal planes. IV contrast was not administered for this examination as per the referring clinician. Note that the examination was performed in suboptimal fashion without oral and IV contrast. There is streak artifact from the arms which could not be elevated of the abdomen, as well as motion artifact. A dose lowering technique was utilized adhering to the principles of ALARA. FINDINGS: Lung bases: The patient is status post midline sternotomy. The heart is markedly enlarged and without pericardial effusion. The coronary arteries are densely calcified. Emphysematous changes observed. Mild patchy airspace consolidation is seen at both lung bases. No pleural effusion is identified. Liver: The unenhanced liver is normal in size, contour, and attenuation. There is no intrahepatic biliary ductal dilatation. Scattered hepatic cysts measure up to 3 cm. Gallbladder: Unremarkable. Spleen: Normal in size and attenuation. Pancreas: The unenhanced pancreas is mildly atrophic and grossly unremarkable. Adrenal glands: Unremarkable. Kidneys: The unenhanced kidneys are normal in size and without hydronephrosis. Renovascular calcifications are seen bilaterally. A 3 mm nonobstructing calculus is suggested in the left upper pole. There is no evidence of contour deforming renal mass lesion. Abdominal vasculature: There is advanced atherosclerotic calcification and ectasia of the abdominal aorta. 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 An ileal conduit/urostomy is seen in the right lower quadrant. The proximal small bowel loops are mildly dilated and fluid-filled measuring up to 3.2 cm in diameter. There are numerous matted loops of small bowel in the pelvis, in the distal small bowel/colon are decompressed. No discrete transition point is identified. No pneumatosis intestinalis or portal venous gas is seen. Peritoneum: There is no intraperitoneal free air or abdominal ascites. Lymphadenopathy: None. Pelvic viscera: There is postsurgical change from cystectomy and prostatectomy. Skeletal structures: The skeletal structures are osteopenic. There is mild lumbosacral spondylosis. No lytic or blastic lesions are seen. IMPRESSION: 1. Significantly suboptimal examination without oral and IV contrast. There is also streak and motion artifact. 2. There is postsurgical change from cystectomy and prostatectomy with right lower quadrant ileal conduit/urostomy, as well as proctocolectomy with left lower quadrant colostomy. 3. There are mildly dilated and fluid-filled loops of proximal small bowel, with matted small bowel loops in the pelvis. The distal small bowel and colon are decompressed and this may represent a low-grade/partial obstruction. A discrete transition point/high grade obstruction is not seen. Clinical correlation will be essential. 4. Cardiomegaly and emphysema. 5. Mild patchy airspace consolidation is seen at the lung bases. Correlate clinically for evidence of pneumonia/aspiration pneumonitis. Radiographic fol low-up to resolution is recommended. 6. Additional findings as above. ACT 112: Negative or not required by law. Electronically signed by: Demond Caceres M.D. 05/24/2024 1:24 PM PG Care Time/CCT Total # of Minutes Spent Total Time Spent with Patient: Total time spent is greater than 50% in coordination of care (as documented) at patient's floor/unit and/or counseling patient: Coding Level of Care Code 65927 OP VST NEW MOD 45 MIN Diagnoses SBO (small bowel obstruction) K56.609
--- NOTE | 2024-05-24 13:10 | CT Scan Report ---
CT chest diagnostic wo con CLINICAL HISTORY: sepsis, ?PNA/aspiration TECHNIQUE: Multidetector row helical CT of the chest was performed. Coronal and sagittal reformations were obtained. Automated dose lowering techniques and/or adjustment according to patient size were u tilized for this exam. CT DOSE: 615.8 mGy.cm Comparison: Comparison is made to CT chest 05/17/2024 FINDINGS: Lungs and pleura: Diffuse centrilobular emphysema is seen most prominent in the upper lobes. Groundgl ass opacities are seen in the bilateral lower lungs. There is a 4 mm nodule in the left upper lobe (s eries 4 image 110) Heart and pericardium: Cardiomegaly is seen with biatrial enlargement. Vessels: Postsurgical changes of CABG. Pulmonary hypertension measures 35 mm. Mediastinum and tatyana: Esophageal patch velocity and fluid filling is noted. Chest wall and lower neck: Unremarkable. Abdomen: For findings below the diaphragm, please refer to CT of the abdomen dated the same. Bones: Degenerative changes in the thoracic spine. IMPRESSION: Ground glass opacities in bilateral lower lungs compatible with pneumonia/aspiration. ACT 112: Negative or not required by law. Electronically signed by: Iam Cabrera M.D. 05/24/2024 1:08 PM
--- NOTE | 2024-05-24 13:25 | CT Scan Report ---
CT SCAN OF THE ABDOMEN AND PELVIS WITHOUT IV CONTRAST CLINICAL HISTORY: Sepsis. COMPARISON STUDY: Abdominal CT dated 05/20/2024. Abdominal radiographs dated 05/24/2024. TECHNIQUE: CT scan of the abdomen and pelvis is performed from the lung bases to the proximal femora. Images are reviewed in the axial, sagittal, and coronal planes. IV contrast was not administered for this examination as per the referring clinician. Note that the examination was performed in suboptim al fashion without oral and IV contrast. There is streak artifact from the arms which could not be el evated of the abdomen, as well as motion artifact. A dose lowering technique was utilized adhering to the principles of ALARA. FINDINGS: Lung bases: The patient is status post midline sternotomy. The heart is markedly enlarged and without pericardial effusion. The coronary arteries are densely calcified. Emphysematous changes observed. M ild patchy airspace consolidation is seen at both lung bases. No pleural effusion is identified. Liver: The unenhanced liver is normal in size, contour, and attenuation. There is no intrahepatic benitez iary ductal dilatation. Scattered hepatic cysts measure up to 3 cm. Gallbladder: Unremarkable. Spleen: Normal in size and attenuation. Pancreas: The unenhanced pancreas is mildly atrophic and grossly unremarkable. Adrenal glands: Unremarkable. Kidneys: The unenhanced kidneys are normal in size and without hydronephrosis. Renovascular calcifica tions are seen bilaterally. A 3 mm nonobstructing calculus is suggested in the left upper pole. There is no evidence of contour deforming renal mass lesion. Abdominal vasculature: There is advanced atherosclerotic calcification and ectasia of the abdominal a bri. 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 An ileal conduit/urostomy is seen in the right lower quadrant. The proximal small bowel loops are mildly dila reji and fluid-filled measuring up to 3.2 cm in diameter. There are numerous matted loops of small bow el in the pelvis, in the distal small bowel/colon are decompressed. No discrete transition point is i dentified. No pneumatosis intestinalis or portal venous gas is seen. Peritoneum: There is no intraperitoneal free air or abdominal ascites. Lymphadenopathy: None. Pelvic viscera: There is postsurgical change from cystectomy and prostatectomy. Skeletal structures: The skeletal structures are osteopenic. There is mild lumbosacral spondylosis. N o lytic or blastic lesions are seen. IMPRESSION: 1. Significantly suboptimal examination without oral and IV contrast. There is also streak and motion artifact. 2. There is postsurgical change from cystectomy and prostatectomy with right lower quadrant ileal con duit/urostomy, as well as proctocolectomy with left lower quadrant colostomy. 3. There are mildly dilated and fluid-filled loops of proximal small bowel, with matted small bowel l oops in the pelvis. The distal small bowel and colon are decompressed and this may represent a low-gr isaak/partial obstruction. A discrete transition point/high grade obstruction is not seen. Clinical cor relation will be essential. 4. Cardiomegaly and emphysema. 5. Mild patchy airspace consolidation is seen at the lung bases. Correlate clinically for evidence of pneumonia/aspiration pneumonitis. Radiographic follow-up to resolution is recommended. 6. Additional findings as above. ACT 112: Negative or not required by law. Electronically signed by: Demond Caceres M.D. 05/24/2024 1:24 PM
[2024-05-24] MEDS: PLASMA-LYTE A 500 ML IV ONE (13:37)
[2024-05-24] MEDS: PLASMA-LYTE A 1,000 ML IV SCH (14:21)
--- NOTE | 2024-05-24 16:52 | XRay Report ---
XR KUB/Abdomen 1 view CLINICAL HISTORY: confirm NGT placement TECHNIQUE: 1 view of the abdomen was obtained. Comparison: Comparison is made to abdomen radiographs 05/24/2024 FINDINGS: Median sternotomy wires are seen. Enteric tube terminates below the diaphragm but the side-port lies above the diaphragm. Lung bases are unremarkable. The osseous structures are grossly unremarkable. Th e bowel gas pattern is nonobstructive. Small stool burden is seen. IMPRESSION: Enteric tube side-port is above the diaphragm can be advanced approximately 5 cm for improved positio janey. ACT 112: Negative or not required by law. Electronically signed by: Iam Cabrera M.D. 05/24/2024 4:51 PM
[2024-05-24] MEDS ORDERED: HYDROCORTISONE SOD SUCCINATE 100 MG/2 ML VIAL IV SCH (18:30)
[2024-05-24] MEDS: PIPERACILLIN/TAZOBACTAM 4.5 GM/100 ML BAG IV SCH (19:12)
[2024-05-24 19:16] LABS: BUN Creatinine Ratio 13.9 (10-20); Calcium 8.6 mg/dl (8.6-10.3); Creatinine Clr Calc Pharmacy 10.6 ml/min; Potassium 5.8 mmol/L (3.5-5.1)
[2024-05-24] MEDS: HYDROCORTISONE SOD 50 MG in SYRINGE 0 ML IV SCH (19:21)
--- OUTSIDE RECORDS SUMMARY | 2024-05-24 20:20 | External Medical Summary ---
Author Name Unknown Address Unknown Organization [id number]:[facility] [address] [address] [place] [address] Laboratory Report Ordering Provider Test Date Status IVONNE CASTRO 05/24/2024 05:35:00 Final Observation Date Value Abnormality Reference (Units ) Status BUN 05/24/2024 05:35:00 66 Above high normal 6-20 (mg/dL) Final Creatinine 05/24/2024 05:35:00 4.8 Above high normal 0.6-1.2 (mg/dL) Final Glomerular filtration rate/1.73 sq M.predicted [Volume Rate/Area] in Serum, Plasma or Blood by Creatinine-based formula (CKD-EPI) 05/24/2024 05:35:00 11 Below low normal >=60 (mL/min) Final eGFR is calculated based on the CKD-EPI 2020 equation. Sodium 05/24/2024 05:35:00 133 Below low normal 135 -146 (mmol/L) Final Potassium 05/24/2024 05:35:00 5.4 Above high normal 3. 5-5.1 (mmol/L) Final Cl 05/24/2024 05:35:00 90 Below low normal 98- 107 (mmol/L) Final CO2 05/24/2024 05:35:00 19 Below low normal 22- 32 (mmol/L) Final Anion gap 05/24/2024 05:35:00 24 Above high normal 7- 15 (mmol/L) Final Glucose 05/24/2024 05:35:00 201 Above high normal 70 -120 (mg/dL) Final Albumin 05/24/2024 05:35:00 3.8 3.8-5.0 (g /dL) Final AST (Aspartate aminotransferase) 05/24/2024 05:35:00 16 10-50 (U/L) Fin al Alk Phos 05/24/2024 05:35:00 175 Above high normal 35 -130 (U/L) Final Bilirubin, Total 05/24/2024 05:35:00 0.5 <=1 .2 (mg/dL) Final Calcium 05/24/2024 05:35:00 10.3 Above high normal 8. 4-10.2 (mg/dL) Final Protein 05/24/2024 05:35:00 7.0 6.0-8.3 (g /dL) Final ALT (Alanine aminotransferase) 05/24/2024 05:35:00 27 10-50 (U/L) Doc woods Performing Location [facility] [address] [facility] [place] [address]
--- OUTSIDE RECORDS SUMMARY | 2024-05-24 20:20 | External Medical Summary | Summary of Care ---
Author Name Unknown Organization [facility] Address [address] [place] [address] Phone [phone] Care Team Providers Care Motor Builder Assembler Name Role Phone Iam Lange DO Primary Care Provider [phone] Encounter Details Date Type Department Care Team (Late st Contact Info) Description 05/23/2024 Orders Only Lab Mobile Phlebot[facility] [address] [facility] [place] [address] Tomasa Garibay PA-C [address] [place] [address] A-fib ([facility])* Allergies Active Allergy Reactions Criticality Noted Date Comments Meperidine 04/26/2017 Losartan Rash 07/02/2016 Nitrofurantoin Macrocrystal 04/23/20 16 Spironolactone 02/23/2019 gynecomastia documented as of this encounter (statuses as of 05/23/2024) Medications Medication Sig Dispensed Refills Start Date End Date Status rosuvastatin (CRESTOR) 20 MG TabletIndications:HTN , goal below 140/90 1 (ONE) TABLET, ORAL, DAILY 30 Tab 5 03/16/2017 Active tamsulosin (FLOMAX) 0.4 MG Capsule Take 1 Capsule by mouth in the morning. Active amLODIPine Besylate 10 MG Oral Tablet (Norvasc) Take 1 Tablet by mouth in the morning. 09/25/2020 Active predniSONE 1 MG Oral Tablet (Deltasone) Take 4 Tablets by mouth in the morning. Active Metoprolol Succinate ER 50 MG Oral Tablet Extended Release 24 Hour (Toprol XL)Indications:Persis tent atrial fibrillation (HCC) Take 0.5 Tablets by mouth in the morning and 0.5 Tablets before bedtime. 90 Tablet 3 10/28/2022 Active Terazosin HCl 2 MG Oral Capsule Take 1 Capsule by mouth at bedtime. 100 Capsule 3 01/12/2023 Active Warfarin Sodium 5 MG Oral Tablet (Coumadin) Take 1 Tablet by mouth in the morning. 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 BENIGN HYPERTENSION Tobacco use disorder Nocturia BENIGN NEOPLASM LG BOWEL Atrial fibrillation Overview: Post op CAD (coronary artery disease) documented as of this encounter (statuses as of 05/23/2024) Resolved Problems Problem Noted Date Diagnosed Date Resolved Date Left-sided carotid artery disease 01/25/2017 03/26/2021 documented as of this encounter (statuses as of 05/23/2024) Immunizations Name Administration Dates Next Due COVID-19 mRNA, LNP-s, No Pre serve, 2-Dose Series (Moderna) 05/27/2021 documented as of this encounter Social History Tobacco Use Types Packs/Day Years Used Date Smoking Tobacco: Former Cigarettes Q uit: 2004 Smokeless Tobacco: Never Comments:3/4 pk per day sinc e age 20 Alcohol Use Standard Drinks/Week Comments Yes 0 (1 standard drink = 0.6 oz pur e alcohol) case of beer per week Utilities Answer Date Recorded Do you have trouble paying y our heating, water, or electric bill? (Adult - for ages 18 years and over) Not on file 01/17/2024 Is your family able to pay t he heat, water, or electric bill? (Household - for ages 0-17 years) Not on file 01/17/2024 Does your family have access to good internet? (Household - for ages 0-17 years) Not on file 01/17/2024 Social Connections Answer Date Recorded How often do you feel lonely or isolated from those around you? (Adult - for ages 18 years and over) Not on file 01/17/2024 Sex and Gender Information Value Date Recorded Sex Assigned at Not on file Gender Identity Not on file Sexual Orientation Not on file Job Start Date Occupation Industry Not on file Not on file Not on file documented as of this encounter Functional Status Functional Status Response Date of Assess ment Are you deaf or do you have serious difficulty h earing? No 03/03/2017 Are you blind or do you have serious difficulty seeing, even when wearing glasses? No 03/03/2017 Do you have serious difficul ty walking or climbing stairs? (5 years old or older) No 03/03/2017 Do you have difficulty dress ing or bathing? (5 years old or older) No 03/03/2017 Because of a physical, menta l, or emotional condition, do you have difficulty doing errands alone such as visiting a doctor s office or shopping? (15 years old or older) No 03/03/20 17 Cognitive Status Response Date of Assessm ent Because of a physical, menta l, or emotional condition, do you have serious difficulty concentrating, remembering, or making decisions? (5 years old or older) No 03/03/2017 documented as of this encounter Plan of Treatment Scheduled Orders Name Type Priority Associated Diagnoses Orde r Schedule PT INR Lab Routine A-fib (HCC) Expected: 05/23/2024, Expires: Health Maintenance Due Date Last Done Comments Depression Screening 1952 Albumin/Creatinine Ratio 11/22/1959 DTap/Tdap Vaccines (1 - Tdap) 1960 Zoster Vaccines (2 of 2) 09/08/2023 07/14/2023 COVID-19 Vaccine (3 - 2023- season) 2024 06/05/2022, 05/27/2021 Influenza Vaccine (FLU shot) (#1) 2024 GFR 04/30/2025 04/30/2024, 04/02, 04/23/2024, Additional history exists Pneumococcal Vaccine: 65+ Years Completed 07/01/2022 HPV (Gardasil) Vaccine Aged Out No lo nger eligible based on patient's age to complete this topic Hepatitis B Vaccine Aged Out No longe r eligible based on patient's age to complete this topic MENINGOCOCCAL (MENACTRA/MENVEO) Aged Out No longer eligible based on patient's age to complete this topic documented as of this encounter Medical Devices Implanted Type Area Mail Distributor Device Identifier Shelf Expiration Date Model / Serial / Lot Patch Xenosure [id number] - [id number] Implanted:Qty: 1 on 03/03/2017 by Mariusz Balbuena MD at OR [facility] [place] Left: Carotid [employer] 09/28/2022 [id number] / / [id number] Stent Complete [place] 6x40 - [id number] Implanted:Qty: 1 on 06/09/2017 by Mariusz Balbuena MD at OR [facility] [place] Right: Femoral Artery [employer] : VASCULAR 01/29/2018 [id number] / / [id number] Stent Complete [place] 6x60 - [id number] Implanted:Qty: 1 on 06/09/2017 by Mariusz Balbuena MD at OR [facility] [place] Right: Femoral Artery [employer] : VASCULAR 12/21/2017 [id number] / / [id number] documented as of this encounter Visit Diagnoses Diagnosis A-fib (HCC)- Primary Atrial fibrillation documented in this encounter Advance Directives * Full Code (Latest Code Status on File) Date Activated Date Inactivated Comments 03/03/2017 11:23 AM 03/04/2017 9:50 PM This order re flects the patients wishes and were consensually agreed upon. Care Teams Motor Builder Assembler Relationship Specialty Start Date End Date Iam Lange DO [address] [place] [address] PCP - General Internal Medicine 04/27/24 documented as of this encounter
--- OUTSIDE RECORDS SUMMARY | 2024-05-24 20:20 | External Medical Summary | Summary of Care ---
Author Name Unknown Organization [facility] Address [address] [facility] [place] [address] Phone [phone] Care Team Providers Care Dairy Store Manager Name Role Phone Jael Yu MD Primary Care Provide r Encounter Details Date Type Department Care Team (Late st Contact Info) Description 05/24/2024 Orders Only Lab Mobile Phlebotomy [facility] [address] [facility] [place] [address] Tomasa Garibay PA-C [address] [place] [address] [place] [address] Loose stools*; Hx: UTI (urinary tract infection) Allergies Active Allergy Reactions Criticality Noted Date Comments Meperidine 04/26/2017 Losartan Rash 07/02/2016 Nitrofurantoin Macrocrystal 04/23/20 16 Spironolactone 02/23/2019 gynecomastia documented as of this encounter (statuses as of 05/24/2024) Medications Medication Sig Dispensed Refills Start Date End Date Status rosuvastatin (CRESTOR) 20 MG TabletIndications:HT N, goal below 140/90 1 (ONE) TABLET, ORAL, DAILY 30 Tab 5 03/16/2017 Active tamsulosin (FLOMAX) 0.4 MG Capsule Take 1 Capsule by mouth in the morning. Active amLODIPine Besylate 5 MG Oral Tablet (Norvasc) Take 1 Tablet by mouth in the morning. 09/25/2020 Active predniSONE 1 MG Oral Tablet (Deltasone) Take 4 Tablets by mouth in the morning. Active Metoprolol Succinate ER 50 MG Oral Tablet Extended Release 24 Hour (Toprol XL)Indications:Persi stent atrial fibrillation (HCC) Take 0.5 Tablets by mouth in the morning and 0.5 Tablets before bedtime. 90 Tablet 3 10/28/2022 Active Additional Information Patient taking differently: 50 mgOral BID (.AM/PM), Reported on 05/23/2024 Warfarin Sodium 7.5 MG Oral Tablet (Coumadin) Take by mouth every evening. Active Enoxaparin Sodium 60 MG/0.6ML Injection Solution Prefilled Syringe (Lovenox) Inject 60 mg under the skin in the morning and 60 mg before bedtime. Active Calcium Carbonate Antacid 500 MG Oral Tablet Chewable (Tums) Take 1 Tablet by mouth every 2 hours as needed for Heartburn. Active Lisinopril 5 MG Oral Tablet (Prinivil) Take 1 Tablet by mouth in the morning. Active Loperamide HCl 2 MG Oral Capsule (Imodium) Take 1 Capsule by mouth in the morning and 1 Capsule before bedtime. Active Ondansetron HCl 4 MG Oral Tablet Take 1 Tablet by mouth every 8 hours as needed for Nausea. 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 BENIGN HYPERTENSION Tobacco use disorder Nocturia BENIGN NEOPLASM LG BOWEL Atrial fibrillation Overview: Post op CAD (coronary artery disease) documented as of this encounter (statuses as of 05/24/2024) Resolved Problems Problem Noted Date Diagnosed Date Resolved Date Left-sided carotid artery disease 01/25/2017 03/26/2021 documented as of this encounter (statuses as of 05/24/2024) Immunizations Name Administration Dates Next Due COVID-19 [...] as of this encounter Plan of Treatment Upcoming Encounters Date Type Department Care Team (Late st Contact Info) Description 05/24/2024 9:00 AM EDT Alf Visit [facility], [address] [place] [address] Casimiro Corado MD [address] [place] [address] [place] [address] 06/13/2024 4:40 PM EST [facility], Shabbir Corona [address] [place] [address] [place] [address] [facility], [address] [place] [id number] Scheduled Orders Name Type Priority Associated Diagnoses Orde r Schedule COMPREHENSIVE METABOLIC PANEL Lab Routine Loose stools Hx: UTI (urinary tract infection) Expected: 05/24/2024, Expires: 05/24/2025 CBC Lab Routine Loose stools Hx: UTI (urinary tract infection) Expected: 05/24/2024, Expires: 05/24/2025 PT INR Lab Routine Loose stools Hx: UTI (urinary tract infection) Expected: 05/24/2024, Expires: 05/24/2025 Health Maintenance Due Date Last Done Comments Depression Screening 1952 Albumin/Creatinine Ratio 11/22/1959 DTap/Tdap Vaccines (1 - Tdap) 1960 Zoster Vaccines (2 of 2) 09/08/2023 07/14/2023 COVID-19 Vaccine (3 - season) 2024 06/05/2022, 05/27/2021 Influenza Vaccine (FLU [...] this encounter Medical Devices Implanted Type Area Civilian Technician Device Identifier Shelf Expiration Date Model / Serial / Lot Patch Xenosure [id number] - [id number] Implanted:Qty: 1 on 03/03/2017 by Mariusz Balbuena MD [place] [facility] [place] Left: Carotid [employer] 09/28/2022 [id number] / / [id number] Stent Complete [place] 6x40 - [id number] Implanted:Qty: 1 on 06/09/2017 by Mariusz Balbuena MD [place] [facility] [place] Right: Femoral Artery [employer] : VASCULAR 01/29/2018 [id number] / / [id number] Stent Complete [place] 6x60 - [id number] Implanted:Qty: 1 on 06/09/2017 by Mariusz Balbuena MD [place] [facility] [place]: Femoral Artery [employer] : VASCULAR 12/21/2017 [id number] / / [id number] documented as of this encounter Visit Diagnoses Diagnosis Loose stools- Primary Abnormal feces Hx: UTI (urinary tract infection) Personal history of urinary (tract) infection documented in this encounter Advance Directives * Full Code (Latest Code Status on File) Date Activated Date Inactivated Comments 03/03/2017 11:23 AM 03/04/2017 9:50 PM This order re flects the patients wishes and were consensually agreed upon. Care Teams Dairy Store Manager Relationship Specialty Start Date End Date Jael Yu MD [address] [place] [address] PCP - General Internal Medicine 05/23/24 documented as of this encounter
--- OUTSIDE RECORDS SUMMARY | 2024-05-24 20:20 | External Medical Summary | Summary of Care ---
Author Name Unknown Organization [facility] Address [address] [place] [address] Phone [phone] Care Team Providers Care Major Gifts Manager Name Role Phone Jael Yu MD Primary Care Provide r Reason for Referral * Evaluate & Treat - Unlimited Visits (Within 3 days (urgent)) - Authorized Specialty Diagnoses / Procedures Referred By Jose shepard Referred To Contact ANTI-COAG CLINIC / Pharmacy Diagnoses Longstanding persistent atrial fibrillation (HCC) History of pulmonary embolism intermediate current use of anticoagulant therapy Tomasa Garibay PA-C [address] [place] [address] Referral ID Status Reason Start Date Expiration Date Visits Requested Visits Authorized [id number] Authorized Specialty Services Required 4 11/19/2024 99 99 Question Answer Referral Priority Within 3 days (urgent) Where should this appointment be scheduled? Patricia Comments Anticoagulation referral for management of: Warfarin Indication and INR goal for Warfarin Management: Stroke Prevention: Atrial Fibrillation/Flutter 2.0 - 3.0 Relevant History: Cancer and history of PE while on Eliquis Enoxaparin bridging required? Yes Minimum frequency patient should be seen in person for medication management: as appropriate per clinical condition and patient status By my signature, I understand that my patient Carlos Montiel will have his medication therapy managed by the [facility] ([facility]) per established policies, procedures, and protocols. I also certify that this referral may serve as an initiation of service for the management of drug therapy in the above noted patient. [facility] providers will be responsible for scheduling patient visits, obtaining appropriate laboratory studies, and adjusting medication management therapy per patient's need, in addition to those roles spelled out in the clinic policy, procedures, and drug management protocols. I understand that the service provided by the [facility] is voluntary and have informed patient that they can refuse the service at their discretion. I am aware that the [facility] will provide me with a copy of the patient encounter via my [employer]. I authorize the [facility] to carry out these activities on my behalf. I consider this program to be a necessary part of the patient's medical care. Tomasa Garibay PA-C Reason for Visit * Reason Onset Date Comments Skilled Visit 05/23/2024 Encounter Details Date Type Department Care Team (Late st Contact Info) Description 05/23/2024 11:30 AM EDT Prison Visit [address] [place] [address] Tomasa Garibay PA-C [address] [place] [id number] Hyponatremia*; Moderate protein-calorie malnutrition (HCC); Generalized weakness; History of bladder cancer; History of total cystectomy; High output ileostomy ([facility]); History of pneumonia; History of UTI; Longstanding persistent atrial fibrillation ([facility]); History of pulmonary embolism; 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; Chronic HFrEF (heart failure with reduced ejection fraction) ([facility]); HTN, goal below 140/90; Anemia of chronic disease; PMR (polymyalgia rheumatica) ([facility]) Allergies Active Allergy Reactions Criticality Noted Date Comments Meperidine 04/26/2017 Losartan Rash 07/02/2016 Nitrofurantoin Macrocrystal 04/23/20 16 Spironolactone 02/23/2019 gynecomastia documented as of this encounter (statuses as of 05/23/2024) Medications Medication Sig Dispensed Refills Start Date End Date Status rosuvastatin (CRESTOR) 20 MG TabletIndications :HTN, goal below 140/90 1 (ONE) TABLET, ORAL, DAILY 30 Tab 5 7 Active tamsulosin (FLOMAX) 0.4 MG Capsule Take 1 Capsule by mouth in the morning. Active amLODIPine Besylate 5 MG Oral Tablet (Norvasc) Take 1 Tablet by mouth in the morning. 1 Active predniSONE 1 MG Oral Tablet (Deltasone) Take 4 Tablets by mouth in the morning. Active Metoprolol Succinate ER 50 MG Oral Tablet Extended Release 24 Hour (Toprol XL)Indications:Pe rsistent atrial fibrillation (HCC) Take 0.5 Tablets by mouth in the morning and 0.5 Tablets before bedtime. 90 Tablet 3 3 Active Additional Information Patient taking differently: 50 [...] 8 hours as needed for Nausea. Active Terazosin HCl 2 MG Oral Capsule Take 1 Capsule by mouth at bedtime. 100 Capsule 3 3 05/23/20 24 Discontinued Warfarin Sodium 5 MG Oral Tablet (Coumadin) Take 1 Tablet by mouth in the morning. 4 05/23/20 24 Discontinued documented as of this encounter (statuses as of 05/23/2024) Active Problems Problem Noted Date Diagnosed Date History of pulmonary embolism 05/23/2024 intermediate current use of anticoagulant therapy 1 Longstanding [...] Smokeless Tobacco: Never Comments:3/4 pk per day sin e age 20 Alcohol Use Standard Drinks/Week [...] on file documented as of this encounter Last Filed Vital Signs Vital Sign Reading Time Taken Comments Blood Pressure 102/54 05/23/2024 1:26 PM EDT Pulse 66 05/23/2024 1:26 PM EDT Temperature 36.2 C (97.1 F) 05/23/2024 1:26 PM ED T Respiratory Rate 17 05/23/2024 1:26 PM EDT Oxygen Saturation 99% 05/23/2024 1:26 PM EDT room air Inhaled Oxygen Concentration - - Weight 62.8 kg (138 lb 6.4 oz) 05/23/2024 1:26 P M EDT Height - - Body Mass Index 18.77 04/08/2021 8:45 AM EDT documented in this encounter Functional Status Functional Status Response [...] No 03/03/2017 documented as of this encounter Progress Notes * Tomasa Garibay PA-C - 05/23/2024 11:30 AM EDT ON-SERVICE NOTE TRANSITION EVENT: Type: SNF admission Date: May 22 Code Status: Full Code Name: Carlos Montiel Date of : 1940 This note pertains to care provided at [facility] at [facility]. Please see facility medical record for original note. This note is not to be edited or addended in [employer]. Editing or addending needs to occur in the facilities medical record. S: Carlos Montiel had been admitted to [facility] at [facility] from [facility] for convalesence, PT, and OT. Recently admitted to [facility] because of acute illness and was transferred here and admitted on 05/22/2024. 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, bilateral pelvic lymph node dissection, ex lap with lysis of adhesion, low anterior resection and diverting ileostomy on 03/13/2024 through [facility], prolonged postoperative course having spent much of the past 2 months at [facility] requiring nutritional support with TPN, also admitted to [facility] 04/11/24-04/13/24 with sepsis secondary to UTI, returned to [facility], and again admitted at [facility] 05/09/24-05/12/24 for UTI and pneumonia then discharged home, presented to the ER on 05/17/2024 due to weakness, cough, poor oral intake, nausea, vomiting, and fever. In the ER, he was febrile to 39C, tachycardic, WBC elevated to 13.04, anemic with hgb 9.9, INR was subtherapeutic at 1.4, CT chest showed emphysematous changes with background groundglass opacities which could represent atypical infection, UA grossly positive. Procalcitonin was elevated, lactate was not elevated. He was admitted for further care and begun on zosyn for possible UTI. All stool studies were negative. He began tolerating oral diet and his TPN and PICC line were discontinued. He is currently on a lovenox bridge until INR is therapeutic. Sodium was low, felt secondary to volume depletion. He completed all antibiotics prior to discharge. Blood cultures were negative, urine culture grew yeast, and it is unclear whether findings on chest CT were significant for new vs residual pneumonia. He is feeling better today, but admits to some indigestion, mild nausea but no vomiting. Ongoing watery output from ileostomy. He denies current fever, chills, chest pain, dyspnea, headache, admits to some dizziness with position changes, new over the past few days (BP a bit low today, appears he is on tamsulosin and he is unsure that he has been taking that recently). Also frequent indigestion/belching/bloating which he feels is hampering his appetite. Prior to surgery in March, he was independent with ADLs, he lives with his , currently ambulating with a walker. He plans to return home, when able. He notes that he has lost a fair amount of weight since his cystectomy surgery earlier this year. Past Medical History: Patient Active Problem List Diagnosis BENIGN HYPERTENSION Tobacco use disorder Nocturia BENIGN NEOPLASM LG BOWEL S/P CABG x 3 Asymptomatic bilateral carotid artery stenosis HTN (hypertension), malignant PVD (peripheral vascular disease) with claudication (HCC) Atrial fibrillation (HCC) CAD (coronary artery disease) History of pulmonary embolism intermediate current use of anticoagulant therapy Longstanding persistent atrial fibrillation (HCC) Current Outpatient Medications Medication Sig Dispense Refill rosuvastatin (CRESTOR) 20 MG Tablet 1 (ONE) TABLET, ORAL, DAILY 30 Tab 5 tamsulosin (FLOMAX) 0.4 MG Capsule Take 1 Capsule by mouth in the morning. amLODIPine Besylate 5 MG Oral Tablet (Norvasc) Take 1 Tablet by mouth in the morning. predniSONE 1 MG Oral Tablet (Deltasone) Take 4 Tablets by mouth in the morning. Metoprolol Succinate ER 50 MG Oral Tablet Extended Release 24 Hour (Toprol XL) Take 0.5 Tablets by mouth in the morning and 0.5 Tablets before bedtime. (Patient taking differently: Take 1 Tablet by mouth in the morning and 1 Tablet before bedtime.) 90 Tablet 3 Warfarin Sodium 7.5 MG Oral Tablet (Coumadin) Take by mouth every evening. Enoxaparin Sodium 60 MG/0.6ML Injection Solution Prefilled Syringe (Lovenox) Inject 60 mg under theskin in the morning and 60 mg before bedtime. Calcium Carbonate Antacid 500 MG Oral Tablet Chewable (Tums) Take 1 Tablet by mouth every 2 hours as needed for Heartburn. Lisinopril 5 MG Oral Tablet (Prinivil) Take 1 Tablet by mouth in the morning. Loperamide HCl 2 MG Oral Capsule (Imodium) Take 1 Capsule by mouth in the morning and 1 Capsule before bedtime. Ondansetron HCl 4 MG Oral Tablet Take 1 Tablet by mouth every 8 hours as needed for Nausea. No current facility-administered medications for this visit. Review of patient's allergies indicates: Allergen Reactions Demerol Hcl [Meperidine] Losartan Rash Macrodantin [Nitrofurantoin Macrocrystal] Spironolactone gynecomastia Social History Tobacco Use Smoking status: Former Current packs/day: 0.00 Types: Cigarettes Quit date: 2004 Years since quittin.8 Smokeless tobacco: Never Tobacco comments: 3/4 pk per day since age 20 Substance Use Topics Alcohol use: Yes Comment: case of beer per week Vaping/E-Cigarette Use Vaping/E-Cigarette Substances Vaping/E-Cigarette Devices Past Surgical History: Procedure Laterality Date AORTOGRAM ABDOMINAL-TECH ONLY N/A 04/08/2021 IMAGING SUPERVISION & INTERPRETATION ABDOMINAL AO performed by Mariusz Balbuena MD at [facility] CABG, ARTERY-VEIN, THREE 06/20/2013 HEALY-LAD,SVG-OM,SVG-PDA CARDIAC CATH-CARDIOLOGY ONLY 06/2013 EF - 56 FEM/POP ART. REVASC W/STENT+ATHERECTOMY Left 04/08/2021 FEM/POP ART. 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 IR ARTERIOGRAM EXTREMITY BILATERAL N/A 02/22/2020 ANGIOGRAPHY EXTREMITY BILATERAL performed by Mariusz Balbuena MD at [facility] IR ARTERIOGRAM EXTREMITY UNILATERAL Left 04/08/2021 IMAGING SUPERVISION & INTERPRETATION EXTREMITY UNILATERAL performed by Mariusz Balbuena MD at [facility] APPENDECTOMY [place] CYSTO W/REMOVAL OF LESIONS SMALL multiple TURBT REMOVAL OF BLADDER 03/2024 Kevin Flores REMOVE CATARACT, INSERT LENS PROSTH Bilateral REPAIR INGUINAL HERNIA, UNDER AGE 5 right SIGMOIDOSCOPY/BIOPSY 11/30/2001 polyp x 2 - Dr Miles THROMBECTOMY, PERC SECONDARY ARTERIAL MECHANICAL, ADD-ON Left 04/08/2021 PERCUTANEOUS MECHANICAL THROMBECTOMY, ARTERIAL OR ARTERIAL BYPASS GRAFT, INITIAL VESSEL performed by Mariusz Balbuena MD at [facility] THROMBOENDARECTOMY W/PATCH,NECK INCISION Left 03/03/2017 CAROTID ENDARTERECTOMY performed by Mariusz Balbuena MD at [facility] TIBIAL/PERONEAL ART. REVASC W/ANGIO, FIRST Left 04/08/2021 TIBIAL/PERONEAL ART. REVASC W/ANGIO, FIRST performed by Mariusz Balbuena MD at [facility] Family History Problem Relation Name Age of Onset Heart Disorder Mother [place], heart murmur Asthma Father Cancer Sister Breast Stroke Grandmother (Paternal) Family Status Relation Status Mo at age 82 heart Fa at age 60 asthma, heart Sis at age 44 breast cancer Dung Alive Son Alive PGMA Review of Systems: Per HPI ADL skills: dependent Ambulates with walker OBJECTIVE: BP 102/54 | Pulse 66 | Temp 36.2 C (97.1 F) | Resp 17 | Wt 62.8 kg (138 lb 6.4 oz) |SpO2 99% Comment: room air | BMI 18.77 kg/m | BSA 1.79 m General: alert and no distress, thin and frail appearing Head: Normocephalic Eye Exam: conjunctiva are pink and non-injected, sclera clear Oropharynx: lips, buccal mucosa, and tongue normal and mucous membranes are moist Heart: irregularly irregular Lungs: chest symmetric with normal AP diameter, no chest deformities noted, no chest wall tenderness, lungs clear to auscultation Abdomen: abdomen soft, non-tender, no masses or organomegaly, and hyperactive bowel sounds, frequent eructation is noted. Urostomy noted mid abdomen with yellow urine. Ileostomy left upper abdomen with liquid brown material in bag. Extremities: less than 2 second capillary refill, no joint deformities, effusion, or inflammation, no edema Neuro Exam: alert & oriented x 3 with fluent speech, hard of hearing, global weakness is noted ASSESSMENT: Hyponatremia (Primary) Imodium 2 mg 4x daily for loose stools (already taking twice daily, however pt with ileostomy in place, somewhat high output, suspect this is contributing to his hyponatremia CBC CMP tomorrow - consider cholestyramine to help with liquid ileostomy output, if unrelieved withimodium Patient has telemed visit with surgeon from [place] tomorrow to discuss potential ileostomy reversal Moderate protein-calorie malnutrition (HCC) Encourage oral intake Add pepcid 10 mg nightly for indigestion, continue tums as needed Imodium as above to slow ileostomy output, if possible Now off TPN Generalized weakness PT and OT with goal of return home History of bladder cancer History of total cystectomy Discontinue tamsulosin - he does not appear to have any need for this at present s/p cystotomy withurostomy drainage. BP running low and he is having some positional dizziness. High output ileostomy ([facility]) Imodium 2 mg 4x daily for loose stools (already taking twice daily, however pt with ileostomy in place, somewhat high output, suspect this is contributing to his hyponatremia CBC CMP tomorrow - consider cholestyramine to help with liquid ileostomy output, if unrelieved withimodium Patient has telemed visit with surgeon from [place] tomorrow to discuss potential ileostomy reversal History of pneumonia Ongoing mild cough History of UTI Not current Urostomy present Longstanding persistent atrial fibrillation ([facility]) - ANTI-COAGULATION REFERRAL OP History of pulmonary embolism - ANTI-COAGULATION REFERRAL OP intermediate current use of anticoagulant therapy - ANTI-COAGULATION REFERRAL OP Chronic HFrEF (heart failure with reduced ejection fraction) ([facility]) Appears stable Would not rx diuretic at this time due to fluid losses from his ostomy HTN, goal below 140/90 Discontinue tamsulosin - he does not appear to have any need for this at present s/p cystotomy withurostomy drainage. BP running low and he is having some positional dizziness. Anemia of chronic disease CBC tomorrow PMR (polymyalgia rheumatica) ([facility]) Patient requesting dose reduction of prednisone to 3 mg daily due to lack of arthritis pain - will adjust as desired We reviewed the need for slow reduction of this as he has been on 4 mg daily x years, we also reviewed risks of long-term steroid use including increased risk of infections, loss of bone density, blood glucose elevations patient requests full code at this time PLAN: 1. Continue present medication(s): With adjustments as noted above 2. Admission orders, medications, labs, hospital records and care plan reviewed. 3. Continue current treatment plan as , Life Enrichment Assistant consult, Physical Therapy, and Occupational Therapy ordered. 4. Care plan reviewed. 5. Advance Directives were discussed: Full Code 6. [facility] Treatment Given: Lab Draw as above Follow up with Dr. Corado tomorrow I spent a total of 150 minutes coordinating, documenting, and providing care for this patient excluding time spent in the performance of separately billed services or time spent by another provider/QHP. 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 Ordered: 05/23/2024 Health Maintenance Due Date Last Done Comments [...] this encounter Medical Devices Implanted Type Area [employer] Teacher Device Identifier Shelf Expiration Date Model / Serial / Lot Patch Xenosure [id number] - [id number] Implanted:Qty: 1 on 03/03/2017 by Mariusz Balbuena MD at [facility] Left: Carotid [employer] 09/28/2022 [id number] / / [id number] Stent Complete Vt 6x40 - [id number] Implanted:Qty: 1 on 06/09/2017 by Mariusz Balbuena MD at [facility] Right: Femoral Artery [employer] : VASCULAR 01/29/2018 [id number] / / [id number] Stent Complete Vt 6x60 - [id number] Implanted:Qty: 1 on 06/09/2017 by Mariusz Balbuena MD at [facility] Right: Femoral Artery [employer] : VASCULAR 12/21/2017 [id number] / / [id number] documented as of this encounter Visit Diagnoses Diagnosis Hyponatremia- Primary Hyposmolality and/or hyponatremia Moderate protein-calorie malnutrition (HCC) Malnutrition of moderate degree Generalized weakness Other malaise and fatigue History of bladder cancer Personal history of malignant neoplasm of bladder History of total cystectomy Personal history of surgery to other organs High output ileostomy (HCC) Other symptoms involving digestive system History of pneumonia Personal history of pneumonia (recurrent) History of UTI Personal history of urinary (tract) infection Longstanding persistent atrial fibrillation (HCC) History of pulmonary embolism Personal history of pulmonary embolism 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 Care Teams Major Gifts Manager Relationship Specialty Start Date End Date Jael Yu MD [address], [place] [address] PCP - General Internal Medicine 05/23/24 documented as of this encounter"
--- OUTSIDE RECORDS SUMMARY | 2024-05-24 20:20 | External Medical Summary ---
Author Name Unknown Address Unknown Organization [id number]:[facility] [address] [place] [address] Laboratory Report Ordering Provider Test Date Status IVONNE CASTRO 05/24/2024 05:35:00 Final Warfarin Therapy
INR: 2 .0-3.0 conventional anticoagulation
INR: 2.5- 3.5 high intensity anticoagulation Observation Date Value Abnormality Reference (Units ) Status PT 05/24/2024 05:35:00 26.9 Above high normal 11 .6-15.2 (seconds) Final INR 05/24/2024 05:35:00 2.5 Above high normal 0. 8-1.2 Final Performing Location [facility] [place] [address] [place] [address]
--- OUTSIDE RECORDS SUMMARY | 2024-05-24 20:20 | External Medical Summary | Summary of Care ---
Author Name Unknown Organization [facility] Address [address] [place] [address] Phone [phone] Care Team Providers Care Developer Prover Mechanical Name Role Phone Jael Yu MD Primary Care Provide r Reason for Visit * Reason Comments Dosage Adjustment Via Phone (anticoag Cl inic) * Evaluate & Treat - Unlimited Visits (Within 3 days (urgent)) - Authorized Specialty Diagnoses / Procedures Referred By Jose t Referred To Contact [facility] / Pharmacy Diagnoses Longstanding persistent atrial fibrillation (HCC) History of pulmonary embolism detention current use of anticoagulant therapy Tomasa Garibay PA-C [address] [place] [address] Referral ID Status Reason Start Date Expiration Date Visits Requested Visits Authorized [id number] Authorized Specialty Services Required 11/19/2024 99 99 Encounter Details Date Type Department Care Team (Latest Contact Info) Description 05/23/2024 5:10 PM EDT Anticoagulation Pharmacy, Connie [facility] [place] [address] [place] [address] Pharmacist2, [facility] [address] [place] [address] Anticoagulation management encounter*; History of pulmonary embolism; detention current use of anticoagulant therapy; Longstanding persistent atrial fibrillation (HCC) Allergies Active Allergy Reactions Criticality Noted Date [...] Diagnosed Date 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 Anticoagulation referral for management of: Warfarin Indication and INR goal for Warfarin Management: Stroke Prevention: Atrial Fibrillation/Flutter 2.0 - 3.0 Relevant History: Cancer and history of PE while on Eliquis Enoxaparin bridging required? Yes Pt currently in [facility] Notes and orders faxed today. Medication Therapy Disease Management - Anticoagulation Patient: Carlos Montiel | : 1940 Subjective Patient-Reported Symptoms: Objective Current Warfarin Dose As of 05/23/2024 Warfarin maintenance plan: 7.5 mg (7.5 mg x 1) every day INR Result As of 05/23/2024 INR goal: 2.0-3.0 INR used for dosin.9 (05/23/2024) Assessment & Plan Warfarin Plan As of 05/23/2024 Full warfarin instructions: 05/23: 11.25 mg; Otherwise 7.5 mg every day Next INR check: 06/13/2024 Repeat PT/INR in 3 week(s) Weekly dose: not changed Additional Dosing Information: Description Pt has been on warfarin for a few months at this point (was on eliquis before which was d/c'd due to failure of therapy [PE]). Pt appears to be relatively stable on this dose based on previous INRs and todays INR. I spent a total of 10-19 minutes (exact time 10 mins) on the date of service in preparation, delivery, and documentation of the care provided to Carlos Montiel excluding any time spent in the performance of separately billed services or time spent by another provider/QHP. Chucho Carvalho [facility] Clinical Pharmacist 05/23/2024, 2:30 PM documented in this encounter Plan of Treatment Upcoming Encounters Date Type Department Care Team (Late st Contact Info) Description 06/13/2024 5:00 PM EST Anticoagulation Centralized Clinical Pharmacy Services, Shabbir Corona [address] [place] [address] [place] [address] [facility], [address] [place] [address] Scheduled Orders Name Type Priority Associated Diagnoses Orde r Schedule PT INR Lab Routine History of pulmonary embolism Anticoagulation management encounter 26 Occurrences starting 05/23/2024 until 05/23/2025 Health Maintenance Due Date Last Done Comments [...] this encounter Medical Devices Implanted Type Area Access Director Device Identifier Shelf Expiration Date Model / Serial / Lot Patch Xenosure [id number] - [id number] Implanted:Qty: 1 on 03/03/2017 by Mariusz Balbuena MD at OR [facility] [place] Left: Carotid [employer] 09/28/2022 [id number] / / [id number] Stent Complete Ut 6x40 - [id number] Implanted:Qty: 1 on 06/09/2017 by Mariusz Balbuena MD at OR [facility] [place] Right: Femoral Artery [employer] : VASCULAR 01/29/2018 [id number] / / [id number] Stent Complete Ut 6x60 - [id number] Implanted:Qty: 1 on 06/09/2017 by Mariusz Balbuena MD at OR [facility] [place] Right: Femoral Artery [employer] : VASCULAR 12/21/2017 [id number] / / [id number] documented as of this encounter Visit Diagnoses Diagnosis Anticoagulation management encounter- Primary Encounter for therapeutic drug monitoring History of pulmonary embolism 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 Care Teams Developer Prover Mechanical Relationship Specialty Start Date End Date Jael Yu MD [address] [place] [address] PCP - General Internal Medicine 05/23/24 documented as of this encounter"
--- OUTSIDE RECORDS SUMMARY | 2024-05-24 20:20 | External Medical Summary ---
Author Name Unknown Address Unknown Organization [facility] [address] [place] [address] Laboratory Report Ordering Provider Test Date Status IVONNE CASTRO 05/24/2024 05:35:00 Final Observation Date Value Abnormality Reference (Units ) Status WBC, Total 05/24/2024 05:35:00 19.14 Above high normal 4 .00-10.80 (K/uL) Final RBC 05/24/2024 05:35:00 4.29 4.50-5.25 (M/uL) Final Hemoglobin 05/24/2024 05:35:00 12.9 Below low normal 14 .0-16.8 (g/dL) Final HCT 05/24/2024 05:35:00 39.2 Below low normal 40. 0-48.4 (%) Final MCV 05/24/2024 05:35:00 91.4 82.0-99.5 (fL) Final MCH 05/24/2024 05:35:00 30.1 27.0-34.0 (pg) Final MCHC 05/24/2024 05:35:00 32.9 32.0-36.0 (g/dL) Final RDW 05/24/2024 05:35:00 16.6 11.5-15.5 (%) Final Platelets 05/24/2024 05:35:00 466 Above high normal 14 0-400 (K/uL) Final MPV 05/24/2024 05:35:00 10.8 6.6-11.1 ( fL) Final Performing Location [facility] [address] [place] [id number]
--- OUTSIDE RECORDS SUMMARY | 2024-05-24 20:20 | External Medical Summary ---
Author Name Unknown Address Unknown Organization [facility] [address] [place] [address] Laboratory Report Ordering Provider Test Date Status IVONNE CASTRO 05/23/2024 05:42:00 Final Warfarin Therapy
INR: 2 .0-3.0 conventional anticoagulation
INR: 2.5- 3.5 high intensity anticoagulation Observation Date Value Abnormality Reference (Units ) Status PT 05/23/2024 05:42:00 22.0 Above high normal 11 .6-15.2 (seconds) Final INR 05/23/2024 05:42:00 1.9 Above high normal 0. 8-1.2 Final Performing Location [facility] [address] [place] [address]
--- OUTSIDE RECORDS SUMMARY | 2024-05-24 20:20 | External Medical Summary | Summary of Care ---
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 (5 years old or older) No 03/03/2017 documented as of this encounter Miscellaneous Notes * Telephone Encounter - Tomasa Garibay PA-C - 05/23/2024 5:49 PM EDT Notified by RN after visit today that pt vomiting, had vomited shortly after taking zofran. Patient declined rectal antiemetic. Change zofran to ODT 4 mg every 8 hrs as needed, may repeat a dose now. Add phenergan 12.5 mg by mouth every 6 hours as needed for nausea/vomiting not relieved by zofran. Tomasa Garibay PA-C documented in this encounter Plan of Treatment Upcoming Encounters Date Type Department Care Team (Late st Contact Info) Description 05/24/2024 9:00 AM EDT Group Home Visit [address] [place] [address] Casimiro Corado MD [address] [place] [address] [place] [address] 06/13/2024 4:40 PM EST Anticoagulation Centralized Clinical Pharmacy Services, [facility] Corona [address] [place] [address] [place] [address] [facility], [address] [place] [address] Health Maintenance Due Date Last Done Comments [...] this encounter Medical Devices Implanted Type Area Senior Sql Dba Device Identifier Shelf Expiration Date Model / Serial / Lot Patch Xenosure [id number] - [id number] Implanted:Qty: 1 on 03/03/2017 by Mariusz Balbuena MD at OR [facility] [place] Left: Carotid [employer] 09/28/2022 E0.8P8 / / [id number] Stent Complete Md 6x40 - [id number] Implanted:Qty: 1 on 06/09/2017 by Mariusz Balbuena MD at OR [facility] [place] Right: Femoral Artery [employer] : VASCULAR 01/29/2018 [id number] / / [id number] Stent Complete Md 6x60 - [id number] Implanted:Qty: 1 on 06/09/2017 by Mariusz Balbuena MD at OR [facility] [place] Right: Femoral Artery [employer] : VASCULAR 12/21/2017 [id number] / / [id number] documented as of this encounter Advance Directives * Full Code (Latest Code Status on File) Date Activated Date Inactivated Comments 03/03/2017 11:23 AM 03/04/2017 9:50 PM This order re flects the patients wishes and were consensually agreed upon. Care Teams Barrel Cutter Relationship Specialty Start Date End Date Jael Yu MD [address] [place] [address] PCP - General Internal Medicine 05/23/24 documented as of this encounter
[2024-05-24] MEDS: METOPROLOL TARTRATE 1 MG/ML VIAL IV SCH (20:59)
[2024-05-24] MEDS: DOXYCYCLINE HYCLATE 100 MG in DEXTROSE 5% MINI-B 100 ML IV SCH (22:17)
[2024-05-24] MEDS: PLASMA-LYTE A 250 ML IV ONE (22:17)
--- NOTE | 2024-05-25 05:40 | Electrocardiogram Report ---
Test Reason : Blood Pressure : */* mmHG Vent. Rate : 71 BPM Atrial Rate : * BPM P-R Int : * ms QRS Dur : 162 ms QT Int : 438 ms P-R-T Axes : * -88 67 degrees QTcB Int : 475 ms Atrial fibrillation Left axis deviation Right bundle branch block Inferior infarct , age undetermined Abnormal ECG When compared with ECG of 17-May-2024 19:21, Vent. rate has decreased by 35 bpm Confirmed by Dedrick Louise ([id number]) on 05/25/2024 5:40:15 AM Referred By: REFERRED SELF Confirmed By: Dedrick Louise
--- NOTE | 2024-05-25 05:41 | Electrocardiogram Report ---
Test Reason : Blood Pressure : */* mmHG Vent. Rate : 90 BPM Atrial Rate : * BPM P-R Int : * ms QRS Dur : 160 ms QT Int : 442 ms P-R-T Axes : * -87 77 degrees QTcB Int : 540 ms Atrial fibrillation Left axis deviation Right bundle branch block Inferior infarct (cited on or before 24-May-2024) Abnormal ECG When compared with ECG of 24-May-2024 09:47, No significant change Confirmed by Dedrick Louise ([id number]) on 05/25/2024 5:41:42 AM Referred By: REFERRED SELF Confirmed By: Dedrick Louise
--- NOTE | 2024-05-25 08:13 | XRay Report ---
XR KUB/Abdomen 1 view CLINICAL HISTORY: NGT positioning reassessment TECHNIQUE: 1 view of the abdomen was obtained. Comparison: Comparison is made to abdomen radiograph 05/24/2024 FINDINGS: Enteric tube has been advanced and the tip and side port lie below the diaphragm. The osseous structu res are grossly unremarkable. IMPRESSION: Satisfactory position of enteric tube status post advancement. ACT 112: Negative or not required by law. Electronically signed by: Iam Cabrera M.D. 05/25/2024 7:55 AM
[2024-05-25 08:43] LABS: Hematocrit (blood only) 31.8 % (42.0-52.0); Hemoglobin 10.4 g/dl (14.0-18.0); Mean Corpuscular Hemoglobin 29.9 pg (25.0-34.0); Mean Corpuscular Hgb Conc 32.7 g/dL (32.0-36.0); Mean Corpuscular Volume 91.4 fL (80.0-100.0); Platelet Count 276 K/uL (130-400); RDW Coefficient of Variation 16.7 % (11.5-14.5); Red Blood Count 3.48 M/uL (4.70-6.10); White Blood Count 21.02 K/ul (4.8-10.8)
[2024-05-25 09:00] LABS: Albumin Globulin Ratio 1.1 (0.9-2); Albumin Level 3.1 gm/dl (3.4-5.0); BUN Creatinine Ratio 14.2 (10-20); Bilirubin,Total 0.5 mg/dl (0.2-1.0); Calcium 8.6 mg/dl (8.6-10.3); Creatinine Clr Calc Pharmacy 9.3 ml/min; Globulin 2.9 gm/dl (2.5-4.0); Magnesium 2.2 mg/dl (1.7-2.4); Potassium 5.3 mmol/L (3.5-5.1)
[2024-05-25 09:04] LABS: INR 3.4 (0.9-1.1); Prothrombin Time 33.4 Seconds (9.0-12.0)
[2024-05-25 09:14] LABS: Basophils # (auto) 0.03 K/uL (0.00-0.20); Basophils % (auto) 0.1 %; Echinocytes 1+; Eosinophils # (auto) 0.01 K/uL (0.00-0.50); Hypersegmented Neutrophils 1+; Immature Granulocytes # (auto) 0.18 K/uL (0.01-0.20); Immature Granulocytes % (auto) 0.9 %; Lymphocytes # (auto) 0.62 K/uL (1.20-3.40); Lymphocytes % (auto) 2.9 %; Monocytes % (auto) 5.7 %; Neutrophils # (auto) 18.98 K/uL (1.40-6.50); Neutrophils % (auto) 90.4 %; Polychromasia 1+; Tear Drop Cells 1+
--- NOTE | 2024-05-25 10:35 | Surgery Progress Note ---
Date of Service May 25, 2024 Assessment & Plan (1) SBO (small bowel obstruction): Plan: clinically improved. +stoma function. no pain or nausea currently will check KUB. if improved will consider removing ngt. (2) Acute dehydration: (3) ARF (acute renal failure): (4) Atrial fibrillation: (5) History of pulmonary embolism: Admission and Anticipated Discharge Date Admission Date: May 24, 2024 Subjective pt seen. feeling much better. no pain or nausea currently. Physical Exam Constitutional: WD/WN, vitals as above no acute distress and not ill appearing Eyes: PERRL, conjunctivae normal, anicteric sclerae EOM intact bilaterally ENMT: external ear and nose normal, oropharynx normal Ears: no hearing impairment Neck: trachea midline, no thyromegaly Respiratory: normal respiratory effort; no respiratory distress and does not use accessory muscles Cardiovascular: Rate/Rhythm: regular rate and regular rhythm Gastrointestinal (Abdomen): soft. ++output from stoma.... liquidy urinary stoma also functioning non-tender/non-distended Skin: no rashes, warm and dry Psychiatric: Orientation: alert, oriented x 3 and cooperative Results & Data Vital Signs (Past 12 Hours) Vital Signs Temp Pulse Pulse Resp BP BP Pulse Ox 05/25/24 08:36 36.5 C 81 20 101/51 L 98 05/25/24 06:22 75 05/25/24 02:49 36.6 C 95 H 18 120/66 93 05/25/24 02:48 95 H 05/25/24 02:33 85 110/68 05/24/24 23:12 36.5 C 63 19 115/67 96 05/24/24 23:07 73 O2 Del Method 05/25/24 08:36 Room Air 05/25/24 06:22 05/25/24 02:49 Room Air 05/25/24 02:48 05/25/24 02:33 05/24/24 23:12 Room Air 05/24/24 23:07 PG Care Time/CCT Total # of Minutes Spent Total Time Spent with Patient: Total time spent is greater than 50% in coordination of care (as documented) at patient's floor/unit and/or counseling patient: Coding Level of Care Code 20850 SUB INP/OBS CARE 2/35MIN Diagnoses SBO (small bowel obstruction) K56.609 Acute dehydration E86.0 ARF (acute renal failure) N17.9 Atrial fibrillation I48.91 History of pulmonary embolism Z86.711
--- NOTE | 2024-05-25 11:07 | XRay Report ---
KUB CLINICAL HISTORY: eval bowel/gas pattern COMPARISON STUDY: CT of the abdomen and pelvis May 24, 2024. KUB May 24, 2024. FINDINGS: Tip of nasogastric tube is within the proximal body of the stomach. Bowel anastomoses antro stomies are noted. A loop of mildly dilated small bowel is present. This is similar to prior exam. IMPRESSION: 1. Loop of mildly dilated small bowel, similar to prior exam. A partial small bowel obstruction solitario ot be excluded. 2. Tip of nasogastric tube within the body of the stomach. ACT 112: Negative or not required by law. Electronically signed by: Akhil Tse M.D. 05/25/2024 11:06 AM
--- OUTSIDE RECORDS SUMMARY | 2024-05-25 11:11 | External Medical Summary | Summary of Care ---
Author Name Unknown Organization [facility] Address [address] [place] [address] Phone [phone] Care Team Providers Care Registered Nurse Behavioral Health Name Role Phone Jael Yu MD Primary Care Provide r Reason for Visit * Reason Onset Date Comments Group Home Visit - Admission 05/24/2024 Encounter Details Date Type Department Care Team (Latest Contact Info) Description 05/24/2024 9:00 AM EDT Group Home Visit [facility] [address] [id number] Casimiro Corado MD [address] [place] [address] HERMINIO Suarez [phone] Chest pain, unspecified type*; MERRICK (acute kidney injury) ([facility]); Hypotension, unspecified hypotension type; Leukocytosis, unspecified type; Nausea and vomiting, unspecified vomiting type; Longstanding persistent atrial fibrillation ([facility]); 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); S/P ileostomy ([facility]); Presence of urostomy ([facility]); Coronary artery disease involving tlingit & haida coronary artery of tlingit & haida heart with other form of angina pectoris ([facility]); PMR (polymyalgia rheumatica) ([facility]); Severe protein-calorie malnutrition (HCC); PVD (peripheral vascular disease) with claudication ([facility]); 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; History of pulmonary embolism; BENIGN HYPERTENSION; S/P CABG x 3 Allergies Active Allergy Reactions Criticality Noted Date Comments Meperidine 04/26/2017 Losartan Rash 07/02/2016 Nitrofurantoin Macrocrystal 04/23/20 16 Spironolactone 02/23/2019 gynecomastia documented as of this encounter (statuses as of 05/24/2024) Medications Medication Sig Dispensed Refills Start Date End Date Status rosuvastatin (CRESTOR) 20 MG TabletIndications: HTN, goal below 140/90 1 (ONE) TABLET, ORAL, DAILY 30 Tab 5 03/16/2017 Active amLODIPine Besylate 5 MG Oral Tablet (Norvasc) Take 1 Tablet by mouth in the morning. 09/25/2020 Active Warfarin Sodium 7.5 MG Oral Tablet (Coumadin) [...] 8 hours as needed for Nausea. Active Metoprolol Succinate ER 50 MG Oral Tablet Extended Release 24 Hour (Toprol XL) Take 1 Tablet by mouth in the morning and 1 Tablet before bedtime. 05/24/2024 Active Famotidine 10 MG Oral Tablet (Pepcid) Take 1 Tablet by mouth every night at bedtime. For heartburn 05/24/2024 Active Gas-X Prevention Oral Capsule Take 1 Capsule by mouth every 4 hours as needed for Gas. 05/24/2024 Active predniSONE 1 MG Oral Tablet (Deltasone) Take 3 Tablets by mouth in the morning. 05/24/2024 Active Promethazine HCl 12.5 MG Oral Tablet (Phenergan) Take 1 Tablet by mouth every 6 hours as needed for Nausea or Vomiting. 05/24/2024 Active tamsulosin (FLOMAX) 0.4 MG Capsule Take 1 Capsule by mouth in the morning. 4 Discontinued predniSONE 1 MG Oral Tablet (Deltasone) Take 4 Tablets by mouth in the morning. 4 Discontinued Metoprolol Succinate ER 50 MG Oral Tablet Extended Release 24 Hour (Toprol XL)Indications:Per sistent atrial fibrillation (HCC) Take 0.5 Tablets by mouth in the morning and 0.5 Tablets before bedtime. 90 Tablet 3 10/28/2022 4 Discontinued documented as of this encounter (statuses as of 05/24/2024) Active Problems Problem Noted Date Diagnosed Date S/P ileostomy 05/24/2024 History of bladder cancer 05/24/2024 History of prostate cancer 05/24/2024 Presence of urostomy 05/24/2024 PMR (polymyalgia rheumatica) 05/24/2024 Malignant neoplasm of trigone of urinary bladder 05/24/2024 Severe protein-calorie malnutrition 05/24/2024 History of pulmonary embolism 05/23/2024 [facility] current use of anticoagulant therapy 1 Longstanding persistent atrial fibrillation 05/02 PVD (peripheral vascular disease) with claudicat ion 06/09/2017 Asymptomatic bilateral carotid artery stenosis 0 01/18/2017 S/P CABG x 3 06/20/2013 BENIGN HYPERTENSION Tobacco use disorder BENIGN NEOPLASM LG BOWEL Atrial fibrillation Overview: Post op CAD (coronary artery disease) documented as of this encounter (statuses as of 05/24/2024) Resolved Problems Problem Noted Date Diagnosed Date Resolved Date Left-sided carotid artery disease 01/25/2017 03/26/2021 HTN (hypertension), malignant 01/25/2017 05/24/2024 Nocturia 05/24/2024 documented as of this encounter (statuses as [...] as of this encounter Progress Notes * Casimiro Corado MD - 05/24/2024 10:38 AM EDT ADMISSION HISTORY and PHYSICAL TRANSITION EVENT: Type: SNF admission Date: May 22 Code Status: Full Code Name: Carlos Montiel Date of : 1940 This note pertains to care provided at [facility]. Please see facility medical record for original note. This note is not to be edited or addended in [employer]. Editing or addending needs to occur in the facilities medical record. S: Carlos Montiel had been admitted to [facility] from [facility] for PT and OT. Recently admitted to [facility] on 05/17/24 because of weakness, poor oral intake, cough, fever, and nausea/vomiting and was transferred here and admitted on 05/22/2024. Patient of Dr. Yu with complicated PMHincluding bladder cancer s/p cystectomy with urostomy placement and LAR with loop ileostomy on 03/13/24 followed by ex lap with lysis of adhesions for SBO on 03/22/24, use of TPN from 03/26/24 until stopped on 05/21/24 during this recent hospital admission, severe protein calorie malnutrition, atrial fibrillation on Coumadin, PE in 11/2023 while on Eliquis so converted to Coumadin, PMR on chronic pred nisone, CAD s/p CABG in 2012, h/o prostate cancer s/p brachytherapy with undetectable PSA, hypertension, carotid stenosis s/p left CEA in 2016, PVD s/p fem-pop bypass of left leg in 2019 and right leg in 2020, thrombectomy of a bypass graft in 2020, and h/o tobacco use who presented to the ED with increased weakness, poor oral intake, cough, nausea, vomiting, and fever that started the day of admission. Patient has had complicated recent history and has been following at [facility] for bladder cancer that was initially diagnosed in 2021. Had underwent chemotherapy and radiation to the bladder, which completed in 2022. He was found to have a PE 11/2023 while on Eliquis and a bladder tumor was noted on imaging. He presented back to [facility] for chemotherapy and then underwent cystectomy and low anterior resection with pelvic lymph node dissection and loop ileostomy on 03/13/24 at [facility]. Postoperative course was complicated by SBO and concern for ischemic bowel so he underwent exploratory laparotomy and lysis and adhesions on 03/22/24. Patient then had PICC line placed on 03/26/24 in order to continue TPN due to inability to eat due to delayed intestinal transit with high output ileostomy leading to nausea, vomiting, and dehydration. Patient had remained on TPN until it was discontinued 05/21/24 during this most recent admission. Patient was admitted to [facility] from 4-04/30/24 following his admission to [facility] for the cystectomy. He was then admitted to [facility] from 05/09-05/12/24 for Klebsiella UTI and pneumonia and was discharged on Augmentin. He did well for a few days but then developed the above symptoms and returned to the ED. In the ED, Chest CT was done, which showed emphysema with areas of background ground-glass which could represent atypical infection. CBC showed WBC of 13.04, hemoglobin of 9.9, platelets of 282. INR was subtherapeutic at 1.4. Sodium was 134, potassium 4.9, BUN 32 and creatinine 1.32. His lactate was 1.2. Liver tests showed total bili of 1.1, AST 38, ALT 31, and alk phos 112. Albumin low at 3.2. UA with 1+ blood, 2+ leuk est, and >50 WBC. Patient was admitted for treatment of possible UTI or pneumonia with IV Zosyn and azithromycin, which were discontinued on 05/20/24. COVID testing was negative. Blood cultures were negative. Urine culture grew yeast and was not treated. Not felt to have pneumonia. Patient was noted to have been eating and drinking on his own. Discussion with [facility] indicated TPN could be discontinued and his PICC line and TPN were discontinued on 05/21/24. Patient was noted to have diarrhea. He has an ileostomy with known history of high output as above.Stool cultures were negative. Given Imodium as needed. His sodium reduced to 129. Due to IV fluid shortage, he was encouraged to increase oral hydration and to have BMP checked in 1-2 days after discharge. He was started on Lovenox due to subtherapeutic INR and to continue until INR therapeutic. Patient's lisinopril was held on admission and restarted on the day of discharge. Patient is now admitted for PT/OT. He lives with his . He notes marked weight loss during the course of his illness. Patient has been very nauseated since shortly after arrival to facility. He ate between 50-75% of dinner on the evening of 05/22/24 and then very little after that. He refused dinner last night due to nausea and vomited his coumadin. He did not eat breakfast this morning. Had nausea and vomiting with constant dry heaves despite Zofran. He was ordered Compazine to use if Zofran ineffective 05/23/24 without much relief. He was also begun on famotidine 10 mg at bedtime and Gas-X every 4 hours as needed due to flatus in ileotomy bag and bloating. Called to see patient urgently this morning at around 8:30 AM. Patient yelling with severe chest pain across his upper chest. Patient appears in distress when seen. Frequent dry heaving and spitting up yellow mucus/vomitus. Patient reports chest pain across the chest and severe nausea. He also reports feeling short of breath. He denies pain anywhere else. He has not had a fever. BP was 129/95 but then dropped to 78/37 during exam. Patient frequently closing his eyes and dosing off before jerking awake again and answering questions. Patient asks to be left alone because he does not feel like talking. Call made to , who is in agreement to transfer back to ED for evaluation. On review of labs from this morning, he has marked abnormalities including MERRICK with creatinine of 4.8 and an elevated WBC of 19. Results for orders placed or performed in visit on 05/24/24 COMPREHENSIVE METABOLIC PANEL Result Value Ref Range BUN 66 (H) 6 - 20 mg/dL CREATININE 4.8 (H) 0.6 - 1.2 mg/dL EGFR 11 (L) >=60 mL/min SODIUM 133 (L) 135 - 146 mmol/L POTASSIUM 5.4 (H) 3.5 - 5.1 mmol/L CHLORIDE 90 (L) 98 - 107 mmol/L CO2 19 (L) 22 - 32 mmol/L ANION GAP 24 (H) 7 - 15 mmol/L GLUCOSE 201 (H) 70 - 120 mg/dL Albumin 3.8 3.8 - 5.0 g/dL AST 16 10 - 50 U/L Alkaline Phosphatase 175 (H) 35 - 130 U/L Bilirubin, Total 0.5 <=1.2 mg/dL CALCIUM 10.3 (H) 8.4 - 10.2 mg/dL Protein 7.0 6.0 - 8.3 g/dL ALT 27 10 - 50 U/L CBC Result Value Ref Range WBC 19.14 (H) 4.00 - 10.80 K/uL RBC 4.29 4.50 - 5.25 M/uL HGB 12.9 (L) 14.0 - 16.8 g/dL HCT 39.2 (L) 40.0 - 48.4 % MCV 91.4 82.0 - 99.5 fL MCH 30.1 27.0 - 34.0 pg MCHC 32.9 32.0 - 36.0 g/dL RDW 16.6 11.5 - 15.5 % PLT 466 (H) 140 - 400 K/uL MPV 10.8 6.6 - 11.1 fL PT INR Result Value Ref Range Prothrombin Time 26.9 (H) 11.6 - 15.2 seconds INR 2.5 (H) 0.8 - 1.2 Past Medical History: Patient Active Problem List Diagnosis BENIGN HYPERTENSION Tobacco use disorder BENIGN NEOPLASM LG BOWEL S/P CABG x 3 Asymptomatic bilateral carotid artery stenosis PVD (peripheral vascular disease) with claudication (HCC) Atrial fibrillation (HCC) CAD (coronary artery disease) History of pulmonary embolism [facility] current use of anticoagulant therapy Longstanding persistent atrial fibrillation (HCC) S/P ileostomy (HCC) History of bladder cancer History of prostate cancer Presence of urostomy (HCC) PMR (polymyalgia rheumatica) (HCC) 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 Famotidine 10 MG Oral Tablet (Pepcid) Take 1 Tablet by mouth every night at bedtime. For heartburn Gas-X Prevention Oral Capsule Take 1 Capsule by mouth every 4 hours as needed for Gas. predniSONE 1 MG Oral Tablet (Deltasone) Take 3 Tablets by mouth in the morning. Promethazine HCl 12.5 MG Oral Tablet (Phenergan) Take 1 Tablet by mouth every 6 hours as needed forNausea or Vomiting. rosuvastatin (CRESTOR) 20 MG Tablet 1 (ONE) TABLET, ORAL, DAILY 30 Tab 5 amLODIPine Besylate 5 MG Oral Tablet (Norvasc) Take 1 Tablet by mouth in the morning. Warfarin Sodium 7.5 MG Oral Tablet (Coumadin) [...] performed by Mariusz Balbuena MD at [facility] CABG, ARTERY-VEIN, THREE 06/20/2013 HEALY-LAD,SVG-OM,SVG-PDA CARDIAC CATH-CARDIOLOGY ONLY 06/2013 EF - 56 FEM/POP ART. REVASC W/STENT+ATHERECTOMY Left 04/08/2021 FEM/POP ART. REVASC W/STENT+ATHERECTOMY performed by Mariusz Balbuena MD at [facility] FEM/POP ARTERY REVASC W/ ARTHRECTOMY Right 02/22/2020 FEM/POP ARTERY REVASC W/ ARTHRECTOMY performed by Mariusz Balbuena MD at [facility] FEM/POP ARTERY REVASC W/ STENT+ANGIOPLASTY Right 06/09/2017 Right lower extremity angiogram, atherectomy/angioplasty, and stent of SFA performed by Mariusz Balbuena MD at [facility] INFORMATION 08/2013 Orbital Atherectomy, DICTIONARY EDITOR, W/drug eluting stent to right SFA INFORMATION Left 12/2013 Stenting of the left SFA INFORMATION Hernia repair, type not specified INFORMATION Multiple cystoscopies. IR ARTERIOGRAM EXTREMITY BILATERAL N/A 02/22/2020 ANGIOGRAPHY EXTREMITY BILATERAL performed by Mariusz Balbuena MD at [facility] IR ARTERIOGRAM EXTREMITY UNILATERAL Left 04/08/2021 IMAGING SUPERVISION & INTERPRETATION EXTREMITY UNILATERAL performed by Mariusz Balbuena MD at [facility] LAPAROSCOPY, SURGICAL; W/LYSIS OF ADHESIONS N/A 03/22/2024 Ex lap, lysis of adhesions for ischemic bowel/SBO PARTIAL REMOVAL OF RECTUM N/A 03/13/2024 LAR with loop ileostomy [facility] [place] APPENDECTOMY ND CYSTO W/REMOVAL OF LESIONS SMALL multiple TURBT REMOVAL OF BLADDER 03/13/2024 [facility]--cystectomy with urostomy REMOVE CATARACT, INSERT LENS PROSTH Bilateral REPAIR INGUINAL HERNIA, UNDER AGE 6 right SIGMOIDOSCOPY/BIOPSY 11/30/2001 polyp x 2 - Dr Miles THROMBECTOMY, PERC SECONDARY ARTERIAL MECHANICAL, ADD-ON Left 04/08/2021 PERCUTANEOUS MECHANICAL THROMBECTOMY, ARTERIAL OR ARTERIAL BYPASS GRAFT, INITIAL VESSEL performed by Mariusz Balbuena MD at [facility] THROMBOENDARECTOMY W/PATCH,NECK INCISION Left 03/03/2017 CAROTID ENDARTERECTOMY performed by Mariusz Balbuena MD at [facility] TIBIAL/PERONEAL ART. REVASC W/ANGIO, FIRST Left 04/08/2021 TIBIAL/PERONEAL ART. REVASC W/ANGIO, FIRST performed by Mariusz Balbuena MD at [facility] Family History Problem Relation Name Age of Onset Heart Disorder Mother MS, heart murmur Asthma Father Cancer Sister Breast Stroke Grandmother (Paternal) Family Status Relation Status Mo at age 82 heart Fa at age 60 asthma, heart Sis at age 44 breast cancer Dung Alive Son Alive PGMA Review of Systems: Constitutional ROS: +weight loss, weakness and fatigue Eye ROS: No recent significant change in vision and No eye pain, redness, discharge Ear ROS: No ear pain, No drainage, No tinnitus or vertigo, and No recent change in hearing Nose ROS: No history of frequent colds or sinusitis, No nasal stuffiness, No history of Hay Fever, and No significant epistaxis Mouth/Throat ROS: No thrush or No sore throat Pulmonary ROS: +SOB and cough Cardiovascular ROS: No orthopnea, No paroxysmal nocturnal dyspnea, No edema, No palpitations, No syncope, and +chest pain, SOB, and atrial fibrillation Gastrointestinal ROS: +intractable nausea and vomiting as above. Recent ileostomy creating with high output and delayed intestinal transit Genito-Urinary Male ROS: +bladder cancer s/p recent cystectomy and urostomy Musculoskeletal/Extremities ROS: +OA Hematologic/Lymphatic ROS: +h/o PE while on Eliquis and now on Coumadin, +anemia Skin/Integumentary ROS: No rash Neurologic ROS: No headaches and No seizures Endocrine ROS: No thyroid trouble and No history of diabetes Psychiatric ROS: No depression, No anxiety, and No psychosis ADL skills: dependent Ambulates with walker OBJECTIVE: PHYSICAL EXAM: I reviewed the most recent facilities vitals. Refer to vital signs flowsheet in jail chart.General: waxing and waning alertness, +moderate distress, cachetic appearing male Head: Normocephalic, +temporal wasting Eye Exam: PERRLA, extraocular movements intact, conjunctiva are pink and non- injected, sclera clear Ears: External ears normal Nose: no mucosal erythema, no mucosal edema, no purulent discharge Oropharynx: no exudate, no erythema, lips, buccal mucosa, and tongue normal, and mucous membranes are moist Neck: supple, no adenopathy Heart: no gallops and irregularly irregular Lungs: chest symmetric with normal AP diameter, no chest deformities noted, no chest wall tenderness, lungs clear to auscultation, decreased breath sounds Abdomen: abdomen soft, non-tender, and +urostomy intact to right abdomen and ileostomy with dark green material and gas in bag on left side of abdomen Extremities: no edema, no clubbing, no cyanosis Neuro Exam: alert & oriented x 3 with fluent speech but frequently dosing off in between questions, no focal motor/sensory deficits ASSESSMENT: Chest pain, unspecified type (Primary)--patient with significant cardiac history and having severe chest pain and SOB. Transfer to ED. MERRICK (acute kidney injury) (HCC)--creatinine was 1.3 on discharge 05/22/24 and now 4.8. Has not beentolerating PO and TPN discontinued 05/21/24. Hypotension, unspecified hypotension type--transfer to ED as above. Leukocytosis, unspecified type--WBC 19 and was normal on discharge 05/22/24. Nausea and vomiting, unspecified vomiting type--Zofran and Compazine ineffective. Longstanding persistent atrial fibrillation (HCC)--INR now 2.5. Is on Coumadin. 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 Has had multiple hospitalizations since the surgery. S/P ileostomy (HCC)--high output. Appears dehydrated. Not tolerating oral intake. Presence of urostomy (HCC)--as above Coronary artery disease involving tlingit & haida coronary artery of tlingit & haida heart with other form of angina pectoris (HCC)--having chest pain. Last cardiac intervention was thrombectomy of a bypass graft in 2020. PMR (polymyalgia rheumatica) ([facility])--on chronic prednisone. Severe protein-calorie malnutrition (HCC)--ongoing. PVD (peripheral vascular disease) with claudication ([facility])--s/p bilateral fem-pop bypasses [facility] current use of anticoagulant therapy History of pulmonary embolism BENIGN HYPERTENSION S/P CABG x 3 PLAN: 1. Continue present medication(s): Patient transferred to ED urgently due to chest pain, hypotension, inability to tolerate PO due to intractable nausea/vomiting and waxing and waning consciousness. Appears dehydrated. Labs with MERRICK and creatinine of 4.8. WBC now elevated to 19. 2. Admission orders, medications, labs, hospital records and care plan reviewed. 3. Surveyor consult, Physical Therapy, Occupational Therapy, and Speech Therapy ordered. 4. Care plan reviewed. 5. Advance Directives were discussed: Full Code 6. Usp Home Treatment Given: Transfer to ED urgently as above Electronically signed by: Casimiro [facility] MD I spent a total of 40-54 minutes (exact time 54 mins) on the date of service in preparation, delivery, and documentation of the care provided to Carlos Montiel excluding any time spent in the performance of separately billed services or time spent by another provider/QHP. documented in this encounter Plan of Treatment Upcoming Encounters Date Type Department Care Team (Late st Contact Info) Description 06/13/2024 4:40 PM EST Anticoagulation [facility], [facility] [address] [place] [address] HERMINIO Champagne [id number] HERMINIO Garza [id number] Health Maintenance Due Date Last Done Comments Depression Screening 1952 Albumin/Creatinine Ratio 11/22/1959 DTap/Tdap Vaccines (1 - Tdap) 1959 Zoster Vaccines (2 of 2) 09/08/2023 07/14/2023 COVID-19 Vaccine (3 - season) 2024 06/05/2022, 05/27/2021 Influenza Vaccine (FLU shot) (#1) 2024 GFR 05/24/2025 05/24/2024, 04/03, 04/26/2024, Additional history exists Pneumococcal Vaccine: 65+ Years [...] this encounter Medical Devices Implanted Type Area Office Automation Clerk Device Identifier Shelf Expiration Date Model / Serial / Lot Patch Xenosure [id number] - [id number] Implanted:Qty: 1 on 03/03/2017 by Mariusz Balbuena MD at [facility] Left: Carotid [employer] 09/28/2022 [id number] / / [id number] Stent Complete Sc 6x40 - [id number] Implanted:Qty: 1 on 06/09/2017 by Mariusz Balbuena MD at [facility] Right: Femoral Artery [employer] : VASCULAR 01/29/2018 [id number] / / [id number] Stent Complete Ne 6x60 - [id number] Implanted:Qty: 1 on 06/09/2017 by Mariusz Balbuena MD at [facility] Right: Femoral Artery [employer] : VASCULAR 12/21/2017 [id number] / / [id number] documented as of this encounter Visit Diagnoses Diagnosis Chest pain, unspecified type- Primary MERRICK (acute kidney injury) (HCC) Acute kidney failure, unspecified Hypotension, unspecified hypotension type Leukocytosis, unspecified type Nausea and vomiting, unspecified vomiting type Longstanding persistent atrial fibrillation (HCC) 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) Malignant neoplasm of trigone of urinary bladder S/P ileostomy (HCC) Ileostomy status Presence of urostomy (HCC) Coronary artery disease involving tlingit & haida coronary artery of tlingit & ha[place] heart with other form of angina pectoris (HCC) PMR (polymyalgia rheumatica) (HCC) Polymyalgia rheumatica Severe protein-calorie malnutrition (HCC) Other severe protein-calorie malnutrition PVD (peripheral vascular disease) with claudication (HCC) Peripheral vascular disease, unspecified [facility] current use of anticoagulant therapy History of pulmonary embolism Personal history of pulmonary embolism BENIGN HYPERTENSION Unspecified essential hypertension S/P CABG x 3 Postsurgical aortocoronary bypass status documented in this encounter Advance Directives * Full Code (Latest Code Status on File) Date Activated Date Inactivated Comments 03/03/2017 11:23 AM 03/04/2017 9:50 PM This order re flects the patients wishes and were consensually agreed upon. Care Teams Registered Nurse Behavioral Health Relationship Specialty Start Date End Date Jael Yu MD [address] [place] [address] PCP - General Internal Medicine 05/23/24 documented as of this encounter
[2024-05-25] MEDS ORDERED: METOPROLOL TARTRATE 1 MG/ML VIAL IV PRN (11:40)
--- NOTE | 2024-05-25 12:17 | Discharge Summary ---
Discharge Summary Date of Service May 25, 2024 Principal Dx & Hospital Course #1 = Principal Diagnosis (1) Sepsis: Presented with nausea/vomiting, subjective fever, worsening cough, change in sputum production to dark/brown, increased ostomy output Leukocytosis 22.71,tachycardia, tachypnea, Procal 0.55, lactate 6.8 and hypotensive on arrival Received IVF resuscitation and IV stress dose steroids and had improvement in BP, HR CTA/P with evidence of partial SBO but with any evidence of mesenteric ischemia. Chest CT with aspiration pneumonitis likely from vomiting Treated empirically with Zosyn and doxy C. diff negative BCx NGTD at 24 hr david UA not consistent with infection but UCx pending Sputum culture ordered Continue stress dosed steroids with IV hydrocortisone Communicated with Dr. Cifuentes [facility] phone/text [phone]. He and his team would like pt to transfer down for recurrent issues with infection and partial SBO (2) SBO (small bowel obstruction): Partial SBO on imaging, NGT placed and now passing plenty of loose stool in ostomy bag, no nausea. Clamp NGT and keep in place for now in case has recurrent issues and needs to place back to LIS. Start small amounts of clears Transferring to [place] as he likely has recurrent issues from adhesions or perhaps from Imodium use for high output ostomy. They are considering G-tube placement (3) ARF (acute renal failure): Baseline creatinine approximately 1.2, Creatinine on admission 5.28 Oliguric x 24 hours gradually decreasing urine with profound volume contraction, nausea, vomiting, and adrenal insufficiency-induced hypotension. 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 Complicated postop course placed on TPN at discharge. TPN subsequently was continued 05/2024 after patient received discussion hospitalization [place] provider at that time (5) Atrial fibrillation: A-fib on Coumadin, history of acquired hemophilia A EKG A-fib rate [id number]. QT 540. Branch block redemonstrated. Give IV metoprolol prn HR>120 while NPO for bowel issues INR 3.2 so holding Coumadin and holding previous bridging Lovenox Follow INR FOllow on tele Plan Chronic issues: HFrEF, CAD- History of CABG, also with peripheral vascular disease and multiple stents Last EF 50-54% pulmonary hypertension Continue metoprolol IV prn until home po metoprolol can be resumed Lisinopril held for ARF Cystectomy: Urostomy in place. Will have chronic kidney infected appearing UAs PMR: Steroid-dependent, on 4 mg of prednisone daily. Stress steroids ongoing Anemia of chronic disease: Baseline hemoglobin last around 9.6, hemoglobin 12.7 on admission. Hemoconcentrated. Trended. No indication for transfusion at this time DVT prophylaxis: Anticoagulated Disposition: PCU--> transfer to [facility] once bed available CODE STATUS: DNR/DNI. This represents a change from patient's prior CODE STATUS of full code. Discussed with patient at bedside. He reports in the event of a cardiac or pulmonary arrest he would not want heroic measures and would want to be allowed to pass at that point. He would be okay with intubation in some circumstances for airway protection or declining respiratory status. Notes For Next Care Provider Transferred to [facility] Medication Changes From Visit On ZOsyn and doxy empirically for sepsis, PNA, in case of bacteremia-blood cultures pending Admission HPI Per Admitting Provider Carlos is an 83-year-old male history of Afib, high grade small cell and sarcomatoid invasive bladder cancer, HFrEF, anemia of chronic disease, steroid dependence, and recent dc 05/24/24 after admission to [facility] for fever suspected to be due to UTI versus pneumonia following treatment with Zosyn/azithromycin and he was discharged to [facility] for rehab. Hospital courses has been complicated by very poor nutrition to which patient had intermittently been receiving TPN, PICC was removed 10/22 and TPN dc/ed after discussion between [facility] oncologist, primary team, and patient at that time. Patient presents emergency department 05/20/2024 weakness, fever, acute worsened diarrhea x36 hours, and worsened cough, chills, increased sputum production with change in quality to dark yellow/green/brown over the last 24 hours. He is hypotensive with an elevated lactate on arrival to the ER. On ER evaluation he was found to have a leukocytosis of 22 with neutrophilic predominance, creatinine of 5.28 from baseline 1.31, lactate of 6.3, BSG 220, UA with leukocyte esterase and high white blood cell counts without bacteria or nitrites, and sodium of 131. Patient was started empirically on Zosyn. Was given 2500 cc of IV fluids which meets sepsis 30 cc/kg goal of approximately 2000 cc. EKG A-fib with right bundle branch block, QTc 540. Carlos is seen at bedside. He reports for the last 36 hours he has had chills, increased weakness, increased sputum production and cough with a change in his sputum to a dark yellow/green/brown color in the last day. He feels very tired and thirsty but has been nauseous with vomiting times including 3 times this morning. No blood, emesis is a dark green color. He denies any abdominal pain but does have some discomfort in his throat after vomiting. No hematemesis. He reports output into his everting ostomy has been increased in liquid and dark green in color. His urostomy output has been a cloudy dark yellow, output has decreased in the last day compared to normal. He does not have any flank pain. He has noticed a fever but has felt feverish with chills. Denies chest pain chest pressure. He is not short of breath. Medical History: Reviewed Medications: Reviewed Surgical History: Reviewed Family history: Reviewed Allergies: Reviewed Social History: Reviewed Code Status: DNR/DNI. Discussed with the patient and his at bedside this is a change from prior CODE STATUS. Discharge Exam Constitutional + thin and + cachectic Respiratory normal respiratory effort, lungs clear to auscultation Cardiovascular Rate/Rhythm: regular rate and + irregularly irregular Heart Sounds: no murmur Extremities: no edema Gastrointestinal (Abdomen) Inspection/Auscultation: normal bowel sounds; + abdomen abnormal to inspection (urostomy bag in place with yellow urine;colostomy w/ dark brown fluid) Percussion/Palpation: abdomen nontender Psychiatric A+Ox3, euthymic affect Discharge Plan Discharge Items Patient Disposition: Transfer Acute Care Hospital Reason For Visit: SBO, PNA, SEPSIS Discharge Diagnosis: Partial SBO MERRICK Septic shock vs hypovolemic shock Condition on Discharge: Serious Activity: As commented below Lifting: None Bathing: No limitations Exercise/Sports: Rest today Non-emergency contact: Primary Care Provider and Surgeon Call non-emergency contact if: you have any medication questions and your symptoms worsen Follow-up/Referrals: Casimiro Corado MD [Primary Care Provider] - Diet: Clear liquid Addtl Attending Provider Instructions: Transferred to [facility] in [place] Pending Studies at Discharge: Yes (Blood cultures,urine culture,C. diff) Stand-Alone Forms: My [facility] Skilled Items Patient informed of condition?: Yes DNR: Yes Discharge Level of Care: Other Communicable Disease: No Discharge Prognosis: Stable Lines: Peripheral IV Urinary Catheter: No Medications and DC Order Prescriptions: Continued prednisone 1 mg tablet 4 mg PO QAM 90 Days Qty: 360 1RF ondansetron 4 mg tablet,disintegrating 4 mg PO Q8H PRN (Reason: Nausea) Held tamsulosin 0.4 mg capsule 0.4 mg PO QAM Hold Instructions: Resume on 06/01/24. rosuvastatin [Crestor] 20 mg tablet 20 mg PO HS Qty: 90 3RF Hold Instructions: Resume on 06/01/24. calcium carbonate 500 mg calcium (1,250 mg) Tablet,Chewable 500 mg PO Q2H PRN (Reason: indigestion ) Hold Instructions: Resume on 06/01/24. lisinopril 5 mg Tablet 5 mg PO DAILY Hold Instructions: Resume on 06/01/24. metoprolol succinate 50 mg tablet extended release 24 hr 50 mg PO Q12H Hold Instructions: Resume on 06/01/24. amlodipine 10 mg tablet 5 mg PO QAM Hold Instructions: Resume on 06/01/24. warfarin [Jantoven] 7.5 mg Tablet 7.5 mg PO DAILY@1600 Qty: 30 0RF Hold Instructions: Resume on 06/01/24. enoxaparin 60 mg/0.6 mL Syringe 60 mg subcut BID 5 Days Qty: 6 0RF Hold Instructions: Resume on 06/01/24. Discontinued loperamide [Imodium A-D] 2 mg Capsule 2 mg PO BID Discharge Orders: Discharge Order (Routine); Ordered 05/25/24 Ordered By: Rina Meyer Admission Data Admit Date/Time: 05/24/24 15:07 Attending Provider: Rina Meyer Admit Provider: Isma Gibbs Primary Care Provider: Casimiro Corado Other Providers: Isma Gibbs; Walter Raya; Beau Siu Hospital Stay Data Consultations 05/24/24 12:05 ED Decision to Admit Stat 05/24/24 12:38 Consult General Surgery Routine 05/25/24 10:52 Consult Nephrology Routine Diagnostic Imagining Performed 05/24/24 12:37 CT abd pelvis wo con Stat CT chest diagnostic wo con Stat Discharge Instructions Given to Patient (Per Discharging Provider) Transferred to [facility] in [place] Total Time Total Time Spent Total Time Spent (In Minutes): 60 min Total Time Includes: Examination of the Patient, Discharge Planning, Medication Reconciliation and Communication With Other Providers Coding Level of Care Code 71846 INP/OBS DISCH >30 MIN Diagnoses Sepsis A41.9 SBO (small bowel obstruction) K56.609 ARF (acute renal failure) N17.9 Hx of bladder cancer Z85.51 Atrial fibrillation I48.91
[2024-05-25] MEDS ORDERED: MECLIZINE HCL 25 MG TAB PO PRN (12:41)
[2024-05-25 13:56] VITALS: RESP 16
[2024-05-25 14:35] LABS: BUN Creatinine Ratio 14.7 (10-20); Calcium 8.6 mg/dl (8.6-10.3); Creatinine Clr Calc Pharmacy 9.5 ml/min
[2024-05-25] MEDS ORDERED: GLUCAGON FOR INJ 1 MG VIAL SQ PRN (15:55)
[2024-05-25] MEDS ORDERED: DEXTROSE 50% 50 ML SYRINGE IV PRN (15:55)
[2024-05-25] MEDS ORDERED: GLUCOSE 40% GEL 15 GM TUBE PO PRN (15:55)
[2024-05-25] MEDS ORDERED: CARBOHYDRATES FOR HYPOGLYCEMIA PO PRN (15:55)
[2024-05-25] MEDS ORDERED: GLUCOSE 10 TAB/TUBE PO PRN (15:55)
[2024-05-25] MEDS: INSULIN ASPART PER UNIT CHARGE SC SCH (17:17)
--- NOTE | 2024-05-25 18:25 | Nephrology Consultation ---
Date of Consultation May 25, 2024 Assessment & Plan (1) Acute dehydration: IVF provided. Additional 500 ml of plasmalyte provided now. Document strict I/O's. Repeat metabolic profile tomorrow AM. Tolerating PO fluids. (2) MERRICK (acute kidney injury): Non-oliguric. BP acceptable. Electrolytes normalized. Urine output increasing throughout the day. 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 Clinical presentation consistent with prerenal physiology and hemodynamically mediated ATN. Medications are appropriately dosed for kidney function. Document strict I/O's. Repeat metabolic profile tomorrow AM. (3) Hyperkalemia: Improving with IVF and increased urine output. Low potassium diet/fluids. (4) (HFpEF) heart failure with preserved ejection fraction: No signs of decompensated CHF. Remains volume depleted. Additional isotonic fluids to be provided through the IV now. Goal is to maintain a positive fluid balance. History of Present Illness Reason for Consultation: MERRICK,h/o urostomy Requesting Physician: Rina Meyer MD Attending Physician: Rina Meyer MD History of Present Illness Mr. Carlos Clarke is an 83 year-old male with a baseline creatinine of 1.3 mg/dL (05/22). He presented to [facility] yesterday with weakness, fever, chills, cough and chest congestion, as well as increased output from his colostomy. Nephrology consultation requested by Dr. Meyer for evaluation of MERRICK. I discussed the case with Dr. Meyer earlier today. Serum creatinine yesterday measured at 5.3 mg/dL and stable at 5.24 mg/dL this afternoon. Urine output has increased throughout the course of the day (~750 ml). IVF were discontinued and Carlos is taking a liquid diet. He was resting comfortably in bed at the time of my assessment with his daughter at the bedside. Arrangements are in progress for transfer to [place]. Carlos was admitted to [facility] earlier this month with Klebsiella UTI and suspected pneumonia. He was discharged to [facility] for rehab where he completed a course of Augmentin. Carlos was then readmitted from 05/17- with weakness attributed to deconditioning, acute illness myopathy and acute sarcopenia. He was discharged to [facility] for additional rehab. He was intermittently receiving TPN. PICC was removed 05/22. Medical history is notable for atrial fibrillation, high grade small cell and sarcomatoid invasive bladder cancer, HFrEF, anemia of chronic disease, and steroid dependence. Carlos has a history of prostate cancer treated with brachytherapy in 2008. For bladder cancer, he underwent a cystectomy with ileal conduit and then diverting loop ileostomy at [facility] in March. Following the cystectomy, he developed evidence of small bowel obstruction and exploratory laparotomy demonstrated no obstructing lesions. Carlos has unfortunately struggled with a failure to thrive type of picture since. Current admission with increased ostomy output, associated dehydration, evidence of aspiration pneumonitis, possible UTI with enterococcus in the urine, and possible partial SBO. IVFs, Zosyn, doxycycline, and hydrocortisone have been provided. Allergies Allergy/AdvReac Type Severity Reaction Status Date / Time nitrofurantoin Allergy Intermediate FEVER Verified 05/04/24 15:21 losartan Allergy Mild Rash Verified 05/04/24 15:21 meperidine AdvReac Intermediate SEVERE Verified 05/04/24 15:21 NAUSEA AND VOMITING spironolactone AdvReac Intermediate gynecomasti Verified 05/04/24 15:21 a Home Medications Medication Instructions Recorded Confirmed Type rosuvastatin 20 mg tablet (Crestor) 20 mg PO HS #90 tabs 08/09/23 05/24/24 Rx tamsulosin 0.4 mg capsule 0.4 mg PO QAM 01/12/24 05/24/24 History prednisone 1 mg tablet 4 mg (4 x 1 mg) PO QAM arthritis 01/26/24 05/24/24 Rx 90 days #360 tabs amlodipine 10 mg tablet 5 mg PO QAM 04/11/24 05/24/24 History calcium carbonate 500 mg PO Q2H PRN indigestion 04/11/24 05/24/24 History lisinopril 5 mg tablet 5 mg PO DAILY 04/11/24 05/24/24 History metoprolol succinate 50 mg 50 mg PO Q12H 04/11/24 05/24/24 History tablet,extended release 24 hr loperamide 2 mg capsule (Imodium 2 mg PO BID 05/08/24 05/24/24 History A-D) ondansetron 4 mg disintegrating 4 mg PO Q8H PRN Nausea 05/08/24 05/24/24 History tablet enoxaparin 60 mg/0.6 mL 60 mg (0.6 mL) subcut BID 5 days 05/22/24 05/24/24 Rx subcutaneous syringe #6 mL warfarin 7.5 mg tablet (Jantoven) 7.5 mg PO DAILY@1600 #30 tabs 05/22/24 05/24/24 Rx Patient History Medical History Mixed hyperlipidemia Hypertension Peripheral arterial disease - Status post stenting of bilateral superficial femoral [id number] - Status post atherectomy and angioplasty and stenting of right SFA 2016 - S/p atherectomy and drug-coated balloon angioplasty right SFA January 2020 - S/p right femoral-popliteal bypass April 2021 Polymyalgia rheumatica Hx of bladder cancer 07/2022, sx and chemo 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 Treated in [place]. Resolved at present retirement (current) use of systemic steroids Pulmonary hypertension PASP 40-50 mmHg per 03/2023 ECHO COPD (chronic obstructive pulmonary disease) Suspected sleep apnea noted on 07/31/18 anesthesia consult; pt denies, "no device, no study done" Bifascicular block RBBB/LAFB (chronic) Carotid stenosis, bilateral s/p left CEA in 2016 <50% R and L carotid stenosis per 2021 carotid duplex, follows with [facility] vascular Ascending aortic aneurysm Fusiform dilation of the ascending thoracic aorta is stable from prior measuring 4.2 cm per 12/02/[address]; monitoring Tricuspid regurgitation severe- per 03/2023 ECHO Hx of motion sickness History of COVID-19 02/05/22, home test, not hosp; cough, headache, fever>called PCP, put on Paxlovid>resolved. Radiation cystitis hx Prostate cancer 2011 hx-had radioactive seeds placed, no sx. Surgical History History of removal of Port-a-Cath (06/30/23) Access Port Removal(Left) - Sanford Perez DO, FACS Hx of cataract extraction rt./lt History of surgery TURBT 04/07/23 [facility] TURBT 11/2023 [facility] Status post carotid endarterectomy left 2017 Hx of appendectomy Hx of colonoscopy Hx of vascular surgery x2 stents placed in each lower extremity, [place] Hx of cystoscopy multiple, 08/01/18: LMA 4 last one in Jul 2022 Cystoscopy, TURBT medium- Terry Townsend MD S/P left inguinal hernia repair Status post cardiac surgery failed stress test>bypass surgery 2013, [place], x3 vessels; f/u dr beckford History of biopsy of bladder Family History Sister Breast cancer Mother Diabetes Heart disease Other Asthma Cancer No family history of adverse response to anesthesia Denies family history of Ovarian cancer Prostate cancer Social History Smoking Status: Former smoker Tobacco Type: Cigarettes packs per day: 1; Cigarettes Per Day: smoked 40 years; Second Hand Exposure: No; Do You Dip or Chew Tobacco: No; Hx Alcohol Use: Yes Alcohol type: beer Hx Substance Use: No Preferred Language: Nepali Communication Ability: Effective Communication Ability Comment: [place] Visual Impairment: No Limitations Hearing Ability: Normal Nailer Machine Required: No Beliefs That Will Affect Care: None marital status: Current Living Situation: Spouse current occupational status: retired How many Children do You have: 2 Feels Safe at Home: Yes Safety Concerns: Feels Safe At This Time Childhood Exposure to Second-Hand Smoke: No caffeine: Yes during the past year weight has: remained stable Dental Care, Regularly: Yes Physical Activity Frequency: 3-4 Times per Week Seatbelt Use: always Sunscreen Use: Yes Assistive Devices: Walker Review of Systems Review of Systems: All systems reviewed & are unremarkable except as noted in HPI & below Physical Exam Constitutional: + thin; no acute distress Eyes: + anicteric sclerae ENMT: Mouth: + dry oral mucous membranes Neck: normal visual inspection and trachea midline Respiratory: normal respiratory effort; no labored breathing Cardiovascular: Rate/Rhythm: + irregularly irregular Heart Sounds: normal S1 and normal S2 Vessels: no JVD Extremities: no edema Gastrointestinal (Abdomen): Percussion/Palpation: abdomen soft; no guarding and abdomen not rigid colostomy with liquid green stool in bag. urostomy with clear yellow urine. Musculoskeletal: Extremities: no cyanosis and no clubbing Skin: + turgor decreased; no jaundice Neurologic: Motor/Sensory: no tremor and no asterixis Psychiatric: Orientation: alert and oriented x 3 Results & Data Vital Signs (Past 12 Hours) Vital Signs Temp Pulse Resp BP Pulse Ox O2 Del Method 05/25/24 16:11 36.6 C 88 16 114/53 L 95 Room Air 05/25/24 12:39 36.8 C 95 H 16 114/55 L 99 Room Air 05/25/24 08:36 36.5 C 81 20 101/51 L 98 Room Air Laboratory Results Laboratory Results - last 24 hr 05/24/24 05/25/24 05/25/24 18:14 08:06 14:05 WBC 21.02 H RBC 3.48 L Hgb 10.4 L Hct 31.8 L MCV 91.4 MCH 29.9 MCHC 32.7 RDW Std Deviation 55.0 H RDW Coeff of Greyson 16.7 H Plt Count 276 MPV 10.0 Immature Gran % (Auto) 0.9 Neut % (Auto) 90.4 Lymph % (Auto) 2.9 Archer % (Auto) 5.7 Eos % (Auto) 0.0 Baso % (Auto) 0.1 Neut # (Auto) 18.98 H Lymph # (Auto) 0.62 L Archer # (Auto) 1.20 H Eos # (Auto) 0.01 Baso # (Auto) 0.03 Immature Gran # (Auto) 0.18 Hypersegmented Neuts 1+ Polychromasia 1+ Tear Drop Cells 1+ Echinocytes 1+ PT 33.4 H INR 3.4 H Sodium 132 L 133 L 135 L Potassium 5.8 H 5.3 H 5.0 Chloride 98 98 99 Carbon Dioxide 21 22 21 Anion Gap 13 H 13 H 15 H BUN 71 H 76 H 77 H Creatinine 5.10 H* 5.35 H* 5.24 H* Est Cr Clr Drug Dosing 10.6 9.3 9.5 eGFR 10.64 10.04 10.30 BUN/Creatinine Ratio 13.9 14.2 14.7 Glucose 206 H 163 H 195 H Lactate 2.7 H* 2.9 H* Calcium 8.6 8.6 8.6 Magnesium 2.2 Total Bilirubin 0.5 AST 10 L ALT 13 Alkaline Phosphatase 94 Total Protein 6.0 D Albumin 3.1 L Globulin 2.9 Albumin/Globulin Ratio 1.1 Stl C. diff Tox B Gene 05/25/24 Unknown WBC RBC Hgb Hct MCV MCH MCHC RDW Std Deviation RDW Coeff of Greyson Plt Count MPV Immature Gran % (Auto) Neut % (Auto) Lymph % (Auto) Archer % (Auto) Eos % (Auto) Baso % (Auto) Neut # (Auto) Lymph # (Auto) Archer # (Auto) Eos # (Auto) Baso # (Auto) Immature Gran # (Auto) Hypersegmented Neuts Polychromasia Tear Drop Cells Echinocytes PT INR Sodium Potassium Chloride Carbon Dioxide Anion Gap BUN Creatinine Est Cr Clr Drug Dosing eGFR BUN/Creatinine Ratio Glucose Lactate Calcium Magnesium Total Bilirubin AST ALT Alkaline Phosphatase Total Protein Albumin Globulin Albumin/Globulin Ratio Stl C. diff Tox B Gene Negative Cdiff Gene Diagnostic Findings CT SCAN OF THE ABDOMEN AND PELVIS WITHOUT IV CONTRAST COMPARISON STUDY: Abdominal CT dated 05/20/2024. Abdominal radiographs dated 05/24/2024. FINDINGS: Lung bases: The patient is status post midline sternotomy. The heart is markedly enlarged and without pericardial effusion. The coronary arteries are densely calcified. Emphysematous changes observed. Mild patchy airspace consolidation is seen at both lung bases. No pleural effusion is identified. Liver: The unenhanced liver is normal in size, contour, and attenuation. There is no intrahepatic biliary ductal dilatation. Scattered hepatic cysts measure up to 3 cm. Gallbladder: Unremarkable. Spleen: Normal in size and attenuation. Pancreas: The unenhanced pancreas is mildly atrophic and grossly unremarkable. Adrenal glands: Unremarkable. Kidneys: The unenhanced kidneys are normal in size and without hydronephrosis. Renovascular calcifications are seen bilaterally. A 3 mm nonobstructing calculus is suggested in the left upper pole. There is no evidence of contour deforming renal mass lesion. Abdominal vasculature: There is advanced atherosclerotic calcification and ectasia of the abdominal aorta. 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 An ileal conduit/urostomy is seen in the right lower quadrant. The proximal small bowel loops are mildly dilated and fluid-filled measuring up to 3.2 cm in diameter. There are numerous matted loops of small bowel in the pelvis, in the distal small bowel/colon are decompressed. No discrete transition point is identified. No pneumatosis intestinalis or portal v enous gas is seen. Peritoneum: There is no intraperitoneal free air or abdominal ascites. Lymphadenopathy: None. Pelvic viscera: There is postsurgical change from cystectomy and prostatectomy. Skeletal structures: The skeletal structures are osteopenic. There is mild lumbosacral spondylosis. No lytic or blastic lesions are seen. IMPRESSION: 1. Significantly suboptimal examination without oral and IV contrast. There is also streak and motion artifact. 2. There is postsurgical change from cystectomy and prostatectomy with right lower quadrant ileal conduit/urostomy, as well as proctocolectomy with left lower quadrant colostomy. 3. There are mildly dilated and fluid-filled loops of proximal small bowel, with matted small bowel loops in the pelvis. The distal small bowel and colon are decompressed and this may represent a low-grade/partial obstruction. A discrete transition point/high grade obstruction is not seen. Clinical correlation will be essential. 4. Cardiomegaly and emphysema. 5. Mild patchy airspace consolidation is seen at the lung bases. Correlate clinically for evidence of pneumonia/aspiration pneumonitis. Radiographic follow-up to resolution is recommended. PG Care Time/CCT Total # of Minutes Spent Total Time Spent with Patient: Total time spent is greater than 50% in coordination of care (as documented) at patient's floor/unit and/or counseling patient: Coding Level of Care Code 84836 IN/OBS CONSULT LVL 4,60M Diagnoses Acute dehydration E86.0 MERRICK (acute kidney injury) N17.9 Hyperkalemia E87.5 (HFpEF) heart failure with preserved ejection fraction I50.30
[2024-05-25] MEDS: PLASMA-LYTE A 500 ML IV ONE (18:42)
[2024-05-25 20:10] VITALS: BP 150/52; PULSE 78; TEMP 97.5; O2SAT 98
== END 2024-05-25 20:00 | disposition short-term general hospital (02) | DRG 871 ==
LOC: ED 09:39 → SUATTDRO 15:07 → EDINP 15:07 → 2E 20:36